=== PATIENT | female | born 1950 | race Caucasian/White ===

== ENCOUNTER 2022-03-06 07:47 | Inpatient (IN) ==
--- NOTE | 2022-03-06 08:00 | Emergency Department Note ---
HPI General Chief complaint: Weakness Stated complaint: Fall, weakness Time Seen by Provider: 03/06/22 07:58 Source: patient and family Mode of arrival: wheelchair Limitations: no limitations History of Present Illness HPI Narrative: Narrative: Patient is a 71-year-old female with a complex medical history who presents to the emergency department due to weakness, body aches, and twitching that led to a fall. Patient states that she felt weak this morning, and then her left leg gave out causing her to fall to the ground. She states that she hit her head. Patient does take blood thinners. She denies headache, nausea, vomiting, changes in vision/hearing/speech, and new numbness/tingling/weakness. She does endorse right arm pain and leg pain. She states that she has chronic swelling in her lower extremities, and that this is actually improved. She states that her left leg is always larger than her right leg, and that there is no increase in swelling in the left leg at this time. She denies any other concerns at this time. Related Data Home Medications Medication Instructions Recorded Confirmed aspirin 81 mg tablet,delayed 81 mg PO QDAY 10/08/21 03/06/22 release (Adult Low Dose Aspirin) Previous Rx's Medication Instructions Recorded pressure cushion for wheelchair #1 ea 09/28/19 allopurinol 300 mg tablet See Rx Instructions .Route 01/27/21 .COMPLEX #90 tabs trospium 20 mg tablet See Rx Instructions .Route 03/13/21 .COMPLEX #180 tabs dicyclomine 10 mg capsule See Rx Instructions .Route 07/10/21 .COMPLEX #90 caps gabapentin 300 mg capsule See Rx Instructions .Route 07/10/21 .COMPLEX #90 caps potassium chloride 10 mEq See Rx Instructions .Route 08/26/21 tablet,extended release .COMPLEX #90 tabs losartan 50 mg tablet 50 mg PO BID #180 tabs 09/07/21 spironolactone 25 mg tablet See Rx Instructions .Route 09/07/21 .COMPLEX #90 tabs carvedilol 6.25 mg tablet See Rx Instructions .Route 12/07/21 .COMPLEX #180 tabs levothyroxine 125 mcg tablet 125 mcg PO QDAY thyroid #90 tabs 12/07/21 (Levoxyl) Breast Prosthesis left side #1 ea 12/11/21 Mastectomy Bras #6 ea 12/11/21 apixaban 5 mg tablet (Eliquis) See Rx Instructions .Route 12/29/21 .COMPLEX #60 tabs torsemide 10 mg tablet See Rx Instructions .Route 01/04/22 .COMPLEX #90 tabs metformin 500 mg tablet See Rx Instructions .Route 02/18/22 .COMPLEX #180 tabs pravastatin 40 mg tablet See Rx Instructions .Route 02/24/22 .COMPLEX #90 tabs hydrocodone 10 mg-acetaminophen 1 tab PO Q8H chronic lumbar 03/02/22 325 mg tablet radiculopathy #90 tabs chlorthalidone 50 mg tablet 50 mg PO QDAY #90 tabs 03/03/22 Allergies Allergy/AdvReac Type Severity Reaction Status Date / Time adhesive tape Allergy Unknown Rash Verified 03/06/22 07:48 ciprofloxacin [From Cipro] Allergy Unknown Dermatological Verified 03/06/22 07:48 problems, rash, hives DIMAS Inhibitors AdvReac Intermediate Cough Verified 03/06/22 07:48 Review of Systems ROS ROS Narrative: Narrative: Constitutional: Reports weakness; Denies fever Eyes: Denies eye pain or vision change ENT ED: Denies throat pain, hearing loss or rhinorrhea Cardiovascular: Reports edema; Denies chest pain, dyspnea on exertion or orthopnea Respiratory: Denies shortness of breath or cough Gastrointestinal: Denies abdominal pain, nausea, vomiting, diarrhea or constipation Musculoskeletal: Reports other (Body aches, brief weakness, right arm and leg pain); Denies back pain Integumentary: Denies rash or lesions Neurological: Denies headache, weakness, numbness, confusion, abnormal gait or dizziness Psychiatric: Denies anxiety, suicidal thoughts or homicidal thoughts Endocrine: Denies fatigue or polyuria Hematological/Lymphatic: Denies easy bleeding or easy bruising PFS Narrative Patient History Narrative: Narrative: Medical/Surgical/Family History All Active Problems Acute bronchitis (Acute) Hoarseness (Acute) Prediabetes (Acute) Lumbar radiculopathy (Acute) Arthralgia (Chronic) Encounter for medication monitoring (Acute) Right hip pain (Acute) Anemia (Acute) Thrombophlebitis leg (Chronic ~03/2000) Numbness (Chronic) Venous insufficiency of both lower extremities (Chronic) Edema (Chronic) Knee pain, left (Chronic) Hypertonicity, bladder (Chronic) Anxiety (Chronic) Stress (Chronic) Osteoarthritis (Chronic) Homocystinemia (Chronic) Abnormal finding on mammography, microcalcification (Chronic) Anemia in chronic kidney disease (Chronic) 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) Toe pain (Chronic) Lesion of face (Chronic) Mood swings (Chronic) Libido, decreased (Chronic) Night sweats (Chronic) Elevated sedimentation rate (Chronic) Abnormal levels of other serum enzymes (Chronic) Visual changes (Chronic) Muscle spasm (Chronic) Hip pain, left (Chronic) Skin lesion (Chronic) Seborrheic keratoses (Chronic) Skin tag (Chronic) Finger pain (Chronic) Other seborrheic keratosis (Chronic) Osteoarthritis of knees, bilateral (Chronic) Osteoarthritis of hands, bilateral (Chronic) Invasive ductal carcinoma of left breast (Chronic) Urinary frequency (Chronic) Urinary incontinence (Chronic) Fatigue (Chronic) Overactive bladder (Chronic) Chronic back pain (Chronic) Encounter for therapeutic drug level monitoring (Chronic) Anxiety with depression (Chronic) Osteoarthritis, multiple sites (Chronic) GERD with esophagitis (Chronic) Numbness and tingling sensation of skin (Chronic) Heart murmur (Chronic) Pain in right wrist (Chronic) Wrist pain, left (Chronic) Peripheral neuropathy (Chronic) Abnormal EKG (Chronic) Personal history of malignant neoplasm of breast (Chronic) Obesity (Chronic) Polyneuropathy (Chronic) Metabolic syndrome X (Chronic) Pain, joint, hip, right (Chronic) History of bilateral knee replacement (Chronic ~2002) Chronic venous insufficiency (Chronic) Chronic Kidney Disease (Chronic) Elevated liver enzymes (Chronic) Insulin resistance syndrome (Chronic) Hypercalcemia (Chronic) Hypertension (Chronic) Toe amputation status (Chronic ~06/2012) History of removal of nevus (Chronic ~10/2006) History of lumpectomy of right breast (Chronic) History of lumpectomy of left breast (Chronic) Vitamin D deficiency (Chronic 06/19/12) Urge incontinence (Chronic) Thrombophlebitis (Chronic) Squamous cell carcinoma (Chronic) Knee osteoarthritis (Chronic) Severe obesity (Chronic) Nocturia (Chronic) Metabolic syndrome (Chronic) Hypothyroidism (Chronic) Pure hypertriglyceridemia (Chronic) Hypertensive renal disease (Chronic) Hyperlipidemia (Chronic) Gout (Chronic) Screening cholesterol level (Chronic) Breast cancer (Chronic) Abnormal LFTs (Chronic) Fluid retention (Chronic) Abnormal serum enzyme level (Chronic) Chronic kidney disease, stage III (moderate) (Chronic) Medical History Abnormal EKG Abnormal finding on mammography, microcalcification Abnormal levels of other serum enzymes Abnormal LFTs Abnormal serum enzyme level Anemia in chronic kidney disease Anxiety Anxiety with depression Arthralgia Breast cancer Status post lumpectomy on oeft breast. 2 out of 26 axillary lymph nodes were positive for carcinoma on the left. Chronic back pain Chronic Kidney Disease Chronic kidney disease, stage II (mild) (06/19/12) Chronic kidney disease, stage III (moderate) Chronic venous insufficiency Edema Elevated liver enzymes 06/10/2015[facility] Elevated sedimentation rate Encounter for therapeutic drug level monitoring Fatigue Finger pain Fluid retention GERD with esophagitis Gout 02/04-great right toe Heart murmur Hip pain, left Homocystinemia Hypercalcemia 06/10/2015-[facility] Hyperlipidemia Hypertension Hypertensive renal disease Hypertonicity, bladder Hypothyroidism Insulin resistance syndrome 06/10/2015-[facility] Invasive ductal carcinoma of left breast Knee osteoarthritis Knee pain, left Lesion of face Libido, decreased Malignant neoplasm of skin of arm Metabolic syndrome Metabolic syndrome X Mood swings Muscle spasm Night sweats Nocturia 1-2 times nightly Numbness Numbness and tingling sensation of skin Obesity Osteoarthritis Osteoarthritis of hands, bilateral Osteoarthritis of knees, bilateral Osteoarthritis, multiple sites Other seborrheic keratosis Overactive bladder Pain in right wrist Pain, joint, hip, right Peripheral neuropathy Personal history of malignant neoplasm of breast Polyneuropathy Pure hypertriglyceridemia Mild and borderline low HDL cholesterol. Screening cholesterol level 10/12/2010-Borderline low HDL cholesterol Seborrheic keratoses Severe obesity with borderline diabetes. Skin lesion Skin tag Squamous cell carcinoma skin, site unspecified Stress Thrombophlebitis Right lower leg-1999 Thrombophlebitis leg (~03/2000) right lower leg 03/2000 Toe pain Urge incontinence Urinary frequency Urinary incontinence Venous insufficiency of both lower extremities Visual changes Vitamin D deficiency (06/19/12) Wrist pain, left Surgical History History of bilateral knee replacement (~2002) History of colonoscopy (05/18/16) adenomatious polyp, diverticulosis History of lumpectomy of left breast 01/2003 History of lumpectomy of right breast 06/2003 History of Mohs surgery for squamous cell carcinoma of skin (~10/05/19) Dr. Lisa: Basal cell carcinoma removed from right eyebrow History of removal of nevus (~10/2006) 10/2006 S/P Mohs surgery for basal cell carcinoma (09/04/19) right alar groove Toe amputation status (~06/2012) Left middle removed/osteomylitis 06/2012 Family History Father Congestive heart failure Diabetes mellitus March 2000, with kidney failure on dialysis Renal failure Glaucoma Mother History of heart valve replacement Migraine Grandmother Cerebrovascular accident (CVA) Not sure if maternal or paternal Social History Smoking Status: Never smoker Alcohol Intake Frequency: does not drink Exam Narrative Narrative: Narrative: General Limitations: no limitations General appearance: Present alert and in no apparent distress; Absent anxious or appears intoxicated Head Head: Present atraumatic and normocephalic Eye Eye: Present PERRL and EOMI; Absent scleral icterus ENT ENT: Present mucous membranes moist; Absent nasal congestion Neck Neck: Present full ROM; Absent tenderness Chest Chest: Present normal inspection and symmetric chest wall rise; Absent tenderness Respiratory Respiratory: Present normal lung sounds bilaterally; Absent respiratory distress or accessory muscle use Cardiovascular Cardiovascular: Present regular rate, normal rhythm, normal heart sounds and other (Bilateral lower extremity edema worse on the left) Adbominal Abdominal: Present soft and normal bowel sounds; Absent distention or tenderness Extremities Extremities: Present normal inspection, full ROM and tenderness (Right shoulder, upper arm, forearm, and knee) Back Back: Present normal inspection and full ROM; Absent tenderness Neurological Neurological: Present alert, oriented X3, CN II-XII intact, normal gait and reflexes normal; Absent motor sensory deficit Psychiatric Psychiatric: Present normal affect and normal mood Skin Skin: Present warm (WNL), dry and normal color Course Vital Signs Vital signs: Vital Signs Temperature 99.1 F H 03/06/22 07:48 Pulse Rate 87 03/06/22 07:48 Respiratory Rate 18 03/06/22 07:48 Blood Pressure 138/107 03/06/22 07:48 Pulse Oximetry (%) 93 03/06/22 07:48 Oxygen Delivery Method 03/06/22 07:48 Temperature 97.6 F 03/07/22 07:28 Pulse Rate 85 03/07/22 07:28 Respiratory Rate 18 03/07/22 07:28 Blood Pressure 138/79 03/07/22 07:28 Pulse Oximetry (%) 93 03/07/22 08:15 Oxygen Delivery Method 03/07/22 08:15 Oxygen Flow Rate (L/min) 2 03/06/22 08:12 MDM MDM Narrative Medical decision making narrative: Narrative: Patient is a 71-year-old female who presents to the emergency department due to her left leg giving out and fall. Differential diagnoses include electrolyte abnormality, infection including UTI, and COVID infection. ACS, dysrhythmia, heart valve problem, aortic problem, and anemia are unlikely given only brief period of left leg weakness. Patient's images are reassuring and do not show obvious acute osseous injury. Patient is found to have an KOFI with a creatinine of 2.1 and previous of 1.1. Given patient's presentation and KOFI I have spoken to Dr. Rodas who was agreed to see and evaluate this patient for admission. Lab Data Result diagrams: 03/07/22 05:25 03/07/22 05:25 Labs: Lab Results 03/06/22 03/06/22 03/06/22 Range/Units 08:15 08:15 08:15 WBC 11.8 H (4.5-11.0) K/mcL RBC 2.84 L (3.59-5.38) M/mcL Hgb 9.1 L (11.2-15.7) g/dL Hct 28.3 L (34.1-44.9) % POC Hct (36-48) MCV 99.6 (80.0-100.0) fL MCH 32.0 (26.0-34.0) pg MCHC 32.2 (31.0-36.0) g/dL RDW 15.3 H (11.5-14.5) % Plt Count 341 (140-440) K/mcL MPV 11.8 H (7.4-10.4) fL Immature Gran % (Auto) 0.3 (0.0-0.5) % Neut % (Auto) 84.6 H (38.0-78.0) % Lymph % (Auto) 6.6 L (15.5-49.0) % Dickinson % (Auto) 3.3 (1.0-12.0) % Eos % (Auto) 5.0 (0.0-7.0) % Baso % (Auto) 0.2 (0.0-2.0) % Lymph # (Auto) 0.78 L (1.50-4.80) K/mcL Dickinson # (Auto) 0.39 (0.10-0.90) K/mcL Eos # (Auto) 0.59 (0.00-0.70) K/mcL Baso # (Auto) 0.02 (0.00-0.30) K/mcL Immature Gran # 0.04 (0.00-0.05) K/mcl Absolute Neutrophils 9.99 H (1.80-8.00) K/mcL POC Sodium (133-145) POC Potassium (3.3-5.1) Potassium POC Chloride (96-108) POC Total CO2 (22-30) POC BUN (6-20) POC Creatinine (0.6-1.2) POC Glucose (70-105) POC WB Ioniz Calcium (1.16-1.32) Magnesium 2.1 (1.6-2.5) mg/dL NT-Pro-B Natriuret Pep 1150.0 H (<125.0) pg/mL 03/06/22 03/06/22 03/06/22 Range/Units 08:16 08:38 09:12 WBC (4.5-11.0) K/mcL RBC (3.59-5.38) M/mcL Hgb (11.2-15.7) g/dL Hct (34.1-44.9) % POC Hct 27.0 L (36-48) MCV (80.0-100.0) fL MCH (26.0-34.0) pg MCHC (31.0-36.0) g/dL RDW (11.5-14.5) % Plt Count (140-440) K/mcL MPV (7.4-10.4) fL Immature Gran % (Auto) (0.0-0.5) % Neut % (Auto) (38.0-78.0) % Lymph % (Auto) (15.5-49.0) % Dickinson % (Auto) (1.0-12.0) % Eos % (Auto) (0.0-7.0) % Baso % (Auto) (0.0-2.0) % Lymph # (Auto) (1.50-4.80) K/mcL Dickinson # (Auto) (0.10-0.90) K/mcL Eos # (Auto) (0.00-0.70) K/mcL Baso # (Auto) (0.00-0.30) K/mcL Immature Gran # (0.00-0.05) K/mcl Absolute Neutrophils (1.80-8.00) K/mcL POC Sodium 135 (133-145) POC Potassium 5.4 H (3.3-5.1) Potassium TNP 4.9 POC Chloride 101 (96-108) POC Total CO2 28.0 (22-30) POC BUN 50 H (6-20) POC Creatinine 2.1 H (0.6-1.2) POC Glucose 128 H (70-105) POC WB Ioniz Calcium 1.22 (1.16-1.32) Magnesium (1.6-2.5) mg/dL NT-Pro-B Natriuret Pep (<125.0) pg/mL ED POC Tests ED POC Tests: DAISY - SARS Antigen Negative Discharge Plan Patient/Caregiver Discharge Instructions Pt seen by WIRE MACHINE CUTTER/PA only: No Patient Disposition: Xfer As Inpt ([facility]) Discharge Date/Time: 03/06/22 14:09
[2022-03-06 08:19] LABS: POC Calcium, Ionized 1.22 (1.16-1.32); POC Creatinine 2.1 (0.6-1.2); POC Potassium 5.4 (3.3-5.1)
[2022-03-06] MEDS ORDERED: 0.9 % SODIUM CHLORIDE 500 ML IV ONE (08:34)
[2022-03-06 08:41] LABS: Basophils # (Auto) 0.02 K/mcL (0.00-0.30); Basophils % (Auto) 0.2 % (0.0-2.0); Eosinophils # (Auto) 0.59 K/mcL (0.00-0.70); Hematocrit 28.3 % (34.1-44.9); Hemoglobin 9.1 g/dL (11.2-15.7); Lymphocytes # (Auto) 0.78 K/mcL (1.50-4.80); Lymphocytes % (Auto) 6.6 % (15.5-49.0); Mean Cell Volume 99.6 fL (80.0-100.0); Mean Corpuscular HGB Conc 32.2 g/dL (31.0-36.0); Mean Platelet Volume 11.8 fL (7.4-10.4); Monocytes # (Auto) 0.39 K/mcL (0.10-0.90); Monocytes % (Auto) 3.3 % (1.0-12.0); Neutrophils % (Auto) 84.6 % (38.0-78.0); Platelet Count 341 K/mcL (140-440); RBC 2.84 M/mcL (3.59-5.38); Red Cell Distribution Width 15.3 % (11.5-14.5); WBC 11.8 K/mcL (4.5-11.0)
[2022-03-06] MEDS ORDERED: cefTRIAXone 1 GM VIAL IV ONE (12:12)
--- NOTE | 2022-03-06 13:14 | Cat Scan Report ---
CLINICAL INFORMATION: Trauma-fall COMPARISON: None. TECHNIQUE: 2.5 mm helical slices were obtained in the skull base to vertex. Following reconstruction, axial reformatted images were reviewed at bone and parenchymal windows. The exam was performed using radiation dose optimization techniques including, but not limited to, automated exposure control, adjustment of the mA and/or kV according to patient size and use of iterative reconstruction technique. FINDINGS: The ventricles, sulci, fissures, and cisterns are symmetrically enlarged compatible with mild age-related atrophy. No extra-axial fluid collections are identified. Mild patchy chronic ischemic changes, in the deep cerebral white matter, are expected for age. There is no hemorrhage, mass effect, or edema. Bone windows show no osseous abnormality. IMPRESSION: Mild atrophy and chronic ischemic changes in the deep cerebral white matter-expected for age. No acute findings Interpreted and Authenticated by: Yony Hayes 03/06/22
--- NOTE | 2022-03-06 13:23 | Ultrasound Report ---
CLINICAL INFORMATION: Left leg swelling COMPARISON: None. FINDINGS: The entire deep venous system including the common femoral, superficial femoral, popliteal and paired trifurcation calf veins are easily compressible and show normal venous blood flow on color and spectral Doppler. No evidence of thrombus IMPRESSION: Negative exam - no evidence of deep vein thrombosis. Interpreted and Authenticated by: Yony Hayes 03/06/22
--- NOTE | 2022-03-06 14:16 | Internal Med History&Physical ---
HPI History of Present Illness Patient information: Note initiated : 03/06/22 at 2:08 pm Service Date, if different from initiated Date: [] Patient: Virgie Helms 71 y/o F admitted on for Fall, weakness. Chief Complaint: [Weakness] Chief complaint: Weakness, pedal edema History of present illness: Ms. Helms is a 71 year old morbidly obese female with a complex past medical history significant for chronic diastolic congestive heart failure, diabetes mellitus type 2, VTE on Eliquis, hypothyroidism, and breast cancer status post left mastectomy who presents to the hospital with 1 week history of worsening pedal edema, weakness and a recent fall. The patient states that her legs gave out when she was walking with her walker. She denied any prodromal symptoms of lightheadedness, chest pain, or shortness of breath. The was present at the bedside to corroborate the story. She states that she noticed in the past week, her pedal edema has been worsening as has her left lower extremity wound. She noticed blistering of the skin and now they have developed into evisceration of the skin. This morning, she states that her leg simply gave out and she was unable to get up. EMS were called and they were able to get her in the wheelchair. Her then brought her to the hospital for further management and evaluation. On arrival she was hemodynamically stable and afebrile. Trauma imaging was performed including chest x-ray of the knee, forearm, shoulder, humerus and head CT. All of which were within normal limits. The hospitalist service was asked admit the patient for further management and evaluation Review of Systems All systems: reviewed and no additional remarkable complaints except as stated Constitutional Constitutional: Present as per HPI EENT Eyes: Present as per HPI; Absent blurry vision Cardiovascular Cardiovascular: Present as per HPI; Absent chest pain, dyspnea, dyspnea on exertion, leg edema or palpatations Respiratory Respiratory: Present as per HPI; Absent cough, dyspnea, dyspnea on exertion, wheezing or stridor Gastrointestinal Gastrointestinal: Present as per HPI; Absent abdominal pain, diarrhea, dysphagia, hematemesis, melena, nausea or vomiting Musculoskeletal Musculoskeletal: Present as per HPI; Absent joint swelling, limited range of motion, muscle cramps, muscle weakness or myalgias Integumentary Integumentary: Present as per HPI; Absent erythema, new lesions, rash or wounds Neurological Neurological: Present as per HPI; Absent abnormal gait, behavioral changes, focal weakness, headache(s), loss of vision, numbness, sensory deficit or syncope Endocrine Endocrine: Absent change in body appearance, fatigue or heat intolerance Hematologic/Lymphatic Hematologic/Lymphatic: Present as per HPI PFSH PFSH All Active Problems Acute bronchitis (Acute) Hoarseness (Acute) Prediabetes (Acute) Lumbar radiculopathy (Acute) Arthralgia (Chronic) Encounter for medication monitoring (Acute) Right hip pain (Acute) Anemia (Acute) Thrombophlebitis leg (Chronic ~03/2000) Numbness (Chronic) Venous insufficiency of both lower extremities (Chronic) Edema (Chronic) Knee pain, left (Chronic) Hypertonicity, bladder (Chronic) Anxiety (Chronic) Stress (Chronic) Osteoarthritis (Chronic) Homocystinemia (Chronic) Abnormal finding on mammography, microcalcification (Chronic) Anemia in chronic kidney disease (Chronic) 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) Toe pain (Chronic) Lesion of face (Chronic) Mood swings (Chronic) Libido, decreased (Chronic) Night sweats (Chronic) Elevated sedimentation rate (Chronic) Abnormal levels of other serum enzymes (Chronic) Visual changes (Chronic) Muscle spasm (Chronic) Hip pain, left (Chronic) Skin lesion (Chronic) Seborrheic keratoses (Chronic) Skin tag (Chronic) Finger pain (Chronic) Other seborrheic keratosis (Chronic) Osteoarthritis of knees, bilateral (Chronic) Osteoarthritis of hands, bilateral (Chronic) Invasive ductal carcinoma of left breast (Chronic) Urinary frequency (Chronic) Urinary incontinence (Chronic) Fatigue (Chronic) Overactive bladder (Chronic) Chronic back pain (Chronic) Encounter for therapeutic drug level monitoring (Chronic) Anxiety with depression (Chronic) Osteoarthritis, multiple sites (Chronic) GERD with esophagitis (Chronic) Numbness and tingling sensation of skin (Chronic) Heart murmur (Chronic) Pain in right wrist (Chronic) Wrist pain, left (Chronic) Peripheral neuropathy (Chronic) Abnormal EKG (Chronic) Personal history of malignant neoplasm of breast (Chronic) Obesity (Chronic) Polyneuropathy (Chronic) Metabolic syndrome X (Chronic) Pain, joint, hip, right (Chronic) History of bilateral knee replacement (Chronic ~2002) Chronic venous insufficiency (Chronic) Chronic Kidney Disease (Chronic) Elevated liver enzymes (Chronic) Insulin resistance syndrome (Chronic) Hypercalcemia (Chronic) Hypertension (Chronic) Toe amputation status (Chronic ~06/2012) History of removal of nevus (Chronic ~10/2006) History of lumpectomy of right breast (Chronic) History of lumpectomy of left breast (Chronic) Vitamin D deficiency (Chronic 06/19/12) Urge incontinence (Chronic) Thrombophlebitis (Chronic) Squamous cell carcinoma (Chronic) Knee osteoarthritis (Chronic) Severe obesity (Chronic) Nocturia (Chronic) Metabolic syndrome (Chronic) Hypothyroidism (Chronic) Pure hypertriglyceridemia (Chronic) Hypertensive renal disease (Chronic) Hyperlipidemia (Chronic) Gout (Chronic) Screening cholesterol level (Chronic) Breast cancer (Chronic) Abnormal LFTs (Chronic) Fluid retention (Chronic) Abnormal serum enzyme level (Chronic) Chronic kidney disease, stage III (moderate) (Chronic) Medical History Abnormal EKG Abnormal finding on mammography, microcalcification Abnormal levels of other serum enzymes Abnormal LFTs Abnormal serum enzyme level Anemia in chronic kidney disease Anxiety Anxiety with depression Arthralgia Breast cancer Status post lumpectomy on oeft breast. 2 out of 26 axillary lymph nodes were positive for carcinoma on the left. Chronic back pain Chronic Kidney Disease Chronic kidney disease, stage II (mild) (06/19/12) Chronic kidney disease, stage III (moderate) Chronic venous insufficiency Edema Elevated liver enzymes 06/10/2015-[facility] Elevated sedimentation rate Encounter for therapeutic drug level monitoring Fatigue Finger pain Fluid retention GERD with esophagitis Gout 02/04-great right toe Heart murmur Hip pain, left Homocystinemia Hypercalcemia 06/10/2015-[facility] Hyperlipidemia Hypertension Hypertensive renal disease Hypertonicity, bladder Hypothyroidism Insulin resistance syndrome 06/10/2015-[facility] Invasive ductal carcinoma of left breast Knee osteoarthritis Knee pain, left Lesion of face Libido, decreased Malignant neoplasm of skin of arm Metabolic syndrome Metabolic syndrome X Mood swings Muscle spasm Night sweats Nocturia 1-2 times nightly Numbness Numbness and tingling sensation of skin Obesity Osteoarthritis Osteoarthritis of hands, bilateral Osteoarthritis of knees, bilateral Osteoarthritis, multiple sites Other seborrheic keratosis Overactive bladder Pain in right wrist Pain, joint, hip, right Peripheral neuropathy Personal history of malignant neoplasm of breast Polyneuropathy Pure hypertriglyceridemia Mild and borderline low HDL cholesterol. Screening cholesterol level 10/12/2010-Borderline low HDL cholesterol Seborrheic keratoses Severe obesity with borderline diabetes. Skin lesion Skin tag Squamous cell carcinoma skin, site unspecified Stress Thrombophlebitis Right lower leg-1999 Thrombophlebitis leg (~03/2000) right lower leg 03/2000 Toe pain Urge incontinence Urinary frequency Urinary incontinence Venous insufficiency of both lower extremities Visual changes Vitamin D deficiency (06/19/12) Wrist pain, left Surgical History History of bilateral knee replacement (~2002) History of colonoscopy (05/18/16) adenomatious polyp, diverticulosis History of lumpectomy of left breast 01/2003 History of lumpectomy of right breast 06/2003 History of Mohs surgery for squamous cell carcinoma of skin (~10/05/19) Dr. Lisa: Basal cell carcinoma removed from right eyebrow History of removal of nevus (~10/2006) 10/2006 S/P Mohs surgery for basal cell carcinoma (09/04/19) right alar groove Toe amputation status (~06/2012) Left middle removed/osteomylitis 06/2012 Family History Father Congestive heart failure Diabetes mellitus March 2000, with kidney failure on dialysis Renal failure Glaucoma Mother History of heart valve replacement Migraine Grandmother Cerebrovascular accident (CVA) Not sure if maternal or paternal Social History household members: spouse marital status: smoking status: Never smoker alcohol intake frequency: does not drink MEDS/ALLERGIES Home Medications and Allergies Home Medications Medication Instructions Recorded Confirmed Type pressure cushion for wheelchair #1 ea 09/28/19 03/03/22 Rx fluticasone propionate 50 50 mcg intranasal QDAY 11/05/19 03/03/22 History mcg/actuation nasal spray,suspension hydrocortisone 2.5 % topical cream 1 applic topical BID-QID PRN 11/05/19 03/03/22 History allopurinol 300 mg tablet See Rx Instructions .Route 01/27/21 03/03/22 Rx .COMPLEX #90 tabs trospium 20 mg tablet See Rx Instructions .Route 03/13/21 03/03/22 Rx .COMPLEX #180 tabs dicyclomine 10 mg capsule See Rx Instructions .Route 07/10/21 03/03/22 Rx .COMPLEX #90 caps gabapentin 300 mg capsule See Rx Instructions .Route 07/10/21 03/03/22 Rx .COMPLEX #90 caps potassium chloride 10 mEq See Rx Instructions .Route 08/26/21 03/03/22 Rx tablet,extended release .COMPLEX #90 tabs losartan 50 mg tablet 50 mg PO BID #180 tabs 09/07/21 03/03/22 Rx spironolactone 25 mg tablet See Rx Instructions .Route 09/07/21 03/03/22 Rx .COMPLEX #90 tabs aspirin 81 mg tablet,delayed 81 mg PO QDAY 10/08/21 03/03/22 History release (Adult Low Dose Aspirin) fexofenadine 60 mg tablet (Milly 60 mg PO QDAY 10/08/21 03/03/22 History Allergy) carvedilol 6.25 mg tablet See Rx Instructions .Route 12/07/21 03/03/22 Rx .COMPLEX #180 tabs levothyroxine 125 mcg tablet 125 mcg PO QDAY thyroid #90 tabs 12/07/21 03/03/22 Rx (Levoxyl) Breast Prosthesis left side #1 ea 12/11/21 03/03/22 Rx Mastectomy Bras #6 ea 12/11/21 03/03/22 Rx apixaban 5 mg tablet (Eliquis) See Rx Instructions .Route 12/29/21 03/03/22 Rx .COMPLEX #60 tabs torsemide 10 mg tablet See Rx Instructions .Route 01/04/22 03/03/22 Rx .COMPLEX #90 tabs metformin 500 mg tablet See Rx Instructions .Route 02/18/22 03/03/22 Rx .COMPLEX #180 tabs pravastatin 40 mg tablet See Rx Instructions .Route 02/24/22 03/03/22 Rx .COMPLEX #90 tabs hydrocodone 10 mg-acetaminophen 1 tab PO Q8H chronic lumbar 03/02/22 03/03/22 Rx 325 mg tablet radiculopathy #90 tabs chlorthalidone 50 mg tablet 50 mg PO QDAY #90 tabs 03/03/22 03/03/22 Rx Allergies Allergy/AdvReac Type Severity Reaction Status Date / Time adhesive tape Allergy Unknown Rash Verified 03/06/22 07:48 ciprofloxacin [From Cipro] Allergy Unknown Dermatological Verified 03/06/22 07:48 problems, rash, hives DIMAS Inhibitors AdvReac Intermediate Cough Verified 03/06/22 07:48 EXAM Constitutional Vitals: Temp Pulse Resp BP Pulse Ox O2 Del Method O2 Flow Rate 99.1 F H 89 14 93/74 93 2 03/06/22 07:48 03/06/22 13:32 03/06/22 13:32 03/06/22 13:32 03/06/22 13:32 03/06/22 08:12 03/06/22 08:12 General appearance: average body habitus Head Head exam: Present atraumatic, normal inspection and normocephalic Eye Eye exam: Present EOMI, normal appearance and PERRL; Absent conjunctival injection ENT ENT exam: Present normal exam; Absent mucous membranes dry Neck Neck exam: Present full ROM; Absent lymphadenopathy Respiratory Respiratory exam: Present normal respiratory exam and CTAB; Absent decreased breath sounds, respiratory distress or wheezes Cardiovascular Cardiovascular exam: Present normal rate and rhythm and RRR; Absent JVD GI/Abdominal GI/Abdominal exam: Present normal bowel sounds and soft; Absent diminished bowel sounds, distended, guarding, mass, rebound or tenderness Neurological Exam Neurological exam: Present alert, CN II-XII intact and oriented X3 Psychiatric Psychiatric exam: Present normal affect and normal mood Skin Skin exam: Present intact and warm; Absent erythema, pallor, petechiae or rash DATA Data Completed and Pending Labs: Labs from last 24 hours 03/06/22 03/06/22 03/06/22 09:12 08:38 08:16 WBC RBC Hgb Hct POC Hct 27.0 L MCV MCH MCHC RDW Plt Count MPV Immature Gran % (Auto) Neut % (Auto) Lymph % (Auto) [place] % (Auto) Eos % (Auto) Baso % (Auto) Lymph # (Auto) [place] # (Auto) Eos # (Auto) Baso # (Auto) Immature Gran # Absolute Neutrophils POC Sodium 135 POC Potassium 5.4 H Potassium 4.9 TNP POC Chloride 101 POC Total CO2 28.0 POC BUN 50 H POC Creatinine 2.1 H POC Glucose 128 H POC WB Ioniz Calcium 1.22 Magnesium NT-Pro-B Natriuret Pep 0803/06/22 03/06/22 08:15 08:15 08:15 WBC 11.8 H RBC 2.84 L Hgb 9.1 L Hct 28.3 L POC Hct MCV 99.6 MCH 32.0 MCHC 32.2 RDW 15.3 H Plt Count 341 MPV 11.8 H Immature Gran % (Auto) 0.3 Neut % (Auto) 84.6 H Lymph % (Auto) 6.6 L [place] % (Auto) 3.3 Eos % (Auto) 5.0 Baso % (Auto) 0.2 Lymph # (Auto) 0.78 L [place] # (Auto) 0.39 Eos # (Auto) 0.59 Baso # (Auto) 0.02 Immature Gran # 0.04 Absolute Neutrophils 9.99 H POC Sodium POC Potassium Potassium POC Chloride POC Total CO2 POC BUN POC Creatinine POC Glucose POC WB Ioniz Calcium Magnesium 2.1 NT-Pro-B Natriuret Pep 1150.0 H A/P Narrative A/P Narrative: #HFpEF -The patient has clear evidence of worsening CHF -DDx: medication/dietary non-compliance, valvular heart disease, vs ischemia -Investigations: TTE -Tx: she is on chlorthalidone, torsemide and aldactone at home. Recently lowered as outaptient team was concerned about her renal function. Will start Lasix 80mg IV/bid -Monitor daily BMP, weights and I/Os #LLE wound -2/2 pedal edema -Will consult wound care #Generalized weakness/fall -2/2 morbid obesity, neuropathy, and increasing pedal edema. Patient also has chronic anemia #DM2 -Patient does not check her BS at home, states that she is pre-diabetic, although she is on metformin -ISS #CAD -ASA/statin -Continue home coreg, losartan. Hold home aldactone as the patient has HFpEF #VTE -Will resume home eliquis (hx of PE) #FEN -IV saline lock, monitor and replete lytes, 2g Na restricted diet #DVT ppx -DOAC #Full code Time Spent With Patient Time: Total time spent is greater than 50% in coordination of care (as documented) at patient's floor/unit and/or counseling patient: Total time spent with greater than 50% in coordination of care (as documented) at patient's floor/unit and/or counseling patient:: Greater than 70 minutes
[2022-03-06] MEDS ORDERED: DEXTROSE 31 GM ORAL.SUSP PO PRN (14:20)
[2022-03-06] MEDS ORDERED: DEXTROSE 50% 50 ML VIAL IV PRN (14:20)
[2022-03-06] MEDS ORDERED: ACETAMINOPHEN 325 MG TABLET PO PRN (14:20)
[2022-03-06] MEDS ORDERED: ONDANSETRON 4 MG/2 ML VIAL IV PRN (14:20)
--- NOTE | 2022-03-06 14:22 | XRay Report ---
CLINICAL INFORMATION: Trauma COMPARISON: None. FINDINGS: The acromioclavicular and glenohumeral joints show moderate degeneration.. There is no fracture or other osseous abnormality. Soft tissues are unremarkable. IMPRESSION: Moderate degeneration. No fracture Interpreted and Authenticated by: Yony Hayes 03/06/22
--- NOTE | 2022-03-06 14:24 | XRay Report ---
CLINICAL INFORMATION: Trauma fall COMPARISON: None. FINDINGS: Total knee prostheses is anatomically aligned. No loosening or infection. No fracture or other osseous abnormality. Soft tissues normal. IMPRESSION: No fracture or posttraumatic change. Interpreted and Authenticated by: Yony Hayes 03/06/22
--- NOTE | 2022-03-06 14:25 | XRay Report ---
CLINICAL INFORMATION: Trauma-fall COMPARISON: None FINDINGS: No fracture identified. Moderate acromioclavicular and glenohumeral degeneration appreciated. Elbow joint is normal.. 1 cm calcification in the medial soft tissues overlying the proximal humerus likely chronic IMPRESSION: No fracture. Interpreted and Authenticated by: Yony Hayes 03/06/22
--- NOTE | 2022-03-06 14:28 | XRay Report ---
CLINICAL INFORMATION: Trauma-fall COMPARISON: None FINDINGS: No fracture or other osseous abnormality. Joint spaces are normal in width and alignment. Soft tissues are unremarkable. IMPRESSION: Normal exam. Interpreted and Authenticated by: Yony Hayes 03/06/22
--- NOTE | 2022-03-06 14:33 | XRay Report ---
CLINICAL INFORMATION: Dyspnea COMPARISON: 05/28/2019 TECHNIQUE: Portable FINDINGS: The heart is mildly large-increase. Mediastinum and pulmonary vasculature are normal. Moderate vague infiltrate has developed in the right mid and lower lung. Small right pleural effusion noted. IMPRESSION: Moderate vague right mid lower lung infiltrate-new from prior exam Interpreted and Authenticated by: Yony Hayes 03/06/22
[2022-03-06] MEDS: INSULIN LISPRO 1 UNIT/0.01 ML UNIT SQ SCH ×2 (15:46→21:55)
[2022-03-06] MEDS: 0.9 % SODIUM CHLORIDE 10 ML SYRINGE IV SCH ×2 (15:48→20:31)
[2022-03-06] MEDS: FUROSEMIDE 100 MG/10 ML VIAL IV SCH (15:48)
[2022-03-06] MEDS: CARVEDILOL 6.25 MG TABLET PO SCH (18:51)
[2022-03-06] MEDS: SENNOSIDES 1 TABLET PO SCH (20:30)
[2022-03-06] MEDS: ATORVASTATIN 10 MG TABLET PO SCH (20:30)
[2022-03-06] MEDS: APIXABAN 5 MG TABLET PO SCH (20:31)
[2022-03-06] MEDS: DOCUSATE SODIUM 100 MG CAPSULE PO SCH (20:31)
[2022-03-06] MEDS: HYDROcodone/APAP 10/325MG TABLET PO PRN (21:58)
[2022-03-06] MEDS: GABAPENTIN 300 MG CAPSULE PO SCH (21:58)
[2022-03-07] MEDS: 0.9 % SODIUM CHLORIDE 10 ML SYRINGE IV SCH ×3 (06:09→20:44)
[2022-03-07 06:31] LABS: Basophils # (Auto) 0.01 K/mcL (0.00-0.30); Basophils % (Auto) 0.1 % (0.0-2.0); Eosinophils # (Auto) 0.51 K/mcL (0.00-0.70); Eosinophils % (Auto) 7.1 % (0.0-7.0); Hematocrit 26.7 % (34.1-44.9); Hemoglobin 8.5 g/dL (11.2-15.7); Lymphocytes # (Auto) 0.97 K/mcL (1.50-4.80); Lymphocytes % (Auto) 13.5 % (15.5-49.0); Mean Cell Volume 101.1 fL (80.0-100.0); Mean Corpuscular HGB Conc 31.8 g/dL (31.0-36.0); Monocytes # (Auto) 0.35 K/mcL (0.10-0.90); Monocytes % (Auto) 4.9 % (1.0-12.0); Platelet Count 367 K/mcL (140-440); RBC 2.64 M/mcL (3.59-5.38); Red Cell Distribution Width 15.2 % (11.5-14.5); WBC 7.2 K/mcL (4.5-11.0)
[2022-03-07 06:56] LABS: Blood Urea Nitrogen 45 mg/dL (8-23); Carbon Dioxide 27 mmol/L (22-30); Chloride 99 mmol/L (96-108); Glomerular Filtration Rate 32; Glucose 106 mg/dL (70-105)
[2022-03-07] MEDS: HYDROcodone/APAP 10/325MG TABLET PO PRN ×3 (07:20→20:44)
[2022-03-07] MEDS: CARVEDILOL 6.25 MG TABLET PO SCH ×2 (07:20→16:35)
[2022-03-07] MEDS: LEVOTHYROXINE 125 MCG TABLET PO SCH (07:20)
[2022-03-07] MEDS: FUROSEMIDE 100 MG/10 ML VIAL IV SCH ×2 (07:21→15:58)
[2022-03-07] MEDS: INSULIN LISPRO 1 UNIT/0.01 ML UNIT SQ SCH ×4 (07:27→20:43)
[2022-03-07] MEDS: APIXABAN 5 MG TABLET PO SCH ×2 (09:12→20:43)
[2022-03-07] MEDS: DOCUSATE SODIUM 100 MG CAPSULE PO SCH ×2 (09:12→20:48)
--- NOTE | 2022-03-07 10:57 | Internal Med Progress Note ---
SUBJECTIVE Subjective Patient information: Note initiated : 03/07/22 at 10:55 am Service Date, if different from initiated Date: [] Patient: Virgie Helms 71 y/o F admitted on 03/06/22 for Fall, weakness. Chief Complaint: [Worsening pedal edema and left lower extremity wound] Principal diagnosis: Generalized weakness Interval history: The patient was resting comfortably in bed. She has noticed that the swelling in her legs are slowly coming down. She is in good spirits and is grateful for the care that she is receiving. Constitutional Vitals: Vital Signs Temp Pulse Resp BP Pulse Ox O2 Del Method O2 Flow Rate 97.6 F 85 18 138/79 93 2 03/07/22 07:28 03/07/22 07:28 03/07/22 08:15 03/07/22 07:28 03/07/22 08:15 03/07/22 08:15 03/06/22 08:12 Period Temp Pulse Resp BP Sys/[place] Pulse Ox O2 Del Method O2 Flow Rate Last 24 Hr 97.0 F-99.1 F 71-89 12-26 63-152/35-79 87-98 Room Air-Room Air, CPAP Intake and Output 03/06/22 03/07/22 03/07/22 21:59 05:59 13:59 Intake Total 180 540 240 Output Total 2275 175 776 Balance -2095 365 -536 Weight 139.962 kg 144.152 kg Intake & Output: Intake & Output 03/06/22 03/07/22 03/07/22 21:59 05:59 13:59 Intake Total 180 540 240 Output Total 2275 175 776 Balance -5 365 -536 Weight 139.962 kg 144.152 kg Intake: Oral 180 540 240 Output: Urine Catheter Amount 200 Void Amount 5 175 775 # of times incontinent of urine 1 Other: Meal Dinner 1 pk saltines & hot cj Breakfast Percent of Meal Consumed 50% 75% Feeding Ability Independent Urine Appearance Clear Clear Clear Urine Color Pale Pale Pale Urine Odor Normal Normal Head Head exam: Present atraumatic and normal inspection Eye Eye exam: Present normal appearance ENT ENT exam: Present mucous membranes moist, normal exam and normal external ear exam Neck Neck exam: Present normal inspection Respiratory Respiratory exam: Present normal respiratory exam Cardiovascular Cardiovascular exam: Present normal rate and rhythm GI/Abdominal GI/Abdominal exam: Present normal bowel sounds Back Exam Back exam: Present normal inspection Neurological Exam Neurological exam: Present alert and oriented X3 Skin Skin exam: Present intact and warm OBJ DATA Labs CBC & Chem 7: 03/07/22 05:25 03/07/22 05:25 Labs: Abnormal Lab Results 03/07/22 03/07/22 03/06/22 05:25 05:25 08:16 WBC RBC 2.64 L Hgb 8.5 L Hct 26.7 L POC Hct 27.0 L MCV 101.1 H RDW 15.2 H MPV 11.0 H Neut % (Auto) Lymph % (Auto) 13.5 L Eos % (Auto) 7.1 H Lymph # (Auto) 0.97 L Absolute Neutrophils POC Potassium 5.4 H POC BUN 50 H BUN 45 H Creatinine 1.6 H POC Creatinine 2.1 H Glucose 106 H POC Glucose 128 H NT-Pro-B Natriuret Pep 03/06/22 03/06/22 08:15 08:15 WBC 11.8 H RBC 2.84 L Hgb 9.1 L Hct 28.3 L POC Hct MCV RDW 15.3 H MPV 11.8 H Neut % (Auto) 84.6 H Lymph % (Auto) 6.6 L Eos % (Auto) Lymph # (Auto) 0.78 L Absolute Neutrophils 9.99 H POC Potassium POC BUN BUN Creatinine POC Creatinine Glucose POC Glucose NT-Pro-B Natriuret Pep 1150.0 H Meds: Medications Acetaminophen (Acetaminophen 325 Mg Tablet) 650 mg PO Q6HP PRN; Protocol PRN Reason: Per Pain Protocol/Fever > 101 Last Admin: 03/06/22 20:29 Dose: 650 mg Hydrocodone Bitart/Acetaminophen (Hydrocodone/Apap 10/325mg Tablet) 1 tab PO TIDP PRN; Protocol PRN Reason: Per Pain Protocol Last Admin: 03/07/22 07:20 Dose: 1 tab Apixaban (Apixaban 5 Mg Tablet) 5 mg PO BID [facility] Last Admin: 03/07/22 09:12 Dose: 5 mg Atorvastatin Calcium (Atorvastatin 10 Mg Tablet) 10 mg PO HS [facility] Last Admin: 03/06/22 20:30 Dose: 10 mg Carvedilol (Carvedilol 6.25 Mg Tablet) 6.25 mg PO BIDCC [facility] Last Admin: 03/07/22 07:20 Dose: 6.25 mg Dextrose (Dextrose 50% 50 Ml Vial) 0 ml IV UD PRN PRN Reason: Per Sliding Scale Diagnostic Test (Pha) (Accu-Chek 1 Each Strip) 1 each FS [facility] Last Admin: 03/07/22 07:27 Dose: 1 each Docusate Sodium (Docusate Sodium 100 Mg Capsule) 100 mg PO BID [facility] Last Admin: 03/07/22 09:12 Dose: 100 mg Furosemide (Furosemide 100 Mg/10 Ml Vial) 80 mg IV BIDD [facility] Last Admin: 03/07/22 07:21 Dose: 80 mg Gabapentin (Gabapentin 300 Mg Capsule) 300 mg PO HS [facility] Last Admin: 03/06/22 21:58 Dose: 300 mg Glucose (Dextrose 31 Gm Oral.Susp) 15 gm PO PRN PRN PRN Reason: Hypoglycemia Insulin Human Lispro (Insulin Lispro 1 Unit/0.01 Ml Unit) 0 unit SQ [facility]; Protocol Last Admin: 03/07/22 07:27 Dose: Not Given Levothyroxine Sodium (Levothyroxine 125 Mcg Tablet) 125 mcg PO ACB [facility] Last Admin: 03/07/22 07:20 Dose: 125 mcg Ondansetron HCl (Ondansetron 4 Mg/2 Ml Vial) 4 mg IV Q6HP PRN PRN Reason: Nausea And Vomiting Senna (Sennosides 1 Tablet) 2 tab PO [facility] Last Admin: 03/06/22 20:30 Dose: 2 tab Sodium Chloride (0.9 % Sodium Chloride 10 Ml Syringe) 10 ml IV Q8 [facility] Last Admin: 03/07/22 06:09 Dose: 10 ml A/P Narrative A/P Narrative: #HFpEF -The patient has clear evidence of worsening CHF -DDx: medication/dietary non-compliance, valvular heart disease, vs ischemia -Investigations: TTE-> pending -Tx: she is on chlorthalidone, torsemide and aldactone at home. Recently lowered as outaptient team was concerned about her renal function. Continue Lasix 80mg IV/bid -Monitor daily BMP, weights and I/Os #LLE wound -2/2 pedal edema -Will consult wound care #Generalized weakness/fall -2/2 morbid obesity, neuropathy, and increasing pedal edema. Patient also has chronic anemia #DM2 -Patient does not check her BS at home, states that she is pre-diabetic, although she is on metformin -ISS #CAD -ASA/statin -Continue home coreg, losartan. Hold home aldactone as the patient has HFpEF #VTE -Will resume home eliquis (hx of PE) #FEN -IV saline lock, monitor and replete lytes, 2g Na restricted diet #DVT ppx -DOAC #Full code Time Spent With Patient Time: Total time spent is greater than 50% in coordination of care (as documented) at patient's floor/unit and/or counseling patient: Total time spent with greater than 50% in coordination of care (as documented) at patient's floor/unit and/or counseling patient:: 25 - 35 minutes QUALITY VTE Deep Vein Thrombosis/Pulmonary Embolism Present on Admission: No
[2022-03-07] MEDS: DICYCLOMINE 20 MG TABLET PO PRN (15:49)
[2022-03-07] MEDS: GABAPENTIN 300 MG CAPSULE PO SCH (20:42)
[2022-03-07] MEDS: ATORVASTATIN 10 MG TABLET PO SCH (20:42)
[2022-03-07] MEDS: SENNOSIDES 1 TABLET PO SCH (20:48)
[2022-03-08] MEDS: 0.9 % SODIUM CHLORIDE 10 ML SYRINGE IV SCH ×3 (04:10→20:09)
[2022-03-08] MEDS: HYDROcodone/APAP 10/325MG TABLET PO PRN ×3 (04:11→20:08)
[2022-03-08] MEDS: LEVOTHYROXINE 125 MCG TABLET PO SCH (07:38)
--- NOTE | 2022-03-08 08:13 | EKG ---
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 Measurements Intervals [place] Rate: 77 P: 47 WA: 199 QRS: -27 QRSD: 97 T: 1 QT: 376 QTc: 426 Interpretive Statements Sinus arrhythmia Left ventricular hypertrophy Anterior Q waves, possibly due to LVH Electronically Signed On 03-08-2022 8:13:03 PDT by Yony Potts M.D. /[id number]/[id number]
[2022-03-08] MEDS: FUROSEMIDE 100 MG/10 ML VIAL IV SCH ×2 (08:38→16:02)
[2022-03-08] MEDS: DOCUSATE SODIUM 100 MG CAPSULE PO SCH ×2 (08:39→20:08)
[2022-03-08] MEDS: CARVEDILOL 6.25 MG TABLET PO SCH ×2 (08:39→18:09)
[2022-03-08] MEDS: APIXABAN 5 MG TABLET PO SCH ×2 (08:39→20:07)
[2022-03-08] MEDS: INSULIN LISPRO 1 UNIT/0.01 ML UNIT SQ SCH ×4 (08:42→20:09)
[2022-03-08 10:01] LABS: Blood Urea Nitrogen 49 mg/dL (8-23); Calcium 10.1 mg/dL (8.6-10.4); Carbon Dioxide 24 mmol/L (22-30); Chloride 94 mmol/L (96-108); Glomerular Filtration Rate 34; Glucose 179 mg/dL (70-105)
--- NOTE | 2022-03-08 11:57 | Internal Med Progress Note ---
SUBJECTIVE Subjective Patient information: Note initiated : 03/08/22 at 11:56 am Service Date, if different from initiated Date: [] Patient: Virgie Helms 71 y/o F admitted on 03/06/22 for Fall, weakness. Chief Complaint: [] Principal diagnosis: Generalized weakness Interval history: The patient was in good spirits this morning. She had no active complaints or concerns. She states that her lower extremity wounds are looking much improved. She states that she is still unsteady on her feet although her mobility has improved. Constitutional Vitals: Vital Signs Temp Pulse Resp BP Pulse Ox O2 Del Method O2 Flow Rate 97.9 F 85 20 128/57 97 2 03/08/22 08:00 03/08/22 08:00 03/08/22 08:00 03/08/22 08:00 03/08/22 08:00 03/08/22 08:00 03/06/22 08:12 Period Temp Pulse Resp BP Sys/[place] Pulse Ox O2 Del Method O2 Flow Rate Last 24 Hr 97.7 F-99.3 F 76-94 16-20 121-154/57-77 91-99 Room Air-Room Air, CPAP Intake and Output 03/07/22 03/08/22 03/08/22 21:59 05:59 13:59 Intake Total 240 50 120 Output Total 868 456 3287 Balance -710 -425 -985 Weight 144.469 kg Intake & Output: Intake & Output 03/07/22 03/08/22 03/08/22 21:59 05:59 13:59 Intake Total 240 50 120 Output Total 685 872 0675 Balance -710 -425 -985 Weight 144.469 kg Intake: Oral 240 50 120 Output: Void Amount [phone] Other: Meal Dinner Breakfast Percent of Meal Consumed 100% 50% Feeding Ability Independent Independent Urine Appearance Clear Clear Clear Urine Color Yellow Yellow Straw Urine Odor Normal Normal Stool Size Small Stool Color Brown Stool Consistency Soft Head Head exam: Present atraumatic and normal inspection Eye Eye exam: Present normal appearance ENT ENT exam: Present mucous membranes moist, normal exam and normal external ear exam Neck Neck exam: Present normal inspection Respiratory Respiratory exam: Present normal respiratory exam Cardiovascular Cardiovascular exam: Present normal rate and rhythm GI/Abdominal GI/Abdominal exam: Present normal bowel sounds Back Exam Back exam: Present normal inspection Neurological Exam Neurological exam: Present alert and oriented X3 Skin Skin exam: Present intact and warm OBJ DATA Labs CBC & Chem 7: 03/07/22 05:25 03/08/22 08:45 Labs: Abnormal Lab Results 03/08/22 03/07/22 03/07/22 08:45 05:25 05:25 WBC RBC 2.64 L Hgb 8.5 L Hct 26.7 L POC Hct MCV 101.1 H RDW 15.2 H MPV 11.0 H Neut % (Auto) Lymph % (Auto) 13.5 L Eos % (Auto) 7.1 H Lymph # (Auto) 0.97 L Absolute Neutrophils POC Potassium Chloride 94 L POC BUN BUN 49 H 45 H Creatinine 1.5 H 1.6 H POC Creatinine Glucose 179 H 106 H POC Glucose NT-Pro-B Natriuret Pep 03/06/22 03/06/22 03/06/22 08:16 08:15 08:15 WBC 11.8 H RBC 2.84 L Hgb 9.1 L Hct 28.3 L POC Hct 27.0 L MCV RDW 15.3 H MPV 11.8 H Neut % (Auto) 84.6 H Lymph % (Auto) 6.6 L Eos % (Auto) Lymph # (Auto) 0.78 L Absolute Neutrophils 9.99 H POC Potassium 5.4 H Chloride POC BUN 50 H BUN Creatinine POC Creatinine 2.1 H Glucose POC Glucose 128 H NT-Pro-B Natriuret Pep 1150.0 H Meds: Medications Acetaminophen (Acetaminophen 325 Mg Tablet) 650 mg PO Q6HP PRN; Protocol PRN Reason: Per Pain Protocol/Fever > 101 Last Admin: 03/06/22 20:29 Dose: 650 mg Hydrocodone Bitart/Acetaminophen (Hydrocodone/Apap 10/325mg Tablet) 1 tab PO TIDP PRN; Protocol PRN Reason: Per Pain Protocol Last Admin: 03/08/22 04:11 Dose: 1 tab Apixaban (Apixaban 5 Mg Tablet) 5 mg PO BID [facility] Last Admin: 03/08/22 08:39 Dose: 5 mg Atorvastatin Calcium (Atorvastatin 10 Mg Tablet) 10 mg PO HS [facility] Last Admin: 03/07/22 20:42 Dose: 10 mg Carvedilol (Carvedilol 6.25 Mg Tablet) 6.25 mg PO BIDCC [facility] Last Admin: 03/08/22 08:39 Dose: 6.25 mg Dextrose (Dextrose 50% 50 Ml Vial) 0 ml IV UD PRN PRN Reason: Per Sliding Scale Diagnostic Test (Pha) (Accu-Chek 1 Each Strip) 1 each FS [facility] Last Admin: 03/08/22 11:36 Dose: 1 each Dicyclomine HCl (Dicyclomine 20 Mg Tablet) 10 mg PO DAILYP PRN PRN Reason: UPSET STOMACH Last Admin: 03/07/22 15:49 Dose: 10 mg Docusate Sodium (Docusate Sodium 100 Mg Capsule) 100 mg PO BID [facility] Last Admin: 03/08/22 08:39 Dose: 100 mg Furosemide (Furosemide 100 Mg/10 Ml Vial) 80 mg IV BIDD [facility] Last Admin: 03/08/22 08:38 Dose: 80 mg Gabapentin (Gabapentin 300 Mg Capsule) 300 mg PO HS [facility] Last Admin: 03/07/22 20:42 Dose: 300 mg Glucose (Dextrose 31 Gm Oral.Susp) 15 gm PO PRN PRN PRN Reason: Hypoglycemia Insulin Human Lispro (Insulin Lispro 1 Unit/0.01 Ml Unit) 0 unit SQ [facility]; Protocol Last Admin: 03/08/22 11:38 Dose: Not Given Levothyroxine Sodium (Levothyroxine 125 Mcg Tablet) 125 mcg PO ACB [facility] Last Admin: 03/08/22 07:38 Dose: 125 mcg Ondansetron HCl (Ondansetron 4 Mg/2 Ml Vial) 4 mg IV Q6HP PRN PRN Reason: Nausea And Vomiting Senna (Sennosides 1 Tablet) 2 tab PO [facility] Last Admin: 03/07/22 20:48 Dose: 2 tab Sodium Chloride (0.9 % Sodium Chloride 10 Ml Syringe) 10 ml IV Q8 [facility] Last Admin: 03/08/22 04:10 Dose: 10 ml A/P Narrative A/P Narrative: #HFpEF -The patient has clear evidence of worsening CHF -DDx: medication/dietary non-compliance, valvular heart disease, vs ischemia -Investigations: TTE-> LV systolic function is normal and EF is 65 to 70%. No valvular heart disease noted. -Tx: she is on chlorthalidone, torsemide and aldactone at home. Recently lowered as outaptient team was concerned about her renal function. Continue Lasix 80mg IV/bid -Monitor daily BMP, weights and I/Os #Cardiorenal syndrome -The patient's kidney function continued to improve with aggressive diuresis confirming the diagnosis #LLE wound -2/2 pedal edema -Will consult wound care #Generalized weakness/fall -2/2 morbid obesity, neuropathy, and increasing pedal edema. Patient also has chronic anemia #DM2 -Patient does not check her BS at home, states that she is pre-diabetic, although she is on metformin -ISS #CAD -ASA/statin -Continue home coreg, losartan. Hold home aldactone as the patient has HFpEF #VTE -Will resume home eliquis (hx of PE) #FEN -IV saline lock, monitor and replete lytes, 2g Na restricted diet #DVT ppx -DOAC #Full code Time Spent With Patient Time: Total time spent is greater than 50% in coordination of care (as documented) at patient's floor/unit and/or counseling patient: Total time spent with greater than 50% in coordination of care (as documented) at patient's floor/unit and/or counseling patient:: 25 - 35 minutes QUALITY VTE Deep Vein Thrombosis/Pulmonary Embolism Present on Admission: No
[2022-03-08] MEDS: ATORVASTATIN 10 MG TABLET PO SCH (20:07)
[2022-03-08] MEDS: GABAPENTIN 300 MG CAPSULE PO SCH (20:07)
[2022-03-08] MEDS: SENNOSIDES 1 TABLET PO SCH (20:09)
[2022-03-08] MEDS: DICYCLOMINE 20 MG TABLET PO PRN (21:41)
[2022-03-09] MEDS: HYDROcodone/APAP 10/325MG TABLET PO PRN ×3 (05:22→20:39)
[2022-03-09] MEDS: 0.9 % SODIUM CHLORIDE 10 ML SYRINGE IV SCH ×3 (05:24→20:42)
[2022-03-09] MEDS: INSULIN LISPRO 1 UNIT/0.01 ML UNIT SQ SCH ×4 (07:14→20:59)
[2022-03-09] MEDS: LEVOTHYROXINE 125 MCG TABLET PO SCH (07:14)
[2022-03-09 07:18] LABS: Blood Urea Nitrogen 51 mg/dL (8-23); Calcium 10.1 mg/dL (8.6-10.4); Carbon Dioxide 30 mmol/L (22-30); Chloride 95 mmol/L (96-108); Glomerular Filtration Rate 34; Glucose 120 mg/dL (70-105)
[2022-03-09] MEDS: FUROSEMIDE 100 MG/10 ML VIAL IV SCH ×2 (08:47→16:42)
[2022-03-09] MEDS: APIXABAN 5 MG TABLET PO SCH ×2 (08:47→20:39)
[2022-03-09] MEDS: DOCUSATE SODIUM 100 MG CAPSULE PO SCH ×2 (08:47→20:39)
[2022-03-09] MEDS: CARVEDILOL 6.25 MG TABLET PO SCH ×2 (08:47→16:42)
--- NOTE | 2022-03-09 11:37 | Internal Med Progress Note ---
SUBJECTIVE Subjective Patient information: Note initiated : 03/09/22 at 11:31 am Service Date, if different from initiated Date: [] Patient: Virgie Helms 71 y/o F admitted on 03/06/22 for Fall, weakness. Chief Complaint: [] Principal diagnosis: Generalized weakness Interval history: Patient was resting comfortably in bed. She has no active complaints or concerns. She was doing well. We discussed disposition. Constitutional Vitals: Vital Signs Temp Pulse Resp BP Pulse Ox O2 Del Method O2 Flow Rate 98.7 F 81 20 114/58 94 2 03/09/22 08:00 03/09/22 08:00 03/09/22 08:00 03/09/22 08:00 03/09/22 08:00 03/09/22 08:00 03/06/22 08:12 Period Temp Pulse Resp BP Sys/[place] Pulse Ox O2 Del Method O2 Flow Rate Last 24 Hr 96.8 F-98.7 F 62-81 16-20 108-128/54-65 90-97 Room Air-Room Air, CPAP Intake and Output 03/08/22 03/09/22 03/09/22 21:59 05:59 13:59 Intake Total 660 300 240 Output Total 1750 325 Balance -1090 -25 240 Weight 139.888 kg Intake & Output: Intake & Output 03/08/22 03/09/22 03/09/22 21:59 05:59 13:59 Intake Total 660 300 240 Output Total 1750 325 Balance -1090 -25 240 Weight 139.888 kg Intake: Oral 660 300 240 Output: Void Amount 1450 325 Urine/Stool Mix 300 Other: Meal Dinner Breakfast Percent of Meal Consumed 100% 100% Feeding Ability Assist with Tray Set Up Independent Urine Appearance Clear Clear Urine Color Bright Yellow Bright Yellow Urine Odor Normal Stool Size Small Small Stool Color Brown Brown Stool Consistency Soft Normal for Patient # Voids 1 # Bowel Movements 1 Head Head exam: Present atraumatic and normal inspection Eye Eye exam: Present normal appearance ENT ENT exam: Present mucous membranes moist, normal exam and normal external ear exam Neck Neck exam: Present normal inspection Respiratory Respiratory exam: Present normal respiratory exam Cardiovascular Cardiovascular exam: Present normal rate and rhythm GI/Abdominal GI/Abdominal exam: Present normal bowel sounds Back Exam Back exam: Present normal inspection Neurological Exam Neurological exam: Present alert and oriented X3 Skin Skin exam: Present intact and warm OBJ DATA Labs CBC & Chem 7: 03/07/22 05:25 03/09/22 05:49 Labs: Abnormal Lab Results 03/09/22 03/08/22 03/07/22 05:49 08:45 05:25 RBC Hgb Hct MCV RDW MPV Lymph % (Auto) Eos % (Auto) Lymph # (Auto) Chloride 95 L 94 L BUN 51 H 49 H 45 H Creatinine 1.5 H 1.5 H 1.6 H Glucose 120 H 179 H 106 H NT-Pro-B Natriuret Pep 03/07/22 03/06/22 05:25 08:15 RBC 2.64 L Hgb 8.5 L Hct 26.7 L MCV 101.1 H RDW 15.2 H MPV 11.0 H Lymph % (Auto) 13.5 L Eos % (Auto) 7.1 H Lymph # (Auto) 0.97 L Chloride BUN Creatinine Glucose NT-Pro-B Natriuret Pep 1150.0 H Meds: Medications Acetaminophen (Acetaminophen 325 Mg Tablet) 650 mg PO Q6HP PRN; Protocol PRN Reason: Per Pain Protocol/Fever > 101 Last Admin: 03/06/22 20:29 Dose: 650 mg Hydrocodone Bitart/Acetaminophen (Hydrocodone/Apap 10/325mg Tablet) 1 tab PO TIDP PRN; Protocol PRN Reason: Per Pain Protocol Last Admin: 03/09/22 05:22 Dose: 1 tab Apixaban (Apixaban 5 Mg Tablet) 5 mg PO BID [facility] Last Admin: 03/09/22 08:47 Dose: 5 mg Atorvastatin Calcium (Atorvastatin 10 Mg Tablet) 10 mg PO HS [facility] Last Admin: 03/08/22 20:07 Dose: 10 mg Carvedilol (Carvedilol 6.25 Mg Tablet) 6.25 mg PO BIDCC [facility] Last Admin: 03/09/22 08:47 Dose: 6.25 mg Dextrose (Dextrose 50% 50 Ml Vial) 0 ml IV UD PRN PRN Reason: Per Sliding Scale Diagnostic Test (Pha) (Accu-Chek 1 Each Strip) 1 each FS ACHS [facility] Last Admin: 03/09/22 11:15 Dose: 1 each Dicyclomine HCl (Dicyclomine 20 Mg Tablet) 10 mg PO DAILYP PRN PRN Reason: UPSET STOMACH Last Admin: 03/08/22 21:41 Dose: 10 mg Docusate Sodium (Docusate Sodium 100 Mg Capsule) 100 mg PO BID [facility] Last Admin: 03/09/22 08:47 Dose: 100 mg Furosemide (Furosemide 100 Mg/10 Ml Vial) 80 mg IV BIDD [facility] Last Admin: 03/09/22 08:47 Dose: 80 mg Gabapentin (Gabapentin 300 Mg Capsule) 300 mg PO HS [facility] Last Admin: 03/08/22 20:07 Dose: 300 mg Glucose (Dextrose 31 Gm Oral.Susp) 15 gm PO PRN PRN PRN Reason: Hypoglycemia Insulin Human Lispro (Insulin Lispro 1 Unit/0.01 Ml Unit) 0 unit SQ ACHS [facility]; Protocol Last Admin: 03/09/22 07:14 Dose: Not Given Levothyroxine Sodium (Levothyroxine 125 Mcg Tablet) 125 mcg PO ACB [facility] Last Admin: 03/09/22 07:14 Dose: 125 mcg Ondansetron HCl (Ondansetron 4 Mg/2 Ml Vial) 4 mg IV Q6HP PRN PRN Reason: Nausea And Vomiting Senna (Sennosides 1 Tablet) 2 tab PO [facility] Last Admin: 03/08/22 20:09 Dose: Not Given Sodium Chloride (0.9 % Sodium Chloride 10 Ml Syringe) 10 ml IV Q8 [facility] Last Admin: 03/09/22 05:24 Dose: 10 ml A/P Narrative A/P Narrative: #HFpEF -The patient has clear evidence of worsening CHF -DDx: medication/dietary non-compliance, valvular heart disease, vs ischemia -Investigations: TTE-> LV systolic function is normal and EF is 65 to 70%. No valvular heart disease noted. -Tx: she is on chlorthalidone, torsemide and aldactone at home. Recently lowered as outaptient team was concerned about her renal function. Continue Lasix 80mg IV/bid -Monitor daily BMP, weights and I/Os #Cardiorenal syndrome -The patient's kidney function continued to improve with aggressive diuresis confirming the diagnosis -Cr remains stable at 1.5 #LLE wound -2/2 pedal edema -Continue wound care #Generalized weakness/fall -2/2 morbid obesity, neuropathy, and increasing pedal edema. Patient also has chronic anemia #DM2 -Patient does not check her BS at home, states that she is pre-diabetic, although she is on metformin -ISS #CAD -ASA/statin -Continue home coreg, losartan. Hold home aldactone as the patient has HFpEF #VTE -Will resume home eliquis (hx of PE) #FEN -IV saline lock, monitor and replete lytes, 2g Na restricted diet #DVT ppx -DOAC #Full code Time Spent With Patient Time: Total time spent is greater than 50% in coordination of care (as documented) at patient's floor/unit and/or counseling patient: Total time spent with greater than 50% in coordination of care (as documented) at patient's floor/unit and/or counseling patient:: 25 - 35 minutes QUALITY VTE Deep Vein Thrombosis/Pulmonary Embolism Present on Admission: No
--- NOTE | 2022-03-09 13:19 | Internal Med Progress Note ---
SUBJECTIVE Subjective Patient information: Note initiated : 03/09/22 at 1:12 pm Service Date, if different from initiated Date: [] Patient: Virgie Helms 71 y/o F admitted on 03/06/22 for Fall, weakness. Chief Complaint: [] Principal diagnosis: Generalized weakness Interval history: History of present illness: Ms. Helms is a 71 year old morbidly obese female with a complex past medical history significant for chronic diastolic congestive heart failure, diabetes mellitus type 2, VTE on Eliquis, hypothyroidism, and breast cancer status post left mastectomy who presents to the hospital with 1 week history of worsening pedal edema, weakness and a recent fall. The patient states that her legs gave out when she was walking with her walker. She denied any prodromal symptoms of lightheadedness, chest pain, or shortness of breath. The was present at the bedside to corroborate the story. She states that she noticed in the past week, her pedal edema has been worsening as has her left lower extremity wound. She noticed blistering of the skin and now they have developed into evisceration of the skin. This morning, she states that her leg simply gave out and she was unable to get up. EMS were called and they were able to get her in the wheelchair. Her then brought her to the hospital for further management and evaluation. On arrival she was hemodynamically stable and afebrile. Trauma imaging was performed including chest x-ray of the knee, forearm, shoulder, humerus and head CT. All of which were within normal limits. The hospitalist service was asked admit the patient for further management and evaluation 03/07 The patient was resting comfortably in bed. She has noticed that the swelling in her legs are slowly coming down. She is in good spirits and is grateful for the care that she is receiving. 03/08 The patient was in good spirits this morning. She had no active complaints or concerns. She states that her lower extremity wounds are looking much improved. She states that she is still unsteady on her feet although her mobility has improved. 03/09 Patient was resting comfortably in bed. She has no active complaints or concerns. She was doing well. We discussed disposition. 03/10 Constitutional Vitals: Vital Signs Temp Pulse Resp BP Pulse Ox O2 Del Method O2 Flow Rate 97.4 F 70 20 115/64 95 2 03/09/22 12:00 03/09/22 12:00 03/09/22 12:00 03/09/22 12:00 03/09/22 12:00 03/09/22 12:00 03/06/22 08:12 Period Temp Pulse Resp BP Sys/[place] Pulse Ox O2 Del Method O2 Flow Rate Last 24 Hr 96.8 F-98.7 F 62-81 16-20 108-120/54-65 90-97 Room Air-Room Air, CPAP Intake and Output 03/08/22 03/09/22 03/09/22 21:59 05:59 13:59 Intake Total 660 300 240 Output Total 1750 325 Balance -1090 -25 240 Weight 139.888 kg Intake & Output: Intake & Output 03/08/22 03/09/22 03/09/22 21:59 05:59 13:59 Intake Total 660 300 240 Output Total 1750 325 Balance -1090 -25 240 Weight 139.888 kg Intake: Oral 660 300 240 Output: Void Amount 1450 325 Urine/Stool Mix 300 Other: Meal Dinner Breakfast Percent of Meal Consumed 100% 100% Feeding Ability Assist with Tray Set Up Independent Urine Appearance Clear Clear Urine Color Bright Yellow Bright Yellow Urine Odor Normal Stool Size Small Small Stool Color Brown Brown Stool Consistency Soft Normal for Patient # Voids 1 # Bowel Movements 1 Exam: General: Alert, Awake, No acute Distress, obese Eyes/N/T: EOMI, Head/Neck: neck supple, normocephalic atraumatic CV: RRR, No murmurs, Pulm: Clear b/l, no wheezing/rhonchi/rales Abd: soft, nontender, +BS x4 Ext: no clubbing/cyanosis/edema Neuro: Alert, no focal deficits, moves all extremities, Skin: warm/dry OBJ DATA Labs CBC & Chem 7: 03/07/22 05:25 03/09/22 05:49 Labs: Abnormal Lab Results 03/09/22 03/08/22 03/07/22 05:49 08:45 05:25 RBC Hgb Hct MCV RDW MPV Lymph % (Auto) Eos % (Auto) Lymph # (Auto) Chloride 95 L 94 L BUN 51 H 49 H 45 H Creatinine 1.5 H 1.5 H 1.6 H Glucose 120 H 179 H 106 H 03/07/22 05:25 RBC 2.64 L Hgb 8.5 L Hct 26.7 L MCV 101.1 H RDW 15.2 H MPV 11.0 H Lymph % (Auto) 13.5 L Eos % (Auto) 7.1 H Lymph # (Auto) 0.97 L Chloride BUN Creatinine Glucose Meds: Medications Acetaminophen (Acetaminophen 325 Mg Tablet) 650 mg PO Q6HP PRN; Protocol PRN Reason: Per Pain Protocol/Fever > 101 Last Admin: 03/06/22 20:29 Dose: 650 mg Hydrocodone Bitart/Acetaminophen (Hydrocodone/Apap 10/325mg Tablet) 1 tab PO TIDP PRN; Protocol PRN Reason: Per Pain Protocol Last Admin: 03/09/22 12:02 Dose: 1 tab Apixaban (Apixaban 5 Mg Tablet) 5 mg PO BID [facility] Last Admin: 03/09/22 08:47 Dose: 5 mg Atorvastatin Calcium (Atorvastatin 10 Mg Tablet) 10 mg PO HS [facility] Last Admin: 03/08/22 20:07 Dose: 10 mg Carvedilol (Carvedilol 6.25 Mg Tablet) 6.25 mg PO BIDCC [facility]PL[facility] Last Admin: 03/09/22 08:47 Dose: 6.25 mg Dextrose (Dextrose 50% 50 Ml Vial) 0 ml IV UD PRN PRN Reason: Per Sliding Scale Diagnostic Test (Pha) (Accu-Chek 1 Each Strip) 1 each FS [facility] REPLACED BY [facility] Last Admin: 03/09/22 11:15 Dose: 1 each Dicyclomine HCl (Dicyclomine 20 Mg Tablet) 10 mg PO DAILYP PRN PRN Reason: UPSET STOMACH Last Admin: 03/08/22 21:41 Dose: 10 mg Docusate Sodium (Docusate Sodium 100 Mg Capsule) 100 mg PO BID [facility] Last Admin: 03/09/22 08:47 Dose: 100 mg Furosemide (Furosemide 100 Mg/10 Ml Vial) 80 mg IV BIDD [facility] Last Admin: 03/09/22 08:47 Dose: 80 mg Gabapentin (Gabapentin 300 Mg Capsule) 300 mg PO HS [facility] Last Admin: 03/08/22 20:07 Dose: 300 mg Glucose (Dextrose 31 Gm Oral.Susp) 15 gm PO PRN PRN PRN Reason: Hypoglycemia Insulin Human Lispro (Insulin Lispro 1 Unit/0.01 Ml Unit) 0 unit SQ [facility] REPLACED BY [facility]; Protocol Last Admin: 03/09/22 11:31 Dose: 2 units Levothyroxine Sodium (Levothyroxine 125 Mcg Tablet) 125 mcg PO ACB REPL[facility]ED [facility] Last Admin: 03/09/22 07:14 Dose: 125 mcg Ondansetron HCl (Ondansetron 4 Mg/2 Ml Vial) 4 mg IV Q6HP PRN PRN Reason: Nausea And Vomiting Senna (Sennosides 1 Tablet) 2 tab PO HS [facility]PL[facility] Last Admin: 03/08/22 20:09 Dose: Not Given Sodium Chloride (0.9 % Sodium Chloride 10 Ml Syringe) 10 ml IV Q8 REPLACED [facility] Last Admin: 03/09/22 05:24 Dose: 10 ml A/P Narrative A/P Narrative: A/P Narrative: #HFpEF: -The patient has clear evidence of worsening CHF -DDx: medication/dietary non-compliance, valvular heart disease, vs ischemia -TTE-> LV systolic function is normal, No valvular heart disease noted. #Cardiorenal syndrome: -The patient's kidney function continued to improve with aggressive diuresis confirming the diagnosis #LLE wound: 2/2 pedal edema, #Generalized weakness/fall: -2/2 morbid obesity, neuropathy, and increasing pedal edema. Patient also has chronic anemia #DM2: -Patient does not check her BS at home, states that she is pre-diabetic, although she is on metformin #CAD: ASA/statin, Continue home coreg, losartan. Hold home aldactone as the patient has HFpEF #VTE: Will resume home eliquis (hx of PE) #Hypothyroidism: #CKD III: #Anemia, chronic: P: -on chlorthalidone, torsemide and aldactone at home. Recently lowered as outaptient team was concerned about her renal function. -Continue Lasix 80mg IV/bid -Monitor daily BMP, weights and I/Os -Will consult wound care -SSI -cont asa/statin/BB - -ppx: DOAC Full code Time Spent With Patient Time: Total time spent is greater than 50% in coordination of care (as documented) at patient's floor/unit and/or counseling patient: QUALITY VTE Deep Vein Thrombosis/Pulmonary Embolism Present on Admission: No
[2022-03-09] MEDS: GABAPENTIN 300 MG CAPSULE PO SCH (20:39)
[2022-03-09] MEDS: ATORVASTATIN 10 MG TABLET PO SCH (20:39)
[2022-03-09] MEDS: DICYCLOMINE 20 MG TABLET PO PRN (20:59)
[2022-03-09] MEDS: SENNOSIDES 1 TABLET PO SCH (21:06)
[2022-03-10] MEDS: 0.9 % SODIUM CHLORIDE 10 ML SYRINGE IV SCH (05:53)
[2022-03-10] MEDS: HYDROcodone/APAP 10/325MG TABLET PO PRN ×2 (05:54→11:47)
[2022-03-10 06:34] LABS: Basophils # (Auto) 0.04 K/mcL (0.00-0.30); Basophils % (Auto) 0.4 % (0.0-2.0); Eosinophils # (Auto) 0.43 K/mcL (0.00-0.70); Eosinophils % (Auto) 4.3 % (0.0-7.0); Hematocrit 29.6 % (34.1-44.9); Hemoglobin 9.7 g/dL (11.2-15.7); Lymphocytes # (Auto) 1.87 K/mcL (1.50-4.80); Lymphocytes % (Auto) 18.7 % (15.5-49.0); Mean Corpuscular HGB Conc 32.8 g/dL (31.0-36.0); Mean Platelet Volume 11.2 fL (7.4-10.4); Monocytes # (Auto) 0.68 K/mcL (0.10-0.90); Monocytes % (Auto) 6.8 % (1.0-12.0); Neutrophils % (Auto) 68.9 % (38.0-78.0); Platelet Count 436 K/mcL (140-440); RBC 3.02 M/mcL (3.59-5.38); Red Cell Distribution Width 15.2 % (11.5-14.5)
[2022-03-10 06:47] LABS: ALT/SGPT 75 U/L (<40); AST/SGOT 56 U/L (<32); Albumin 3.4 gm/dL (3.2-5.2); Alkaline Phosphatase 395 U/L (39-117); Bilirubin,Direct < 0.2 mg/dL (0-0.3); Bilirubin,Total 0.3 mg/dL (0.1-1.0); Blood Urea Nitrogen 42 mg/dL (8-23); Calcium 9.8 mg/dL (8.6-10.4); Carbon Dioxide 33 mmol/L (22-30); Chloride 95 mmol/L (96-108); Globulin 3.4 gm/dL (2.2-3.7); Glomerular Filtration Rate 37; Glucose 114 mg/dL (70-105); Lactate Dehydrogenase 285 U/L (135-225); Phosphorous 4.8 mg/dL (2.5-4.5); Triglycerides 138 mg/dL (<150); Uric Acid 11.5 mg/dL (2.5-8.0)
[2022-03-10] MEDS ORDERED: MAGNESIUM SULFATE 2 GM/50 ML BAG IV PRN (07:29)
[2022-03-10] MEDS ORDERED: POTASSIUM CHLORIDE 20 MEQ TABLET PO PRN ×2 (07:29)
[2022-03-10] MEDS ORDERED: POTASSIUM CHLORIDE 40 MEQ in DEXTROSE 5% IN WATER 500 ML IV PRN (07:29)
[2022-03-10] MEDS: LEVOTHYROXINE 125 MCG TABLET PO SCH (07:31)
[2022-03-10] MEDS: INSULIN LISPRO 1 UNIT/0.01 ML UNIT SQ SCH ×2 (07:32→11:57)
--- NOTE | 2022-03-10 07:34 | Internal Med Progress Note ---
SUBJECTIVE Subjective Patient information: Note initiated : 03/10/22 at 7:29 am Service Date, if different from initiated Date: [] Patient: Virgie Helms 71 y/o F admitted on 03/06/22 for Fall, weakness. Chief Complaint: [] Principal diagnosis: Generalized weakness Interval history: History of present illness: Ms. Helms is a 71 year old morbidly obese female with a complex past medical history significant for chronic diastolic congestive heart failure, diabetes mellitus type 2, VTE on Eliquis, hypothyroidism, and breast cancer status post left mastectomy who presents to the hospital with 1 week history of worsening pedal edema, weakness and a recent fall. The patient states that her legs gave out when she was walking with her walker. She denied any prodromal symptoms of lightheadedness, chest pain, or shortness of breath. The was present at the bedside to corroborate the story. She states that she noticed in the past week, her pedal edema has been worsening as has her left lower extremity wound. She noticed blistering of the skin and now they have developed into evisceration of the skin. This morning, she states that her leg simply gave out and she was unable to get up. EMS were called and they were able to get her in the wheelchair. Her then brought her to the hospital for further management and evaluation. On arrival she was hemodynamically stable and afebrile. Trauma imaging was performed including chest x-ray of the knee, forearm, shoulder, humerus and head CT. All of which were within normal limits. The hospitalist service was asked admit the patient for further management and evaluation 03/07 The patient was resting comfortably in bed. She has noticed that the swelling in her legs are slowly coming down. She is in good spirits and is grateful for the care that she is receiving. 03/08 The patient was in good spirits this morning. She had no active complaints or concerns. She states that her lower extremity wounds are looking much improved. She states that she is still unsteady on her feet although her mobility has improved. 03/09 Patient was resting comfortably in bed. She has no active complaints or concerns. She was doing well. We discussed disposition. 03/10 Slept well. No overnight event or new complaints. Good urine output. Hypokalemic this morning. Bicarb started to elevate and uric acid elevated. Will cut back on the diuresis. Review of Systems: denies headache/fever/chills/nausea/vomiting/chest or abdominal pain/cough/dyspnea/diarrhea. Otherwise see above. Constitutional Vitals: Vital Signs Temp Pulse Resp BP Pulse Ox O2 Del Method O2 Flow Rate 96.8 F L 69 20 136/63 90 2 03/10/22 03:52 03/10/22 03:52 03/10/22 03:52 03/10/22 03:52 03/10/22 03:52 03/10/22 03:52 03/06/22 08:12 Period Temp Pulse Resp BP Sys/[place] Pulse Ox O2 Del Method O2 Flow Rate Last 24 Hr 96.8 F-98.9 F 65-81 20-24 114-143/50-71 90-95 Room Air-Room Air Intake and Output 03/09/22 03/10/22 03/10/22 21:59 05:59 13:59 Intake Total 740 100 Output Total 2250 Balance -1510 100 Weight 138.845 kg Intake & Output: Intake & Output 03/09/22 03/10/22 03/10/22 21:59 05:59 13:59 Intake Total 740 100 Output Total 2250 Balance -1510 100 Weight 138.845 kg Intake: Oral 740 100 Output: Void Amount 2250 Other: Meal Lunch Percent of Meal Consumed 75% Feeding Ability Assist with Tray Set Up Urine Appearance Clear Urine Color Yellow Urine Odor Normal Stool Size Moderate Stool Color Brown Stool Consistency Soft Formed # Bowel Movements 1 Exam: General: Alert, Awake, No acute Distress, obese Eyes/N/T: EOMI, Head/Neck: neck supple, normocephalic atraumatic CV: RRR, 2/6 SM Pulm: Clear b/l, no wheezing/rhonchi/rales Abd: soft, nontender, +BS x4 Ext: no clubbing/cyanosis, mild b/l LE edema and b/l LE wounds in dressings Neuro: Alert, no focal deficits, moves all extremities, Skin: warm/dry OBJ DATA Labs CBC & Chem 7: 03/10/22 05:37 03/10/22 05:37 Labs: Abnormal Lab Results 03/10/22 03/10/22 03/09/22 05:37 05:37 05:49 RBC 3.02 L Hgb 9.7 L Hct 29.6 L RDW 15.2 H MPV 11.2 H Immature Gran % (Auto) 0.9 H Immature Gran # 0.09 H Potassium 3.0 L Chloride 95 L 95 L Carbon Dioxide 33 H BUN 42 H 51 H Creatinine 1.4 H 1.5 H Glucose 114 H 120 H Uric Acid 11.5 H Phosphorus 4.8 H GGT 352 H AST 56 H ALT 75 H Alkaline Phosphatase 395 H Lactate Dehydrogenase 285 H 03/08/22 08:45 RBC Hgb Hct RDW MPV Immature Gran % (Auto) Immature Gran # Potassium Chloride 94 L Carbon Dioxide BUN 49 H Creatinine 1.5 H Glucose 179 H Uric Acid Phosphorus GGT AST ALT Alkaline Phosphatase Lactate Dehydrogenase Meds: Medications Acetaminophen (Acetaminophen 325 Mg Tablet) 650 mg PO Q6HP PRN; Protocol PRN Reason: Per Pain Protocol/Fever > 101 Last Admin: 03/06/22 20:29 Dose: 650 mg Hydrocodone Bitart/Acetaminophen (Hydrocodone/Apap 10/325mg Tablet) 1 tab PO TIDP PRN; Protocol PRN Reason: Per Pain Protocol Last Admin: 03/10/22 05:54 Dose: 1 tab Apixaban (Apixaban 5 Mg Tablet) 5 mg PO BID [facility] Last Admin: 03/09/22 20:39 Dose: 5 mg Atorvastatin Calcium (Atorvastatin 10 Mg Tablet) 10 mg PO HS [facility] Last Admin: 03/09/22 20:39 Dose: 10 mg Carvedilol (Carvedilol 6.25 Mg Tablet) 6.25 mg PO BIDCC [facility] Last Admin: 03/09/22 16:42 Dose: 6.25 mg Dextrose (Dextrose 50% 50 Ml Vial) 0 ml IV UD PRN PRN Reason: Per Sliding Scale Diagnostic Test (Pha) (Accu-Chek 1 Each Strip) 1 each FS ACHS [facility] Last Admin: 03/09/22 21:06 Dose: 1 each Dicyclomine HCl (Dicyclomine 20 Mg Tablet) 10 mg PO DAILYP PRN PRN Reason: UPSET STOMACH Last Admin: 03/09/22 20:59 Dose: 10 mg Docusate Sodium (Docusate Sodium 100 Mg Capsule) 100 mg PO BID [facility] Last Admin: 03/09/22 20:39 Dose: 100 mg Furosemide (Furosemide 100 Mg/10 Ml Vial) 80 mg IV BIDD [facility] Last Admin: 03/09/22 16:42 Dose: 80 mg Gabapentin (Gabapentin 300 Mg Capsule) 300 mg PO HS [facility] Last Admin: 03/09/22 20:39 Dose: 300 mg Glucose (Dextrose 31 Gm Oral.Susp) 15 gm PO PRN PRN PRN Reason: Hypoglycemia Insulin Human Lispro (Insulin Lispro 1 Unit/0.01 Ml Unit) 0 unit SQ ACHS [facility]; Protocol Last Admin: 03/09/22 20:59 Dose: 2 units Levothyroxine Sodium (Levothyroxine 125 Mcg Tablet) 125 mcg PO ACB [facility] Last Admin: 03/09/22 07:14 Dose: 125 mcg Ondansetron HCl (Ondansetron 4 Mg/2 Ml Vial) 4 mg IV Q6HP PRN PRN Reason: Nausea And Vomiting Senna (Sennosides 1 Tablet) 2 tab PO HS [facility] Last Admin: 03/09/22 21:06 Dose: Not Given Sodium Chloride (0.9 % Sodium Chloride 10 Ml Syringe) 10 ml IV Q8 [facility] Last Admin: 03/10/22 05:53 Dose: 10 ml A/P Narrative A/P Narrative: A/P Narrative: #HFpEF: -The patient has clear evidence of worsening CHF -echo LV systolic function is normal, No valvular heart disease noted -good UOP #Cardiorenal syndrome: -The patient's kidney function continued to improve with aggressive diuresis confirming the diagnosis #LLE wound: 2/2 pedal edema #Generalized weakness/fall: -2/2 morbid obesity, neuropathy, and increasing pedal edema. #DM2: -Patient does not check her BS at home, states that she is pre-diabetic, although she is on metformin #CAD: ASA/statin, Continue home coreg, losartan. Hold home aldactone as the patient has HFpEF #VTE: Will resume home eliquis (hx of PE) #Hypothyroidism: #CKD III: #Anemia, chronic: #hypokalemia: P: -on chlorthalidone, torsemide and aldactone at home. Recently lowered as outaptient team was concerned about her renal function. -change IV diuresis to PO -Monitor daily BMP, weights and I/Os - wound care -SSI -cont asa/statin/BB -ppx: DOAC Full code Time Spent With Patient Time: Total time spent is greater than 50% in coordination of care (as documented) at patient's floor/unit and/or counseling patient: Total time spent with greater than 50% in coordination of care (as documented) at patient's floor/unit and/or counseling patient:: 25 - 35 minutes QUALITY VTE Deep Vein Thrombosis/Pulmonary Embolism Present on Admission: No
[2022-03-10] MEDS ORDERED: acetaZOLAMIDE SOD 500 MG VIAL IV SCH (07:45)
[2022-03-10] MEDS: DOCUSATE SODIUM 100 MG CAPSULE PO SCH (08:54)
[2022-03-10] MEDS: APIXABAN 5 MG TABLET PO SCH (08:54)
[2022-03-10] MEDS: CARVEDILOL 6.25 MG TABLET PO SCH (08:54)
--- NOTE | 2022-03-10 10:11 | Discharge Summary ---
Discharge Provider Provider IMPORTANT FOLLOW-UP INFORMATION FOR PCP: Patient information: Note initiated : 03/10/22 at 10:08 am Service Date, if different from initiated Date: [] Patient: Virgie Helms 71 y/o F admitted on 03/06/22 for Fall, weakness. Chief Complaint: [] Date of admission: 03/06/22 14:09 Discharge date: 03/10/22 Primary care physician: Saud Jarvis MD Consults: 03/06/22 Consult to Physician [CONS] Stat Comment: Consulting Provider: Ernesto Rodas Reason For Exam: Physician to Consult COURSE Hospital Course Hospital course: History of present illness: Ms. Helms is a 71 year old morbidly obese female with a complex past medical history significant for chronic diastolic congestive heart failure, diabetes mellitus type 2, VTE on Eliquis, hypothyroidism, and breast cancer status post left mastectomy who presents to the hospital with 1 week history of worsening pedal edema, weakness and a recent fall. The patient states that her legs gave out when she was walking with her walker. She denied any prodromal symptoms of lightheadedness, chest pain, or shortness of breath. The was present at the bedside to corroborate the story. She states that she noticed in the past week, her pedal edema has been worsening as has her left lower extremity wound. She noticed blistering of the skin and now they have developed into evisceration of the skin. This morning, she states that her leg simply gave out and she was unable to get up. EMS were called and they were able to get her in the wheelchair. Her then brought her to the hospital for further management and evaluation. On arrival she was hemodynamically stable and afebrile. Trauma imaging was performed including chest x-ray of the knee, forearm, shoulder, humerus and head CT. All of which were within normal limits. The hospitalist service was asked admit the patient for further management and evaluation 03/07 The patient was resting comfortably in bed. She has noticed that the swelling in her legs are slowly coming down. She is in good spirits and is grateful for the care that she is receiving. 03/08 The patient was in good spirits this morning. She had no active complaints or concerns. She states that her lower extremity wounds are looking much improved. She states that she is still unsteady on her feet although her mobility has improved. 03/09 Patient was resting comfortably in bed. She has no active complaints or concerns. She was doing well. We discussed disposition. 03/10 Slept well. No overnight event or new complaints. Good urine output. Hypokalemic this morning. Bicarb started to elevate and uric acid elevated. Will cut back on the diuresis. high risk for readmission given significant comorbidities A/P Narrative: #HFpEF: -echo LV systolic function is normal, No valvular heart disease noted #Cardiorenal syndrome: #LLE wound: 2/2 pedal edema #Generalized weakness/fall: -2/2 morbid obesity, neuropathy, and increasing pedal edema. #DM2: -Patient does not check her BS at home, states that she is pre-diabetic, although she is on metformin #CAD: ASA/statin, Continue home coreg, losartan. Hold home aldactone as the patient has HFpEF #VTE: Will resume home eliquis (hx of PE) #Hypothyroidism: #CKD III: #Anemia, chronic: #hypokalemia: #YUSRA: on cpap #Morbid obesity: BMI 49 Discharge diagnosis: Diastolic heart failure cardiorenal syndrome leg wound Secondary discharge diagnosis: Diabetes CAD generalized weakness and falling venous thromboembolism hypothyroidism chronic kidney disease chronic anemia hypokalemia obstructive sleep apnea morbid obesity Time Spent with Patient Time attestation: Total time spent providing and/or coordinating discharge services: Time spent: Greater than 30 minutes EXAM Constitutional Vitals: Temp Pulse Resp BP Pulse Ox O2 Del Method O2 Flow Rate 98.1 F 72 20 107/55 90 2 03/10/22 08:00 03/10/22 08:00 03/10/22 08:00 03/10/22 08:00 03/10/22 03:52 03/10/22 08:00 03/06/22 08:12 Discharge Data Data Completed and Pending Labs on day of discharge: Labs from last 24 hours 03/10/22 03/10/22 05:37 05:37 WBC 10.0 RBC 3.02 L Hgb 9.7 L Hct 29.6 L MCV 98.0 MCH 32.1 MCHC 32.8 RDW 15.2 H Plt Count 436 MPV 11.2 H Immature Gran % (Auto) 0.9 H Neut % (Auto) 68.9 Lymph % (Auto) 18.7 Sebastian % (Auto) 6.8 Eos % (Auto) 4.3 Baso % (Auto) 0.4 Lymph # (Auto) 1.87 Sebastian # (Auto) 0.68 Eos # (Auto) 0.43 Baso # (Auto) 0.04 Immature Gran # 0.09 H Absolute Neutrophils 6.90 Sodium 139 Potassium 3.0 L Chloride 95 L Carbon Dioxide 33 H Anion Gap 11.0 BUN 42 H Creatinine 1.4 H GFR Calculation 37 Glucose 114 H Uric Acid 11.5 H Calcium 9.8 Phosphorus 4.8 H Magnesium 2.3 Total Bilirubin 0.3 Direct Bilirubin < 0.2 GGT 352 H AST 56 H ALT 75 H Alkaline Phosphatase 395 H Lactate Dehydrogenase 285 H Total Protein 6.8 Albumin 3.4 Globulin 3.4 Albumin/Globulin Ratio 1.0 Triglycerides 138 Discharge Plan Patient/Caregiver Discharge Instructions Activity: increase activity as tolerated Diet: Consistent Carbohydrate Prescriptions: Continued (DME) pressure cushion for wheelchair Qty: 1 4RF Rx Instructions: regular size /karina needs for 99months/karina change every three months /karina aspirin [Adult Low Dose Aspirin] 81 mg tablet,delayed release (DR/EC) 81 mg PO QDAY Rx Instructions: 1 tablet PO BID allopurinol 300 mg tablet See Rx Instructions .ROUTE .COMPLEX Qty: 90 4RF Dose Instruction: TAKE ONE TABLET BY MOUTH ONCE DAILY Rx Instructions: TAKE ONE TABLET BY MOUTH ONCE DAILY trospium 20 mg tablet See Rx Instructions .ROUTE .COMPLEX Qty: 180 4RF Dose Instruction: TAKE ONE TABLET BY MOUTH TWICE DAILY Rx Instructions: TAKE ONE TABLET BY MOUTH TWICE DAILY potassium chloride 10 mEq tablet extended release See Rx Instructions .ROUTE .COMPLEX Qty: 90 2RF Dose Instruction: TAKE ONE TABLET BY MOUTH EVERY DAY Rx Instructions: TAKE ONE TABLET BY MOUTH EVERY DAY losartan 50 mg tablet 50 mg PO BID Qty: 180 4RF Rx Instructions: 1 BID for HTN spironolactone 25 mg tablet See Rx Instructions .ROUTE .COMPLEX Qty: 90 2RF Dose Instruction: take one tablet by mouth daily Rx Instructions: take one tablet by mouth daily carvedilol 6.25 mg tablet See Rx Instructions .ROUTE .COMPLEX Qty: 180 4RF Dose Instruction: TAKE ONE TABLET BY MOUTH TWICE DAILY FOR HTN, MUST ADMINISTER WITH MEAL/FOOD Rx Instructions: TAKE ONE TABLET BY MOUTH TWICE DAILY FOR HTN, MUST ADMINISTER WITH MEAL/FOOD levothyroxine [Levoxyl] 125 mcg tablet 125 mcg PO QDAY Qty: 90 2RF Rx Instructions: 1 tablet PO daily (DME) Breast Prosthesis left side See Rx Instructions .Route .MEDSUPPLY Qty: 1 0RF Rx Instructions: As directed (DME) Mastectomy Bras See Rx Instructions .Route .MEDSUPPLY Qty: 6 0RF Rx Instructions: As directed Eliquis 5 mg tablet See Rx Instructions .ROUTE .COMPLEX Qty: 60 6RF Dose Instruction: TAKE ONE TABLET BY MOUTH TWICE DAILY Rx Instructions: TAKE ONE TABLET BY MOUTH TWICE DAILY torsemide 10 mg tablet See Rx Instructions .ROUTE .COMPLEX Qty: 90 2RF Dose Instruction: TAKE 1 TABLET BY MOUTH EVERY DAY Rx Instructions: TAKE 1 TABLET BY MOUTH EVERY DAY metformin 500 mg tablet See Rx Instructions .ROUTE .COMPLEX Qty: 180 2RF Dose Instruction: TAKE ONE TABLET BY MOUTH TWICE DAILY Rx Instructions: TAKE ONE TABLET BY MOUTH TWICE DAILY pravastatin 40 mg tablet See Rx Instructions .ROUTE .COMPLEX Qty: 90 2RF Dose Instruction: TAKE ONE TABLET BY MOUTH AT BEDTIME Rx Instructions: TAKE ONE TABLET BY MOUTH AT BEDTIME hydrocodone-acetaminophen 10-325 mg tablet 1 tab PO Q8H Qty: 90 0RF Rx Instructions: 1 tablet PO TID chlorthalidone 50 mg tablet 50 mg PO QDAY Qty: 90 3RF Rx Instructions: 1/2 tablet PO daily dicyclomine 10 mg capsule See Rx Instructions .ROUTE .COMPLEX Qty: 90 4RF Dose Instruction: take one capsule by mouth daily as needed for STOMACH Rx Instructions: take one capsule by mouth daily as needed for STOMACH gabapentin 300 mg capsule See Rx Instructions .ROUTE .COMPLEX Qty: 90 4RF Dose Instruction: TAKE 1 CAPSULE BY MOUTH AT BEDTIME Rx Instructions: TAKE 1 CAPSULE BY MOUTH AT BEDTIME Follow Up Plan Follow up with: Saud Jarvis MD [Primary Care Provider] - Patient Disposition: Xfer SNF Prognosis: Fair Rehab Potential: Fair I certify that the patient requires SNF services: Yes Overall status at discharge: patient is progressing back to baseline Discharge Orders: Discharge Order (Routine); Ordered 03/10/22 Ordered By: Florentin Hoover [facility] VTE Deep Vein Thrombosis/Pulmonary Embolism Present on Admission: No
== END 2022-03-10 13:18 | DRG 291 ==
LOC: ED 07:47 → MEDSUR 14:09
PROVIDERS: ADMIT Student in an Organized Health Care Education/Training Program; ATTEND Student in an Organized Health Care Education/Training Program

== ENCOUNTER 2022-07-29 12:56 | Inpatient (IN) ==
--- NOTE | 2022-07-29 13:53 | XRay Report ---
HISTORY: Dyspnea, cough, flu symptoms FINDINGS: Heart is mildly enlarged. There are vague alveolar infiltrates in both lung bases. This is a recurrent finding which was also seen on 03/06/22. At that time the greatest involvement was in the right lower lobe. The right lower lobe is less consolidated today than it had been on the prior exam. There is no pleural effusion. There are surgical clips in the left axilla. IMPRESSION: Mild bibasilar pneumonia Stable cardiomegaly Interpreted and Authenticated by: Demond Potts 07/29/22
[2022-07-29 13:58] LABS: POC Calcium, Ionized 1.16 (1.16-1.32); POC Creatinine 2.2 (0.6-1.2); POC Potassium 3.2 (3.3-5.1)
--- NOTE | 2022-07-29 14:06 | Emergency Department Note ---
SOB HPI General Chief Complaint: Shortness of Breath/Dyspnea Stated Complaint: SOB, cough Time Seen by Provider: 07/29/22 13:21 Source: patient and family Mode of arrival: wheelchair Limitations: no limitations History of Present Illness HPI Narrative: 72-year-old female with history of right-sided heart failure, history of PE, CKD stage III, anemia of chronic disease, status postmastectomy for breast cancer, GERD, hypertension, hyperlipidemia, hypothyroidism, chronic anticoagulation with apixaban presents from [facility] with hypoxia and URI with cough. Patient states that her symptoms started on the . She has become gradually weaker. Patient is requiring 2 L of O2 to keep her sats over 92. She is reported to be 86% on room air at [facility]. She denies GI upset, nausea or vomiting, abdominal pain. Cough has been persistent and productive. She denies fevers or chills. She does endorse myal gias and generally feeling weak. Patient notes that she has chronic decubitus wounds on her sacrum and chronic lower extremity wounds that are being managed by wound care at [facility]. She is supposed to have a wound VAC on her decubitus ulcers, but the states it was leaking and he took it off a few days ago and home health nursing was supposed to replace it tomorrow. Related Data Home Medications Medication Instructions Recorded Confirmed bisacodyl 10 mg rectal suppository 10 mg OH QDAY PRN 04/08/22 07/29/22 (Dulcolax (bisacodyl)) celecoxib 100 mg capsule (Celebrex) 100 mg PO TID PRN 04/08/22 07/29/22 dicyclomine 10 mg capsule See Rx Instructions .Route .COMPLEX 04/08/22 07/29/22 glucagon HCl 1 mg solution for 1 mg subcut Q20M PRN 04/08/22 07/29/22 injection (Glucagon (HCl) Emergency Kit) magnesium hydroxide 400 mg/5 mL 400 mg PO QDAY PRN 04/08/22 07/29/22 oral suspension (Milk of Magnesia) polyethylene glycol 3350 17 4 g PO QDAY 04/08/22 07/29/22 gram/dose oral powder (Miralax) sodium phosphates 19 gram-7 118 ml OH ONCE 09/08/22 12/29/22 gram/118 mL enema (Fleet Enema) Previous Rx's Medication Instructions Recorded pressure cushion for wheelchair #1 ea 09/28/19 trospium 20 mg tablet See Rx Instructions .Route 03/13/21 .COMPLEX #180 tabs gabapentin 300 mg capsule See Rx Instructions .Route 07/10/21 .COMPLEX #90 caps spironolactone 25 mg tablet See Rx Instructions .Route 09/07/21 .COMPLEX #90 tabs carvedilol 6.25 mg tablet See Rx Instructions .Route 12/07/21 .COMPLEX #180 tabs levothyroxine 125 mcg tablet 125 mcg PO QDAY thyroid #90 tabs 12/07/21 (Levoxyl) Breast Prosthesis left side #1 ea 12/11/21 Mastectomy Bras #6 ea 12/11/21 pravastatin 40 mg tablet See Rx Instructions .Route 02/24/22 .COMPLEX #90 tabs allopurinol 300 mg tablet See Rx Instructions .Route 05/10/22 .COMPLEX #90 tabs apixaban 5 mg tablet (Eliquis) See Rx Instructions .Route 05/25/22 .COMPLEX #60 tabs divalproex 125 mg tablet,delayed 125 mg PO .1 q am 2 q hx #90 tabs 05/25/22 release (Depakote) losartan 50 mg tablet 50 mg PO BID #180 tabs 05/25/22 torsemide 20 mg tablet 20 mg PO QDAY #90 tabs 05/25/22 hydrocodone 10 mg-acetaminophen See Rx Instructions .Route 07/19/22 325 mg tablet .COMPLEX chronic lumbar radiculopathy #120 tabs Allergies Allergy/AdvReac Type Severity Reaction Status Date / Time adhesive tape Allergy Unknown Rash Verified 07/29/22 13:01 ciprofloxacin [From Cipro] Allergy Unknown Dermatological Verified 07/29/22 13:01 problems, rash, hives DIMAS Inhibitors AdvReac Intermediate Cough Verified 07/29/22 13:01 Review of Systems ROS ROS Narrative: Narrative: All systems ED: reviewed and negative except as stated. [facility] Narrative Patient History Narrative: Narrative: Medical/Surgical/Family History All Active Problems (Updated 07/29/22 @ 16:38 by Yessenia Paniagua PA-C) Influenza (Acute) Acute renal insufficiency (Acute) Hallucinations, visual (Acute) Venous stasis ulcer of left lower extremity (Acute) Chronic kidney disease, stage III (moderate) (Chronic) Acute bronchitis (Acute) Hoarseness (Acute) Prediabetes (Acute) Lumbar radiculopathy (Acute) Arthralgia (Chronic) Encounter for medication monitoring (Acute) Right hip pain (Acute) Anemia (Acute) Thrombophlebitis leg (Chronic ~03/2000) Numbness (Chronic) Venous insufficiency of both lower extremities (Chronic) Edema (Chronic) Knee pain, left (Chronic) Hypertonicity, bladder (Chronic) Anxiety (Chronic) Stress (Chronic) Osteoarthritis (Chronic) Homocystinemia (Chronic) Abnormal finding on mammography, microcalcification (Chronic) Anemia in chronic kidney disease (Chronic) 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) Toe pain (Chronic) Lesion of face (Chronic) Mood swings (Chronic) Libido, decreased (Chronic) Night sweats (Chronic) Elevated sedimentation rate (Chronic) Abnormal levels of other serum enzymes (Chronic) Visual changes (Chronic) Muscle spasm (Chronic) Hip pain, left (Chronic) Skin lesion (Chronic) Seborrheic keratoses (Chronic) Skin tag (Chronic) Finger pain (Chronic) Other seborrheic keratosis (Chronic) Osteoarthritis of knees, bilateral (Chronic) Osteoarthritis of hands, bilateral (Chronic) Invasive ductal carcinoma of left breast (Chronic) Urinary frequency (Chronic) Urinary incontinence (Chronic) Fatigue (Chronic) Overactive bladder (Chronic) Chronic back pain (Chronic) Encounter for therapeutic drug level monitoring (Chronic) Anxiety with depression (Chronic) Osteoarthritis, multiple sites (Chronic) GERD with esophagitis (Chronic) Numbness and tingling sensation of skin (Chronic) Heart murmur (Chronic) Pain in right wrist (Chronic) Wrist pain, left (Chronic) Peripheral neuropathy (Chronic) Abnormal EKG (Chronic) Personal history of malignant neoplasm of breast (Chronic) Obesity (Chronic) Polyneuropathy (Chronic) Metabolic syndrome X (Chronic) Pain, joint, hip, right (Chronic) History of bilateral knee replacement (Chronic ~2002) Chronic venous insufficiency (Chronic) Chronic Kidney Disease (Chronic) Elevated liver enzymes (Chronic) Insulin resistance syndrome (Chronic) Hypercalcemia (Chronic) Hypertension (Chronic) Toe amputation status (Chronic ~06/2012) History of removal of nevus (Chronic ~10/2006) History of lumpectomy of right breast (Chronic) History of lumpectomy of left breast (Chronic) Vitamin D deficiency (Chronic 06/19/12) Urge incontinence (Chronic) Thrombophlebitis (Chronic) Squamous cell carcinoma (Chronic) Knee osteoarthritis (Chronic) Severe obesity (Chronic) Nocturia (Chronic) Metabolic syndrome (Chronic) Hypothyroidism (Chronic) Pure hypertriglyceridemia (Chronic) Hypertensive renal disease (Chronic) Hyperlipidemia (Chronic) Gout (Chronic) Screening cholesterol level (Chronic) Breast cancer (Chronic) Abnormal LFTs (Chronic) Fluid retention (Chronic) Abnormal serum enzyme level (Chronic) Medical History (Updated 07/29/22 @ 16:38 by Yessenia Paniagua PA-C) Abnormal EKG Abnormal finding on mammography, microcalcification Abnormal levels of other serum enzymes Abnormal LFTs Abnormal serum enzyme level Anemia in chronic kidney disease Anxiety Anxiety with depression Arthralgia Breast cancer Status post lumpectomy on oeft breast. 2 out of 26 axillary lymph nodes were positive for carcinoma on the left. Chronic back pain Chronic Kidney Disease Chronic kidney disease, stage II (mild) (06/19/12) Chronic kidney disease, stage III (moderate) Chronic venous insufficiency Edema Elevated liver enzymes 06/10/2015-[facility] Elevated sedimentation rate Encounter for therapeutic drug level monitoring Fatigue Finger pain Fluid retention GERD with esophagitis Gout 02/04-great right toe Heart murmur Hip pain, left Homocystinemia Hypercalcemia 06/10/2015-[facility] Hyperlipidemia Hypertension Hypertensive renal disease Hypertonicity, bladder Hypothyroidism Insulin resistance syndrome 06/10/2015-[facility] Invasive ductal carcinoma of left breast Knee osteoarthritis Knee pain, left Lesion of face Libido, decreased Malignant neoplasm of skin of arm Metabolic syndrome Metabolic syndrome X Mood swings Muscle spasm Night sweats Nocturia 1-2 times nightly Numbness Numbness and tingling sensation of skin Obesity Osteoarthritis Osteoarthritis of hands, bilateral Osteoarthritis of knees, bilateral Osteoarthritis, multiple sites Other seborrheic keratosis Overactive bladder Pain in right wrist Pain, joint, hip, right Peripheral neuropathy Personal history of malignant neoplasm of breast Polyneuropathy Pure hypertriglyceridemia Mild and borderline low HDL cholesterol. Screening cholesterol level 10/12/2010-Borderline low HDL cholesterol Seborrheic keratoses Severe obesity with borderline diabetes. Skin lesion Skin tag Squamous cell carcinoma skin, site unspecified Stress Thrombophlebitis Right lower leg-1999 Thrombophlebitis leg (~03/2000) right lower leg 03/2000 Toe pain Urge incontinence Urinary frequency Urinary incontinence Venous insufficiency of both lower extremities Visual changes Vitamin D deficiency (06/19/12) Wrist pain, left Surgical History History of bilateral knee replacement (~2002) History of colonoscopy (05/18/16) adenomatious polyp, diverticulosis History of lumpectomy of left breast 01/2003 History of lumpectomy of right breast 06/2003 History of Mohs surgery for squamous cell carcinoma of skin (~10/05/19) Dr. Lisa: Basal cell carcinoma removed from right eyebrow History of removal of nevus (~10/2006) 10/2006 S/P Mohs surgery for basal cell carcinoma (09/04/19) right alar groove Toe amputation status (~06/2012) Left middle removed/osteomylitis 06/2012 Family History Father Congestive heart failure Diabetes mellitus March 2000, with kidney failure on dialysis Renal failure Glaucoma Mother History of heart valve replacement Migraine Grandmother Cerebrovascular accident (CVA) Not sure if maternal or paternal Social History Smoking Status: Never smoker Alcohol Intake Frequency: does not drink Exam Narrative Narrative: General: AOx3, NAD, ill appearing. Pleasant and conversant. HEENT: PERRL, EOMI, normocephalic. Moist mucous membranes. Normal facies and normal dentition. Chest: Symmetric, no pain to palpation Respiratory: Bilateral coarse crackles in the bases. Audible cough. No respiratory distress. Unlabored breathing. Heart: Regular rate and rhythm, no murmurs/clicks/rubs. Abdomen: Obese, non-tender, Non distended, Back: She has 2 decubitus ulcers to the sacrum that are stage III. No associated cellulitis. Extremities: Lower extremities are wrapped in Coban dressing and not examined. Neuro: No focal deficits. Cranial nerves II-XII grossly normal. Skin: Warm dry, no rashes or lesions, no cyanosis. Psych: Normal mood and affect Heme/Lymph: No abnormal bruising General Limitations: no limitations Course Course Course Narrative: 72-year-old female presents with URI with cough and hypoxia Reevaluation(s) Reevaluation #1: Obtain basic labs, chest x-ray Obtain COVID and influenza swab Reevaluation #2: The patient is positive for influenza A. Chest x-ray shows bilateral alveolar infiltrates in the lung bases. Leukocytosis has improved from 2 days ago and is now 12.5 from 17.3 Lactic acid 0.9 Potassium 3.2, creatinine is up to 2.2 from 1.5 a month ago. Reevaluation #3: Give 500 mL IV fluids for acute dehydration Vital Signs Vital signs: Vital Signs Temperature 98.4 F 07/29/22 12:59 Pulse Rate 85 07/29/22 12:59 Respiratory Rate 22 07/29/22 12:59 Blood Pressure 130/65 07/29/22 12:59 Pulse Oximetry (%) 86 L 07/29/22 12:59 Oxygen Delivery Method 07/29/22 12:59 Temperature 98.4 F 07/29/22 12:59 Pulse Rate 88 07/29/22 15:20 Respiratory Rate 22 07/29/22 12:59 Blood Pressure 150/72 07/29/22 15:17 Pulse Oximetry (%) 91 07/29/22 15:20 Oxygen Delivery Method 07/29/22 13:12 Oxygen Flow Rate (L/min) 2 07/29/22 13:12 [facility] MDM Narrative Medical decision making narrative: Influenza A Hypoxic respiratory insufficiency Hypokalemia Acute on chronic renal insufficiency Patient is appropriate for admission for her hypoxia and acute renal injury. I have signed the patient out to Dr. Abreu who has accepted the patient for admission. He request to give 1 dose of Tamiflu, which has been ordered. The patient is also receiving 500 mL of IV normal saline for acute dehydration. Lab Data Result diagrams: 07/29/22 13:53 Labs: Lab Results 07/29/22 07/29/22 07/29/22 Range/Units 13:51 13:53 13:53 WBC 12.5 H (4.5-11.0) K/mcL RBC 2.91 L (3.59-5.38) M/mcL Hgb 8.7 L (11.2-15.7) g/dL Hct 27.4 L (34.1-44.9) % POC Hct 27.0 L (36-48) MCV 94.2 (80.0-100.0) fL MCH 29.9 (26.0-34.0) pg MCHC 31.8 (31.0-36.0) g/dL RDW 17.2 H (11.5-14.5) % Plt Count 341 (140-440) K/mcL MPV 11.1 (8.8-12.5) fL Immature Gran % (Auto) 0.6 H (0.0-0.5) % Neut % (Auto) 85.0 H (38.0-78.0) % Lymph % (Auto) 8.4 L (15.5-49.0) % [place] % (Auto) 5.9 (1.0-12.0) % Eos % (Auto) 0 (0.0-7.0) % Baso % (Auto) 0.1 (0.0-2.0) % Lymph # (Auto) 1.05 L (1.50-4.80) K/mcL [place] # (Auto) 0.74 (0.10-0.90) K/mcL Eos # (Auto) 0 (0.00-0.70) K/mcL Baso # (Auto) 0.01 (0.00-0.30) K/mcL Immature Gran # 0.07 H (0.00-0.05) K/mcl Absolute Neutrophils 10.61 H (1.80-8.00) K/mcL POC VBG pH (7.32-7.42) POC VBG pCO2 at Temp (41-51) POC VBG pO2 (25-40) POC VBG HCO3 (24-28) POC VBG Total CO2 (25-29) POC Venous O2 Sat (40-70) POC VBG Base Excess (-2-2) VBG Lactic Acid (0.5-2) POC Sodium 137 (133-145) POC Potassium 3.2 L (3.3-5.1) POC Chloride 97 (96-108) POC Total CO2 33.0 H (22-30) POC BUN 49 H (6-20) POC Creatinine 2.2 H (0.6-1.2) POC Glucose 129 H (70-105) POC WB Ioniz Calcium 1.16 (1.16-1.32) NT-Pro-B Natriuret Pep 3666.0 H (<125.0) pg/mL 07/29/22 Range/Units 13:55 WBC (4.5-11.0) K/mcL RBC (3.59-5.38) M/mcL Hgb (11.2-15.7) g/dL Hct (34.1-44.9) % POC Hct (36-48) MCV (80.0-100.0) fL MCH (26.0-34.0) pg MCHC (31.0-36.0) g/dL RDW (11.5-14.5) % Plt Count (140-440) K/mcL MPV (8.8-12.5) fL Immature Gran % (Auto) (0.0-0.5) % Neut % (Auto) (38.0-78.0) % Lymph % (Auto) (15.5-49.0) % [place] % (Auto) (1.0-12.0) % Eos % (Auto) (0.0-7.0) % Baso % (Auto) (0.0-2.0) % Lymph # (Auto) (1.50-4.80) K/mcL [place] # (Auto) (0.10-0.90) K/mcL Eos # (Auto) (0.00-0.70) K/mcL Baso # (Auto) (0.00-0.30) K/mcL Immature Gran # (0.00-0.05) K/mcl Absolute Neutrophils (1.80-8.00) K/mcL POC VBG pH 7.56 H (7.32-7.42) POC VBG pCO2 at Temp 37.2 L (41-51) POC VBG pO2 37 (25-40) POC VBG HCO3 33.1 H (24-28) POC VBG Total CO2 34.0 H (25-29) POC Venous O2 Sat 79.0 H (40-70) POC VBG Base Excess 11.0 H* (-2-2) VBG Lactic Acid 0.9 (0.5-2) POC Sodium (133-145) POC Potassium (3.3-5.1) POC Chloride (96-108) POC Total CO2 (22-30) POC BUN (6-20) POC Creatinine (0.6-1.2) POC Glucose (70-105) POC WB Ioniz Calcium (1.16-1.32) NT-Pro-B Natriuret Pep (<125.0) pg/mL ED POC Tests ED POC Tests: DAISY - Influenza A Positive DAISY - Influenza B Negative DAISY - SARS Antigen Negative Discharge Plan Patient/Caregiver Discharge Instructions Pt seen by [facility]/PA only: Yes Clinical Impression: Influenza, Acute renal insufficiency Patient Disposition: Xfer As Inpt ([facility]) Follow up with: Saud Jarvis MD [Primary Care Provider] - Prescriptions: No Action (DME) pressure cushion for wheelchair Qty: 1 4RF Rx Instructions: regular size /karina needs for 99months/karina change every three months /karina trospium 20 mg tablet See Rx Instructions .ROUTE .COMPLEX Qty: 180 4RF Dose Instruction: TAKE ONE TABLET BY MOUTH TWICE DAILY Rx Instructions: TAKE ONE TABLET BY MOUTH TWICE DAILY spironolactone 25 mg tablet See Rx Instructions .ROUTE .COMPLEX Qty: 90 2RF Dose Instruction: take one tablet by mouth daily Rx Instructions: take one tablet by mouth daily carvedilol 6.25 mg tablet See Rx Instructions .ROUTE .COMPLEX Qty: 180 4RF Dose Instruction: TAKE ONE TABLET BY MOUTH TWICE DAILY FOR HTN, MUST ADMINISTER WITH MEAL/FOOD Rx Instructions: TAKE ONE TABLET BY MOUTH TWICE DAILY FOR HTN, MUST ADMINISTER WITH MEAL/FOOD levothyroxine [Levoxyl] 125 mcg tablet 125 mcg PO QDAY Qty: 90 2RF Rx Instructions: 1 tablet PO daily (DME) Breast Prosthesis left side See Rx Instructions .Route .MEDSUPPLY Qty: 1 0RF Rx Instructions: As directed (DME) Mastectomy Bras See Rx Instructions .Route .MEDSUPPLY Qty: 6 0RF Rx Instructions: As directed pravastatin 40 mg tablet See Rx Instructions .ROUTE .COMPLEX Qty: 90 2RF Dose Instruction: TAKE ONE TABLET BY MOUTH AT BEDTIME Rx Instructions: TAKE ONE TABLET BY MOUTH AT BEDTIME allopurinol 300 mg tablet See Rx Instructions .ROUTE .COMPLEX Qty: 90 4RF Dose Instruction: TAKE ONE TABLET BY MOUTH ONCE DAILY Rx Instructions: TAKE ONE TABLET BY MOUTH ONCE DAILY hydrocodone-acetaminophen 10-325 mg tablet See Rx Instructions .ROUTE .COMPLEX Qty: 120 0RF Rx Instructions: 1-2 tabs PO QID PRN dicyclomine 10 mg capsule See Rx Instructions .ROUTE .COMPLEX Dose Instruction: take one capsule by mouth daily as needed for STOMACH Rx Instructions: take one capsule by mouth up to four times daily as needed for STOMACH celecoxib [Celebrex] 100 mg capsule 100 mg PO TID PRN bisacodyl [Dulcolax (bisacodyl)] 10 mg suppository 10 mg OH QDAY PRN Fleet Enema 19-7 gram/118 mL enema 118 ml OH ONCE Glucagon (HCl) Emergency Kit 1 mg recon soln 1 mg subcut Q20M PRN Rx Instructions: until target blood sugar attained magnesium hydroxide [Milk of Magnesia] 400 mg/5 mL suspension 400 mg PO QDAY PRN polyethylene glycol 3350 [Miralax] 17 gram/dose powder 4 g PO QDAY divalproex [Depakote] 125 mg tablet,delayed release (DR/EC) 125 mg PO .1 q am 2 q hx Qty: 90 6RF Eliquis 5 mg tablet See Rx Instructions .ROUTE .COMPLEX Qty: 60 6RF Dose Instruction: TAKE ONE TABLET BY MOUTH TWICE DAILY Rx Instructions: TAKE ONE TABLET BY MOUTH TWICE DAILY losartan 50 mg tablet 50 mg PO BID Qty: 180 4RF Rx Instructions: 1 BID for HTN torsemide 20 mg tablet 20 mg PO QDAY Qty: 90 4RF gabapentin 300 mg capsule See Rx Instructions .ROUTE .COMPLEX Qty: 90 4RF Dose Instruction: TAKE 1 CAPSULE BY MOUTH AT BEDTIME Rx Instructions: TAKE 1 CAPSULE BY MOUTH AT BEDTIME
[2022-07-29 14:27] LABS: Basophils # (Auto) 0.01 K/mcL (0.00-0.30); Basophils % (Auto) 0.1 % (0.0-2.0); Eosinophils # (Auto) 0 K/mcL (0.00-0.70); Eosinophils % (Auto) 0 % (0.0-7.0); Hematocrit 27.4 % (34.1-44.9); Hemoglobin 8.7 g/dL (11.2-15.7); Lymphocytes # (Auto) 1.05 K/mcL (1.50-4.80); Lymphocytes % (Auto) 8.4 % (15.5-49.0); Mean Cell Volume 94.2 fL (80.0-100.0); Mean Corpuscular HGB Conc 31.8 g/dL (31.0-36.0); Mean Platelet Volume 11.1 fL (8.8-12.5); Monocytes # (Auto) 0.74 K/mcL (0.10-0.90); Monocytes % (Auto) 5.9 % (1.0-12.0); Platelet Count 341 K/mcL (140-440); RBC 2.91 M/mcL (3.59-5.38); Red Cell Distribution Width 17.2 % (11.5-14.5); WBC 12.5 K/mcL (4.5-11.0)
[2022-07-29] MEDS ORDERED: 0.9 % SODIUM CHLORIDE 500 ML IV ONE (16:21)
[2022-07-29] MEDS ORDERED: OSELTAMIVIR PHOSPHATE 75 MG CAPSULE PO ONE (16:35)
[2022-07-29] MEDS ORDERED: POTASSIUM CHLORIDE 20 MEQ TABLET PO ONE (16:35)
--- NOTE | 2022-07-29 16:43 | Internal Med History&Physical ---
HPI History of Present Illness Patient information: Note initiated : 07/29/22 at 4:42 pm Service Date, if different from initiated Date: [] Patient: Virgie Helms 72 y/o F admitted on for SOB, cough. Chief Complaint: [] History of present illness: Ms. Helms is a 72 year old female with multiple comorbidities who presented to the emergency department for shortness of breath. Patient's symptoms started on July 24, 2022. She has been feeling more and more fatigued. In the emergency department, the patient was found to be hypoxic and was started on 2 L nasal cannula. She tested positive for influenza by rapid antigen test. Chest x-ray showed mild bibasilar pneumonia. Patient also has a mild leukocytosis. The patient says that she has had a nonproductive cough for the duration of her illness. Additionally, the patient had a increase in her serum creatinine level, decrease in her chronically low hemoglobin, mild hypokalemia, elevated NT proBNP. Review of systems Constitutional: Positive for fatigue. Eyes: no vision changes or pain Cardiovascular: no chest pain, no palpitations Respiratory: Positive for cough and dyspnea Gastrointestinal: no abdominal pain, no nausea, vomiting, or diarrhea Genitourinary: no dysuria or difficulty voiding Musculoskeletal: Positive for chronic bilateral lower extremity edema. Integumentary: Positive for skin lesions on lower extremities and buttocks. Neurological: no focal weakness or numbness Psychiatric: no anxiety or depression Physical exam Head: Atraumatic, normal inspection. Eyes: normal appearance, no scleral icterus. Neck: full ROM Respiratory: 2 L/min nasal cannula oxygen supplementation, does not appear to be in respiratory distress, bilateral crackles, no wheezing appreciated. Cardiovascular: normal rate and rhythm, S1, S2. GI/Abdominal: Obesely distended, soft, nontender, no guarding. Extremities: Bilateral lower extremity edema, both lower extremities wrapped in compression sock. Neurological: CN II-XII intact, intact motor, intact sensation. Psychiatric: normal mood. Skin: warm, normal color PFSH PFSH All Active Problems (Updated 07/29/22 @ 16:38 by Yessenia Paniagua PA-C) Influenza (Acute) Acute renal insufficiency (Acute) Hallucinations, visual (Acute) Venous stasis ulcer of left lower extremity (Acute) Chronic kidney disease, stage III (moderate) (Chronic) Acute bronchitis (Acute) Hoarseness (Acute) Prediabetes (Acute) Lumbar radiculopathy (Acute) Arthralgia (Chronic) Encounter for medication monitoring (Acute) Right hip pain (Acute) Anemia (Acute) Thrombophlebitis leg (Chronic ~03/2000) Numbness (Chronic) Venous insufficiency of both lower extremities (Chronic) Edema (Chronic) Knee pain, left (Chronic) Hypertonicity, bladder (Chronic) Anxiety (Chronic) Stress (Chronic) Osteoarthritis (Chronic) Homocystinemia (Chronic) Abnormal finding on mammography, microcalcification (Chronic) Anemia in chronic kidney disease (Chronic) 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) Toe pain (Chronic) Lesion of face (Chronic) Mood swings (Chronic) Libido, decreased (Chronic) Night sweats (Chronic) Elevated sedimentation rate (Chronic) Abnormal levels of other serum enzymes (Chronic) Visual changes (Chronic) Muscle spasm (Chronic) Hip pain, left (Chronic) Skin lesion (Chronic) Seborrheic keratoses (Chronic) Skin tag (Chronic) Finger pain (Chronic) Other seborrheic keratosis (Chronic) Osteoarthritis of knees, bilateral (Chronic) Osteoarthritis of hands, bilateral (Chronic) Invasive ductal carcinoma of left breast (Chronic) Urinary frequency (Chronic) Urinary incontinence (Chronic) Fatigue (Chronic) Overactive bladder (Chronic) Chronic back pain (Chronic) Encounter for therapeutic drug level monitoring (Chronic) Anxiety with depression (Chronic) Osteoarthritis, multiple sites (Chronic) GERD with esophagitis (Chronic) Numbness and tingling sensation of skin (Chronic) Heart murmur (Chronic) Pain in right wrist (Chronic) Wrist pain, left (Chronic) Peripheral neuropathy (Chronic) Abnormal EKG (Chronic) Personal history of malignant neoplasm of breast (Chronic) Obesity (Chronic) Polyneuropathy (Chronic) Metabolic syndrome X (Chronic) Pain, joint, hip, right (Chronic) History of bilateral knee replacement (Chronic ~2002) Chronic venous insufficiency (Chronic) Chronic Kidney Disease (Chronic) Elevated liver enzymes (Chronic) Insulin resistance syndrome (Chronic) Hypercalcemia (Chronic) Hypertension (Chronic) Toe amputation status (Chronic ~06/2012) History of removal of nevus (Chronic ~10/2006) History of lumpectomy of right breast (Chronic) History of lumpectomy of left breast (Chronic) Vitamin D deficiency (Chronic 06/19/12) Urge incontinence (Chronic) Thrombophlebitis (Chronic) Squamous cell carcinoma (Chronic) Knee osteoarthritis (Chronic) Severe obesity (Chronic) Nocturia (Chronic) Metabolic syndrome (Chronic) Hypothyroidism (Chronic) Pure hypertriglyceridemia (Chronic) Hypertensive renal disease (Chronic) Hyperlipidemia (Chronic) Gout (Chronic) Screening cholesterol level (Chronic) Breast cancer (Chronic) Abnormal LFTs (Chronic) Fluid retention (Chronic) Abnormal serum enzyme level (Chronic) Medical History (Updated 07/29/22 @ 16:38 by Yessenia Paniagua PA-C) Abnormal EKG Abnormal finding on mammography, microcalcification Abnormal levels of other serum enzymes Abnormal LFTs Abnormal serum enzyme level Anemia in chronic kidney disease Anxiety Anxiety with depression Arthralgia Breast cancer Status post lumpectomy on oeft breast. 2 out of 26 axillary lymph nodes were positive for carcinoma on the left. Chronic back pain Chronic Kidney Disease Chronic kidney disease, stage II (mild) (06/19/12) Chronic kidney disease, stage III (moderate) Chronic venous insufficiency Edema Elevated liver enzymes 06/10/2015-[facility] Elevated sedimentation rate Encounter for therapeutic drug level monitoring Fatigue Finger pain Fluid retention GERD with esophagitis Gout 02/04-great right toe Heart murmur Hip pain, left Homocystinemia Hypercalcemia 06/10/2015-[facility] Hyperlipidemia Hypertension Hypertensive renal disease Hypertonicity, bladder Hypothyroidism Insulin resistance syndrome 06/10/2015-[facility] Invasive ductal carcinoma of left breast Knee osteoarthritis Knee pain, left Lesion of face Libido, decreased Malignant neoplasm of skin of arm Metabolic syndrome Metabolic syndrome X Mood swings Muscle spasm Night sweats Nocturia 1-2 times nightly Numbness Numbness and tingling sensation of skin Obesity Osteoarthritis Osteoarthritis of hands, bilateral Osteoarthritis of knees, bilateral Osteoarthritis, multiple sites Other seborrheic keratosis Overactive bladder Pain in right wrist Pain, joint, hip, right Peripheral neuropathy Personal history of malignant neoplasm of breast Polyneuropathy Pure hypertriglyceridemia Mild and borderline low HDL cholesterol. Screening cholesterol level 10/12/2010-Borderline low HDL cholesterol Seborrheic keratoses Severe obesity with borderline diabetes. Skin lesion Skin tag Squamous cell carcinoma skin, site unspecified Stress Thrombophlebitis Right lower leg-1999 Thrombophlebitis leg (~03/2000) right lower leg 03/2000 Toe pain Urge incontinence Urinary frequency Urinary incontinence Venous insufficiency of both lower extremities Visual changes Vitamin D deficiency (06/19/12) Wrist pain, left Surgical History History of bilateral knee replacement (~2002) History of colonoscopy (05/18/16) adenomatious polyp, diverticulosis History of lumpectomy of left breast 01/2003 History of lumpectomy of right breast 06/2003 History of Mohs surgery for squamous cell carcinoma of skin (~10/05/19) Dr. Lisa: Basal cell carcinoma removed from right eyebrow History of removal of nevus (~10/2006) 10/2006 S/P Mohs surgery for basal cell carcinoma (09/04/19) right alar groove Toe amputation status (~06/2012) Left middle removed/osteomylitis 06/2012 Family History Father Congestive heart failure Diabetes mellitus March 2000, with kidney failure on dialysis Renal failure Glaucoma Mother History of heart valve replacement Migraine Grandmother Cerebrovascular accident (CVA) Not sure if maternal or paternal Social History household members: spouse marital status: smoking status: Never smoker alcohol intake frequency: does not drink MEDS/ALLERGIES Home Medications and Allergies Home Medications Medication Instructions Recorded Confirmed Type pressure cushion for wheelchair #1 ea 09/28/19 07/29/22 Rx trospium 20 mg tablet See Rx Instructions .Route 03/13/21 07/29/22 Rx .COMPLEX #180 tabs gabapentin 300 mg capsule See Rx Instructions .Route 07/10/21 07/29/22 Rx .COMPLEX #90 caps spironolactone 25 mg tablet See Rx Instructions .Route 09/07/21 07/29/22 Rx .COMPLEX #90 tabs carvedilol 6.25 mg tablet See Rx Instructions .Route 12/07/21 07/29/22 Rx .COMPLEX #180 tabs levothyroxine 125 mcg tablet 125 mcg PO QDAY thyroid #90 tabs 12/07/21 07/29/22 Rx (Levoxyl) Breast Prosthesis left side #1 ea 12/11/21 07/29/22 Rx Mastectomy Bras #6 ea 12/11/21 07/29/22 Rx pravastatin 40 mg tablet See Rx Instructions .Route 02/24/22 07/29/22 Rx .COMPLEX #90 tabs bisacodyl 10 mg rectal suppository 10 mg CA QDAY PRN 04/08/22 07/29/22 History (Dulcolax (bisacodyl)) celecoxib 100 mg capsule (Celebrex) 100 mg PO TID PRN 04/08/22 07/29/22 History dicyclomine 10 mg capsule See Rx Instructions .Route .COMPLEX 04/08/22 07/29/22 History glucagon HCl 1 mg solution for 1 mg subcut Q20M PRN 04/08/22 07/29/22 History injection (Glucagon (HCl) Emergency Kit) magnesium hydroxide 400 mg/5 mL 400 mg PO QDAY PRN 04/08/22 07/29/22 History oral suspension (Milk of Magnesia) polyethylene glycol 3350 17 4 g PO QDAY 04/08/22 07/29/22 History gram/dose oral powder (Miralax) sodium phosphates 19 gram-7 118 ml CA ONCE 04/08/22 07/29/22 History gram/118 mL enema (Fleet Enema) allopurinol 300 mg tablet See Rx Instructions .Route 05/10/22 07/29/22 Rx .COMPLEX #90 tabs apixaban 5 mg tablet (Eliquis) See Rx Instructions .Route 05/25/22 07/29/22 Rx .COMPLEX #60 tabs divalproex 125 mg tablet,delayed 125 mg PO .1 q am 2 q hx #90 tabs 05/25/22 07/29/22 Rx release (Depakote) losartan 50 mg tablet 50 mg PO BID #180 tabs 05/25/22 07/29/22 Rx torsemide 20 mg tablet 20 mg PO QDAY #90 tabs 05/25/22 07/29/22 Rx hydrocodone 10 mg-acetaminophen See Rx Instructions .Route 07/19/22 07/29/22 Rx 325 mg tablet .COMPLEX chronic lumbar radiculopathy #120 tabs Allergies Allergy/AdvReac Type Severity Reaction Status Date / Time adhesive tape Allergy Unknown Rash Verified 07/29/22 13:01 ciprofloxacin [From Cipro] Allergy Unknown Dermatological Verified 07/29/22 13:01 problems, rash, hives DIMAS Inhibitors AdvReac Intermediate Cough Verified 07/29/22 13:01 EXAM Constitutional Vitals: Temp Pulse Resp BP Pulse Ox O2 Del Method O2 Flow Rate 98.4 F 88 22 150/72 91 2 07/29/22 12:59 07/29/22 15:20 07/29/22 12:59 07/29/22 15:17 07/29/22 15:20 07/29/22 13:12 07/29/22 13:12 DATA Data Completed and Pending Labs: Labs from last 24 hours 07/29/22 07/29/22 07/29/22 13:55 13:53 13:53 WBC 12.5 H RBC 2.91 L Hgb 8.7 L Hct 27.4 L POC Hct MCV 94.2 MCH 29.9 MCHC 31.8 RDW 17.2 H Plt Count 341 MPV 11.1 Immature Gran % (Auto) 0.6 H Neut % (Auto) 85.0 H Lymph % (Auto) 8.4 L [place] % (Auto) 5.9 Eos % (Auto) 0 Baso % (Auto) 0.1 Lymph # (Auto) 1.05 L [place] # (Auto) 0.74 Eos # (Auto) 0 Baso # (Auto) 0.01 Immature Gran # 0.07 H Absolute Neutrophils 10.61 H POC VBG pH 7.56 H POC VBG pCO2 at Temp 37.2 L POC VBG pO2 37 POC VBG HCO3 33.1 H POC VBG Total CO2 34.0 H POC Venous O2 Sat 79.0 H POC VBG Base Excess 11.0 H* VBG Lactic Acid 0.9 POC Sodium POC Potassium POC Chloride POC Total CO2 POC BUN POC Creatinine POC Glucose POC WB Ioniz Calcium NT-Pro-B Natriuret Pep 3666.0 H 07/29/22 13:51 WBC RBC Hgb Hct POC Hct 27.0 L MCV MCH MCHC RDW Plt Count MPV Immature Gran % (Auto) Neut % (Auto) Lymph % (Auto) [place] % (Auto) Eos % (Auto) Baso % (Auto) Lymph # (Auto) [place] # (Auto) Eos # (Auto) Baso # (Auto) Immature Gran # Absolute Neutrophils POC VBG pH POC VBG pCO2 at Temp POC VBG pO2 POC VBG HCO3 POC VBG Total CO2 POC Venous O2 Sat POC VBG Base Excess VBG Lactic Acid POC Sodium 137 POC Potassium 3.2 L POC Chloride 97 POC Total CO2 33.0 H POC BUN 49 H POC Creatinine 2.2 H POC Glucose 129 H POC WB Ioniz Calcium 1.16 NT-Pro-B Natriuret Pep A/P Narrative A/P Narrative: Assessment: 72 year old female with multiple medical comorbidities admitted for acute hypoxic respiratory failure secondary to pneumonia secondary to influenza A. #Acute hypoxic respiratory failure #Influenza A #CKD stage 3 #Hypertension #Hyperlipidemia #Chronic anemia #Mild hypokalemia #History of PE on Eliquis #HFpEF w/ RV failuire #Hypothyroidism #Gout #GERD #History of breast cancer s/p left mastectomy #Venous stasis ulcers, present on admission #Decubitus ulcers, present on admission #History of visual hallucinations #Obesity BMI 47 Plan -Renally dosed Tamiflu, treat five days. -Oxygen supplementation. -Check procalcitonin. -Consider CT chest. -IV fluid given in ED. -Monitor renal function and volume status. -Potassium replacement. -Home medication reconciliation, continue important meds. -Wound cares for decubitus ulcers. -PT and OT. -Regular diet. -DVT prophylaxis: home Eliquis. -Disposition: TBD Time Spent With Patient Time: Total time spent is greater than 50% in coordination of care (as documented) at patient's floor/unit and/or counseling patient:
--- OUTSIDE RECORDS SUMMARY | 2022-07-29 18:24 | External Medical Summary ---
:1950 Author Care Team Providers Name Role Phone ADALBERTO BRANDON Primary Care Provider [phone] Allergies Code Code System Name Reaction Severity Status Onset Jerry Inhibitors Active Adhesive Tape Active Medications Name Status Start Date Stop Date allopurinol 300 mg tablet Active Not av ailable amoxicillin 500 mg capsule Completed 01/14 Aspir-81 Active Not available carvedilol 3.125 mg tablet Completed 01/14 carvedilol 6.25 mg tablet Active Not av ailable celecoxib 100 mg capsule Active Not mehnaz ilable chlorthalidone 25 mg tablet Active Not available dicyclomine 10 mg capsule Active Not av ailable diltiazem ER 360 mg capsule,24 hr,extended Completed 01/15/2020 release Eliquis 5 mg tablet Active Not availabl e gabapentin 300 mg capsule Active Not av ailable hydrocodone 10 mg-acetaminophen 325 mg tablet Active Not available TAKE ONE TABLET BY MOUTH EVERY SIX HOUR S FOR ACUTE RIGHT HIP PAIN. PICKUP 01/07/2020 hydrocortisone 2.5 % topical cream Completed 01/15/2020 iron Active Not available letrozole 2.5 mg tablet Completed 01/15/20 20 levothyroxine 125 mcg tablet Active Not available TAKE ONE TABLET BY MOUTH DAILY losartan 50 mg tablet Active Not availa ble TAKE ONE TABLET BY MOUTH TWICE DAILY FOR HYPERTENSION metformin 500 mg tablet Active Not avai lable mupirocin 2 % topical ointment Completed 0 01/15/2020 potassium chloride ER 10 mEq capsule,extended release Active Not available TAKE ONE CAPSULE BY MOUTH DAILY pravastatin 40 mg tablet Active Not mehnaz ilable spironolactone 50 mg tablet Completed 12/30 torsemide 10 mg tablet Active Not avail able trospium 20 mg tablet Active 01/15/2020 Not availa ble vitamin D3 125 mcg (5,000 unit)-folic acid 1 mg tablet Active Not available Take 1 tablet every day by oral route. Problems Name Status Onset Date Source Pulmonary Embolism Active 01/15/2020 Solitary Nodule of Lung Active 01/15/2020 Procedures Date Name Performed by 01/15/2020 CT, Angiogram, Chest, W/ Contrast [facility] [phone] [facility] [place] [id number] ([address]) 01/15/2020 US, Echocardiogram, Transthoracic, Compl ete [facility] [address] [facility] [place] [address] (Work [address]) Results Lab Results None recorded. Past Encounters None recorded. Social History Tobacco Smoking Status Never Smoker Vaccine List Vaccine Type influenza, seasonal, injectable 05/01/2019 Plan of Care Reminders Provider Appointments None recorded. Lab None recorded. Referral None recorded. Procedures None recorded. Surgeries None recorded. Imaging None recorded. Vitals Height Weight BMI Blood Pressure 5 ft 5 in 268 lbs 44.6 kg/m2 174/62 mm[Hg]
--- OUTSIDE RECORDS SUMMARY | 2022-07-29 18:25 | External Medical Summary ---
:1950 Author Care Team Providers Name Role Phone JUSTIN LANCASTER MD Primary Care Provider [phone] [facility] OTHER [phone] Allergies Code Code System Name Reaction Severity Status Onset Jerry Inhibitors Active Adhesive Tape Active Medications Name Status Start Date Stop Date Adult Aspirin Regimen 81 mg tablet,delayed release Completed 05/24/2022 Take 2 tablets every day by oral route. Milly Allergy 60 mg tablet Completed 09/2017 Take 1 tablet twice a day by oral route. allopurinol 300 mg tablet Active Not av ailable TAKE ONE TABLET BY MOUTH EVERY DAY amoxicillin 500 mg capsule Completed 03/29 take four capsules by mouth one hour prior to dental appointmen t amoxicillin 875 mg-potassium clavulanate 125 mg tablet Completed 04/07/2022 TAKE ONE TABLET BY MOUTH TWICE DAILY amoxicillin-potassium clavulanate 1,000 mg-62.5 Completed 05/10/2022 mg tablet,ext.rel 12hr aspirin 325 mg tablet Completed 05/03/2018 Take 1 tablet every day by oral route. B Complex Completed 03/29/2022 B1 100 mg-B6 50 mg-calc 50 mg-mag oxide 50 mg-chaste tree-angella ta blet Active Not available Take 1 tablet 3 times a day by oral route. bisacodyl 10 mg rectal suppository Active Not available Insert 1 suppository every day by rectal route. carvedilol 6.25 mg tablet Active Not av ailable take one tablet by mouth twice daily for htn, must ad cell maker with a meal/food Celebrex 100 mg capsule Active Not avai lable Take 1 capsule 3 times a day by oral route. cephalexin 500 mg capsule Completed 2021 take 1 capsule by mouth three times daily for 10 days chlorthalidone 25 mg tablet Completed 03/03 Take 1 tablet every day by oral route for 90 days. dicyclomine 10 mg capsule Active Not av ailable TAKE ONE CAPSULE BY MOUTH EVERY DAY NEEDED FOR STOMACH diltiazem ER 360 mg capsule,24 hr,extended Completed 03/29/2022 release Diltiazem HCl ER Beads Completed 9 divalproex 125 mg tablet,delayed release Active Not available take one tablet by mouth each morning and two tablets by mouth at bedtime doxycycline hyclate 100 mg capsule Completed 03/29/2022 TAKE ONE CAPSULE BY MOUTH TWICE DAILY FOR FIVE DAYS FOR IFAbx S INUSITIS doxycycline hyclate 100 mg tablet Completed 03/24/2022 06/28/2022 TAKE ONE TABLET BY MOUTH TWICE DAILY Eliquis 5 mg tablet Active Not availabl e TAKE ONE TABLET BY MOUTH TWICE DAILY Fish Oil Completed 03/29/2022 Fleet Enema 19 gram-7 gram/118 mL Active Not available Insert by rectal route. fluticasone propionate 50 mcg/actuation nasal Completed 03/29/2022 spray,suspension gabapentin 300 mg capsule Active Not av ailable TAKE ONE CAPSULE BY MOUTH AT BEDTIME gentamicin 0.1 % topical ointment Active Not available apply a small amount topically to affec gideon area Tuesday, Tuesday and Tuesday with wound care hydrocodone 10 mg-acetaminophen 325 mg tablet Active Not available TAKE 1 OR 2 TABLETS BY MOUTH FOUR TIMES DAILY NEEDED FOR chronic lumbar radiculopathy (PER INSURANCE MAX TABLETS PER DAY 6/24 HOURS) hydrocortisone 0.5 % topical cream Completed 03/29/2022 APPLY A THIN LAYER TO THE AFFECTED AREA(S) BY TOPICAL ROUTE 2 T IMES PER DAY hydrocortisone 2.5 % topical cream Completed 03/29/2022 irbesartan 300 mg tablet Completed 019 iron Completed 03/29/2022 letrozole 2.5 mg tablet Completed 03/29/20 22 levothyroxine 125 mcg tablet Active Not available TAKE ONE TABLET BY MOUTH EVERY DAY FOR THYROID losartan 50 mg tablet Active Not availa ble TAKE ONE TABLET BY MOUTH TWICE DAILY FOR hypertension magnesium 200 mg tablet Active Not avai lable Take 1 tablet twice a day by oral route. metformin 500 mg tablet Completed 05/24/20 22 take one tablet by mouth twice daily Milk of Magnesia Active Not available Miralax 17 gram oral powder packet Active Not available Take by oral route. Multi Vitamin Completed 03/30/2022 ondansetron 4 mg disintegrating tablet Active Not available dissolve 2 tablets under the tongue twice daily for seven days potassium chloride ER 10 mEq tablet,extended release Active Not available TAKE ONE TABLET BY MOUTH EVERY DAY pravastatin 40 mg tablet Active Not mehnaz ilable TAKE ONE TABLET BY MOUTH AT BEDTIME ProAir HFA 90 mcg/actuation aerosol inhaler Completed 03/30/2022 promethazine-DM 6.25 mg-15 mg/5 mL oral syrup Active Not available TAKE 5ml BY MOUTH EVERY SIX HOURS spironolactone 25 mg tablet Active Not available TAKE ONE TABLET BY MOUTH EVERY DAY spironolactone 50 mg tablet Completed 03/03 torsemide 10 mg tablet Completed TAKE 1 TABLET BY MOUTH ONCE DAILY torsemide 20 mg tablet Active Not avail able TAKE ONE TABLET BY MOUTH EVERY DAY trospium 20 mg tablet Active Not availa ble TAKE ONE TABLET BY MOUTH TWICE DAILY vancomycin (bulk) 900 mcg/mg (not less than) powder Active Not available Take 1 g 3 times a week by miscell. route as directed for [address] in wound bed Mon/Tue/Tue with dressing changes vancomycin 1,000 mg intravenous injection Completed 06/21/2022 sprinkle contents of one vial (1 gram) to affected area three times weekly as directed for 90 days Notes: Jordan Robbie prescribed augmentin and ondanestron. Jordan Robbie also stated that she should stop taking potassium since h er potassium was high. Verified medications verbally. 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 04/13/2022 Chronic Peripheral Venous Hypertension Pressure Injury of Buttock Active 04/19/2022 Cellulitis Active 05/03/2022 Acute Hyperkalemia Active 05/04/2022 At Risk of Electrolyte Imbalance Active 05/18/2022 Anemia Active 05/31/2022 Deep Tissue Pressure Injury Active 06/21/2022 Procedures Date Name Performed by 08/01/2009 Hip Surgery Information not avai lable Notes: Left hip replacement 08/01/2002 Knee Surgery Information not avai lable Notes: Bilateral knee replacement Mastectomy Information not avai lable Notes: LEFT SIDE Breast Surgery Information not avai lable Notes: X2 Foot Surgery Information not avai lable Notes: Left middle toe removed/Osteomy litis Colonoscopy Information not avai lable 03/30/2022 Electrocardiogram [facility] [address] [place] [address], [place] [phone] (Work Place) Results Lab Results Date Name Specimen Result Interpretation Description Value Range Status Address 06/07/2022 ESR (Erythrocyte No observation Pathologists' Sedimentation recorded. Regional Lab: Rate), Blood [address] [place] [address] 06/02/2022 ESR (Erythrocyte Whole High Erythrocyte 125 0-30 Final Pathologists' Sedimentation Blood Sed Rate mm/HR mm/HR R egional Lab: Rate), Blood [address] [place] [address] 06/02/2022 Creatine Kinase Plasm High Creatine 256 24-170 F inal Pathologists' MB/creatine a Phosphokinase U/L U/L Regional Lab: Kinase Total, [address] [place] [address], Ratio, Serum or L [place] Plasma Plasm High CK-mb by 5.0 <3.7 Final Patholo gists' a Immunoassay NG/mL NG/mL Regio nal Lab: [address] [place] [address] 06/02/2022 CMP, Serum or Plasm High Glucose,random 118 70-1 05 Final Pathologists' Plasma a mg/dL mg/dL Regional L ab: [address] [place] [address] Plasm High Blood Urea 29 8-23 Final Patho logists' a Nitrogen mg/dL mg/dL Regional Lab: [address] [place] [address] Plasm High Creatinine 1.5 0.6-1. Final Patho logists' a mg/dL 1 Regional L ab: mg/dL [address] [place] [address] Plasm Sodium 135 133-14 Final Pathologi sts' a mmol/L 5 Regional L ab: mmol/L [address] [place] [address] Plasm Potassium 4.2 3.3-5. Final Pathol ogists' a mmol/L 1 Regional L ab: mmol/L [address] [place] [address] Plasm Chloride 99 96-108 Final Patholo gists' a mmol/L mmol/L Regional L ab: [address] , [place] Plasm Carbon Dioxide 28 22-30 Final P athologists' a mmol/L mmol/L Regional L ab: [address] , [place] Plasm Anion Gap 8.0 8.0-16 Final Pathol ogists' a .0 Regional L ab: [address] , [place] Plasm High Calcium 10.7 8.6-10 Final Patholog ists' a mg/dL .4 Regional L ab: mg/dL [address] , [place] Plasm Total Protein 6.7 5.9-8. Final Pa thologists' a gm/dL 4 Regional L ab: gm/dL [address] , [place] Plasm Low Albumin 2.7 3.2-5. Final Patholog ists' a gm/dL 2 Regional L ab: gm/dL [address] , [place] Plasm High Globulin 4.0 2.2-3. Final Patholo gists' a gm/dL 7 Regional L ab: gm/dL [address] , [place] Plasm Low Alb/glob Ratio 0.7 1.0-2. Final P athologists' a 3 Regional L ab: [address] , [place] Plasm Bilirubin,tota 0.2 0.1-1. Final P athologists' a l mg/dL 0 Regional L ab: mg/dL [address] , [place] Plasm AST/SGOT 23 U/L <32 Final Patholo gists' a U/L Regional L ab: [address] , [place] Plasm ALT/SGPT 18 U/L <40 Final Patholo gists' a U/L Regional L ab: [address] , [place] Plasm High Alkaline 141 39-117 Final Patholo gists' a Phosphatase U/L U/L Regio nal Lab: [address] , [place] Plasm Glomerular 34 Final Patho logists' a Filtration Rate R egional Lab: [address] , [place] 06/02/2022 TIBC (Total Plasm Low Iron 28 37-145 Final P athologists' Iron-binding a ug/dL ug/dL Saima onal Lab: Capacity), Serum [address], [place] Plasm Unsaturated 226 112-34 Final Path ologists' a Iron Binding mcg/dL 6 Saima onal Lab: Cap mcg/dL [address] , [place] Plasm TIBC 254 228-42 Final Pathologis ts' a Calculation ug/dL 8 Regio nal Lab: ug/dL [address] , [place] Plasm Low % Transferrin 11 % 15-50 Final Pa thologists' a Saturation % Region al Lab: [address] [place] [address] 06/02/2022 Ferritin, Serum Plasm Ferritin 180.2 30.0-4 F inal Pathologists' or Plasma a NG/mL 00.0 Regiona l Lab: NG/mL [address] [place] [address] 06/02/2022 Vitamin B12, Serum High Vitamin B12 1253.0 232.0- F inal Pathologists' Serum pg/mL 1245.0 Regional L ab: pg/mL [address] [place] [address] 06/02/2022 CBC W/ Auto Diff Whole Wbc 10.2 4.5-11 Fin al Pathologists' Blood K/mcL .0 Regional L ab: K/mcL [address] [place] [address] Whole Low Rbc 3.08 3.59-5 Final Pathologis ts' Blood M/mcL .38 Regional L ab: M/mcL [address] [place] [address] Whole Low Hgb 9.4 11.2-1 Final Pathologis ts' Blood g/dL 5.7 Regional L ab: g/dL [address] [place] [address] Whole Low Hct 29.2 % 34.1-4 Final Pathologis ts' Blood 4.9 % Regional L ab: [address] [place] [address] Whole Mcv 94.8 80.0-1 Final Pathologis ts' Blood fL 00.0 Regional L ab: fL [address] [place] [address] Whole Mch 30.5 26.0-3 Final Pathologis ts' Blood pg 4.0 pg Regional L ab: [address] [place] [address] Whole Mchc 32.2 31.0-3 Final Pathologis ts' Blood g/dL 6.0 Regional L ab: g/dL [address] [facility] , [place] Whole High Rdw 17.3 % 11.5-1 Final Pathologis ts' Blood 4.5 % Regional L ab: [address] [place] [address] 462 140-44 Final Pathologi sts' Blood K/mcL 0 Regional L ab: K/mcL [address] [place] [address] Whole Mpv 10.9 8.8-12 Final Pathologis ts' Blood fL .5 fL Regional L ab: [address] [place] [address] Whole Neutrophil % 76.7 % 38.0-7 Final Pat hologists' Blood 8.0 % Regional L ab: 415 [facility] , [place] Whole Low Lymphocyte % 8.8 % 15.5-4 Final Pat hologists' Blood 9.0 % Regional L ab: 415 [facility] , [place] Whole Monocyte % 6.5 % 1.0-12 Final Patho logists' Blood .0 % Regional L ab: [address] [facility] , [place] Whole Eosinophil % 5.7 % 0.0-7. Final Pat hologists' Blood 0 % Regional L ab: 415 [facility] , [place] Whole Basophil % 0.7 % 0.0-2. Final Patho logists' Blood 0 % Regional L ab: 415 [facility] , [place] Whole High Immature 1.6 % 0.0-0. Final Patholo gists' Blood Granulocytes % 5 % Re gional Lab: 415 [facility] , [place] Whole Absolute 7.84 1.80-8 Final Patholo gists' Blood Neutrophil K/mcL .00 Region al Lab: Count K/mcL [address] [facility] , [place] Whole Low Lymphocyte # 0.90 1.50-4 Final Pat hologists' Blood K/mcL .80 Regional L ab: K/mcL [address] [facility] , [place] Whole Monocyte # 0.66 0.10-0 Final Patho logists' Blood K/mcL .90 Regional L ab: K/mcL [address] [facility] , [place] Whole Eosinophil # 0.58 0.00-0 Final Pat hologists' Blood K/mcL .70 Regional L ab: K/mcL [address] [facility] , [place] Whole Basophil # 0.07 0.00-0 Final Patho logists' Blood K/mcL .30 Regional L ab: K/mcL 415 [facility] , [place] Whole High Immature 0.16 0.00-0 Final Patholo gists' Blood Granulocytes # K/mcL .05 Re gional Lab: K/mcL [address] [place] [address] 06/02/2022 CRP, High Plasm High CRP, High 54.5 1.0-3. Final Pathologists' Sensitivity, a Sensitivity mg/L 0 mg/L Regional Lab: Serum or Plasma [address] [place] [address] 06/01/2022 Fecal Occult FEC ABNORM Immunochem test negati Fi nal Pathologists' Blood X 3, Stool AL Fecal Occult not ve Regional Lab: Blood perfor 415 [facility] , [facility] 05/31/2022 CMP, Serum or No observation Pathologists' Plasma recorded. Regiona l Lab: [address] , [place] 05/31/2022 CBC W/ Manual No observation Pathologists' Diff recorded. Regiona l Lab: [address] , [place] 05/17/2022 CBC W/ Auto Diff Whole High Wbc 12.6 4.5-11 Fin al Pathologists' Blood K/mcL .0 Regional L ab: K/mcL [address] , [place] Whole Low Rbc 2.41 3.59-5 Final Pathologis ts' Blood M/mcL .38 Regional L ab: M/mcL [address] , [place] Whole Low Hgb 7.5 11.2-1 Final Pathologis ts' Blood g/dL 5.7 Regional L ab: g/dL [address] , [place] Whole Low Hct 24.3 % 34.1-4 Final Pathologis ts' Blood 4.9 % Regional L ab: [address] [facility] , [place] Whole High Mcv 100.8 80.0-1 Final Pathologis ts' Blood fL 00.0 Regional L ab: fL [address] [facility] , [place] Whole Mch 31.1 26.0-3 Final Pathologis ts' Blood pg 4.0 pg Regional L ab: [address] [facility] , [place] Whole Low Mchc 30.9 31.0-3 Final Pathologis ts' Blood g/dL 6.0 Regional L ab: g/dL [address] , [place] Whole High Rdw 15.9 % 11.5-1 Final Pathologis ts' Blood 4.5 % Regional L ab: [address] [facility] , [place] Whole Plt CT 424 140-44 Final Pathologi sts' Blood K/mcL 0 Regional L ab: K/mcL [address] [facility] , [place] Whole Mpv 11.8 8.8-12 Final Pathologis ts' Blood fL .5 fL Regional L ab: [address] [facility] , [place] Whole Neutrophil % 77.6 % 38.0-7 Final Pat hologists' Blood 8.0 % Regional L ab: [address] [facility] [address] , [place] Whole Low Lymphocyte % 11.7 % 15.5-4 Final Pat hologists' Blood 9.0 % Regional L ab: [address] [facility] , [place] Whole Monocyte % 7.9 % 1.0-12 Final Patho logists' Blood .0 % Regional L ab: [address] [facility] [address] , [place] Whole Eosinophil % 2.1 % 0.0-7. Final Pat hologists' Blood 0 % Regional L ab: [address] [facility] , [place] Whole Basophil % 0.3 % 0.0-2. Final Patho logists' Blood 0 % Regional L ab: [address] , [place] Whole Immature 0.4 % 0.0-0. Final Patholo gists' Blood Granulocytes % 5 % Re gional Lab: 415 [facility] , [place] Whole High Absolute 9.79 1.80-8 Final Patholo gists' Blood Neutrophil K/mcL .00 Region al Lab: Count K/mcL [address] [facility] , [place] Whole Low Lymphocyte # 1.47 1.50-4 Final Pat hologists' Blood K/mcL .80 Regional L ab: K/mcL [address] [facility] , [place] Whole High Monocyte # 0.99 0.10-0 Final Patho logists' Blood K/mcL .90 Regional L ab: K/mcL [address] [facility] , [place] Whole Eosinophil # 0.27 0.00-0 Final Pat hologists' Blood K/mcL .70 Regional L ab: K/mcL [address] [facility] , [place] Whole Basophil # 0.04 0.00-0 Final Patho logists' Blood K/mcL .30 Regional L ab: K/mcL [address] [facility] , [place] Whole Immature 0.05 0.00-0 Final Patholo gists' Blood Granulocytes # K/mcL .05 Re gional Lab: K/mcL [address] [facility] , [place] 05/17/2022 CMP, Serum or Plasm High Glucose,random 123 70-1 05 Final Pathologists' Plasma a mg/dL mg/dL Regional L ab: [address] [facility] , [place] Plasm High Blood Urea 42 8-23 Final Patho logists' a Nitrogen mg/dL mg/dL Regional Lab: 415 [facility] , [place] Plasm High Creatinine 2.0 0.6-1. Final Patho logists' a mg/dL 1 Regional L ab: mg/dL [address] [facility] , [place] Plasm Low Sodium 132 133-14 Final Pathologi sts' a mmol/L 5 Regional L ab: mmol/L [address] [facility] , [place] Plasm Potassium 4.2 3.3-5. Final Pathol ogists' a mmol/L 1 Regional L ab: mmol/L [address] [facility] , [place] Plasm Low Chloride 93 96-108 Final Patholo gists' a mmol/L mmol/L Regional L ab: [address] , [place] Plasm Carbon Dioxide 27 22-30 Final P athologists' a mmol/L mmol/L Regional L ab: [address] , [place] Plasm Anion Gap 12.0 8.0-16 Final Pathol ogists' a .0 Regional L ab: [address] , [place] Plasm High Calcium 10.8 8.6-10 Final Patholog ists' a mg/dL .4 Regional L ab: mg/dL [address] , [place] Plasm Total Protein 6.2 5.9-8. Final Pa thologists' a gm/dL 4 Regional L ab: gm/dL [address] , [place] Plasm Albumin 3.2 3.2-5. Final Patholog ists' a gm/dL 2 Regional L ab: gm/dL [address] , [place] Plasm Globulin 3.0 2.2-3. Final Patholo gists' a gm/dL 7 Regional L ab: gm/dL [address] , [place] Plasm Alb/glob Ratio 1.1 1.0-2. Final P athologists' a 3 Regional L ab: [address] , [place] Plasm Bilirubin,tota 0.2 0.1-1. Final P athologists' a l mg/dL 0 Regional L ab: mg/dL [address] , [place] Plasm AST/SGOT 16 U/L <32 Final Patholo gists' a U/L Regional L ab: [address] , [place] Plasm ALT/SGPT 9 U/L <40 Final Patholo gists' a U/L Regional L ab: [address] , [place] Plasm High Alkaline 123 39-117 Final Patholo gists' a Phosphatase U/L U/L Regio nal Lab: [address] , [place] Plasm Glomerular 24 Final Patho logists' a Filtration Rate R egional Lab: [address] [facility] , [place] 05/17/2022 Culture, Tissue TIS Source buttoc Fin al Pathologists' k Regional L ab: [address] [facility] , [place] TIS Specimen other, Final Patholo gists' Description right Regio nal Lab: [address] [facility] , [place] TIS gram Stain Final Patho logists' Result Regional L ab: [address] [facility] , [place] TIS Quantity of Final Path ologists' Growth Regional L ab: [address] [facility] , [place] TIS Result Comment rifamp Final P athologists' in Regional L ab: should [address] , not BE [place] used alone for antimi crobia l therap y. TIS Result Final Pathologi sts' Regional L ab: [address] , [place] TIS Interm Ampicillin/sul 16/8 Final P athologists' ediate bactam Regional L ab: [address] , [place] TIS Resist Ampicillin >16 Final Patho logists' ant Regional L ab: [address] , [place] TIS Suscep Cefotaxime 8 Final Patho logists' tible Regional L ab: [address] , [place] TIS Resist Cefoxitin >16 Final Pathol ogists' ant Regional L ab: [address] , [place] TIS Resist Cefazolin >16 Final Pathol ogists' ant Regional L ab: [address] , [place] TIS Suscep Ciprofloxacin <=1 Final Pa thologists' tible Regional L ab: [address] , [place] TIS Suscep Cefepime <=2 Final Patholo gists' tible Regional L ab: [address] , [place] TIS Resist Cefuroxime >16 Final Patho logists' ant Regional L ab: [address] , [place] TIS Suscep Gentamicin <=2 Final Patho logists' tible Regional L ab: [address] , [place] TIS Suscep Levofloxacin <=2 Final Pat hologists' tible Regional L ab: [address] , [place] TIS Suscep Piperacillin/t <=8 Final P athologists' tible azobactam Regiona l Lab: [address] , [place] TIS Suscep Trimeth/sulfa <=2/38 Final Pa thologists' tible Regional L ab: [address] , [place] TIS Suscep Tetracycline <=4 Final Pat hologists' tible Regional L ab: [address] , [place] TIS Resist amoxicillin/K <=4/2 Final Pa thologists' ant Clavulanate Regio nal Lab: [address] , [place] TIS Suscep Clindamycin <=0.25 Final Path ologists' tible Regional L ab: [address] , [place] TIS Resist Cefazolin <=4 Final Pathol ogists' ant Regional L ab: [address] , [place] TIS Resist Erythromycin >4 Final Pat hologists' ant Regional L ab: [address] , [place] TIS Resist Gentamicin >8 Final Patho logists' ant Regional L ab: [address] , [place] TIS Resist Oxacillin >2 Final Pathol ogists' ant Regional L ab: [address] , [place] TIS Suscep Rifampin <=1 Final Patholo gists' tible Regional L ab: [address] , [place] TIS Suscep Trimeth/sulfa <=0.5/ Final Pa thologists' tible 9.5 Regional L ab: [address] , [place] TIS Resist Tetracycline >8 Final Pat hologists' ant Regional L ab: [address] , [place] TIS Suscep Vancomycin 2 Final Patho logists' tible Regional L ab: [address] , [place] 05/03/2022 Culture, Tissue TIS Source buttoc Fin al Pathologists' k;righ Regional L ab: t [address] , [place] TIS Specimen other Final Patholo gists' Description Regio nal Lab: [address] , [place] TIS gram Stain Final Patho logists' Result Regional L ab: [address] , [place] TIS Quantity of Final Path ologists' Growth Regional L ab: [address] , [place] TIS Result Comment Final P athologists' Regional L ab: [address] , [place] TIS Result Final Pathologi sts' Regional L ab: [address] , [place] TIS Suscep Ampicillin <=2 Final Patho logists' tible Regional L ab: [address] , [place] TIS Suscep Gentamicin <=500 Final Patho logists' tible High Level Region al Lab: [facility] [address], [place] TIS Suscep Penicillin 2 Final Patho logists' tible Regional L ab: [address] , [place] TIS Suscep Vancomycin 2 Final Patho logists' tible Regional L ab: [address] , [place] TIS Resist amoxicillin/K <=4/2 Final Pa thologists' ant Clavulanate Regio nal Lab: [address] , [place] TIS Resist Clindamycin >4 Final Path ologists' ant Regional L ab: [address] , [place] TIS Resist Cefazolin <=4 Final Pathol ogists' ant Regional L ab: [address] , [place] TIS Resist Erythromycin >4 Final Pat hologists' ant Regional L ab: [address] , [place] TIS Resist Gentamicin >8 Final Patho logists' ant Regional L ab: [address] , [place] TIS Resist Oxacillin >2 Final Pathol ogists' ant Regional L ab: [address] , [place] TIS Suscep Rifampin <=1 Final Patholo gists' tible Regional L ab: [address] , [place] TIS Suscep Trimeth/sulfa 1/ Final Pa thologists' tible Regional L ab: [address] , [place] TIS Resist Tetracycline >8 Final Pat hologists' ant Regional L ab: [address] , [place] TIS Suscep Vancomycin 2 Final Patho logists' tible Regional L ab: [address] , [place] TIS Interm Ampicillin/sul 16/8 Final P athologists' ediate bactam Regional L ab: [address] , [place] TIS Resist Ampicillin >16 Final Patho logists' ant Regional L ab: [address] , [place] TIS Suscep Cefotaxime 8 Final Patho logists' tible Regional L ab: [address] , [place] TIS Resist Cefoxitin >16 Final Pathol ogists' ant Regional L ab: [address] , [place] TIS Resist Cefazolin >16 Final Pathol ogists' ant Regional L ab: [address] , [place] TIS Suscep Ciprofloxacin <=1 Final Pa thologists' tible Regional L ab: [address] , [place] TIS Suscep Cefepime <=2 Final Patholo gists' tible Regional L ab: [address] , [place] TIS Resist Cefuroxime >16 Final Patho logists' ant Regional L ab: [address] , [place] TIS Suscep Gentamicin <=2 Final Patho logists' tible Regional L ab: [address] , [place] TIS Suscep Levofloxacin <=2 Final Pat hologists' tible Regional L ab: [address] , [place] TIS Suscep Piperacillin/t <=8 Final P athologists' tible azobactam Regiona l Lab: [address] , [place] TIS Suscep Trimeth/sulfa <=2/38 Final Pa thologists' tible Regional L ab: [address] , [place] TIS Suscep Tetracycline <=4 Final Pat hologists' tible Regional L ab: [address] , [place] TIS Resist amoxicillin/K <=4/2 Final Pa thologists' ant Clavulanate Regio nal Lab: [address] , [place] TIS Suscep Clindamycin <=0.25 Final Path ologists' tible Regional L ab: [address] , [place] TIS Resist Cefazolin <=4 Final Pathol ogists' ant Regional L ab: [address] , [place] TIS Resist Erythromycin >4 Final Pat hologists' ant Regional L ab: [address] , [facility] Resist Gentamicin >8 Final Patho logists' ant Regional L ab: [address] , [place] [facility] Resist Oxacillin >2 Final Pathol ogists' ant Regional L ab: [address] , [place] Suscep Rifampin <=1 Final Patholo gists' tible Regional L ab: [address] , [facility] Suscep Trimeth/sulfa <=0.5/ Final Pa thologists' tible 9.5 Regional L ab: [address] , [place] Resist Tetracycline >8 Final Pat hologists' ant Regional L ab: [address] , [facility] Suscep Vancomycin 2 Final Patho logists' tible Regional L ab: [address] [facility] , [place] 05/03/2022 Culture + Wound No observation Pathologists' Sensitivity, recorded. R egional Lab: Tissue [address] , [place] 04/30/2022 Pro BNP (Pro Plasm High Probnp 534.2 <125.0 Final Pathologists' B-type a pg/mL pg/mL Regional L ab: Natriuretic [address], Peptide), Serum [place] or Plasma 04/30/2022 BMP, Serum or Plasm High Glucose,random 113 70-1 05 Final Pathologists' Plasma a mg/dL mg/dL Regional L ab: [address] , [place] Plasm Blood Urea 22 8-23 Final Patho logists' a Nitrogen mg/dL mg/dL Regional Lab: [address] , [place] Plasm High Creatinine 1.6 0.6-1. Final Patho logists' a mg/dL 1 Regional L ab: mg/dL [address] , [place] Plasm Sodium 140 133-14 Final Pathologi sts' a mmol/L 5 Regional L ab: mmol/L [address] [facility] , [place] Plasm High Potassium 5.2 3.3-5. Final Pathol ogists' a mmol/L 1 Regional L ab: mmol/L [address] [facility] , [place] Plasm Chloride 98 96-108 Final Patholo gists' a mmol/L mmol/L Regional L ab: [address] , [place] Plasm Low Carbon Dioxide 21 22-30 Final P athologists' a mmol/L mmol/L Regional L ab: [address] , [place] Plasm High Anion Gap 21.0 8.0-16 Final Pathol ogists' a .0 Regional L ab: [address] , [place] Plasm Calcium 10.4 8.6-10 Final Patholog ists' a mg/dL .4 Regional L ab: mg/dL [address] , [place] Plasm Glomerular 31 Final Patho logists' a Filtration Rate R egional Lab: [address] , [place] 04/30/2022 Lipid Panel, Plasm Cholesterol 115 <200 F inal Pathologists' Blood a mg/dL mg/dL Regional L ab: [address] , [place] Plasm Triglycerides 138 <150 Final Pa thologists' a mg/dL mg/dL Regional L ab: [address] , [place] Plasm LDL,calculated 47 <100 Final P athologists' a mg/dL mg/dL Regional L ab: [address] , [place] Plasm HDL 41 >40 Final Pathologis ts' a Cholesterol mg/dL mg/dL Regio nal Lab: [address] , [place] Plasm non-HDL 74 <130 Final Patholog ists' a Cholesterol mg/dL mg/dL Regio nal Lab: [address] , [place] 04/30/2022 TSH, Serum or Plasm Thyroid 2.02 0.27-5 Aisha l Pathologists' Plasma a Stimulating uIU/mL .01 Regio nal Lab: Hormone If uIU/mL [address], [place] 04/19/2022 Pro BNP (Pro Plasm High Probnp 536.9 <125.0 Final Pathologists' B-type a pg/mL pg/mL Regional L ab: Natriuretic [address], Peptide), Serum [place] or Plasma 10/09/2018 Protein Inter Total Protein 6.9 5.9-8. Aisha l Pathologists' Electrophoresis preta Sep gm/dL 4 R egional Lab: Panel, Serum or tion gm/dL [address], Plasma of [place] serum or plasm a prote in patte rn test by rudy guzmán Inter Albumin Sep 3.70 3.1-4. Final Path ologists' preta gm/dL 7 Regional L ab: tion gm/dL [address] , of [place] serum or plasm a prote in patte rn test by elect ropho resis Inter [id number] 0.19 0.1-0. Final P athologists' preta ins gm/dL 5 Regional L ab: tion gm/dL [address] , of [place] serum or plasm a prote in patte rn test by elect ropho resis Inter [id number] 0.87 0.4-1. Final P athologists' preta ins gm/dL 2 Regional L ab: tion gm/dL [address] , of [place] serum or plasm a prote in patte rn test by elect ropho resis Inter Beta Globulins 1.18 0.6-1. Final P athologists' preta gm/dL 2 Regional L ab: tion gm/dL [address] , of [place] serum or plasm a prote in patte rn test by elect ropho resis Inter Gamma 0.96 0.5-1. Final Pathologis ts' preta Globulins gm/dL 7 Regiona l Lab: tion gm/dL [address] , of [place] serum or plasm a prote in patte rn test by elect ropho resis Inter Globulin Sep 3.2 2.4-3. Final Pat hologists' preta gm/dL 6 Regional L ab: tion gm/dL [address] , of [place] serum or plasm a prote in patte rn test by elect ropho resis Inter A/g Ratio Sep 1.2 0.9-1. Final Pa thologists' preta 7 Regional L ab: tion [address] , of [place] serum or plasm a prote in patte rn test by elect ropho resis Inter Interpretation Final P athologists' preta Regional L ab: tion [address] , of [place] serum or plasm a prote in patte rn test by elect ropho resis 10/09/2018 Hepatitis Panel Serum Hepatitis a non negat i Final Pathologists' (A+B+C), Acute, hepat Antibody IgM reacti ve Regional Lab: Serum itis ve [address] , [place] virus surfa ce antig en detec tion Serum Hepatitis C non negati Final Path ologists' hepat Antibody reacti ve Regional Lab: itis ve [address] , [place] virus surfa ce antig en detec tion Serum Hepatitis B non negati Final Path ologists' hepat Core Antibody reacti ve Reg ional Lab: itis IgM ve [address] , [place] virus surfa ce antig en detec tion Serum Hepatitis B negati negati Final Path ologists' hepat Surface Antigen ve ve R egional Lab: itis [address] , [place] virus surfa ce antig en detec tion Serum Results Patholog ists' hepat Regional L ab: itis [address] , [place] virus surfa ce antig en detec tion 10/09/2018 Immunofixation, Inter Interpretation Final Pathologists' Serum preta Regional L ab: tion [address] , of [place] serum or plasm a immun ofixa tion 10/09/2018 Vitamin B6 Serum High Vitamin B6 61.7 2.1-21 Aisha l Pathologists' (Pyridoxine), or NG/mL .7 Reg ional Lab: Plasma plasm NG/mL [address] , a [place] pyrid oxine measu remen t (mass /volu me) Serum Results Patholog ists' or Regional L ab: plasm [address] , a [place] pyrid oxine measu remen t (mass /volu me) 08/23/2018 Vitamin B12, No observation Mineral Serum recorded. Medical Clinic: [address] [facility] Past Encounters Encounter Date Diagnosis Provider 07/27/2022 Stasis Dermatitis and Venous Ulcer of Sa vida Avalos, [employer]: [address] Lower Extremity [place] [id number], Peripheral Venous Hypertension; Deep Ph. Tissue Pressure Injury; Lymphedema of Bilateral Lower Limbs; Lipedema; Pressure Injury of Buttock; Stasis Dermatitis and Venous Ulcer of Lower Extremity Due to Chronic Peripheral Venous Hypertension 07/19/2022 Stasis Dermatitis and Venous Ulcer of Sa vida Avalos, [employer]: [address] Lower [place]rem[place] [id number], Peripheral Venous Hypertension; Deep Ph. Tissue Pressure Injury; Lymphedema of Bilateral Lower Limbs; Lipedema; Pressure Injury of Buttock 07/12/2022 Stasis Dermatitis and Venous Ulcer of Sa vida Avalos, [employer]: [address] Lower [place]remity [place] [id number], Peripheral Venous Hypertension; Deep Ph. Tissue Pressure Injury; Lymphedema of Bilateral Lower Limbs; Lipedema; Pressure Injury of Buttock 07/05/2022 Stasis Dermatitis and Venous Ulcer of Sa vida Avalos, [employer]: [address] Extremity Due to Chronic [address], [place] [address], Peripheral Venous Hypertension; Deep Ph. Tissue Pressure Injury; Lymphedema of Bilateral Lower Limbs; Lipedema; Pressure Injury of Buttock 06/28/2022 Stasis Dermatitis and Venous Ulcer of Sa vida Avalos, [employer]: [address] Extremity Due to Chronic [address], [place] [address], Peripheral Venous Hypertension; Deep Ph. Tissue Pressure Injury; Lymphedema of Bilateral Lower Limbs; Lipedema; Pressure Injury of Buttock 06/21/2022 Stasis Dermatitis and Venous Ulcer of Sa vida Avalos, [employer]: [address] Extremity Due to Chronic [address], [place] [address], Peripheral Venous Hypertension; Deep Ph. Tissue Pressure Injury; Lymphedema of Bilateral Lower Limbs; Lipedema; Pressure Injury of Buttock 06/14/2022 Stasis Dermatitis and Venous Ulcer of Sa vida Avalos, [employer]: [address] Extremity Due to Chronic [address], [place] [id number], Peripheral Venous Hypertension; Ph. Lymphedema of Bilateral Lower Limbs; Lipedema; Pressure Injury of Buttock; Cellulitis 06/07/2022 Stasis Dermatitis and Venous Ulcer of Sa vida Avalos, [employer]: [address] Extremity Due to Chronic [address], [place] [phone], Peripheral Venous Hypertension; Ph. Lymphedema of Bilateral Lower Limbs; Lipedema; Pressure Injury of Buttock; Cellulitis; Anemia 05/31/2022 Stasis Dermatitis and Venous Ulcer of Sa vida Avalos, [employer]: [address] Extremity Due to Chronic [address], [place] [phone], Peripheral Venous Hypertension; Ph. Lymphedema of Bilateral Lower Limbs; Lipedema; Pressure Injury of Buttock; Cellulitis; Anemia 05/24/2022 Stasis Dermatitis and Venous Ulcer of Sa vida Avalos, [employer]: [address] Extremity Due to Chronic [address], [place] [address], Peripheral Venous Hypertension; Ph. Lymphedema of Bilateral Lower Limbs; Lipedema; Pressure Injury of Buttock; Cellulitis 05/20/2022 Pressure Injury of Buttock Eva leonard, [employer]: [address] [place] [phone], Ph. 05/17/2022 Stasis Dermatitis and Venous Ulcer of Sa vida Avalos, [employer]: [address] Lower [place]rem[place] [id number], Peripheral Venous Hypertension; Ph. Lymphedema of Bilateral Lower Limbs; Lipedema; Pressure Injury of Buttock; Cellulitis; At Risk of Electrolyte Imbalance 05/11/2022 Stasis Dermatitis and Venous Ulcer of Sa vida Avalos, [employer]: [address] Lower [place]rem[place] [id number], Peripheral Venous Hypertension; Ph. Lymphedema of Bilateral Lower Limbs; Lipedema; Pressure Injury of Buttock; Cellulitis 05/10/2022 Stasis Dermatitis and Venous Ulcer of Sa vida Avalos, [employer]: [address] Lower [place]rem[place] [id number], Peripheral Venous Hypertension; Ph. Lymphedema of Bilateral Lower Limbs; Lipedema; Pressure Injury of Buttock; Cellulitis 05/03/2022 Edema of Lower Extremity; Chronic Claudine Tapia, [employer]: [address] Kidney Disease; Mixed Hyperlipidemia; [facility] [place] [phone], History of Pulmonary Embolus; Ph. Obstructive Sleep Apnea Syndrome; Hyponatremia; Lymphedema of Lower Extremity 05/03/2022 Stasis Dermatitis and Venous Ulcer of Sa vida Avalos, [employer]: [address] Lower Extremity Due to Chronic Ron, [place] [address], Peripheral Venous Hypertension; Ph. Lymphedema of Bilateral Lower Limbs; Lipedema; Pressure Injury of Buttock; Cellulitis; Acute Hyperkalemia 04/26/2022 Stasis Dermatitis and Venous Ulcer of Sa vida Avalos, [employer]: [address] Lower Extremity Due to Chronic Ron, [place] [address], Peripheral Venous Hypertension; Ph. Lymphedema of Bilateral Lower Limbs; Lipedema; Pressure Injury of Buttock 04/19/2022 Stasis Dermatitis and Venous Ulcer of Sa vida Avalos, [employer]: [address] Lower [place]remity [place] [phone], Peripheral Venous Hypertension; Ph. Lymphedema of Bilateral Lower Limbs; Lipedema; Pressure Injury of Buttock 04/12/2022 Stasis Dermatitis and Venous Ulcer of Sa vida Avalos, [employer]: [address] Lower [place]remity [place] [address], Peripheral Venous Hypertension; Ph. [phone] Lymphedema of Bilateral Lower Limbs; Lipedema 04/07/2022 Edema of Lower Extremity; Chronic Claudine Rivaser, [employer]: [address] Kidney Disease; Mixed Hyperlipidemia; [place] [address], History of Pulmonary Embolus; Ph. Obstructive Sleep Apnea Syndrome; Hyponatremia; Lymphedema of Lower Extremity 03/30/2022 Edema of Lower Extremity; Lymphedema Car canelo Rivaser, [employer]: [address] of Lower Extremity; Hyponatremia; [place] [phone], Obstructive Sleep Apnea Syndrome; Ph. [phone] History of Pulmonary Embolus; Mixed Hyperlipidemia; Chronic Kidney Disease 03/29/2022 Stasis Dermatitis and Venous Ulcer of Sa vida Avalos, [employer]: [address] Lower [place]remity [place] [address], Peripheral Venous Hypertension; Ph. Lymphedema of Bilateral Lower Limbs; Lipedema Social History Tobacco Smoking Status Never Smoker Vaccine List None recorded. Plan of Care Patient Instructions Return to clinic in 1 week Wound VAC patient instructions Remember to keep the wound VAC plugged a nd whenever you are sitting or in bed for a long period of time so the battery stays charged. The battery should last from 8-10 hours. Your wound VAC supplies will be sent to you. Remember to take a sponge and a canister to each of your visits here at the wound care clinic for your wound VAC dressing changes. You may shower but do not get the pietro e wet. Leave your dressing in place. You may cover with Saran wrap and secure with tape to further protect the dressing. Do not scrub your dressing. If the machine stops functioning, and yo u are unable to reobtain seal after 2 hours remove foam and apply moistened gauze to the wound bed until the wound VAC dressing can be reapplied. Notify the wound clinic for instructions at [phone] . The clinic is open Tuesday through from 8 AM till 5 PM and Tuesday from 8 AM until noon. Wound VAC patient instructions Remember to keep the wound VAC plugged a nd whenever you are sitting or in bed for a long period of time so the battery stays charged. The battery should last from 8-10 hours. Your wound VAC supplies will be sent to you. Remember to take a sponge and a canister to each of your visits here at the wound care clinic for your wound VAC dressing changes. You may shower but do not get the pietro e wet. Leave your dressing in place. You may cover with Saran wrap and secure with tape to further protect the dressing. Do not scrub your dressing. If the machine stops functioning, and yo u are unable to reobtain seal after 2 hours remove foam and apply moistened gauze to the wound bed until the wound VAC dressing can be reapplied. Notify the wound clinic for instructions at [phone] . The clinic is open Tuesday through from 8 AM till 5 PM and Tuesday from 8 AM until noon. Return to clinic 1 week Get prompt medical attention if any the following occur: An increase in redness or swelling. Red streaks in the skin leading away fro m the wound. An increase in pain or swelling at or ar ound the wound. Fever over 100.0 F orally. New odor or drainage from the wound bed. Wound VAC patient instructions Remember to keep the wound VAC plugged a nd whenever you are sitting or in bed for a long period of time so the battery stays charged. The battery should last from 8-10 hours. Your wound VAC supplies will be sent to you. Remember to take a sponge and a canister to each of your visits here at the wound care clinic for your wound VAC dressing changes. You may shower but do not get the pietro e wet. Leave your dressing in place. You may cover with Saran wrap and secure with tape to further protect the dressing. Do not scrub your dressing. If the machine stops functioning, and yo u are unable to reobtain seal after 2 hours remove foam and apply moistened gauze to the wound bed until the wound VAC dressing can be reapplied. Notify the wound clinic for instructions at 7 . The clinic is open Tuesday through from 8 AM till 5 PM and Tuesday from 8 AM until noon. Return to clinic as scheduled. Wound VAC patient instructions Remember to keep the wound VAC plugged a nd whenever you are sitting or in bed for a long period of time so the battery stays charged. The battery should last from 8-10 hours. Your wound VAC supplies will be sent to you. Remember to take a sponge and a canister to each of your visits here at the wound care clinic for your wound VAC dressing changes. You may shower but do not get the pietro e wet. Leave your dressing in place. You may cover with Saran wrap and secure with tape to further protect the dressing. Do not scrub your dressing. If the machine stops functioning, and yo u are unable to reobtain seal after 2 hours remove foam and apply moistened gauze to the wound bed until the wound VAC dressing can be reapplied. Notify the wound clinic for instructions at [phone] . The clinic is open Tuesday through from 8 AM till 5 PM and Tuesday from 8 AM until noon. Wound VAC patient instructions Remember to keep the wound VAC plugged a nd whenever you are sitting or in bed for a long period of time so the battery stays charged. The battery should last from 8-10 hours. Your wound VAC supplies will be sent to you. Remember to take a sponge and a canister to each of your visits here at the wound care clinic for your wound VAC dressing changes. You may shower but do not get the pietro e wet. Leave your dressing in place. You may cover with Saran wrap and secure with tape to further protect the dressing. Do not scrub your dressing. If the machine stops functioning, and yo u are unable to reobtain seal after 2 hours remove foam and apply moistened gauze to the wound bed until the wound VAC dressing can be reapplied. Notify the wound clinic for instructions at [phone] . The clinic is open Tuesday through from 8 AM till 5 PM and Tuesday from 8 AM until noon. Return to clinic as scheduled RTC 1 week Wound VAC patient instructions Remember to keep the wound VAC plugged a nd whenever you are sitting or in bed for a long period of time so the battery stays charged. The battery should last from 8-10 hours. Your wound VAC supplies will be sent to you. Remember to take a sponge and a canister to each of your visits here at the wound care clinic for your wound VAC dressing changes. You may shower but do not get the pietro e wet. Leave your dressing in place. You may cover with Saran wrap and secure with tape to further protect the dressing. Do not scrub your dressing. If the machine stops functioning, and yo u are unable to re obtain seal after 2 hours remove foam and apply moistened gauze to the wound bed until the wound VAC dressing can be reapplied. Notify the woun d clinic for instructions at /[phone]. The clinic is open Tuesday through from 8 AM till 5 PM and Tuesday from 8 AM until noon. Offload hourly. This can be accomplished by standing once for an hour for 1 full minute. Other ways to promote offloading include shifting forward side to side and backwards during commercials. A Seating cushion is recommended these n eed to replaced every 6 months Keeping the sacral area free of excessiv e moisture is also important use of moisture barrier ointment or moisture barrier wipes is helpful. Return to clinic in 1 week Wound VAC patient instructions Remember to keep the wound VAC plugged a nd whenever you are sitting or in bed for a long period of time so the battery stays charged. The battery should last from 8-10 hours. Your wound VAC supplies will be sent to you. Remember to take a sponge and a canister to each of your visits here at the wound care clinic for your wound VAC dressing changes. You may shower but do not get the pietro e wet. Leave your dressing in place. You may cover with Saran wrap and secure with tape to further protect the dressing. Do not scrub your dressing. If the machine stops functioning, and yo u are unable to reobtain seal after 2 hours remove foam and apply moistened gauze to the wound bed until the wound VAC dressing can be reapplied. Notify the wound clinic for instructions at [phone] . The clinic is open Tuesday through from 8 AM till 5 PM and Tuesday from 8 AM until noon. To clinic in 1 week Continue with current interventions, [facility] will assist with dressing changes Wound VAC patient instructions Remember to keep the wound VAC plugged a nd whenever you are sitting or in bed for a long period of time so the battery stays charged. The battery should last from 8-10 hours. Your wound VAC supplies will be sent to you. Remember to take a sponge and a canister to each of your visits here at the wound care clinic for your wound VAC dressing changes. You may shower but do not get the pietro e wet. Leave your dressing in place. You may cover with Saran wrap and secure with tape to further protect the dressing. Do not scrub your dressing. If the machine stops functioning, and yo u are unable to reobtain seal after 2 hours remove foam and apply moistened gauze to the wound bed until the wound VAC dressing can be reapplied. Notify the wound clinic for instructions at [phone] . The clinic is open Tuesday through from 8 AM till 5 PM and Tuesday from 8 AM until noon. Wound VAC patient instructions Remember to keep the wound VAC plugged a nd whenever you are sitting or in bed for a long period of time so the battery stays charged. The battery should last from 8-10 hours. Your wound VAC supplies will be sent to you. Remember to take a sponge and a canister to each of your visits here at the wound care clinic for your wound VAC dressing changes. You may shower but do not get the pietro e wet. Leave your dressing in place. You may cover with Saran wrap and secure with tape to further protect the dressing. Do not scrub your dressing. If the machine stops functioning, and yo u are unable to reobtain seal after 2 hours remove foam and apply moistened gauze to the wound bed until the wound VAC dressing can be reapplied. Notify the wound clinic for instructions at [phone] . The clinic is open Tuesday through from 8 AM till 5 PM and Tuesday from 8 AM until noon. Return to clinic as scheduled Go to the emergency department if you fe el worse, experience a fever or other signs and symptoms Return to clinic as scheduled Go downstairs and have your labs drawn Go to the emergency department if you fe el worse, experience a fever or other signs and symptoms RTC 1 week Finish your antibiotics as instructed Stop the potassium as instructed Be vigilant with your offloading of your buttocks Home health will change your dressing in between clinic visits RTC 1 week Finish your antibiotics as instructed Stop the potassium as instructed Be vigilant with your offloading of your buttocks Home health will change your dressing in between clinic visits 1. Your dietary pattern is a modifiable risk factor for cardiovascular disease. You should aim for: a. A variety of fruits and vegetables, w hole grains, low-fat dairy products, skinless poultry and fish, nuts and legumes, and non-tropical vegetable oils. b. You should limit saturated fats, cano s fat, sodium, red meat, sweets and sugar-sweetened beverages. c. You should eat NO MORE than 2,000 mg of sodium (salt) per day. Monitor your food guide label. The diet that best fits this pattern is the DASH (Dietary Approaches to Stop Hypertension) eating plan as recommended by the [place] [employer]. 2. A regular pattern of physical activit y is also a modifiable risk factor for cardiovascular disease. Aim for 150 minutes of moderate physical activity, 75 minutes of vigorous aerobic activity, or an equal combination of both each week. 3. Weigh yourself daily at the same time with the same clothing. Your weight should not increase more than 2 pounds in one day. 4. Bring your blood pressure log and med ications with you to EVERY appointment please. RTC 1 week Your antibiotics as instructed Stop the potassium as instructed Be vigilant with your offloading of your buttocks Home health will change her dressing in between clinic visits Return to clinic 1 week Home health will perform dressing change s in between clinic visits A compression wrap has been placed on on e or both of your legs today. Keep the wraps on and dry. If compression wraps feel tight or painf ul, it is a signal to elevate your legs to help reduce swelling. If you experience numbness or tingling i n the feet or legs elevate your legs for 30 minutes above the heart. If the sensation does not go away, remov e the compression wraps and notify the wound care clinic. If the compression wrap slides down the leg and causes pain, use blunt and scissors and cut a slit at the top. If the wrap "slips or bunches up" causing pain, remove the wrap and contact the wound care clinic. The wound care clinic staff can be reach ed at [phone] through from8 AM to 4 PMatuesday from 8 AM to noon. Return to clinic 1 week Home Health will perform dressing change s in between clinic visits A compression wrap has been placed on on e or both of your legs today. Keep the wraps on and dry. If compression wraps feel tight or painf ul, it is a signal to elevate your legs to help reduce swelling. If you experience numbness or tingling i n the feet or legs elevate your legs for 30 minutes above the heart. If the sensation does not go away, remov e the compression wraps and notify the wound care clinic. If the compression wrap slides down the leg and causes pain, use blunt and scissors and cut a slit at the top. If the wrap "slips or bunches up" causing pain, remove the wrap and contact the wound care clinic. The wound care clinic staff can be reach ed at [phone] through from8 AM to PMatuesday from 8 AM to noon. Return to clinic 1 week SNF will perform dressing changes in [facility] clinic visits A compression wrap has been placed on on e or both of your legs today. Keep the wraps on and dry. If compression wraps feel tight or painf ul, it is a signal to elevate your legs to help reduce swelling. If you experience numbness or tingling i n the feet or legs elevate your legs for 30 minutes above the heart. If the sensation does not go away, remov e the compression wraps and notify the wound care clinic. If the compression wrap slides down the leg and causes pain, use blunt and scissors and cut a slit at the top. If the wrap "slips or bunches up" causing pain, remove the wrap and contact the wound care clinic. The wound care clinic staff can be reach ed at [phone] through from8 AM to 4 PMand Tuesday from 8 AM to noon. 1. Your dietary pattern is a modifiable risk factor for cardiovascular disease. You should aim for: a. A variety of fruits and vegetables, w hole grains, low-fat dairy products, skinless poultry and fish, nuts and legumes, and non-tropical vegetable oils. b. You should limit saturated fats, cano s fat, sodium, red meat, sweets and sugar-sweetened beverages. c. You should eat NO MORE than 2,000 mg of sodium (salt) per day. Monitor your food guide label. The diet that best fits this pattern is the DASH (Dietary Approaches to Stop Hypertension) eating plan as recommended by the [place] [employer]. 2. A regular pattern of physical activit y is also a modifiable risk factor for cardiovascular disease. Aim for 150 minutes of moderate physical activity, 75 minutes of vigorous aerobic activity, or an equal combination of both each week. 3. Weigh yourself daily at the same time with the same clothing. Your weight should not increase more than 2 pounds in one day. 4. Bring your blood pressure log and med ications with you to EVERY appointment please. 1. Your dietary pattern is a modifiable risk factor for cardiovascular disease. You should aim for: a. A variety of fruits and vegetables, w hole grains, low-fat dairy products, skinless poultry and fish, nuts and legumes, and non-tropical vegetable oils. b. You should limit saturated fats, cano s fat, sodium, red meat, sweets and sugar-sweetened beverages. c. You should eat NO MORE than 2,000 mg of sodium (salt) per day. Monitor your food guide label. The diet that best fits this pattern is the DASH (Dietary Approaches to Stop Hypertension) eating plan as recommended by the [place] [employer]. 2. A regular pattern of physical activit y is also a modifiable risk factor for cardiovascular disease. Aim for 150 minutes of moderate physical activity, 75 minutes of vigorous aerobic activity, or an equal combination of both each week. 3. Weigh yourself daily at the same time with the same clothing. Your weight should not increase more than 2 pounds in one day. 4. Bring your blood pressure log and med ications with you to EVERY appointment please. Return to clinic 2 weeks SNF will perform dressing changes in [facility] clinic visits A compression wrap has been placed on on e or both of your legs today. Keep the wraps on and dry. If compression wraps feel tight or painf ul, it is a signal to elevate your legs to help reduce swelling. If you experience numbness or tingling i n the feet or legs elevate your legs for 30 minutes above the heart. If the sensation does not go away, remov e the compression wraps and notify the wound care clinic. If the compression wrap slides down the leg and causes pain, use blunt and scissors and cut a slit at the top. If the wrap "slips or bunches up" causing pain, remove the wrap and contact the wound care clinic. The wound care clinic staff can be reach ed at [phone] through from8 AM to 4 PMand Tuesday from 8 AM to noon. Reminders Provider Appointments None recorded. Lab None recorded. Referral None recorded. Procedures None recorded. Surgeries None recorded. Imaging None recorded. Vitals 07/27/2022 11:00AM Established Patient 30 Height Blood Pressure 5 ft 5 in 142/88 mm[Hg] 07/19/2022 10:30AM Established Patient 30 Height Weight BMI Blood Pressure 5 ft 5 in 288 lbs 47.9 kg/m2 150/60 mm[Hg] 07/12/2022 11:30AM Established Patient 30 Height Weight BMI Blood Pressure 5 ft 5 in 288.6 lbs 48 kg/m2 172/73 mm[Hg] 07/05/2022 10:00AM Established Patient 30 Height Weight BMI Blood Pressure 5 ft 5 in 288.6 lbs 48 kg/m2 156/77 mm[Hg] 06/28/2022 11:00AM Established Patient 30 Height Weight BMI Blood Pressure 5 ft 5 in 305 lbs 50.8 kg/m2 164/91 mm[Hg] 06/21/2022 11:30AM Established Patient 30 Height Weight BMI Blood Pressure 5 ft 5 in 306 lbs 50.9 kg/m2 148/98 mm[Hg] 06/14/2022 10:00AM Established Patient 30 Height Weight BMI Blood Pressure 5 ft 5 in 304 lbs 50.6 kg/m2 144/48 mm[Hg] 06/07/2022 09:45AM Established Patient 30 Height Blood Pressure 5 ft 5 in 110/52 mm[Hg] 05/31/2022 02:30PM Established Patient 30 Height Weight BMI Blood Pressure 5 ft 5 in 304 lbs 50.6 kg/m2 148/101 mm[Hg] 05/24/2022 03:00PM Established Patient 30 Height Weight BMI Blood Pressure 5 ft 5 in 304 lbs 50.6 kg/m2 151/80 mm[Hg] 05/20/2022 09:30AM Wound Care-Nurse Visit 30 Height Weight BMI Blood Pressure 5 ft 5 in 304.2 lbs 50.6 kg/m2 156/78 mm[Hg] 05/17/2022 01:00PM Established Patient 30 Height Weight BMI Blood Pressure 5 ft 5 in 155/69 mm[Hg] 05/11/2022 10:15AM Established Patient 15 Height Blood Pressure 5 ft 5 in 141/59 mm[Hg] 05/10/2022 01:30PM Established Patient 30 Height Weight BMI Blood Pressure 5 ft 5 in 143/59 mm[Hg] 05/03/2022 11:00AM Established Patient 30 Height Blood Pressure 5 ft 5 in 136/49 mm[Hg] 05/03/2022 02:00PM [facility]- Established Short Height Weight BMI Blood Pressure 5 ft 5 in 295 lbs 49.1 kg/m2 142/79 mm[Hg] 04/26/2022 03:00PM Established Patient 30 Height 5 ft 5 in 04/19/2022 11:00AM Established Patient 30 Height Weight BMI Blood Pressure 5 ft 5 in 141/82 mm[Hg] 04/12/2022 02:00PM Established Patient 30 Height Blood Pressure 5 ft 5 in 157/88 mm[Hg] 04/07/2022 03:45PM [facility]- Established Short Height Weight BMI Blood Pressure 5 ft 5 in 130/68 mm[Hg] 03/30/2022 10:30AM [facility] Follow Up HF Height Weight BMI Blood Pressure 5 ft 5 in 140/68 mm[Hg] 03/29/2022 11:30AM Hospital Follow Up Height Weight BMI Blood Pressure 5 ft 5 in 308.5 lbs 51.3 kg/m2 172/89 mm[Hg] 10/09/2018 11:30AM Any 15 Height Weight BMI Blood Pressure 5 ft 5 in 289 lbs 48.1 kg/m2 128/78 mm[Hg] 08/02/2018 03:45PM Any 15 Height Weight BMI Blood Pressure 5 ft 5 in 284.8 lbs 47.4 kg/m2 118/84 mm[Hg] 05/03/2018 10:30AM New Patient 30 Height Weight BMI Blood Pressure 5 ft 5 in 280 lbs 46.6 kg/m2 119/92 mm[Hg]
--- OUTSIDE RECORDS SUMMARY | 2022-07-29 18:25 | External Medical Summary | Encounter Summary ---
:1950 Author Care Team Providers Name Role Phone Saud Jarvis MD Primary Care Provider [phone] [facility] OTHER [phone] Reason for Visit Stasis dermatitis and venous ulcer of lo wer extremity due to chronic peripheral venous hypertension Assessment and Plan Assessment Note Virgie presents to the wound center toda y there was some excessive bleeding postprocedure yesterday that reoccurred later in the evening patient went to the emergency department and this was cauter ized. She returns today because the bleeding has begun again and her left lower extre mity wrap has soaked through with clear drainage. 1. Stasis dermatitis and venous ulcer o f lower extremity due to chronic peripheral venous hypertension Acute, improving No debridement today, there is evidence that there was some bleeding of the debridement sites from yesterday which could account for the increased drainage her edema is also much improved today. No malodor no purulence no pain no warm erythema. We will continue with current plan of ca re Home health will dress in between clinic visits Return to clinic 1 week home health order* - Legs bilat: parisa nse wounds with wound cleanser collagen to wound bed aquacel AG over wounds abd to cover 2 step (did not tolerate profore) toes to knee change: Tuesday/Tuesday/Tuesday Right Buttock wounds Cleanse with wound Cleanser Gentamycin to wound bed Gauze T ransparent to cover wound Change Tuesday/Tue/ Tuesday 2. Lymphedema of bilateral lower limbs see above -Once patient is no longer utilizing [facility] will plan to send patient to lymphedema therapist 3. Lipedema see above 4. Pressure injury of buttock No debridement today I did utilize chem ical cautery to achieve homeostasis Dressing was changed reinforced off loading measures in great detail with patient and family today I believe this is negatively impacting her healing return to clinic 1 week 5. Cellulitis Right buttock pressure ulceration-no re maining erythema or warmth this is a full-thickness wound at high risk for infection tissue culture Enterococcus species (Iso late 1) Coagulase Negative Staph. (Isolate 2) Escherichia coli (Isolate 3) Coagulase Negative Staph. (Isolate 4) Organism: Enterococcus species (Isolate 1) Sensitivities Included Below Augmentin 100 mg BID 7 days-has finished this Will utilize gentamycin Cream in wound b ed Discussion Note Thank you for this referral and opportu misay to care for your patient. If there are any questions or concerns please feel fr ee to contact me at . Patient educational handouts: No information available. Plan of Care Patient Instructions RTC 1 week Finish your antibiotics as instructed Stop the potassium as instructed Be vigilant with your offloading of your buttocks Home health will change your dressing in between clinic visits Reminders Provider Appointments Established Patient 30 08/03/2022 Paul Avalos NP 8:30AM Claudine- Established Short 11/04/2022 Theodore Tapia NP 2:00PM Lab None recorded. Referral None recorded. Procedures None recorded. Surgeries None recorded. Imaging None recorded. Medications Name Start Date allopurinol 300 mg tablet TAKE ONE TABLET BY MOUTH EVERY DAY B1 100 mg-B6 50 mg-calc 50 mg-mag oxide 50 mg-chaste t ree-angella tablet Take 1 tablet 3 times a day by oral route. bisacodyl 10 mg rectal suppository Insert 1 suppository every day by rectal route. carvedilol 6.25 mg tablet take one tablet by mouth twice daily for htn, must ad housekeeping/laundry with a meal/food Celebrex 100 mg capsule Take 1 capsule 3 times a day by oral route. dicyclomine 10 mg capsule TAKE ONE CAPSULE BY MOUTH EVERY DAY NEEDED FOR STO MACH divalproex 125 mg tablet,delayed release take one tablet by mouth each morning and two tablets by mouth at bedtime Eliquis 5 mg tablet TAKE ONE TABLET BY MOUTH TWICE DAILY Fleet Enema 19 gram-7 gram/118 mL Insert by rectal route. gabapentin 300 mg capsule TAKE ONE CAPSULE BY MOUTH AT BEDTIME gentamicin 0.1 % topical ointment apply a small amount topically to affec gideon area Tuesday, Tuesday and Tuesday with wound care hydrocodone 10 mg-acetaminophen 325 mg tablet TAKE 1 OR 2 TABLETS BY MOUTH FOUR TIMES DAILY NEEDED FOR chronic lumbar radiculopathy (PER INSURANCE MAX TABLETS PER DAY 6/24 HOURS) levothyroxine 125 mcg tablet TAKE ONE TABLET BY MOUTH EVERY DAY FOR THYROID losartan 50 mg tablet TAKE ONE TABLET BY MOUTH TWICE DAILY FOR hypertension magnesium 200 mg tablet Take 1 tablet twice a day by oral route. Milk of Magnricky Miralax 17 gram oral powder packet Take by oral route. ondansetron 4 mg disintegrating tablet dissolve 2 tablets under the tongue twice daily for s even days potassium chloride ER 10 mEq tablet,extended release TAKE ONE TABLET BY MOUTH EVERY DAY pravastatin 40 mg tablet TAKE ONE TABLET BY MOUTH AT BEDTIME promethazine-DM 6.25 mg-15 mg/5 mL oral syrup TAKE 5ml BY MOUTH EVERY SIX HOURS spironolactone 25 mg tablet TAKE ONE TABLET BY MOUTH EVERY DAY torsemide 20 mg tablet TAKE ONE TABLET BY MOUTH EVERY DAY trospium 20 mg tablet TAKE ONE TABLET BY MOUTH TWICE DAILY vancomycin (bulk) 900 mcg/mg (not less than) powder Take 1 g 3 times a week by miscell. route as directed for [address] in wound bed Mon/Tue/Tue with dressing changes Notes: Jordan Robbie prescribed augmentin and ondanestron. Jordan Avalos also stated that she should stop taking potassium since h er potassium was high. Verified medications verbally. -AG 05/03 Medications Administered None recorded. Vitals Height Blood Pressure 5 ft 5 in 141/59 mm[Hg] Results Lab Results None recorded. Allergies Code Code System Name Reaction Severity Onset Jerry Inhibitors Adhesive Tape Problems Name Status Onset Date Source Malignant Tumor of Breast Active 03/17/2018 Hypothyroidism Active 03/17/2018 Hyperlipidemia Active 03/17/2018 Hypercalcemia Active 03/17/2018 Hypertensive Disorder Active 03/17/2018 Thrombophlebitis Active 03/17/2018 Kidney Disease Active 03/17/2018 Neuropathy Active 10/09/2018 Lipedema Active 03/29/2022 Lymphedema [...] removed/Osteomy litis Colonoscopy Information not avai lable Vaccine List None recorded. Social History Tobacco Smoking Status Never Smoker What was the date of your most recent 07/27/2022 tobacco screening? Live alone or with others? with others Notes: Giovanni ied What is your level of alcohol consumption? Occasional Notes: 1 drink per year Which illicit or recreational drugs have you Denied used? Family History Relation Problem Onset Age of Age Notes Father Type 2 diabetes mellitus (No Information) N/A (No Notes) Father Congestive heart failure (No Information) N/A Mother Scarlet fever (No Information) N/A (No Notes) Mother Cerebrovascular accident (No Information) N/A Functional Status Unknown. Past Encounters Encounter Date Diagnosis Provider 05/11/2022 Stasis Dermatitis and Venous Ulcer of vida Ariaser, AGILE QA TESTER: [address] Lower [place] [id number], Peripheral Venous Hypertension; Ph. Lymphedema of Bilateral Lower Limbs; Lipedema; Pressure Injury of Buttock; Cellulitis 05/10/2022 Stasis Dermatitis and Venous Ulcer of vida Ariaser, AGILE QA TESTER: [address] Lower [place]rem[place] [address], Peripheral Venous Hypertension; Ph. Lymphedema of Bilateral Lower Limbs; Lipedema; Pressure Injury of Buttock; Cellulitis 05/03/2022 Edema of Lower Extremity; Chronic Claudine Tapia, AGILE QA TESTER: [address] Kidney Disease; Mixed Hyperlipidemia; [place] [address], History of Pulmonary Embolus; Ph. Obstructive Sleep Apnea Syndrome; Hyponatremia; Lymphedema of Lower Extremity 05/03/2022 Stasis Dermatitis and Venous Ulcer of vida Avalos, AGILE QA TESTER: [address] Lower [place] [address], Peripheral Venous Hypertension; Ph. [phone] Lymphedema of Bilateral Lower Limbs; Lipedema; Pressure Injury of Buttock; Cellulitis; Acute Hyperkalemia 04/26/2022 Stasis Dermatitis and Venous Ulcer of Sa vida Avalos, AGILE QA TESTER: [address] Lower [place] [address], Peripheral Venous Hypertension; Ph. Lymphedema of Bilateral Lower Limbs; Lipedema; Pressure Injury of Buttock 04/19/2022 Stasis Dermatitis and Venous Ulcer of Sa vida Avalos, AGILE QA TESTER: [address] Lower [place] [address], Peripheral Venous Hypertension; Ph. Lymphedema of Bilateral Lower Limbs; Lipedema; Pressure Injury of Buttock 04/12/2022 Stasis Dermatitis and Venous Ulcer of Sa vida Avalos, AGILE QA TESTER: [address] Lower [place]ity [place] [address], Peripheral Venous Hypertension; Ph. [phone] Lymphedema of Bilateral Lower Limbs; Lipedema History of Present Illness Note: <div>04/26/22: Virgie returns to the wound center for continued treatment of her buttocks ulcerand bilateral leg edema. No medicaton or health history changes. </div><div>
</div><div>05/03/22 Virgie returns to the wound healing center for follow up treatment to herbuttocks and bilateral leg ulcers.</div><div>
</div><div>05/10/22: Virgie returns to the Wound Healing Center for continuation of treatment of buttock wound and bilater leg ulcers. Last day of antibiotics today.</div><div>
</div><div>05/11/22: Virgie returns to clinic today to have her left leg redressed and the wound on right buttock reassessed. Last night she was seen in the ER because she was unable to get the bleeding to stop from the buttock wound. The ER cauterized it. Her wrap on left leg is soaked through with clear drainage since yesterday also.</div><div>
</div><div>PCP: Dr Jarvis</div> Review of Systems Comprehensive General Adult ROS Reported By: Patient Constitutional: Constitutional: no fever, no night sweats, no significant weight gain, no significant weight loss, no exercise intolerance, no chills, no m alaise Eyes: Eyes: no dry eyes, no vision change, no irritation, no eye disease/injury ENMT: Ears: no difficulty hearing, no ear pain. Nose: no frequent nosebleeds, no nose problems , sinus problems. Mouth/Throat: no sore throat, no bleeding gum s, no snoring, no dry mouth, no mouth ulcers, no oral abnorm alities, no teeth problems, no ringing in the ears, no sinu sitis Cardiovascular: Cardiovascular: no chest jude n, no arm pain on exertion, no shortness of breath when wal jenna, no shortness of breath when lying down, no palpitations, no known heart murmur, ankle swelling Respiratory: Respiratory: no cough, no wh eezing, no shortness of breath, no coughing up blood, no sleep apnea Gastrointestinal: Gastrointestinal: no abdomin al pain, no vomiting, no constipation, normal appetit e, no diarrhea, not vomiting blood, no dyspepsia, no GERD , nausea Genitourinary: Genitourinary: no incontinen ce, no difficulty urinating, no hematuria, no increased freq uency Musculoskeletal: Musculoskeletal: no muscle a ches, no muscle weakness, no swelling in the extremities, no neck pain, no cramps, no osteoporosis, no fractures, arthralgias/joint pain, back pain, difficulty walking Integumentary: Skin: no abnormal mole, no j aundice, no rashes, no laceration, no non-healing areas, no crispin nges in hair/nails, no psoriasis, no change in skin color, no breast lump, dry skin, change in skin color Neurologic: Neurologic: no loss of consc iousness, no weakness, no numbness, no seizures, no di zziness, no migraines, no headaches, no tremor, no gai t dysfunction, no paralysis Psychiatric: Psych: no depression, no sle ep disturbances, feeling safe in a relationship, no alcohol abu se, no anxiety, no hallucinations, no suicidal thoughts, no moo d swings, no memory loss, no agitation, no dementia, no d elirium Endocrine: Endocrine: no fatigue Hematologic/Lymphatic: Hematologic/Lymphatic no swo llen glands, no bruising, no excessive bleeding, no anemi a, no phlebitis Allergic/Immunologic: Allergy/Immunologic: no runn y nose, no sinus pressure, no itching, no hives, no freque nt sneezing Physical Exam General Adult Exam- Female Reported By: Patient Constitutional: General Appearance: healthy- appearing, well-developed, obese. Level of Distress: NAD. Ambulation : ambulating normally Psychiatric: Insight: good judgement. Men gaurang Status: active and alert, normal mood, normal affect. Orienta tion: to time, to place, to person. Memory: recent memory normal , remote memory normal Head: Head: normocephalic, atrauma tic Eyes: Pupils: PERRLA. EOM: EOMI. L ens: clear. Sclerae: non-icteric. Vision: peripheral vision gr ossly intact, acuity grossly intact Neck: Neck: supple, trachea midlin e, no masses, FROM Lungs: Respiratory effort: no dyspn ea. Auscultation: breath sounds normal, good air movement Cardiovascular: Apical Impulse: not displace d. Heart Auscultation: RRR, no murmurs. Pulses including femoral / p edal: normal throughout; Biphasic doppled pulses on feet bilat Abdomen: Bowel Sounds: normal. Inspec tion and Palpation: soft, non-distended, no tenderness Musculoskeletal:: Motor Strength and Tone: nor mal motor strength, normal tone. Joints, Bones, and Muscles: normal movement of all extremities, no contractures. Extremities: n o cyanosis, edema; lymphedema/lipedema Neurologic: Gait and Station: wide-based . Cranial Nerves: grossly intact. Sensation: grossly intact Skin: Inspection and palpation: no rash, no nodules, good turgor, no jaundice, ulcer; 05/03/22 Mod erate serous drainage, right anterior smith: 1.0x1.0x0.05cmLeft low er leg: multiple scattered wounds ( see pictures ) Anterior smith: ar ea of 15.0 by 15.0cm Lateral calf in area of 10.0 by 4.0 cm Poste rior calf in area of 4.5 by 2.0cmRight buttocks:4.0 x 2.4 x 0.1cm, this has some cellulitic features with induration erythema and warm th along with gthyuwrqlu04/10/22:right anterior smith: scattered par tial thickness lossLeft lower leg: multiple scattered wounds ( see pictures ) Anterior smith: 10 x 9.2 x 0.05cm Lateral calf runnin g together with Posterior calf: 11 x14 x 0.05cm Right Buttock: 5.8 x 2.0 x 0.1cm predebridement, rather significant depth post debri geovanni.05/11/22:Measurements are the same as yesterdays visit. Na ils: abnormal
--- OUTSIDE RECORDS SUMMARY | 2022-07-29 18:25 | External Medical Summary | Encounter Summary ---
:1950 Author Care Team Providers Name Role Phone Saud Jarvis MD Primary Care Provider [phone] [facility] OTHER [phone] Reason for Visit Stasis dermatitis and venous ulcer of lo wer extremity due to chronic peripheral venous hypertension Assessment and Plan Assessment Note NURSE VISIT 1. Pressure injury of buttock Discussion Note Thank you for this referral and opportu misay to care for your patient. If there are any questions or concerns please feel fr ee to contact me at . Patient educational handouts: No information available. 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 Milk of Magnesia Miralax 17 gram oral powder packet Take [...] for [address] in wound bed Tue/Tue/Tue with dressing changes Notes: Jordan Avalos prescribed augmentin and ondanestron. Jordan Avalos also stated that she should stop taking potassium since h er potassium was high. Verified medications verbally. -AG 05/03 Medications Administered None recorded. Vitals Height Weight BMI Blood Pressure 5 ft 5 in 304.2 lbs 50.6 kg/m2 156/78 mm[Hg] Results Lab Results None recorded. Allergies [...] Unknown. Past Encounters Encounter Date Diagnosis Provider 05/20/2022 Pressure Injury of Buttock Eva leonard, MANAGING BROKER: [address] [facility] [place] [address], Ph. 05/17/2022 Stasis Dermatitis and Venous Ulcer of Sa vida Avalos, MANAGING BROKER: [address] Lower [place]rem[place] [address], Peripheral Venous Hypertension; Ph. Lymphedema of Bilateral Lower Limbs; Lipedema; Pressure Injury of Buttock; Cellulitis; At Risk of Electrolyte Imbalance 05/11/2022 Stasis Dermatitis and Venous Ulcer of vida Avalos, MANAGING BROKER: [address] Lower [place]rem[place] [address], Peripheral Venous Hypertension; Ph. Lymphedema of Bilateral Lower Limbs; Lipedema; Pressure Injury of Buttock; Cellulitis 05/10/2022 Stasis Dermatitis and Venous Ulcer of Sa vida Avalos, MANAGING BROKER: [address] Lower [place]rem[place] [address], Peripheral Venous Hypertension; Ph. Lymphedema of Bilateral Lower Limbs; Lipedema; Pressure Injury of Buttock; Cellulitis 05/03/2022 Edema of Lower Extremity; Chronic Claudine May Regina, MANAGING BROKER: [address] Kidney Disease; Mixed Hyperlipidemia; [place] [address], History of Pulmonary Embolus; Ph. Obstructive Sleep Apnea Syndrome; Hyponatremia; Lymphedema of Lower Extremity 05/03/2022 Stasis Dermatitis and Venous Ulcer of Sa vdia Avalos, MANAGING BROKER: [address] Lower [place]rem[place] [address], Peripheral Venous Hypertension; Ph. [phone] Lymphedema of Bilateral Lower Limbs; Lipedema; Pressure Injury of Buttock; Cellulitis; Acute Hyperkalemia 04/26/2022 Stasis Dermatitis and Venous Ulcer of Sa vida Avalos, MANAGING BROKER: [address] Lower [place]rem[place] [address], Peripheral Venous Hypertension; Ph. Lymphedema of Bilateral Lower Limbs; Lipedema; Pressure Injury of Buttock History of Present Illness Note: <div>05/17/22 Virgie returns to the wound healing center today for follow up treatment to her bilateral leg wounds and right buttocks wound. [facility] changes dressings in between clinic visits.Starting on Tuesday she started hallucinating, twitching, not feeling well. Has an appointment with pcp on . She took potassium on Tuesday and Tuesday and it seemed to help improve the symptoms. </div><div>
</div><div>05/20/22: NURSE VISIT</div><div>Virgie presents to the wound healing center today for change of snap vac dressing and canister that had filled up over the past 3 days.</div><div>
</div> Review of Systems Comprehensive General Adult ROS [...] hives, no freque nt sneezing Physical Exam Notes: <div>05/17/22: excessive kendell ining</div><div>Right anterior smith: closed</div><div>Left lower leg: scattered partial thickness loss, area of 10cm by 37cm circumferential ly of calf - see images</div><div>
</div>< div>05/20/22:</div><div> NURSE VISIT</div><div>Right Butt ock: 4.0 x 1.1 x 2.1cm; red granular tissue forming</div><div>Right butt ock superior wound: 1.0 x 0.9 x 0.1cm; slough in wound bed</div>
--- OUTSIDE RECORDS SUMMARY | 2022-07-29 18:25 | External Medical Summary | Encounter Summary ---
:1950 Author Care Team Providers Name Role Phone Saud Jarvis MD Primary Care Provider [phone] [facility] OTHER [phone] Reason for Visit Stasis dermatitis and venous ulcer of lo wer extremity due to chronic peripheral venous hypertension Assessment and Plan Assessment Note Virgie presents to the wound center toda y for continued follow-up of her stasis dermatitis with venous ulceration of the lower extremities and stage III pressure injury to her buttocks both chronic 1. Stasis dermatitis and venous ulcer o f lower extremity due to chronic peripheral venous hypertension Continued improvement today, continue w ith plan of care No debridement necessary today Home health will dress in between clinic visits least 15-30 minutes Return to clinic 1 week 2. Deep tissue pressure injury Bilateral heels, posterior calcaneous i mproving significantly after debridement not infected reinforced off loading and preventative measures Left buttocks regressed with more depth post debridement, reinforced offloading measures continue with current POC 3. Lymphedema of bilateral lower limbs see above -Once patient is no longer utilizing [facility] [employer] will plan to send patient to lymphedema therapist home health order* - 07/12/22 Legs/ heels bilat: cleanse wounds with wound cleanser medihoney and gauze ABD to cove r 2 step leg wrap TO KNEE Change: Tuesday/tuesday Left buttocks: Cleanse wit h wound Cleanser Skin prep to cass wound medihoney to wound mepilex to protect ov er pressure injury Wound Vac: Right buttocks Cleanse with wound cleanser skin prep an d antifungal powder in a crusting technique to periwound Drape periwound vanco powde r to wound bed Place black foam in wound LARGE black foam bolster for suction Ano ther layer of clear drape tracked to non bony prominence Do not let black foam touch t he skin track tubing on non-bony prominence Suction at 125 mm/hg Change tuesday//tuesday Canister changes Tuesday/Tuesday Right Buttock wounds--PLEASE MAKE SURE V AC IS IN PLACE AND WORKING, CALL CLINIC IF NOT Stand hourly to reduce pressure off of buttocks Return to clinic in 1 week 4. Lipedema see above 5. Pressure injury of buttock Some improvement/change in shape, thoug h the depth/tunneling persist There is no induration or malodor unfort unately patient continues to get a great amount of pressure here which is significantly impeding wound healing. continue with NPWT, home health to dress in between clinic visits Only encouraged/reinforced offloading me asures as this is impeding healing significantly Return to clinic 1 week Discussion Note Thank you for this referral and opportu misay to care for your patient. If there are any questions or concerns please feel fr ee to contact me at . Patient educational handouts: No information available. Plan of Care Patient Instructions Return to clinic 1 week Get prompt [...] Notify the wound clinic for instructions at [phone] . The clinic is open Tuesday through from 8 AM till 5 PM and Tuesday from 8 AM until noon. 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 Milk of MagnCityCiv Miralax 17 gram oral powder packet Take [...] for [address] in wound bed Mon/Wed/Fri with dressing changes Notes: Jordan Avalos prescribed augmentin and ondanestron. Jordan Avalos also stated that she should stop taking potassium since h er potassium was high. Verified medications verbally. -AG 05/03 Medications Administered None recorded. Vitals Height Weight BMI Blood Pressure 5 ft 5 in 288.6 lbs 48 kg/m2 172/73 mm[Hg] Results Lab Results None recorded. Allergies [...] Unknown. Past Encounters Encounter Date Diagnosis Provider 07/12/2022 Stasis Dermatitis and Venous Ulcer Aquilino Avalos, DIRECTOR DERMATOLOGY: [address] [place] [address], Peripheral Venous Hypertension; Deep Ph. Tissue Pressure Injury; Lymphedema of Bilateral Lower Limbs; Lipedema; Pressure Injury of Buttock 07/05/2022 Stasis Dermatitis and Venous Ulcer Aquilino Avalos, DIRECTOR DERMATOLOGY: [address] [place] [address], Peripheral Venous Hypertension; Deep Ph. Tissue Pressure Injury; Lymphedema of Bilateral Lower Limbs; Lipedema; Pressure Injury of Buttock 06/28/2022 Stasis Dermatitis and Venous Ulcer Aquilino Avalos, DIRECTOR DERMATOLOGY: [address] [place] [address], Peripheral Venous Hypertension; Deep Ph. Tissue Pressure Injury; Lymphedema of Bilateral Lower Limbs; Lipedema; Pressure Injury of Buttock 06/21/2022 Stasis Dermatitis and Venous Ulcer Aquilino Avalos, DIRECTOR DERMATOLOGY: [address] [place] [address], Peripheral Venous Hypertension; Deep Ph. Tissue Pressure Injury; Lymphedema of Bilateral Lower Limbs; Lipedema; Pressure Injury of Buttock 06/14/2022 Stasis Dermatitis and Venous Ulcer Aquilino Avalos, DIRECTOR DERMATOLOGY: [address] [place] [address], Peripheral Venous Hypertension; Ph. Lymphedema of Bilateral Lower Limbs; Lipedema; Pressure Injury of Buttock; Cellulitis History of Present Illness Note: <div>07/05/22:Virgie returns to the wound healing center for a continued treatment on her bilateral legs and buttock wounds. Patient states she has been offloading as ordered more.</div><div>
</div><div>07/12/22: Virgie presents to the wound healing center for follow up on her bilateral legs and buttock wounds. </div> Review of Systems Comprehensive General Adult [...] heart murmur, ankle swelling Respiratory: Respiratory: no wheezing, no shortness of breath, no coughing up blood, no sleep apnea, co ugh Gastrointestinal: Gastrointestinal: no abdomin al pain, no nausea, no vomiting, no constipation, normal appe tite, no diarrhea, not vomiting blood, no dyspepsia, no GERD Genitourinary: Genitourinary: no incontinen ce, no difficulty [...] anemi a, no phlebitis Allergic/Immunologic: Allergy/Immunologic: no itch ing, no hives, no frequent sneezing, runny nose, sinus pressure Physical Exam General Adult Exam- Female Reported By: Patient Sports Analyst: Sports Analyst: present Constitutional: General Appearance: healthy- appearing, well-developed, obese. [...] no nodules, good turgor, no jaundice, ulcer; (06/28/22: No drainage on any of the wounds Left anterior smith: Superior: 2.7 x 1.0 x 0.05cm, Inferior: 0.7 x 4.3 x 0.05cm Left lateral calf: Co servando in stable eschar, scattered wounds left posterior heel: 3.0x 4.0 x 0.05cm DTI Right lateral heel: 1.0 x3.0cm DTI Right b uttocks: 3.2 x 0.6 x 4.0cm, tunnelling at noon of 5.0cm Left buttoc ks deep pressure injury:2.0 x 0.7 x 0.5cm109/05/21:Left anterior smith: Superior: 2.7 x 1.0 x 0.05cm Inferior: 0.5 x 2.0 x 0.05cm Left lateral calf: scattered partial thickness lossleft posterior heel: 2.8 x 5.0cm covered in eschar, DTIRight lateral heel: 1.0x 2.0cm DTIRight buttocks: 2.5x1x4.2cmLeft buttocks ketan p pressure injury: 2x1cm covered in stable pdhing63/12/22:Left a nterior smith: Superior: 0.8 x 0.6 x 0.05cm Inferior: resolvedLef t lateral calf: 0.5 x 1.5 x 0.05cmleft posterior heel: 2.6 x 5.0cm covered with eschar capRight lateral heel: 0.6 x 1.4cm covered by eschar capRight buttocks: 3x1.5x0.6cm moderate amount of drainaget unneling at 12 o'clock: 7cmLeft buttocks deep pressure injur y: 2x1x0.05cm covered by necrotic tissue. Nails: abnormal
--- OUTSIDE RECORDS SUMMARY | 2022-07-29 18:25 | External Medical Summary | Encounter Summary ---
:1950 Author Care Team Providers Name Role Phone Saud Jarvis MD Primary Care Provider [phone] [facility] OTHER [phone] Reason for Visit Stasis dermatitis and venous ulcer of lo wer extremity due to chronic peripheral venous hypertension Assessment and Plan Assessment Note Virgie presents to the wound center to y for continued follow-up of her stasis dermatitis with venous ulceration of the lower extremities and stage III pressure injury to her buttocks 1. Stasis dermatitis and venous ulcer o f lower extremity due to chronic peripheral venous hypertension Notable improvement today, continue wit h plan of care No debridement necessary today Home health will dress in between clinic visits least 15-30 minutes Return to clinic 1 week home health order* - [facility]: Legs bilat: cleanse wounds with wound cleanser collagen to wound bed aquacel A G over wounds abd to cover 2 step: toes TO KNEE change: Tuesday/Tuesday/Tuesday Left buttocks: skin prep to cass wound mepilex to protect over blisters Right B uttock wounds--PLEASE MAKE SURE WOUND VAC IS IN PLACE AND WORKING, CALL CLINIC IF NOT FOR NEW ORDERS Cleanse with wound Cleanser Vanco powder to wound bed Wound Vac: ski n prep and antifungal powder in a crusting technique to periwound Drape periwound P lace black foam in wound Large black foam bolster for suction another layer of matthew ar drape tracked to non bony prominence Do not let black foam touch the skin Suctio n at 125 mm/hg change tuesday/tuesday/tuesday Canister changes Tuesday/Tuesday 2. Lymphedema of bilateral lower limbs see above -Once patient is no longer utilizing [facility] [employer] will plan to send patient to lymphedema therapist 3. Lipedema see above 4. Pressure injury of buttock Improvement in square centimeters affec gideon and condition of wound and periwound along with healthy granulation noted in wound bed continue with NPWT, home health to dress in between clinic visits Return to clinic 1 week 5. Cellulitis Right buttock pressure ulceration-no re maining signs and symptoms has finished IV daptomycin along with cefepime 06/08/2022 Discussion Note Thank you for this referral and yamila lópez to care for your patient. If there [...] Notify the wound clinic for instructions at [phone] . 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 Allergies [...] Unknown. Past Encounters Encounter Date Diagnosis Provider 06/14/2022 Stasis Dermatitis and Venous Ulcer Aquilino Avalso DOUGHNUT ICER MACHINE: [address] of Lower [place]rem[place] [address], Peripheral Venous Hypertension; Ph. [phone] Lymphedema of Bilateral Lower Limbs; Lipedema; Pressure Injury of Buttock; Cellulitis 06/07/2022 Stasis Dermatitis and Venous Ulcer Aquilino Avalos DOUGHNUT ICER MACHINE: [address] [place] [address], Peripheral Venous Hypertension; Ph. Lymphedema of Bilateral Lower Limbs; Lipedema; Pressure Injury of Buttock; Cellulitis; Anemia 05/31/2022 Stasis Dermatitis and Venous Ulcer Aquilino Avalos, DOUGHNUT ICER MACHINE: [address] Lower [place]remity [place] [address], Peripheral Venous Hypertension; Ph. Lymphedema of Bilateral Lower Limbs; Lipedema; Pressure Injury of Buttock; Cellulitis; Anemia 05/24/2022 Stasis Dermatitis and Venous Ulcer Aquilino Avalos, DOUGHNUT ICER MACHINE: [address] Lower [place]remity [place] [address], Peripheral Venous Hypertension; Ph. Lymphedema of Bilateral Lower Limbs; Lipedema; Pressure Injury of Buttock; Cellulitis 05/20/2022 Pressure Injury of Buttock Eva leonard, DOUGHNUT ICER MACHINE: [address] [place] [address], Ph. 05/17/2022 Stasis Dermatitis and Venous Ulcer Aquilino Avalos, DOUGHNUT ICER MACHINE: [address] [place] [address], Peripheral Venous Hypertension; Ph. [phone] Lymphedema of Bilateral Lower Limbs; Lipedema; Pressure Injury of Buttock; Cellulitis; At Risk of Electrolyte Imbalance History of Present Illness Note: <div>Metformin and baby aspirin stopped by PCP. New medication started for hallucinations- patient can't remember the name. [facility] </div><div>
</div><div>06/07/22:Virgie returns to the wound healing center for her treatment of bilateral legs and buttocks. Patient will finish her IV daptomycin and cefepime on 06/08/22.</div><div>awaiting lab results from this mornings blood draw.</div><div>
</div><div>06/14/2022:Virgie presents to the wound healing center for er follow up on her bilaterallegs and buttocks. Patient finished IV daptomycin and cefepime on 06/08/22. Patient started taking B6100 mg TID and 200 mg BID of magnesium daily per her chiropractor's recomendation. Patient states it has reduced her " bodily shakes."</div> Review of Systems Comprehensive General Adult ROS [...] no nodules, good turgor, no jaundice, ulcer; 06/07/22:Le ft anterior smith: 6.3x1.9x0.05cmleft lateral calf 4 circular woun ds each measuring 0.5x0.5x0.05cmRight buttock:4.0X0.8X3.3cm2 fluid blisters on left buttock in cleft06/14/22: left anterior smith: 3.3x 1.2x0.05cmleft lateral calf: scattered 1x1x0.05cm c ircular woundsright buttocks: 3x0.9x3.3cm; red granular ti ssue in wound bed. Nails: abnormal
--- OUTSIDE RECORDS SUMMARY | 2022-07-29 18:25 | External Medical Summary | Encounter Summary ---
:1950 Author Care Team Providers Name Role Phone Saud Jarvis MD Primary Care Provider [phone] [facility] OTHER [phone] Reason for Visit Stasis dermatitis and venous ulcer of lo wer extremity due to chronic peripheral venous hypertension Assessment and Plan Assessment Note Virgie presents to the wound center as a referral from [facility]. She was recently hospitalized related to kidney and heart issues. While hospitalized she was diagnosed with cellulitis. She has multiple wounds to her bilateral legs related to swelling. Hospital f/u clinic 03/29/2022 1. Stasis dermatitis and venous ulcer o f lower extremity due to chronic peripheral venous hypertension Acute, improving debrided of thick gelatinous slough dorinda ctively today, partial thickness stasis dermatitis persists but is improv ing as is her edema We will continue with current plan of ca re Home health will dress in between clinic visits Return to clinic 1 week home health order* - Legs bilat: parisa nse wounds with wound cleanser aquacel AG over wounds abd to cover 2 step (did not tolerate profore) toes to knee change: Tuesday/Tuesday/Tuesday Right Buttock wo unds Cleanse with wound Cleanser Gentamycin to wound Gauze Transparent to cover woun d Change Tuesday/Tue/ Tuesday 2. Lymphedema of bilateral lower limbs see above -Once patient is no longer utilizing [employer] will plan to send patient to lymphedema therapist 3. Lipedema see above 4. Pressure injury of buttock debrided today, stage 3 with marginal i mprovement though a recurrence of eschar and slough non infected Will utilize Iodosorb, gauze and transpa rent dressing for better debridement of this wound this is a change in plan of care today reinforced off loading measures in great detail with patient and family today I believe this is negatively impacting her healing return to clinic 1 week 5. Cellulitis Right buttock pressure ulceration tissue culture Enterococcus species (Iso late 1) Coagulase Negative Staph. (Isolate 2) Escherichia coli (Isolate 3) Coagulase Negative Staph. (Isolate 4) Organism: Enterococcus species (Isolate 1) Sensitivities Included Below Augmentin 100 mg BID 7 days-finishing to day Will utilize gentamycin Cream in wound b ed gentamicin 0.1 % topical ointment Discussion Note Thank you for this referral and opkathy lópez to care for your patient. 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 Allergies [...] Ulcer of Lower Extremity Due to Act sahaar 04/13/2022 Chronic Peripheral Venous Hypertension Pressure Injury [...] Social History Tobacco Smoking Status Never Smoker Live alone or with others? with others Notes: Giovanni ied What is your level of alcohol consumption? Occasional Notes: 1 drink per year Which illicit or recreational drugs have you Denied used? What was the date of your most recent 07/27/2022 tobacco screening? Family History Relation Problem Onset Age of Age Notes Father Type 2 diabetes mellitus (No Information) N/A (No Notes) Father Congestive heart failure (No Information) N/A Mother Scarlet fever (No Information) N/A (No Notes) Mother Cerebrovascular accident (No Information) N/A Functional Status Unknown. Past Encounters Encounter Date Diagnosis Provider 05/10/2022 Stasis Dermatitis and Venous Ulcer of Sa vida Ariaser, DIRECTOR OF FEDERAL SALES: [address] Lower [place]rem[place] [address], Peripheral Venous Hypertension; Ph. [phone] Lymphedema of Bilateral Lower Limbs; Lipedema; Pressure Injury of Buttock; Cellulitis 05/03/2022 Edema of Lower Extremity; Chronic Claudine Tapia, DIRECTOR OF FEDERAL SALES: [address] Kidney Disease; Mixed Hyperlipidemia; [place] [address], History of Pulmonary Embolus; Ph. Obstructive Sleep Apnea Syndrome; Hyponatremia; Lymphedema of Lower Extremity 05/03/2022 Stasis Dermatitis and Venous Ulcer of Sa vida Ariaser, DIRECTOR OF FEDERAL SALES: [address] Lower [place]rem[place] [address], Peripheral Venous Hypertension; Ph. Lymphedema of Bilateral Lower Limbs; Lipedema; Pressure Injury of Buttock; Cellulitis; Acute Hyperkalemia 04/26/2022 Stasis Dermatitis and Venous Ulcer of Sa vida Ariaser, DIRECTOR OF FEDERAL SALES: [address] Lower [place]rem[place] [address], Peripheral Venous Hypertension; Ph. Lymphedema of Bilateral Lower Limbs; Lipedema; Pressure Injury of Buttock 04/19/2022 Stasis Dermatitis and Venous Ulcer of Sa vida Avalos, DIRECTOR OF FEDERAL SALES: [address] Lower [place]remity [place] [address], Peripheral Venous Hypertension; Ph. Lymphedema of Bilateral Lower Limbs; Lipedema; Pressure Injury of Buttock 04/12/2022 Stasis Dermatitis and Venous Ulcer of Sa vida Avalos, DIRECTOR OF FEDERAL SALES: [address] Lower [place]rem[place] [address], Peripheral Venous Hypertension; Ph. Lymphedema of Bilateral Lower Limbs; Lipedema History [...] leg ulcers. Last day of antibiotics today.</div><div>
</div><div>PCP: Dr Jarvis</div> Review of Systems Comprehensive [...] induration erythema and warm th along with krrrwqqpeq79/10/22:right anterior smith: scattered par tial thickness lossLeft lower leg: multiple scattered wounds ( see pictures ) Anterior smith: 10 x 9.2 x 0.05cm Lateral calf runnin g together with Posterior calf: 11 x14 x 0.05cm Right Buttock: 5.8 x 2.0 x 0.1cm predebridement, rather significant depth post debri geovanni. Nails: abnormal
--- OUTSIDE RECORDS SUMMARY | 2022-07-29 18:25 | External Medical Summary | Encounter Summary ---
:1950 Author Care Team Providers Name Role Phone Saud Jarvis MD Primary Care Provider [phone] [facility] OTHER [phone] Reason for Visit Stasis dermatitis and venous [...] chronic peripheral venous hypertension Acute, improving No malodor no purulence no pain no warm erythema. We will continue with current plan of ca re Home health will dress in between clinic visits Return to clinic 1 week ESR (erythrocyte sedimentation rate), blood CMP, serum or plasma CBC w/ manual diff C-reactive protein, quantitative creatine kinase MB/creatine kinase to gaurang, ratio, serum or plasma home health order* - 05/24/22: Legs b ilat: cleanse wounds with wound cleanser collagen to wound bed aquacel AG over wo unds abd to cover 2 step (did not tolerate profore) toes TO KNEE change: /Tuesday/Tuesday Right Buttock wounds--PLEASE MAKE SURE THIS IS IN PLAC E AND WORKING, CALL CLINIC IF NOT FOR NEW ORDERS DONE AT CLINIC TODAY 05/24-Cleans e with wound Cleanser Vanco powder to wound bed Wound Vac Place black sponge in woun d Drape dressing over wounds Large black bolster for suction another layer of matthew ar drape Do not let black foam touch the skin Track out along non-bony prominence Suct ion at 125 mm/hg change tuesday/tuesday/tuesday Canister changes Tuesday/Tuesday 2. Lymphedema of bilateral lower limbs see above -Once patient is no longer utilizing [facility] will plan to send patient to lymphedema therapist 3. Lipedema see above 4. Pressure injury of buttock Regressed with induration tissue cultur e taken reviewed with patient and son, I have also reviewed CBC, CMP ESR and CRP. 5. Cellulitis Right buttock pressure ulceration Escherichia coli (Isolate 1) Coagulase Negative Staph. (Isolate 2) Organism: Escherichia coli PICC Daptomycin 850 mg daily and Cefepime 2 g ferny daily 2 weeks (renal dosed creatine 2.0) cbc cmp esr crp ck weekly Discussion Note Thank you for this referral and opportu misay to care for your patient. If there are any questions or concerns please feel fr ee to contact me at . Patient educational handouts: No information available. Plan of Care Patient Instructions Wound VAC patient instructions Remember to keep [...] Notify the wound clinic for instructions at [phone] . The clinic is open Tuesday through from 8 AM till 5 PM and Tuesday from 8 AM until noon. Reminders Provider Appointments Established Patient 30 08/03/2022 Paul Avalos NP 8:30AM Claudine- Established Short 11/04/2022 Theodore Tapia NP 2:00PM Lab ESR (Erythrocyte 05/24/2022 [facility] Rate), Blood Lab CMP, Serum or Plasma 05/24/2022 [facility] CBC W/ Manual Diff 05/24/2022 [facility] C-reactive Protein, 05/24/2022 [facility] Quantitative [facility] Creatine Kinase MB/creatine 05/24/2022 [facility] Kinase Total, Ratio, Serum or La b Plasma Referral None recorded. Procedures None recorded. Surgeries [...] mouth twice daily for htn, must ad medical scribe with a meal/food Celebrex 100 mg capsule [...] in 304 lbs 50.6 kg/m2 151/80 mm[Hg] Results Lab Results Date Name Specimen Result Interpretation Description Value Range Status Address 06/07/2022 ESR (Erythrocyte No observation [facility] recorded. [facility]: [address], [place] 05/31/2022 CMP, Serum or No observation [facility] recorded. [facility] [address] [facility] 05/31/2022 CBC W/ Manual Diff No observation [facility]. [facility] [address] [facility], [facility] Allergies Code Code System Name Reaction Severity [...] Unknown. Past Encounters Encounter Date Diagnosis Provider 05/24/2022 Stasis Dermatitis and Venous Ulcer of Sa vida Avalos, DIALYSIS CHIEF EQUIPMENT TECHNICIAN: [address] [place] [address], Peripheral Venous Hypertension; Ph. [phone] Lymphedema of Bilateral Lower Limbs; Lipedema; Pressure Injury of Buttock; Cellulitis 05/20/2022 Pressure Injury of Buttock Eva leonard, DIALYSIS CHIEF EQUIPMENT TECHNICIAN: [address] [place] [id number], Ph. 05/17/2022 Stasis Dermatitis and Venous Ulcer of Sa vida Avalos, DIALYSIS CHIEF EQUIPMENT TECHNICIAN: [address] Lower [place]rem[place] [address], Peripheral Venous Hypertension; Ph. Lymphedema of Bilateral Lower Limbs; Lipedema; Pressure Injury of Buttock; Cellulitis; At Risk of Electrolyte Imbalance 05/11/2022 Stasis Dermatitis and Venous Ulcer of Sa vida Avalos, DIALYSIS CHIEF EQUIPMENT TECHNICIAN: [address] [place] [address], Peripheral Venous Hypertension; Ph. [phone] Lymphedema of Bilateral Lower Limbs; Lipedema; Pressure Injury of Buttock; Cellulitis 05/10/2022 Stasis Dermatitis and Venous Ulcer of Sa vida Avalos, DIALYSIS CHIEF EQUIPMENT TECHNICIAN: [address] [place] [address], Peripheral Venous Hypertension; Ph. Lymphedema of Bilateral Lower Limbs; Lipedema; Pressure Injury of Buttock; Cellulitis 05/03/2022 Edema of Lower Extremity; Chronic Claudine Mariela Tapia, DIALYSIS CHIEF EQUIPMENT TECHNICIAN: [address] Kidney Disease; Mixed Hyperlipidemia; [facility] [place] [address], History of Pulmonary Embolus; Ph. Obstructive Sleep Apnea Syndrome; Hyponatremia; Lymphedema of Lower Extremity 05/03/2022 Stasis Dermatitis and Venous Ulcer of Sa vida Avalos, DIALYSIS CHIEF EQUIPMENT TECHNICIAN: [address] Lower [place] [address], Peripheral Venous Hypertension; Ph. Lymphedema of Bilateral Lower Limbs; Lipedema; Pressure Injury of Buttock; Cellulitis; Acute Hyperkalemia 04/26/2022 Stasis Dermatitis and Venous Ulcer of Sa vida Avalos, DIALYSIS CHIEF EQUIPMENT TECHNICIAN: [address] Lower [place] [address], Peripheral Venous Hypertension; Ph. Lymphedema of Bilateral Lower Limbs; Lipedema; Pressure Injury of Buttock History of Present Illness Note: <div>05/10/22: [facility] [...] Her wrap on left leg is soaked throughwith clear drainage since yesterday also.</div><div>
</div><div>05/17/22 Virgie returns to the wound healing center today for follow up treatment to her bilateral leg wounds and right buttocks wound. [facility] changes dressings in between clinic visits.</div><div>
</div><div>*Starting on Tuesday she started hallucinating, twitching, not feeling well. Has an appointment with pcp on . She took potassium on Tuesday and Tuesday and it seemed to help improve the symptoms. </div><div>
</div><div>
</div><div>05/24/22 Virgie returns to the wound healing center for the continuation of treatment to her bilateral leg wounds and right buttocks wound. [facility] changes dressings in between clinic visits. Patient states that she feels achy and cold today.</div><div>
</div><div>Metformin and baby aspirin stopped by PCP. New medication started for hallucinations- patient can't remember the name. [facility] </div><div>
</div> Review of Systems Comprehensive General Adult [...] no nodules, good turgor, no jaundice, ulcer; 05/17/22: e xcessive drainingRight anterior smith: closedLeft lower leg: scatte red partial thickness loss, area of 10cm by 37cm circumferential ly of calf - see imagesRight Buttock: 4.0 x 1.4 x2.0cm right butto ck superior wound: 1.0 x 0.8 x 0.05cm, continues to have a recurren ce of slough and there is now some surrounding induration tissu e culture taken05/24/22: Right anterior smith: Left lower leg: modera te drainage on dressingRight Buttock: 3.3 x 1.3 x 3.0cmRight butto ck superior wound: 1.0 x 1.0 x 2.3cmWound Vac sent with pat ient. Nails: abnormal
--- OUTSIDE RECORDS SUMMARY | 2022-07-29 18:25 | External Medical Summary | Encounter Summary ---
:1950 Author Care Team Providers Name Role Phone Saud Jarvis MD Primary Care Provider [phone] [facility] OTHER [phone] Reason for Visit Stasis dermatitis and venous [...] clinic 1 week home health order* - Shelter Legs bilat: cleanse wounds with wound cleanser collagen to wound bed aquacel A G over wounds abd to cover 2 step (did not tolerate profore) toes TO KNEE crispin nge: Tuesday/Tuesday/Tuesday Left buttocks: skin prep to cass wound mepilex to prote ct over blisters Right Buttock wounds--PLEASE MAKE SURE THIS IS IN PLACE AND WORKING, CALL CLINIC IF NOT FOR NEW ORDERS Cleanse with wound Cleanser Vanco powder to woun d bed Wound Vac: skin prep and antifungal powder in a crusting technique to periwo und Drape periwound Place black foam in wound Large black foam bolster for suction ano ther layer of clear drape tracked to non bony prominence Do not let black foam touch t he skin Suction at 125 mm/hg change tuesday/tuesday/tuesday Canister changes Tuesday/Tuesday 2. Lymphedema of bilateral lower limbs see above -Once patient is no longer utilizing [facility] will plan to send patient to lymphedema therapist 3. Lipedema see above 4. Pressure injury of buttock Stable with healthy granulation noted i n wound bed, induration resolved continue with NPWT 5. Cellulitis Right buttock pressure ulceration Escherichia coli (Isolate 1) Coagulase Negative Staph. (Isolate 2) Organism: Escherichia coli PICC Daptomycin 850 mg daily and Cefepime 2 g ferny daily 2 weeks stop date 06/08/22 (renal dosed creatine 2.0) cbc cmp esr crp ck weekly awaiting resul ts from this mornings labs will review when available intravenous infusion (PROC) - Stop Da te: 06/08/22 Antibiotic Infusion: Daptomycin 850mg Q24H Cefepime 2GM Q24H PICC Line D ressing/Cap Changes: WEEKLY DC PICC Line/IV at completion date. Flush each PICC lume n before and after use, and at a minimum of daily, with 5-10cc of normal saline. Loc k lines between uses with 2-5cc of Heparin 10 units/mL. [facility]fusion [facility] er will draw weekly labs and will do PICC dressing and cap changes weekly and PRN as long as line remains in. 6. Anemia s/p 2 units PRBC continue current interventions, monitor and send results to PCP [facility] negative x3 Discussion Note Thank you for this referral and yamila lópez to care for your patient. If there are any questions or concerns please feel free to contact me at . Patient educational handouts: No information available. Plan of Care Patient Instructions To clinic in 1 week Continue with current interventions, [employer] will assist with dressing changes Reminders Provider Appointments Established Patient 30 08/03/2022 Paul Avalos NP 8:30AM Claudine- Established Short 11/04/2022 Theodore Tapia NP 2:00PM Lab None recorded. Referral None recorded. Procedures Intravenous Infusion (PROC) 06/07/2022 [facility] Surgeries None recorded. Imaging None recorded. Medications [...] mouth twice daily for htn, must ad observer electrical prospecting with a meal/food Celebrex 100 mg capsule [...] Pressure 5 ft 5 in 110/52 mm[Hg] Results Lab Results None recorded. Allergies [...] Unknown. Past Encounters Encounter Date Diagnosis Provider 06/07/2022 Stasis Dermatitis and Venous Ulcer Aquilino Avalos OYSTER UNLOADER: [address] Lower Extremity [place] [address], Peripheral Venous Hypertension; Ph. Lymphedema of Bilateral Lower Limbs; Lipedema; Pressure Injury of Buttock; Cellulitis; Anemia 05/31/2022 Stasis Dermatitis and Venous Ulcer Aquilino Avalos, OYSTER UNLOADER: [address] Lower [place]remity [place] [address], Peripheral Venous Hypertension; Ph. Lymphedema of Bilateral Lower Limbs; Lipedema; Pressure Injury of Buttock; Cellulitis; Anemia 05/24/2022 Stasis Dermatitis and Venous Ulcer Aquilino Avalos, OYSTER UNLOADER: [address] Lower [place]remity [place] [address], Peripheral Venous Hypertension; Ph. Lymphedema of Bilateral Lower Limbs; Lipedema; Pressure Injury of Buttock; Cellulitis 05/20/2022 Pressure Injury of Buttock Eva leonard OYSTER UNLOADER: [address] [place] [address], Ph. 05/17/2022 Stasis Dermatitis and Venous Ulcer Aquilino Avalos OYSTER UNLOADER: [address] Lower [place]remity [place] [address], Peripheral Venous Hypertension; Ph. [phone] Lymphedema of Bilateral Lower Limbs; Lipedema; Pressure Injury of Buttock; Cellulitis; At Risk of Electrolyte Imbalance 05/11/2022 Stasis Dermatitis and Venous Ulcer Aquilino Avalos OYSTER UNLOADER: [address] [place] [address], Peripheral Venous Hypertension; Ph. Lymphedema of Bilateral Lower Limbs; Lipedema; Pressure Injury of Buttock; Cellulitis 05/10/2022 Stasis Dermatitis and Venous Ulcer Aquilino Avalos OYSTER UNLOADER: [address] [place] [address], Peripheral Venous Hypertension; Ph. Lymphedema of Bilateral Lower Limbs; Lipedema; Pressure Injury of Buttock; Cellulitis History of Present Illness Note: <div>06/02/22:Virgie presents to the wound center for a follow up on her continued treatment of bilateral legs and right buttock. </div><div>
</div><div>Metforminand baby aspirin stopped by PCP. New medication started for hallucinations- patient can't remember the name. [facility] </div><div>
</div><div>
</div><div>06/07/22:Virgie returns to the wound healing center for her treatment of bilateral lets and buttocks. Patient will finish her IV daptomycin and cefepime on 06/08/22.</ div><div>awaiting lab results from this mornings blood draw.</div> Review of Systems Comprehensive General Adult ROS [...] no nodules, good turgor, no jaundice, ulcer; 05/31/2022: Left lower leg: moderate drainage on dressing scattered partial t o full thickness tissue loss. 6.0 x 4 cm. post debridement 6 by 4 by 0.05 cm This was selectively debrided of thick gelatinous slough.Right Buttock: Right buttock superior wound: Hemocult blo od tests sent with patient2 units of blood and 1 unit of :Left anterior smith: 6.3x1.9x0.05cmleft lateral c retirement 4 circular wounds each measuring 0.5x0.5x0.05cmRight buttock: 4.0X0.8X3.3cm2 fluid blisters on left buttock in cleft. Nails: abn ormal
--- OUTSIDE RECORDS SUMMARY | 2022-07-29 18:25 | External Medical Summary | Encounter Summary ---
:1950 Author Care Team Providers Name Role Phone Saud Jarvis MD Primary Care Provider [phone] [facility] OTHER [phone] Reason for Visit Stasis dermatitis and venous ulcer of lo wer extremity due to chronic peripheral venous hypertension Assessment and Plan Assessment Note Virgie presents to the wound center toda y for continued follow-up of her stasis dermatitis with venous ulceration of the lower extremities and stage III pressure injury to her bilateral buttocks all chr onic 1. Stasis dermatitis and venous ulcer o f lower extremity due to chronic peripheral venous hypertension Continued improvement today, continue w ith plan of care No debridement necessary today Home health will dress in between clinic visits Return to clinic 1 week 2. Deep tissue pressure injury Bilateral heels, Right posterior calcan eous improving, right debrided full thickness so regressed in sq cm affected not infected reinforced off loading and preventative measures Left buttocks regressed with more depth again today, post debridement, reinforced offloading measures continue with current POC Patient is having great difficulty with offloading which is impedeing healing. 3. Lymphedema of bilateral lower limbs see above -Once patient is no longer utilizing [facility] will plan to send patient to lymphedema therapist home health order* - Legs/heels bilat : cleanse wounds with wound cleanser medihoney abd to cover 2 step (did not t olerate profore) toes TO KNEE Left buttocks: Cleanse with wound Cleanser Sk in prep to cass wound collagen medihoney mepilex to protect over pressure injury Wound Vac: Right buttocks Cleanse with wound cleanser skin prep and antifungal powder in a crusting technique to periwound Drape periwound vanco powder to wound bed Plac e black foam in wound LARGE black foam bolster for suction Another layer of matthew ar drape tracked to non bony prominence Do not let black foam touch the skin track tubing on non-bony prominence Suction at 125 mm/hg Change tuesday/tuesday/tuesday Can ister changes Tuesday/Tuesday Right Buttock wounds--PLEASE MAKE SURE VAC IS IN PLACE AND WORKING, CALL CLINIC IF NOT Stand hourly to reduce pressure off of buttocks Retur n to clinic tuesday dressing changes tuesday the and tuesday e with h [facility] 4. Lipedema see above 5. Pressure injury of buttock Some improvement/change in shape, tissu e is firm at base There is no induration or malodor unfort unately patient continues to get a great amount of pressure here which is significantly impeding wound healing. continue with NPWT, home health to dress in between clinic visits Again encouraged/reinforced offloading m easures as this is impeding healing significantly Return [...] Notify the wound clinic for instructions at [phone] . The clinic is open Tuesday through [...] mouth twice daily for htn, must ad glove presser with a meal/food Celebrex 100 mg capsule [...] apply a small amount topically to [facility] area Tuesday, Tuesday and Tuesday [...] in 288 lbs 47.9 kg/m2 150/60 mm[Hg] Results Lab Results None recorded. Allergies [...] Unknown. Past Encounters Encounter Date Diagnosis Provider 07/19/2022 Stasis Dermatitis and Venous Ulcer Aquilino Avalos, GERENTOLOGICAL PHYSIOTHERAPIST: [address] Lower [place]remity [place] [address], Peripheral Venous Hypertension; Deep Ph. Tissue Pressure Injury; Lymphedema of Bilateral Lower Limbs; Lipedema; Pressure Injury of Buttock 07/12/2022 Stasis Dermatitis and Venous Ulcer Aquilino Avalos, GERENTOLOGICAL PHYSIOTHERAPIST: [address] Lower [place]remity [place] [phone], Peripheral Venous Hypertension; Deep Ph. Tissue Pressure Injury; Lymphedema of Bilateral Lower Limbs; Lipedema; Pressure Injury of Buttock 07/05/2022 Stasis Dermatitis and Venous Ulcer Aquilino Avalos, GERENTOLOGICAL PHYSIOTHERAPIST: [address] Lower [place]remity [place] [address], Peripheral Venous Hypertension; Deep Ph. Tissue Pressure Injury; Lymphedema of Bilateral Lower Limbs; Lipedema; Pressure Injury of Buttock 06/28/2022 Stasis Dermatitis and Venous Ulcer Aquilino Avalos, GERENTOLOGICAL PHYSIOTHERAPIST: [address] Lower [place]remity [place] [address], Peripheral Venous Hypertension; Deep Ph. Tissue Pressure Injury; Lymphedema of Bilateral Lower Limbs; Lipedema; Pressure Injury of Buttock 06/21/2022 Stasis Dermatitis and Venous Ulcer Aquilino Avalos, GERENTOLOGICAL PHYSIOTHERAPIST: [address] Lower [place]remity [place] [address], Peripheral Venous Hypertension; Deep Ph. Tissue Pressure Injury; Lymphedema of Bilateral Lower Limbs; Lipedema; Pressure Injury of Buttock History of Present Illness Note: <div>07/12/22: Virgie presents to the wound healing center for follow up on her bilateral legsand buttock wounds. </div><div>
</div><div>07/19/22:Virgie returns to the wound healing center for continued treatment of her bilateral legs and buttock wounds. The wrapon left leg slipped down about 4 inches, otherwise no concerns. States she is offloading a little more</div> Review of Systems Comprehensive General Adult ROS [...] General Adult Exam- Female Reported By: Patient Sales Manager [employer]arranged Funerals: Sales Manager Prearranged Funerals: present Constitutional: General Appearance: healthy- appearing, well-developed, [...] no nodules, good turgor, no jaundice, ulcer; 07/12/22:Le ft anterior smith: Superior: 0.8 x 0.6 x 0.05cm Inferior: resolvedLef t lateral calf: 0.5 x 1.5 x 0.05cmleft posterior heel: 2.6 x 5.0cm covered with eschar capRight lateral heel: 0.6 x 1.4cm covered by eschar capRight buttocks: 3x1.5x0.6cm moderate amount of drainaget unneling at 12 o'clock: 7cmLeft buttocks deep pressure injur y: 2x1x0.05cm covered by necrotic kogjpi33/19/22:Bilateral leg s: partial thickness lossLeft lateral calf: 1.0 x 0.6 x 0.05cm Lef t posterior heel: 2.4 x 4.4x 0.2cm full thicknessRight lateral heel: 1.3 x 0.5cm, covered with eschar capRight buttock:3.0 x 1.6 x 2.2cm, slough in wound bedTunneling at 12 o'clock of 2.6cmLeft butt ock: 1.5 x 0.7 x 0.1cm, slough in wound bed. Nails: abnormal
--- OUTSIDE RECORDS SUMMARY | 2022-07-29 18:25 | External Medical Summary | Encounter Summary ---
:1950 Author Care Team Providers Name Role Phone Saud Jarvis MD Primary Care Provider [phone] [facility] OTHER [phone] Reason for Visit Stasis dermatitis and venous ulcer of lo wer extremity due to chronic peripheral venous hypertension; Wound Check Assessment and Plan Assessment Note Virgie presents to the wound center todelfino y for continued follow-up of her stasis dermatitis with venous ulceration of the lower extremities and stage III pressure injury to her buttocks 1. Stasis dermatitis and venous ulcer o f lower extremity due to chronic peripheral venous hypertension Notable improvement today, continue wit h plan of care New ulceration to posterior left heel, n on infected will be dressed and padded No debridement necessary today Home health will dress in between clinic visits least 15-30 minutes Return to clinic 1 week home health order* - Custodial: 06/21/22 Legs bilat: cleanse wounds with wound cleanser collagen to wound bed aqu acel AG over wounds abd to cover 2 step (did not tolerate profore) toes TO KNEE Change: Tuesday/Tuesday/Tuesday Left buttocks: Skin prep to cass wound mepile x to protect over pressure injury Right Buttock wounds--PLEASE MAKE SURE THIS IS IN PLACE AND WORKING, CALL CLINIC IF NOT FOR NEW ORDERS Cleanse with wound Cleanser V anco powder to wound bed Wound Vac: skin prep and antifungal powder in a crusting tech nique to periwound Drape periwound Place black foam in wound Large black foam leeann ster for suction Another layer of clear drape tracked to non bony prominence Do not le t black foam touch the skin Suction at 125 mm/hg Change tuesday/tuesday/tuesday Can ister changes Tuesday/Tuesday Stand hourly to reduce pressure off of buttocks 2. Deep tissue pressure injury Left heel new on assessment today reinforced off loading and preventative measures Left buttocks this will be padded and pr otected and I did reinforce offloading measures here also 3. Lymphedema of bilateral lower limbs see above -Once patient is no longer utilizing [employer] [employer] will plan to send patient to lymphedema therapist 4. Lipedema see above 5. Pressure injury of buttock Improvement in square centimeters affec gideon, Unfortunately an increase in violaceous discoloration surrounding this wound bed and a new deep tissue injury to the left buttocks. continue with NPWT, home health to dress in between clinic visits Return to clinic 1 week Discussion Note Thank you for this referral and yamila lópez to care for your patient. If there are any questions or concerns please feel fr ee to contact me at . Patient educational handouts: No information available. Plan of Care Patient Instructions RTC 1 week Wound VAC patient instructions [...] the woun d clinic for instructions at [phone] 9. The clinic is open Tuesday through [...] ointment or moisture barrier wipes is helpful. 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 in wound bed Tue/Tue/Fri with dressing changes Notes: Jordan Avalos prescribed augmentin and ondanestron. Jordan Avalos also stated that she should stop taking potassium since h er potassium was high. Verified medications verbally. -AG 05/03 Medications Administered None recorded. Vitals Height Weight BMI Blood Pressure 5 ft 5 in 306 lbs 50.9 kg/m2 148/98 mm[Hg] Results Lab Results None recorded. Allergies [...] Unknown. Past Encounters Encounter Date Diagnosis Provider 06/21/2022 Stasis Dermatitis and Venous Ulcer Aquilino Avalos, HEALTHCARE REPRESENTATIVE: [address] Lower [place] [address], Peripheral Venous Hypertension; Deep Ph. Tissue Pressure Injury; Lymphedema of Bilateral Lower Limbs; Lipedema; Pressure Injury of Buttock 06/14/2022 Stasis Dermatitis and Venous Ulcer Aquilino Avalos, HEALTHCARE REPRESENTATIVE: [address] Lower [place]rem[place] [address], Peripheral Venous Hypertension; Ph. [phone] Lymphedema of Bilateral Lower Limbs; Lipedema; Pressure Injury of Buttock; Cellulitis 06/07/2022 Stasis Dermatitis and Venous Ulcer Aquilino Avalos HEALTHCARE REPRESENTATIVE: [address] [place] [address], Peripheral Venous Hypertension; Ph. [phone] Lymphedema of Bilateral Lower Limbs; Lipedema; Pressure Injury of Buttock; Cellulitis; Anemia 05/31/2022 Stasis Dermatitis and Venous Ulcer Aquilino Avalos HEALTHCARE REPRESENTATIVE: [address] [place] [address], Peripheral Venous Hypertension; Ph. Lymphedema of Bilateral Lower Limbs; Lipedema; Pressure Injury of Buttock; Cellulitis; Anemia 05/24/2022 Stasis Dermatitis and Venous Ulcer Aquilino Avalos, HEALTHCARE REPRESENTATIVE: [address] [place] [address], Peripheral Venous Hypertension; Ph. Lymphedema of Bilateral Lower Limbs; Lipedema; Pressure Injury of Buttock; Cellulitis History of Present Illness Note: <div>06/14/2022:Virgie presents to the wound healing center for er follow up on her bilateral legs and buttocks. Patient finished IV daptomycin and cefepime on 06/08/22. Patient started taking B6 100 mg TID and 200 mg BID of magnesium daily per her chiropractor's recommendation. Patient states it has reduced her " bodily shakes."</div><div>
</div><div>06/21/22:Virgie returns to the wound healing center for continued treatment on her bilateral legs and buttocks wounds. Patient accompanied by significant other. Patient presents without wound vac on. Patient removed it this morning prior to appointment because the machine kept "beeping" at them.</div> Review of Systems Comprehensive General Adult ROS [...] no nodules, good turgor, no jaundice, ulcer; 06/14/22:le ft anterior smith: 3.3x 1.2x0.05cmleft lateral calf: scattered 1x1x 0.05cm circular woundsright buttocks: 3x0.9x3.3cm; red granular ti ssue in wound bed06/21/22:Left anterior smith: 2.9x1x0.05cmLeft later al calf: scattered 0.5x0.05x0.05cm circular woundsleft posterio r heel: 2.3x4cm DTIright lateral heel: 1x1.5cm DTIRight buttocks: 3 x1x3.3cm*NEW* left buttocks deep pressure injury: 2.4.4cm kaylan k violations discoloration. Nails: abnormal
--- OUTSIDE RECORDS SUMMARY | 2022-07-29 18:25 | External Medical Summary | Encounter Summary ---
:1950 Author Care Team Providers Name Role Phone Saud Jarvis MD Primary Care Provider [phone] [facility] OTHER [phone] Reason for Visit Stasis dermatitis and venous [...] to chronic peripheral venous hypertension Acute, improving Selective debridement today, there is ev idence that there was some bleeding of the [...] toes to knee change: Tuesday/Tuesday/Tuesday Right Buttock wounds--PLEASE MAKE SURE THIS IS IN PLACE AND WORKING, CALL CLINIC IF NOT FOR NEW ORDERS DONE AT CLINIC TODAY 05/17-Cleanse with wound Cleanser VAnco powder to wound bed snap vac (until activac approved) change tuesday/tuesday/tuesday CMP, serum or plasma CBC w/ auto diff 2. Lymphedema of bilateral lower limbs see above -Once patient is no longer utilizing [facility] [email or web address] will plan to send patient to lymphedema therapist 3. Lipedema see above 4. Pressure injury of buttock Regressed with induration tissue cultur e taken I have also requested CBC, CMP ESR and CRP. Patient also has complaints of twitching and cramping will look for electrolyte imbalances in addition to in fection culture, tissue - CULTURE AND SENSITI VITY (C&S) 5. Cellulitis Right buttock pressure ulceration Previous tissue culture Enterococcus spe cies (Isolate 1) Coagulase Negative Staph. (Isolate 2) Escherichia coli (Isolate 3) Coagulase Negative Staph. (Isolate 4) Organism: Enterococcus species (Isolate 1) Sensitivities Included Below Augmentin 100 mg BID 7 days-has finished this New tissue culture taken today and raf loredo made to her plan of care, patient is still experiencing a great amount of pressure here Ending results will prescribe p.o. antib iotics 6. At risk of electrolyte imbalance Starting on Tuesday she started hallucin ating, twitching, not feeling well. Has an appointment with pcp on . She took potassium on Tuesday and Tuesday and it seemed to help improve the symptoms. I have ordered CBC, CMP, ESR and CRP als o looking for infection given the new induration and cellulitic symptoms of her right buttocks ulceration Discussion Note Thank you for this referral and yamila lópez to care for your patient. If there are any questions or concerns please feel fr ee to contact me at . Patient educational handouts: No information available. Plan of Care Patient Instructions Return to clinic as scheduled Go downstairs and have your labs drawn Go to the emergency department if you fe el worse, experience a fever or other signs and symptoms Reminders Provider Appointments Established Patient 30 08/03/2022 Paul Avalos NP 8:30AM Claudine- Established Short 11/04/2022 Theodore Tapia NP 2:00PM Lab CMP, Serum or Plasma 05/17/2022 [facility] CBC W/ Auto Diff 05/17/2022 [facility] Culture, Tissue 05/17/2022 [facility] Referral None recorded. Procedures None recorded. 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 Celebrex 100 mg capsule [...] ointment apply a small amount top[facility] Tuesday, Tuesday and Tuesday with [...] Pressure 5 ft 5 in 155/69 mm[Hg] Results Lab Results Date Name Specimen Result Interpretation Description Value Range Status Address 05/17/2022 CBC W/ Whole High Wbc 12.6 K/mcL 4.5-11.0 Final Pathologists' Auto Blood K/mcL Regional L ab: Diff [address] , [place] Whole Low Rbc 2.41 M/mcL 3.59-5.38 Final Pat hologists' Blood M/mcL Regional L ab: [address] , [place] Whole Low Hgb 7.5 g/dL 11.2-15.7 Final Patho logists' Blood g/dL Regional L ab: [address] , [place] Whole Low Hct 24.3 % 34.1-44.9 Final Patholo gists' Blood % Regional L ab: [address] , [place] Whole High Mcv 100.8 fL 80.0-100. Final Patho logists' Blood 0 fL Regional L ab: [address] , [place] Whole Mch 31.1 pg 26.0-34.0 Final Pathol ogists' Blood pg Regional L ab: [address] , [place] Whole Low Mchc 30.9 g/dL 31.0-36.0 Final Path ologists' Blood g/dL Regional L ab: [address] , [place] Whole High Rdw 15.9 % 11.5-14.5 Final Patholo gists' Blood % Regional L ab: [address] , [place] Whole [address]t CT 424 K/mcL 140-440 Final Patho logists' Blood K/mcL Regional L ab: [address] , [place] Whole Mpv 11.8 fL 8.8-12.5 Final Patholo gists' Blood fL Regional L ab: [address] , [place] Whole Neutroph 77.6 % 38.0-78.0 Final Path ologists' Blood il % % Regional L ab: [address] , [place] Whole Low Lymphocy 11.7 % 15.5-49.0 Final Path ologists' Blood te % % Regional L ab: [address] , [place] Whole Monocyte 7.9 % 1.0-12.0 Final Patho logists' Blood % % Regional L ab: [address] , [place] Whole Eosinoph 2.1 % 0.0-7.0 % Final Path ologists' Blood il % Regional L ab: [address] , [place] Whole Basophil 0.3 % 0.0-2.0 % Final Path ologists' Blood % Regional L ab: [address] , [place] Whole Immature 0.4 % 0.0-0.5 % Final Path ologists' Blood Granulocy Regiona l Lab: marcus % [address] , [place] Whole High Absolute 9.79 K/mcL 1.80-8.00 Final Pathologists' Blood Neutrophi K/mcL Regiona l Lab: l Count [address], [place] Whole Low Lymphocy 1.47 K/mcL 1.50-4.80 Final Pathologists' Blood te # K/mcL Regional L ab: [address] , [place] Whole High Monocyte 0.99 K/mcL 0.10-0.90 Final Pathologists' Blood # K/mcL Regional L ab: [address] , [place] Whole Eosinoph 0.27 K/mcL 0.00-0.70 Final Pathologists' Blood il # K/mcL Regional L ab: [address] , [place] Whole Basophil 0.04 K/mcL 0.00-0.30 Final Pathologists' Blood # K/mcL Regional L ab: [address] , [place] Whole Immature 0.05 K/mcL 0.00-0.05 Final Pathologists' Blood Granulocy K/mcL Regiona l Lab: marcus # [address] , [place] 05/17/2022 CMP, Plasma High Glucose, 123 mg/dL 70-105 Final Pathologists' Serum random mg/dL Regional L ab: or [address] , Plasma [place] Plasma High Blood 42 mg/dL 8-23 Final Patholog ists' Urea mg/dL Regional L ab: Nitrogen [address], [place] Plasma High Creatini 2.0 mg/dL 0.6-1.1 Final Pat hologists' ne mg/dL Regional L ab: [address] , [place] Plasma Low Sodium 132 mmol/L 133-145 Final Path ologists' mmol/L Regional L ab: [address] , [place] Plasma Potassiu 4.2 mmol/L 3.3-5.1 Final Pa thologists' m mmol/L Regional L ab: [address] , [place] Plasma Low Chloride 93 mmol/L 96-108 Final Path ologists' mmol/L Regional L ab: [address] , [place] Plasma Carbon 27 mmol/L 22-30 Final Pathol ogists' Dioxide mmol/L Regional Lab: [address] , [place] Plasma Anion 12.0 8.0-16.0 Final Patholog ists' Gap Regional L ab: [address] , [place] Plasma High Calcium 10.8 mg/dL 8.6-10.4 Final Pa thologists' mg/dL Regional L ab: [address] , [place] Plasma Total 6.2 gm/dL 5.9-8.4 Final Pathol ogists' Protein gm/dL Regional Lab: [address] , [place] Plasma Albumin 3.2 gm/dL 3.2-5.2 Final Path ologists' gm/dL Regional L ab: [address] , [place] Plasma Globulin 3.0 gm/dL 2.2-3.7 Final Pat hologists' gm/dL Regional L ab: [address] , [place] Plasma Alb/glob 1.1 1.0-2.3 Final Pathol ogists' Ratio Regional L ab: [address] , [place] Plasma Bilirubi 0.2 mg/dL 0.1-1.0 Final Pat hologists' n,total mg/dL Regional Lab: [address] , [place] Plasma AST/SGOT 16 U/L <32 U/L Final Pathol ogists' Regional L ab: [address] , [place] Plasma ALT/SGPT 9 U/L <40 U/L Final Pathol ogists' Regional L ab: [address] , [place] Plasma High Alkaline 123 U/L 39-117 Final Pathol ogists' Phosphata U/L Regiona l Lab: se [address] , [place] Plasma Glomerul 24 Final Patholo gists' ar Regional L ab: Filtratio [address], n Rate [place] 05/17/2022 Culture TIS Source buttock Final Pat hologists' , Regional L ab: Tissue [address] , [place] TIS Specimen other,right Final Pa thologists' Descripti Regiona l Lab: on [address] , [place] TIS gram Final Pathologis ts' Stain Regional L ab: Result [address] , [place] TIS Quantity Final Patholo gists' of Growth Regiona l Lab: [address] , [place] TIS Result rifampin Final Patholo gists' Comment should not Regio nal Lab: BE used [address], alone for [place] n antimicrobi al therapy. TIS Result Final Pathologi sts' Regional L ab: [address] , [place] TIS Intermedia Ampicill 16/8 Final Pat hologists' te in/sulbac Regiona l Lab: myles [address] , [place] TIS Resistant Ampicill >16 Final Path ologists' in Regional L ab: [address] , [place] TIS Susceptibl Cefotaxi 8 Final Pat hologists' e me Regional L ab: [address] , [place] TIS Resistant Cefoxiti >16 Final Path ologists' n Regional L ab: [address] , [place] TIS Resistant Cefazoli >16 Final Path ologists' n Regional L ab: [address] , [place] TIS Susceptibl Ciproflo <=1 Final Pat hologists' e xacin Regional L ab: [address] , [place] TIS Susceptibl Cefepime <=2 Final Pat hologists' e Regional L ab: [address] , [place] TIS Resistant Cefuroxi >16 Final Path ologists' me Regional L ab: [address] , [place] TIS Susceptibl Gentamic <=2 Final Pat hologists' e in Regional L ab: [address] , [place] TIS Susceptibl Levoflox <=2 Final Pat hologists' e acin Regional L ab: [address] , [place] TIS Susceptibl Piperaci <=8 Final Pat hologists' e llin/tazo Regiona l Lab: bactam [address] , [place] TIS Susceptibl Trimeth/ <=2/38 Final Pat hologists' e sulfa Regional L ab: [address] , [place] TIS Susceptibl Tetracyc <=4 Final Pat hologists' e line Regional L ab: [address] , [place] TIS Resistant amoxicil <=4/2 Final Path ologists' [place]/K Regional L ab: Clavulana [address], te [place] TIS Susceptibl Clindamy <=0.25 Final Pat hologists' e annie Regional L ab: [address] , [place] TIS Resistant Cefazoli <=4 Final Path ologists' n Regional L ab: [address] , [place] TIS Resistant Erythrom >4 Final Path ologists' ycin Regional L ab: [address] , [place] TIS Resistant Gentamic >8 Final Path ologists' in Regional L ab: [address] , [place] TIS Resistant Oxacilli >2 Final Path ologists' n Regional L ab: [address] , [place] TIS Susceptibl Rifampin <=1 Final Pat hologists' e Regional L ab: [address] , [place] TIS Susceptibl Trimeth/ <=0.5/9.5 Final Pathologists' e sulfa Regional L ab: [address] [place] [address] TIS Resistant Tetracyc >8 Final Path ologists' line Regional L ab: [address] [place] [address] TIS Susceptibl Vancomyc 2 Final Pat hologists' e in Regional L ab: [address] [place] [address] Allergies Code Code System Name Reaction Severity [...] Unknown. Past Encounters Encounter Date Diagnosis Provider 05/17/2022 Stasis Dermatitis and Venous Ulcer of Sa vida Avalos, ASSET PROTECTION MANAGER: [address] to [address], [place] [address], Peripheral Venous Hypertension; Ph. Lymphedema of Bilateral Lower Limbs; Lipedema; Pressure Injury of Buttock; Cellulitis; At Risk of Electrolyte Imbalance 05/11/2022 Stasis Dermatitis and Venous Ulcer of Sa vida Avalos, ASSET PROTECTION MANAGER: [address], [place] [address], Peripheral Venous Hypertension; Ph. [phone] Lymphedema of Bilateral Lower Limbs; Lipedema; Pressure Injury of Buttock; Cellulitis 05/10/2022 Stasis Dermatitis and Venous Ulcer of Sa vida Avalos, ASSET PROTECTION MANAGER: [address], [place] [address], Peripheral Venous Hypertension; Ph. Lymphedema of Bilateral Lower Limbs; Lipedema; Pressure Injury of Buttock; Cellulitis 05/03/2022 Edema of Lower Extremity; Chronic Claudine Tapia, ASSET PROTECTION MANAGER: [address] Kidney Disease; Mixed Hyperlipidemia; [place] [address], History of Pulmonary Embolus; Ph. Obstructive Sleep Apnea Syndrome; Hyponatremia; Lymphedema of Lower Extremity 05/03/2022 Stasis Dermatitis and Venous Ulcer of Sa vida Avalos, ASSET PROTECTION MANAGER: [address] Extremity Due to Chronic [place], [place] [address], Peripheral Venous Hypertension; Ph. Lymphedema of Bilateral Lower Limbs; Lipedema; Pressure Injury of Buttock; Cellulitis; Acute Hyperkalemia 04/26/2022 Stasis Dermatitis and Venous Ulcer of Sa vida Avalos, ASSET PROTECTION MANAGER: [address], [place] [address], Peripheral Venous Hypertension; Ph. Lymphedema of Bilateral Lower Limbs; Lipedema; Pressure Injury of Buttock 04/19/2022 Stasis Dermatitis and Venous Ulcer of Sa vida Avalos, ASSET PROTECTION MANAGER: [address] Extremity Due to Chronic Ron, [place] [address], Peripheral Venous Hypertension; Ph. [phone] Lymphedema of Bilateral Lower Limbs; Lipedema; Pressure [...] Home Health changes dressings in between clinic visits.</di v><div>
</div><div>
</div><div>Starting on Fridayshe started hallucinating, twitching, not feeling well. Has an appointment with pcp on . Shetook potassium on Tuesday and Tuesday and it seemed to help improve the symptoms. </div> Review of Systems Comprehensive General Adult [...] no nodules, good turgor, no jaundice, ulcer; 05/10/22:Ri ght anterior smith: scattered partial thickness lossLeft lower leg : multiple scattered wounds ( see pictures ) Anterior smith: 10 x 9.2 x 0.05cmLateral calf running together with Posterior calf : 11 x14 x 0.05cm Right Buttock: 5.8 x 2.0 x 0.1cm predebridement, rather significant depth post debridement.05/11/22:Measure ments are the same as yesterdays visit.05/17/22: excessive dr Love anterior smith: closedLeft lower leg: scattered partial thickness loss, area of 10cm by 37cm circumferentially of calf - see imagesRight Buttock: 4.0 x 1.4 x2.0cm right buttock superio r wound: 1.0 x 0.8 x 0.05cm, continues to have a recurrence of slou gh and there is now some surrounding induration tissue culture ta karlo. Nails: abnormal
--- OUTSIDE RECORDS SUMMARY | 2022-07-29 18:25 | External Medical Summary | Encounter Summary ---
:1950 Author Care Team Providers Name Role Phone Saud Jarvis MD Primary Care Provider [phone] [facility] OTHER [phone] Reason for Visit Stasis dermatitis and venous ulcer of lo wer extremity due to chronic peripheral venous hypertension Assessment and Plan Assessment Note Virgie presents to the wound center toda y for continued follow-up of her stasis dermatitis with venous ulceration of the lower extremities and stage III pressure injury to her bilateral buttocks all chr onic 1. Deep tissue pressure injury Bilateral heels, Both wiht REGRESSION t o decreased mobility both were debrided full-thickness changes were made to plan of care again to further pad and protect these areas patient was strongly encoura ged to offload and float her heels as im mobility and pressure are causing great regression in these wounds placing her at risk for limb threatening infection not infected reinforced off loading and preventative measures Left buttocks regressed with more depth again today related to immobility and lack of positioning related to acute illness, thickness debridement performed, reinforced offloading measures Just to plan of care we will now utilize negative pressure wound therapy for the bilateral buttocks Patient is having great difficulty with offloading which is impeding healing. 2. Lymphedema of bilateral lower limbs see above -Once patient is no longer utilizing [facility] will plan to send patient to lymphedema therapist home health order* - please assess fo r Physical Therapy 07/27/2022: Legs/heels bilat: cleanse wounds with wound cleanse r medihoney abdx2 to cover the heels for padding 2 step (did not tolerate profore ) toes TO KNEE heel protector boots Wound Vac: Bilateral buttocks Cleanse wi th wound cleanser skin prep and antifungal powder in a crusting technique to periwo und Drape periwound vanco powder to wound bed Place black foam in wound LARGE black fo am bolster for suction Another layer of clear drape tracked to non bony prominence Do not let black foam touch the skin track tubing on non-bony prominence Suction at 125 mm/hg Change tuesday/tuesday/tuesday Canister changes Tuesday/Tuesday RIDAY during holiday scheduling resume -w-August 09 Right Buttock wounds--PLEASE MAKE SURE VAC IS IN PLACE AND WORKING, CALL CLINIC IF NOT Stand hourly to reduce pre ssure off of buttocks Home Health to assess for Physical therapy 3. Lipedema see above 4. Pressure injury of buttock Left buttocks regressed with more depth again today related to immobility and lack of positioning related to acute illness, thickness debridement performed, reinforced offloading measures Just to plan of care we will now utilize negative pressure wound therapy for the bilateral buttocks 5. Stasis dermatitis and venous ulcer o f [...] Notify the wound clinic for instructions at [phone] . 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 Allergies [...] Unknown. Past Encounters Encounter Date Diagnosis Provider 07/27/2022 Stasis Dermatitis and Venous Ulcer of Sa vida Avalos, ACCT EXEC: [address] Lower Extremity Due to Chronic Ron, [place] [id number], Peripheral Venous Hypertension; Deep Ph. Tissue Pressure Injury; Lymphedema of Bilateral Lower Limbs; Lipedema; Pressure Injury of Buttock; Stasis Dermatitis and Venous Ulcer of Lower Extremity Due to Chronic Peripheral Venous Hypertension 07/19/2022 Stasis Dermatitis and Venous Ulcer of Sa vida Avalos, ACCT EXEC: [address] Lower [place]rem[place] [id number], Peripheral Venous Hypertension; Deep Ph. Tissue Pressure Injury; Lymphedema of Bilateral Lower Limbs; Lipedema; Pressure Injury of Buttock 07/12/2022 Stasis Dermatitis and Venous Ulcer of Sa vida Avalos, ACCT EXEC: [address] Lower [place]rem[place] [id number], Peripheral Venous Hypertension; Deep Ph. Tissue Pressure Injury; Lymphedema of Bilateral Lower Limbs; Lipedema; Pressure Injury of Buttock 07/05/2022 Stasis Dermatitis and Venous Ulcer of Sa vida Avalos, ACCT EXEC: [address] Lower [place]rem[place] [id number], Peripheral Venous Hypertension; Deep Ph. Tissue Pressure Injury; Lymphedema of Bilateral Lower Limbs; Lipedema; Pressure Injury of Buttock 06/28/2022 Stasis Dermatitis and Venous Ulcer of Sa vida Avalos, ACCT EXEC: [address] Lower [place]rem[place] [id number], Peripheral Venous Hypertension; Deep Ph. Tissue Pressure [...] concerns. States she is offloading a little mor e</div><div>
</div><div>07/27/22 Virgie returns to the wound center for follow treatment on her buttocks wound and bilateral leg wounds. Patient presents to the clinic with a dry course cough. She states she has been ill since [place] so not mobilizing much. </div> Review of Systems Comprehensive General Adult [...] General Adult Exam- Female Reported By: Patient Dean For Student Affairs: Dean For Student Affairs: present Constitutional: General Appearance: healthy- appearing, well-developed, [...] no nodules, good turgor, no jaundice, ulcer; 07/19/22:Bi lateral legs: partial thickness lossLeft lateral calf: 1.0 x 0.6 x 0.05cm Left posterior heel: 2.4 x 4.4x 0.2cm full thicknessR ight lateral heel:1.3 x 0.5cm, covered with eschar capRight buttock :3.0 x 1.6 x 2.2cm, slough in wound bedTunneling at 12 o'clock o f 2.6cmLeft buttock: 1.5 x 0.7 x 0.1cm, slough in wound bed07/27/22b ilateral legs: scattered partial thickness loss left lateral heel: 2x2.5x0.2cmright lateral heel:1x2.5x0.2cmRight buttoc ks:2.0x1.3x 1.0cmTunneling at 12 O'Clock of 3.6Left buttocks: 2.0 x1.0 x 0.9cm. Nails: abnormal
--- OUTSIDE RECORDS SUMMARY | 2022-07-29 18:25 | External Medical Summary | Encounter Summary ---
:1950 Author Care Team Providers Name Role Phone Saud Jarvis MD Primary Care Provider [phone] [facility] OTHER [phone] Reason for Visit 2 WK FOLLOW-UP Assessment and Plan 1. Edema of lower extremity Significantly improved. Doing well on d ecreased diuretics and low-sodium diet. BLE wraps in place. Continue current torsemide 20 mg in am a nd additional 20 mg for acute weight gain more than 2 lbs in 24H. 2. Chronic kidney disease Has re-established with Dr. Meyers. Saw him middle April with no changes. 3. Mixed hyperlipidemia Continue pravastatin. LDL at goal < 100 for primary prevention 4. History of pulmonary embolus Continue Eliquis. Unprovoked? Unclear. Previously evaluated by [facility]. We will obtain records. 5. Obstructive sleep apnea syndrome Has resumed wearing. Assisting with flu id management. 6. Hyponatremia Improved with cessation of diuretics in the hospital. Likely secondary to the chlorthalidone-stopped. Anasarca has improved. Utilize torsemide 20 mg for the next wee k with an additional 20 mg for weight gain more than 2lbs in 24 HR. Need to intensely monitor. 7. Lymphedema of lower extremity See above. Discussion Note 1. Stop potassium 2. F/U 6 months and PRN (seeing nephrolo gy in 3 mos) Patient educational handouts: No information available. Plan of Care Patient Instructions 1. Your dietary pattern is a modifiable [...] Hypertension) eating plan as recommended by the [employer]. 2. A regular pattern of [...] ications with you to EVERY appointment please. 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 Milk of [place] Miralax 17 gram oral powder packet Take [...] in 295 lbs 49.1 kg/m2 142/79 mm[Hg] Results Lab Results None recorded. Allergies [...] Unknown. Past Encounters Encounter Date Diagnosis Provider 05/03/2022 Edema of Lower Extremity; Chronic Claudine Tapia, CORPORATE DIRECTOR TALENT ASSESSMENT: [address] Kidney Disease; Mixed Hyperlipidemia; [place] [id number], History of Pulmonary Embolus; Ph. Obstructive Sleep Apnea Syndrome; Hyponatremia; Lymphedema of Lower Extremity 05/03/2022 Stasis Dermatitis and Venous Ulcer of Sa mcpherson Robbie, CORPORATE DIRECTOR TALENT ASSESSMENT: [address] Lower [place] [id number], Peripheral Venous Hypertension; Ph. Lymphedema of Bilateral Lower Limbs; Lipedema; Pressure Injury of Buttock; Cellulitis; Acute Hyperkalemia 04/26/2022 Stasis Dermatitis and Venous Ulcer of Sa mcpherson Robbie, CORPORATE DIRECTOR TALENT ASSESSMENT: [address] Lower [place]remity [place] [id number], Peripheral Venous Hypertension; Ph. Lymphedema of Bilateral Lower Limbs; Lipedema; Pressure Injury of Buttock 04/19/2022 Stasis Dermatitis and Venous Ulcer of Sa mcpherson Robbie, CORPORATE DIRECTOR TALENT ASSESSMENT: [address] Lower [place]remity [place] [id number], Peripheral Venous Hypertension; Ph. Lymphedema of Bilateral Lower Limbs; Lipedema; Pressure Injury of Buttock 04/12/2022 Stasis Dermatitis and Venous Ulcer of Sa mcpherson Robbie, CORPORATE DIRECTOR TALENT ASSESSMENT: [address] Lower [place]ity [place] [address], Peripheral Venous Hypertension; Ph. [phone] Lymphedema of Bilateral Lower Limbs; Lipedema 04/07/2022 Edema of Lower Extremity; Chronic Claudine Tapia, CORPORATE DIRECTOR TALENT ASSESSMENT: [address] Kidney Disease; Mixed Hyperlipidemia; [place] [address], History of Pulmonary Embolus; Ph. Obstructive Sleep Apnea Syndrome; Hyponatremia; Lymphedema of Lower Extremity History of Present Illness Note: <div><div>Virgie returns today and reports that she is doing much better with little DOEand BLE edema. </div><div>
</div><div>Last visit: </div><di v>1. Continue the current regimen. </div><div>2. Need labs as discussed from [facility] BEFORE next visit. </div></div><div><div>3. F/u 2 weeks</div></div>&lt ;div>
</div><div><div>Cardiac history: history of PE on Eliquis, HTN, mixed hyperlipidemia. Reports Cardiac ischemic work-up with [facility] in [phone]. We will obtain records. Reports "normal stress test"</div><div>
</div></div><div>
</div><div><div>Social history: Denies tobacco and EtOH. </div><div>
</div></div><div>
</div><div><div>Family history: Father with CHF in old age</div><div>
&lt ;/div></div><div>
</div><div><div>Data Review: </div> <div>
</div></div><div><div>EKG 03/30/2022: NSR QRS 92 ms, FFp801 ms with sinus arrhythmia, LAD </div><div>
</div></div><div&gt ;
</div><div><div>03/23/22 COMPLETE ECHOCARDIOGRAPHY</div><div>
</div></div><div><div>CONCLUSIONS: </div><div><br&gt ;</div></div><div><div>1. Normal left ventricular size and systolic function. Ejection </div><div>
</div></div><div><div>fraction 70%. </div><div>
</div></div><div><div>2. Normal diastolicfunction. </div><div>
</div></div><div><div>3. Mild flow acceleration through the LV outflow track at 1.8 m/s. </div><div>
</div></div><div><div>4. Mild aortic sclerosis. No significant stenosis. Trace </div&gt ;<div>
</div></div><div><div>insufficiency. </div><di v>
</div></div><div><div>5. Mildly elevated RVSP at 39 mmHg. < /div><div>
</div></div><div><div>6. Normal estimated CVP at 3 mmHg. </div><div>
</div></div><div><div>7. Compared to previous study from January 24, 2020, right ventricular </div><div>
</div></div><div><div>size has normalized. Pulmonary artery pressures have improved. </ div><div>
</div></div><div><div>Estimated CVP has declined. </div><div>
</div></div><div>
</div><div><div>LABS: </div><div>
</div><div>04/30</div><div>PROBNP 534.2</div><div>TSH 2.02</div><div>LDL 47</div><div>
</div><div>9/7</div><div>NA 138</div><div>K 4.9</div><div>CR 1.7</div><div>PROBNP 332.8</div><div>
</div><di v>
</div></div><div><div>830</div><div>
</div></div><div><div>NA 136</div><div>
</div></div><div><div>K 5.3</div><div>
</div></div><div>& lt;div>CR 1.6</div><div>
</div></div><div>
</di v><div>
</div><div>
</div><div>
</div& gt;<div><div>03/26</div><div>
</div></div><div><div>NA 137</div><div>
</div></div><div><div>K 4.2< /div><div>
</div></div><div><div>CR 1.6</div><div& gt;
</div></div><div><div>PROBNP 858.5</div><div><br& gt;</div></div><div>
</div><div>
</div><div& gt;<div>8</div><div>
</div></div><div><div>NA 1 33</div><div>
</div></div><div><div>K 4.0</div>&lt ;div>
</div></div><div><div>CR 2.0</div><div><br&g t;</div></div><div>
</div><div><div>03/23</div>< div>
</div></div><div><div>NA 129</div><div>
</div></div><div><div>K 4.3</div><div>
</div></div><div><div>CR 2.5</div><div>
</div></div><div& gt;
</div><div><div>03/22</div><div>
</div></div><div><div>NA 128</div><div>
</div></div><div><div>K 4.4</div><div>
</div></div><div><div>CR 3 .0</div><div>
</div></div><div><div>PROBNP 634.3</div ><div>
</div></div><div><div>TROP T 0.01</div><div >
</div></div><div>
</div>Review of Systems: ROS as noted in the HPI Review of Systems Brief Cardiology ROS Reported By: Patient Cardio Basic: Cardiovascular Symptoms: no chest pressure, no lightheadedness, no chest pain, no dyspnea on ex ertion, no fatigue, no syncope, no orthopnea, no palpitations, no PND, no shortness of breath, no claudication, leg edema Physical Exam Notes: <div>General. No acute distr ess. Conversant. </div><div>HEENT. Normocephalic atraumatic. Mucous membranes moist. Sclera anicteric. Oropharynx clear. </div><div>Chest. Clear. Nor mal effort. Symmetric. </div><div>Cardiovascular. Normal JVP. Normal S1 and S2 . No gallops or rubs. </div><div>Abdomen. Normal bowel sounds. Soft nontender nondistended. No appreciated hepatosplenomegaly. </div><div>Extremities. No c yanosis. No clubbing. 3+ edema BLE. Anasarca to BUE. </div><div>Skin. Warm a nd dry. No rashes. </div><div>Neurological. Alert and oriented x3. Nonfocal. N o asymmetry is noted. </div><div>Psychiatric. Affect and tone are normal. </div>
--- OUTSIDE RECORDS SUMMARY | 2022-07-29 18:25 | External Medical Summary | Encounter Summary ---
:1950 Author Care Team Providers Name Role Phone Saud Jarvis MD Primary Care Provider [phone] [facility] OTHER [phone] Reason for Visit Stasis dermatitis and venous [...] to chronic peripheral venous hypertension Acute, improving slowly No malodor no purulence no pain no warm erythema. We will continue with current plan of ca re Home health will dress in between clinic visits Return to clinic 1 week home health order* - 05/31/22: Legs b ilat: cleanse wounds with wound [...] above -Once patient is no longer utilizing [facility] will plan to send patient to lymphedema therapist 3. Lipedema see above 4. Pressure injury of buttock Stable with less slough, induration gre atly improved continue with NPWT 5. Cellulitis Right buttock pressure ulceration Escherichia coli (Isolate 1) Coagulase Negative Staph. (Isolate 2) Organism: Escherichia coli PICC Daptomycin 850 mg daily and Cefepime 2 g ferny daily 2 weeks (renal dosed creatine 2.0) cbc cmp esr crp ck weekly 6. Anemia found on cbc today transfuse 2 PRBC transfuse 1L NS this was coordinated with OP Infusion ce ntaisha recheck hct/hgb in am Patient will guaiac test her stools x3 We will obtain a serum iron, TIBC ferrit in, B12 to further assess/identify source of anemia patient does have a history of anemia and states she has been more tired than usual with some dizziness blood transfusion, PRBC - 2 units pac ked red blood cells and 1 unit of saline. All three units over 2hrs each. TIBC (total iron-binding capacity), s [place] iron, serum TIBC (total iron-binding capacity), s [place] ferritin, serum or plasma vitamin B12, serum CBC w/ auto diff CMP, serum or plasma CRP, high sensitivity, serum or plasm a creatine kinase MB/creatine kinase to gaurang, ratio, serum or plasma ESR (erythrocyte sedimentation rate), blood instructions to patient* - Wound VAC patient instructions Remember to keep the wound VAC plugged and whenever you are s itting or in bed for a long period of time so the battery stays charged. The battery s hould last from 8-10 hours. Your wound VAC supplies will be sent to you. Remember t o take a sponge and a canister to each of your visits here at the wound care clini c for your wound VAC dressing changes. You may shower but do not get the machine we t. Leave your dressing in place. You may cover with Saran wrap and secure with ta pe to further protect the dressing. Do not scrub your dressing. If the machine stop s functioning, and you are unable to reobtain seal after 2 hours remove foam and apply moistened gauze to the wound bed until the wound VAC dressing can be reapplied. Not suhas the wound clinic for instructions at [phone]. The clinic is open Tuesday through from 8 AM till 5 PM and Tuesday from 8 AM until noon. You have be en sent with two occult stool sample kits. Please follow the instructions and retur n them to the clinic as soon as a sample is obtained. Discussion Note Thank you for this referral and opportu misay to care for your patient. If there are any questions or concerns please feel free to contact me at . ~60 minutes were spent today this includ es preparing to see the patient including review of available prior records, obtaining and reviewing separately obtained history, performing medically appropriate exam/evaluation, counseling and educati on with patient/family/caregivers, ordering medications, tests or procedures, referring and communicating with other healthcare professionals, documentation of cl inical information in the health record, and independently interpreting results that are not already separately reported. This also includes communication of results to the patient/family/caregiver, car e coordination that is not separately re ported. This also includes procedures and dressings applied as notated in the chart. Patient educational handouts: No information available. Plan [...] Notify the wound clinic for instructions at [phone] . The clinic is open Tuesday through from 8 AM till 5 PM and Tuesday from 8 AM until noon. Reminders Provider Appointments Established Patient 30 08/03/2022 Paul Avalos NP 8:30AM Claudine- Established Short 11/04/2022 Theodore Tapia NP 2:00PM Lab TIBC (Total Iron-binding 05/31/2022 [facility]), Serum Lab Iron, Serum 05/31/2022 [facility] TIBC (Total Iron-binding 05/31/2022 [facility]), Serum Lab Ferritin, Serum or Plasma 05/31/2022 [facility] Vitamin B12, Serum 05/31/2022 [facility] CBC W/ Auto Diff 05/31/2022 [facility] CMP, Serum or Plasma 05/31/2022 [facility] Lab CRP, High Sensitivity, Serum 05/31/2022 [facility] or Plasma Lab Creatine Kinase MB/creatine 05/31/2022 [facility] Kinase Total, Ratio, Serum or La b Plasma ESR (Erythrocyte 05/31/2022 [facility] Sedimentation Rate), Blood Lab Referral Blood Transfusion, PRBC 05/31/2022 Procedures None recorded. Surgeries None recorded. 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 Jordan Avalos also stated that she should stop taking potassium since h er potassium was high. Verified medications verbally. -AG 05/03 Medications Administered None recorded. Vitals Height Weight BMI Blood Pressure 5 ft 5 in 304 lbs 50.6 kg/m2 148/101 mm[Hg] Results Lab Results Date Name Specimen Result Interpretation Description Value Range Status Address 06/02/2022 ESR Whole High Erythrocyte 125 0-30 Final [facility]ologists[facility] (Erythrocyte Blood Sed Rate mm/HR mm/HR Re gional Lab: Sediment[place] [address], Rate), Blood [place] 06/02/2022 Creatine Plasma High Creatine 256 24-170 Final P athologists' Kinase Phosphokinase U/L U/L Reg ional Lab: MB/creatine [address], Kinase Total, [facility] Ratio, Serum or Plasma Plasma High CK-mb by 5.0 <3.7 Final Patholo gists' Immunoassay NG/mL NG/mL Regio nal Lab: [address] , [place] 06/02/2022 CMP, Serum or Plasma High Glucose,rando 118 70-10 5 Final Pathologists' Plasma m mg/dL mg/dL Regional L ab: [address] , [place] Plasma High Blood Urea 29 8-23 Final Patho logists' Nitrogen mg/dL mg/dL Regional Lab: [address] [facility] Plasma High Creatinine 1.5 0.6-1. Final Patho logists' mg/dL 1 Regional L ab: mg/dL [address] , [place] Plasma Sodium 135 133-14 Final Pathologi sts' mmol/L 5 Regional L ab: mmol/L [address] , [place] Plasma Potassium 4.2 3.3-5. Final Pathol ogists' mmol/L 1 Regional L ab: mmol/L [address] , [place] Plasma Chloride 99 96-108 Final Patholo gists' mmol/L mmol/L Regional L ab: [address] , [place] Plasma Carbon 28 22-30 Final Pathologi sts' Dioxide mmol/L mmol/L Regional Lab: [address] , [place] Plasma Anion Gap 8.0 8.0-16 Final Pathol ogists' .0 Regional L ab: [address] , [place] Plasma High Calcium 10.7 8.6-10 Final Patholog ists' mg/dL .4 Regional L ab: mg/dL [address] , [place] Plasma Total Protein 6.7 5.9-8. Final Pa thologists' gm/dL 4 Regional L ab: gm/dL [address] , [place] Plasma Low Albumin 2.7 3.2-5. Final Patholog ists' gm/dL 2 Regional L ab: gm/dL [address] , [place] Plasma High Globulin 4.0 2.2-3. Final Patholo gists' gm/dL 7 Regional L ab: gm/dL [address] , [place] Plasma Low Alb/glob 0.7 1.0-2. Final Patholo gists' Ratio 3 Regional L ab: [address] , [place] Plasma Bilirubin,tot 0.2 0.1-1. Final Pa thologists' al mg/dL 0 Regional L ab: mg/dL [address] , [place] Plasma AST/SGOT 23 U/L <32 Final Patholo gists' U/L Regional L ab: [address] , [place] Plasma ALT/SGPT 18 U/L <40 Final Patholo gists' U/L Regional L ab: [address] , [place] Plasma High Alkaline 141 39-117 Final Patholo gists' Phosphatase U/L U/L Regio nal Lab: [address] , [place] Plasma Glomerular 34 Final Patho logists' Filtration Region al Lab: Rate [address] , [place] 06/02/2022 TIBC (Total Plasma Low Iron 28 37-145 Final P athologists' Iron-binding ug/dL ug/dL Saima onal Lab: Capacity), [address], Serum [place] Plasma Unsaturated 226 112-34 Final Path ologists' Iron Binding mcg/dL 6 Saima onal Lab: Cap mcg/dL [address] , [place] Plasma TIBC 254 228-42 Final Pathologis ts' Calculation ug/dL 8 Regio nal Lab: ug/dL [address] [facility] , [place] Plasma Low % Transferrin 11 % 15-50 Final Pa thologists' Saturation % Region al Lab: [address] [facility] , [place] 06/02/2022 Ferritin, Plasma Ferritin 180.2 30.0-4 Final Pathologists' Serum or NG/mL 00.0 Regional Lab: Plasma NG/mL [address] [facility] , [place] 06/02/2022 Vitamin B12, Serum High Vitamin B12 1253.0 232.0- F inal Pathologists' Serum pg/mL 1245.0 Regional L ab: pg/mL [address] [facility] , [place] 06/02/2022 CBC W/ Auto Whole Wbc 10.2 4.5-11 Final P athologists' Diff Blood K/mcL .0 Regional L ab: K/mcL [address] [place] [address] Whole Low Rbc 3.08 3.59-5 Final Pathologis ts' Blood M/mcL .38 Regional L ab: M/mcL [address] [facility] , [place] Whole Low Hgb 9.4 11.2-1 Final Pathologis ts' Blood g/dL 5.7 Regional L ab: g/dL [address] [facility] , [place] Whole Low Hct 29.2 % 34.1-4 Final Pathologis ts' Blood 4.9 % Regional L ab: [address] [place] [address] Whole Mcv 94.8 80.0-1 Final Pathologis ts' Blood fL 00.0 Regional L ab: fL [address] [place] [address] Whole Mch 30.5 26.0-3 Final Pathologis ts' Blood pg 4.0 pg Regional L ab: [address] [facility] , [place] Whole Mchc 32.2 31.0-3 Final Pathologis ts' Blood g/dL 6.0 Regional L ab: g/dL [address] [facility] , [place] Whole High Rdw 17.3 % 11.5-1 Final Pathologis ts' Blood 4.5 % Regional L ab: [address] [facility] , [place] Whole High Plt [place] 462 140-44 Final Pathologi sts' Blood K/mcL 0 Regional L ab: K/mcL [address] [place] [address] Whole Mpv 10.9 8.8-12 Final Pathologis ts' Blood fL .5 fL Regional L ab: [address] , [place] Whole Neutrophil % 76.7 % 38.0-7 Final Pat hologists' Blood 8.0 % Regional L ab: [address] , [place] Whole Low Lymphocyte % 8.8 % 15.5-4 Final Pat hologists' Blood 9.0 % Regional L ab: [address] , [place] Whole Monocyte % 6.5 % 1.0-12 Final Patho logists' Blood .0 % Regional L ab: [address] , [place] Whole Eosinophil % 5.7 % 0.0-7. Final Pat hologists' Blood 0 % Regional L ab: [address] , [place] Whole Basophil % 0.7 % 0.0-2. Final Patho logists' Blood 0 % Regional L ab: [address] , [place] Whole High Immature 1.6 % 0.0-0. Final Patholo gists' Blood Granulocytes % 5 % Re gional Lab: [address] , [place] Whole Absolute 7.84 1.80-8 Final Patholo gists' Blood Neutrophil K/mcL .00 Region al Lab: Count K/mcL [address] , [place] Whole Low Lymphocyte # 0.90 1.50-4 Final Pat hologists' Blood K/mcL .80 Regional L ab: K/mcL [address] , [place] Whole Monocyte # 0.66 0.10-0 Final Patho logists' Blood K/mcL .90 Regional L ab: K/mcL [address] , [place] Whole Eosinophil # 0.58 0.00-0 Final Pat hologists' Blood K/mcL .70 Regional L ab: K/mcL [address] , [place] Whole Basophil # 0.07 0.00-0 Final Patho logists' Blood K/mcL .30 Regional L ab: K/mcL [address] , [place] Whole High Immature 0.16 0.00-0 Final Patholo gists' Blood Granulocytes # K/mcL .05 Re gional Lab: K/mcL [address] , [place] 06/02/2022 CRP, High Plasma High CRP, High 54.5 1.0-3. Final Pathologists' Sensitivity, Sensitivity mg/L 0 mg/L Regional Lab: Serum or [address], Plasma [place] Allergies Code Code System Name Reaction Severity [...] Unknown. Past Encounters Encounter Date Diagnosis Provider 05/31/2022 Stasis Dermatitis and Venous Ulcer of Sa vida Avalos, UMBRELLA TIPPER MACHINE: [address] Lower Extremity [place] [id number], Peripheral Venous Hypertension; Ph. Lymphedema of Bilateral Lower Limbs; Lipedema; Pressure Injury of Buttock; Cellulitis; Anemia 05/24/2022 Stasis Dermatitis and Venous Ulcer of Sa vida Avalos, UMBRELLA TIPPER MACHINE: [address] Lower Extremity Due to Chronic Ron, [place] [id number], Peripheral Venous Hypertension; Ph. Lymphedema of Bilateral Lower Limbs; Lipedema; Pressure Injury of Buttock; Cellulitis 05/20/2022 Pressure Injury of Buttock Eva leonard, [employer]MB[employer]LLA TIPPER MACHINE: [address] [place] [id number], Ph. 05/17/2022 Stasis Dermatitis and Venous Ulcer of Sa vida Avalos, UMBRELLA TIPPER MACHINE: [address] Lower Extremity Due to Chronic Ron, [place] [id number], Peripheral Venous Hypertension; Ph. Lymphedema of Bilateral Lower Limbs; Lipedema; Pressure Injury of Buttock; Cellulitis; At Risk of Electrolyte Imbalance 05/11/2022 Stasis Dermatitis and Venous Ulcer of Sa vida Avalos, UMBRELLA TIPPER MACHINE: [address] Lower Extremity [place] [id number], Peripheral Venous Hypertension; Ph. Lymphedema of Bilateral Lower Limbs; Lipedema; Pressure Injury of Buttock; Cellulitis 05/10/2022 Stasis Dermatitis and Venous Ulcer of Sa vida Avalos, UMBRELLA TIPPER MACHINE: [address] Lower [place]remity [place] [id number], Peripheral Venous Hypertension; Ph. Lymphedema of Bilateral Lower Limbs; Lipedema; Pressure Injury of Buttock; Cellulitis 05/03/2022 Edema of Lower Extremity; Chronic Claudine Tapia, UMBRELLA TIPPER MACHINE: [address] Kidney Disease; Mixed Hyperlipidemia; [facility] [place] [id number], History of Pulmonary Embolus; Ph. Obstructive Sleep Apnea Syndrome; Hyponatremia; Lymphedema of Lower Extremity 05/03/2022 Stasis Dermatitis and Venous Ulcer of Sa vida Avalos, UMBRELLA TIPPER MACHINE: [address] Lower [place]remity [place] [phone], Peripheral Venous Hypertension; Ph. Lymphedema of Bilateral Lower Limbs; Lipedema; Pressure Injury of Buttock; Cellulitis; Acute Hyperkalemia History of Present Illness Note: <div>05/24/22 Virgie returns to the wound healing center for the continuation of treatment to her bilateral leg wounds and right buttocks wound. [facility] changes dressings in between clinic visits. Patient states that she feels achy and cold today.</div><div>
</div><div>05/31/22:Virgie presents to the wound healing center for her continued treatment of her bilateral legs and right buttock wound. Patient's leg wraps were cut at the top and only went mid calf. There are red rings around the top of the dressing on her legs. Patient states that she had a fall two days ago. Patient came in without wound vac attached. states that it came off lastnight. Patient has a Hgb of 7. </div><div>
</div><div>Weekly CK wasnot drawn- it was on the order, will have drawn stat </div><div>
</div><div>Metformin and baby aspirin stopped by PCP. New medication started for hallucinations- patient can't remember the name. [facility] </div><div>
</div> Review of Systems Comprehensive [...] no nodules, good turgor, no jaundice, ulcer; 05/24/22: R ight anterior smith: Left lower leg: moderate drainage on dressin gRight Buttock: 3.3 x 1.3 x 3.0cmRight buttock superior wound: 1.0 x 1.0 x 2.3cmWound Vac sent with [id number]/31/2022:Left lower leg: moderate drainage on dressing scattered partial to full th ickness tissue loss. 6.0 x 4 cm. post debridement 6 by 4 by 0.05 c m This was selectively debrided of thick gelatinous slough.Righ t Buttock: Right buttock superior wound: Hemocult blood tests sent with patient2 units of blood and 1 unit of saline. Nails: abnor mal
--- OUTSIDE RECORDS SUMMARY | 2022-07-29 18:25 | External Medical Summary | Encounter Summary ---
:1950 Author Care Team Providers Name Role Phone Saud Jarvis MD Primary Care Provider [phone] [facility] OTHER [phone] Reason for Visit Stasis dermatitis and venous [...] tissue pressure injury Bilateral heels, posterior calcaneous not infected reinforced off loading and preventative measures Left buttocks this will be padded and pr otected and I did reinforce offloading measures here also 3. Lymphedema of bilateral lower limbs see above -Once patient is no longer utilizing on license of [facility] [employer] will plan to send patient to lymphedema therapist home health order* - 06/28/22 Legs bi lat: cleanse wounds with wound cleanser moistened with saline aquacel AG over wo unds abd to cover 2 step (did not tolerate profore) toes TO KNEE Change: /tuesday Left buttocks: Skin prep to cass wound mepilex to protect over pressure i njury Cleanse with wound Cleanser Vanco powder to wound bed Wound Vac: Right but tocks Cleanse with wound cleanser skin prep and antifungal powder in a crusting tech nique to periwound Drape periwound Place black foam in wound LARGE black foam leeann ster for suction Another layer of clear drape tracked to non bony prominence Do not le t black foam touch the skin track tubing on non-bony prominence Suction at 125 mm/hg Change tuesday/tuesday/tuesday Canister changes Tuesday/Tuesday Right Buttock woun ds--PLEASE MAKE SURE VAC IS IN PLACE AND WORKING, CALL CLINIC IF NOT FOR Stand ho urly to reduce pressure off of buttocks 4. Lipedema see above 5. Pressure injury of buttock Regression/change in shape Continues to have violaceous discolorati on from 1-3 o'clock consistent with deep tissue injury otherwise the wound has new healthy granular tissue no malodor continue with NPWT, home health to dress [...] Notify the wound clinic for instructions at [phone] . The clinic is open Tuesday through from 8 AM till 5 PM and Tuesday from 8 AM until noon. 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 Jordan Robbie also stated that she should stop taking potassium since h er potassium was high. Verified medications verbally. -AG 05/03 Medications Administered None recorded. Vitals Height Weight BMI Blood Pressure 5 ft 5 in 305 lbs 50.8 kg/m2 164/91 mm[Hg] Results Lab Results None recorded. Allergies [...] Unknown. Past Encounters Encounter Date Diagnosis Provider 06/28/2022 Stasis Dermatitis and Venous Ulcer Aquilino Avalos NP: [address] of Lower Extremity [place] [id number], Peripheral Venous Hypertension; Deep Ph. Tissue Pressure Injury; Lymphedema of Bilateral Lower Limbs; Lipedema; Pressure Injury of Buttock 06/21/2022 Stasis Dermatitis and Venous Ulcer Aquilinokellie padilla Robbie, PAPER CONE MAKER: [address] of Lower [place]remity [place] [id number], Peripheral Venous Hypertension; Deep Ph. Tissue Pressure Injury; Lymphedema of Bilateral Lower Limbs; Lipedema; Pressure Injury of Buttock 06/14/2022 Stasis Dermatitis and Venous Ulcer Aquilinokellie padilla Robbie, PAPER CONE MAKER: [address] of Lower [place]remity [place] [id number], Peripheral Venous Hypertension; Ph. Lymphedema of Bilateral Lower Limbs; Lipedema; Pressure Injury of Buttock; Cellulitis 06/07/2022 Stasis Dermatitis and Venous Ulcer Aquilino padilla Robbie, PAPER CONE MAKER: [address] of Lower [place]remity [place] [phone], Peripheral Venous Hypertension; Ph. [phone] Lymphedema of Bilateral Lower Limbs; Lipedema; Pressure Injury of Buttock; Cellulitis; Anemia 05/31/2022 Stasis Dermatitis and Venous Ulcer Aquilino padilla Robbie, PAPER [employer] MAKER: [address] of Lower Extremity [place] [id number], Peripheral Venous Hypertension; Ph. Lymphedema of Bilateral Lower Limbs; Lipedema; Pressure Injury of Buttock; Cellulitis; Anemia History of Present Illness Note: <div>06/21/22:Virgie returns to the wound healing center for continued treatment on her bilateral legs and buttocks wounds. Patient accompanied by significant other. Patient presents without wound vac on. Patient removed it this morning prior to appointment because the machine kept "beeping" at them.</div><div>
</div><div>06/28/22: Virgie presents to the wound healing center for her follow up on her bilateral legs and buttock wounds. Patient sta marcus that her wound Vac supplies did not arrive this week.</div> Review of Systems Comprehensive General Adult ROS [...] no nodules, good turgor, no jaundice, ulcer; 06/21/22:Le ft anterior smith: 2.9x1x0.05cmLeft lateral calf: scattered 0.5x 0.05x0.05cm circular woundsleft posterior heel: 2.3x4cm DTIr ight lateral heel: 1x1.5cm DTIRight buttocks: 3x1x3.3cm*NEW* lef t buttocks deep pressure injury: 2.4.4cm dark violations disc /28/22: No drainage on any of the woundsLeft anterior s hin: Superior: 2.7 x 1.0 x 0.05cm, Inferior: 0.7 x 4.3 x 0.05cm Left lateral calf: Covered in stable eschar, scattered woundsleft posterior heel: 3.0x 4.0 x 0.05cm DTIRight lateral heel: 1.0 x 3.0cm DTIRight buttocks: 3.2 x 0.6 x 4.0cm, tunnelling at noon of 5.0cmLeft buttocks deep pressure injury:2.0 x 0.7 x 0.5cm. Na ils: abnormal
--- OUTSIDE RECORDS SUMMARY | 2022-07-29 18:25 | External Medical Summary | Encounter Summary ---
:1950 Author Care Team Providers Name Role Phone Saud Jarvis MD Primary Care Provider [phone] [facility] OTHER [phone] Reason for Visit Stasis dermatitis and venous [...] injury Bilateral heels, posterior calcaneous i mproving not infected reinforced off loading and preventative measures Left buttocks this will be padded and pr otected and I did reinforce offloading measures here also 3. Lymphedema of bilateral lower limbs see above -Once patient is no longer utilizing [facility] will plan to send patient to lymphedema therapist home health order* - 07/05/22 Legs lesvia at: cleanse wounds with wound cleanser moistened with saline aquacel AG over wo unds Abd to cover 2 step (did not tolerate profore) toes TO KNEE Change: /tuesday Left buttocks: Cleanse with wound Cleanser Skin prep to cass wound medihon ey mepilex to protect over pressure injury Wound Vac: Right buttocks Cleanse with w ound cleanser skin prep and antifungal powder in a crusting technique to periwound Ni pe periwound vanco powder to wound bed Place black foam in wound LARGE black foam leeann ster for suction Another layer of clear drape tracked to non bony prominence Do not le t black foam touch the skin track tubing on non-bony prominence Suction at 125 mmHg Change tuesday/tuesday/tuesday Canister changes Tuesday/Tuesday Right Buttock woun ds--PLEASE MAKE SURE VAC IS IN PLACE AND WORKING, CALL CLINIC IF NOT FOR Stand ho urly to reduce pressure off of buttocks 4. Lipedema see above 5. Pressure injury of buttock Some improvement/change in shape Improving violaceous discoloration from 1-3 o'clock consistent with deep tissue injury otherwise the wound has new healthy granular tissue no malodor and periwound is without induration continue with NPWT, home health to dress [...] Care Patient Instructions Return to clinic as scheduled. Wound VAC [...] Notify the wound clinic for instructions at [phone] . 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 Jordan Robbie also stated that she should stop taking potassium since h er potassium was high. Verified medications verbally. -AG 05/03 Medications Administered None recorded. Vitals Height Weight BMI Blood Pressure 5 ft 5 in 288.6 lbs 48 kg/m2 156/77 mm[Hg] Results Lab Results None recorded. Allergies [...] Unknown. Past Encounters Encounter Date Diagnosis Provider 07/05/2022 Stasis Dermatitis and Venous Ulcer Aquilino Avalos NP: [address] Lower [place]rem[place] [id number], Peripheral Venous Hypertension; Deep Ph. Tissue Pressure Injury; Lymphedema of Bilateral Lower Limbs; Lipedema; Pressure Injury of Buttock 06/28/2022 Stasis Dermatitis and Venous Ulcer Aquilino Avalos, ELECTRICITY TRADER: [address] Lower [place]rem[place] [id number], Peripheral Venous Hypertension; Deep Ph. Tissue Pressure Injury; Lymphedema of Bilateral Lower Limbs; Lipedema; Pressure Injury of Buttock 06/21/2022 Stasis Dermatitis and Venous Ulcer Aquilino Avalos, ELECTRICITY TRADER: [address] [place] [id number], Peripheral Venous Hypertension; Deep Ph. Tissue Pressure Injury; Lymphedema of Bilateral Lower Limbs; Lipedema; Pressure Injury of Buttock 06/14/2022 Stasis Dermatitis and Venous Ulcer Aquilino Avalos, ELECTRICITY TRADER: [address] [place] [id number], Peripheral Venous Hypertension; Ph. Lymphedema of Bilateral Lower Limbs; Lipedema; Pressure Injury of Buttock; Cellulitis 06/07/2022 Stasis Dermatitis and Venous Ulcer Aquilino Avalos, ELECTRICITY TRADER: [address] [place] [id number], Peripheral Venous Hypertension; Ph. Lymphedema of Bilateral Lower Limbs; Lipedema; Pressure Injury of Buttock; Cellulitis; Anemia History of Present Illness Note: <div>06/28/22: Virgie presents to the wound healing center for her follow up on her bilateral legs and buttock wounds. Patient states that her wound Vac supplies did not arrive this week.</div><div>
</div><div>07/05/22:Virgie returns to the wound healing center for a continued treatment on her bilateral legs and buttock wounds. Patient states she has been offloading as ordered more.</div> Review of Systems Comprehensive General Adult ROS [...] no nodules, good turgor, no jaundice, ulcer; 06/28/22: N o drainage on any of the woundsLeft anterior smith: Superior: 2.7 x 1.0 x 0.05cm, Inferior: 0.7 x 4.3 x 0.05cmLeft lateral calf: Cov ered in stable eschar, scattered woundsleft posterior heel: 3 .0x 4.0 x 0.05cm DTIRight lateral heel: 1.0 x3.0cm DTIRight buttocks : 3.2 x 0.6 x 4.0cm, tunnelling at noon of 5.0cmLeft buttocks deep p ressure injury:2.0 x 0.7 x 0.5cm109/05/21:Left anterior smith: Superior: 2.7 x 1.0 x 0.05cm Inferior: 0.5 x 2.0 x 0.05cm Left lateral calf: scattered partial thickness lossleft posterior heel: 2.8 x 5.0cm covered in eschar, DTIRight lateral heel: 1.0x 2.0cm DTIRight buttocks: 2.5x1x4.2cmLeft buttocks ketan p pressure injury: 2x1cm covered in stable eschar. Nails: abnorm al
--- OUTSIDE RECORDS SUMMARY | 2022-07-29 18:26 | External Medical Summary | Encounter Summary ---
:1950 Author Care Team Providers Name Role Phone Saud Jarvis MD Primary Care Provider [phone] [facility] OTHER [phone] Reason for Visit Stasis dermatitis and venous ulcer of lo wer extremity due to chronic peripheral venous hypertension Assessment and Plan Assessment Note Virgie presents to the wound center as a referral from [facility]. She was recently hospitalized related to kidney and heart issues. While hospitalized she was diagnosed with cellulitis. She has multiple wounds to her bilateral legs related to swelling. Hospital f/u clinic 03/29/2022 1. Stasis dermatitis and venous ulcer o f lower extremity due to chronic peripheral venous hypertension Acute, improving debrided of slough selectively today, pa rtial thickness ~270 sq cm total Has finished Augmentin & doxycycline wit hout reoccurring s/s of wound infection/cellulitis stasis dermatitis persists but is improv ing [...] Buttock wo unds Cleanse with wound Cleanser Iodosorb to wound Gauze Transparent to cover wound C hange Tuesday/Tue/ Tuesday 2. Lymphedema of bilateral lower limbs see above -Once patient is no longer utilizing [employer] will plan to send patient to lymphedema [...] great detail with patient and family today return to clinic 1 week 5. Cellulitis Right buttock pressure ulceration tissue culture Augmentin 100 mg BID 7 days Creatinine 1.6 Zofran for nausea prn Augmentin XR 1,000 mg-62.5 mg tablet, extended release ondansetron 4 mg disintegrating table t culture + sensitivity, tissue - GM st ain 6. Acute hyperkalemia K+ 5.2 STOP potassium Discussion Note Thank you for this referral and opmagnoliau rene to care for your patient. If there are any questions or concerns please feel fr ee to contact me at . Patient educational handouts: No information available. Plan of Care Patient Instructions RTC 1 week Your antibiotics as instructed Stop the potassium as instructed Be vigilant with your offloading of your buttocks Home health will change her dressing in between clinic visits Reminders Provider Appointments Established Patient 30 08/03/2022 Paul Avalos NP 8:30AM Claudine- Established Short 11/04/2022 Theodore Tapia NP 2:00PM Lab Culture + Sensitivity, 05/03/[address]22 [facility] Tissue Only Referral None recorded. Procedures None recorded. 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 in wound bed Mon/Tue/Fri with dressing changes Notes: Jordan Avalos prescribed augmentin and ondanestron. Jordan Avalos also stated that she should stop taking potassium since h er potassium was high. Verified medications verbally. -AG 05/03 Medications Administered None recorded. Vitals Height Blood Pressure 5 ft 5 in 136/49 mm[Hg] Results Lab Results Date Name Specimen Result Interpretation Description Value Range Status Address 05/03/2022 Culture + Wound No observation Pathologists' Sensitivity, recorded. R egional Lab: [address] [facility] Allergies Code Code System Name [...] Edema of Lower Extremity; Chronic Claudine Tapia, FOOD MOBILE DRIVER: [address] Kidney Disease; Mixed Hyperlipidemia; [place] [id number], History of Pulmonary Embolus; Ph. Obstructive Sleep Apnea Syndrome; Hyponatremia; Lymphedema of Lower Extremity 05/03/2022 Stasis Dermatitis and Venous Ulcer of vida Avalos, FOOD MOBILE DRIVER: [address] Lower [place] [id number], Peripheral Venous Hypertension; Ph. Lymphedema of Bilateral Lower Limbs; Lipedema; Pressure Injury of Buttock; Cellulitis; Acute Hyperkalemia 04/26/2022 Stasis Dermatitis and Venous Ulcer of vida Avalos, FOOD MOBILE DRIVER: [address] Lower [place] [id number], Peripheral Venous Hypertension; Ph. Lymphedema of Bilateral Lower Limbs; Lipedema; Pressure Injury of Buttock 04/19/2022 Stasis Dermatitis and Venous Ulcer of Sa vida Avalos, FOOD MOBILE DRIVER: [address] Lower [place] [phone], Peripheral Venous Hypertension; Ph. [phone] Lymphedema of Bilateral Lower Limbs; Lipedema; Pressure Injury of Buttock 04/12/2022 Stasis Dermatitis and Venous Ulcer of Sa vida Avalos, FOOD MOBILE DRIVER: [address] Lower [place] [phone], Peripheral Venous Hypertension; Ph. [phone] Lymphedema of Bilateral Lower Limbs; Lipedema 04/07/2022 Edema of Lower Extremity; Chronic Claudine Rivaser, FOOD MOBILE DRIVER: [address] Kidney Disease; Mixed Hyperlipidemia; [place] [address], History of Pulmonary Embolus; Ph. Obstructive Sleep Apnea Syndrome; Hyponatremia; Lymphedema of Lower Extremity History of Present Illness Note: <div>04/26/22: Virgie returns to the wound center for continued treatment of her buttocks ulcerand bilateral leg edema. No medicaton or health history changes. </div><div>
</div><div>05/03/22 Virgie returns to the wound healing center for follow up treatment to herbuttocks and bilateral leg ulcers.</div><div>
</div><div>PCP: Dr Jarvis</div> Review of Systems Comprehensive [...] no nodules, good turgor, no jaundice, ulcer; 04/26/2022: Edema with improvement rather well managed with compression rig ht anterior smith: 1x1x0.05cmleft anterior smith redness, edema present; multiple wound scattered circumferentially around low er calf (view images)right buttocks 4x2.3x0.1cm; covered by hard eschar cap05/03/22 Moderate serous drainage, right anterior vanesa n: 1.0x1.0x0.05cmLeft lower leg: multiple scattered wounds ( see pictures ) Anterior smith: area of 15.0 by 15.0cm Lateral calf in area of 10.0 by 4.0 cm Posterior calf in area of 4.5 by 2.0cm Right buttocks:4.0 x 2.4 x 0.1cm, this has some cellulitic features with induration erythema and warmth along with tenderness. Nails : abnormal
[2022-07-29] MEDS ORDERED: ONDANSETRON 4 MG/2 ML VIAL IV PRN (18:34)
[2022-07-29] MEDS ORDERED: ACETAMINOPHEN 325 MG TABLET PO PRN (18:34)
[2022-07-29] MEDS ORDERED: POTASSIUM CHLORIDE 20 MEQ TABLET PO SCH (19:30)
[2022-07-29] MEDS: DOCUSATE SODIUM 100 MG CAPSULE PO SCH (21:33)
[2022-07-29] MEDS: 0.9 % SODIUM CHLORIDE 10 ML SYRINGE IV SCH (21:33)
[2022-07-29] MEDS: BENZONATATE 100 MG CAPSULE PO PRN (21:33)
[2022-07-29] MEDS: SENNOSIDES 1 TABLET PO SCH (21:33)
[2022-07-30] MEDS: guaiFENesin/CODEINE 10 ML UDC PO PRN ×2 (03:01→07:34)
[2022-07-30] MEDS: 0.9 % SODIUM CHLORIDE 10 ML SYRINGE IV SCH ×3 (04:11→21:18)
[2022-07-30] MEDS: BENZONATATE 100 MG CAPSULE PO PRN ×2 (04:11→21:17)
[2022-07-30 06:40] LABS: Basophils # (Auto) 0.01 K/mcL (0.00-0.30); Basophils % (Auto) 0.1 % (0.0-2.0); Eosinophils # (Auto) 0.01 K/mcL (0.00-0.70); Eosinophils % (Auto) 0.1 % (0.0-7.0); Hemoglobin 8.1 g/dL (11.2-15.7); Lymphocytes # (Auto) 0.96 K/mcL (1.50-4.80); Lymphocytes % (Auto) 8.1 % (15.5-49.0); Mean Cell Volume 95.2 fL (80.0-100.0); Mean Corpuscular HGB Conc 31.2 g/dL (31.0-36.0); Mean Platelet Volume 10.2 fL (8.8-12.5); Monocytes # (Auto) 0.56 K/mcL (0.10-0.90); Monocytes % (Auto) 4.7 % (1.0-12.0); Neutrophils % (Auto) 86.6 % (38.0-78.0); Platelet Count 336 K/mcL (140-440); RBC 2.73 M/mcL (3.59-5.38); Red Cell Distribution Width 17.1 % (11.5-14.5); WBC 11.8 K/mcL (4.5-11.0)
[2022-07-30 07:07] LABS: ALT/SGPT 24 U/L (<40); AST/SGOT 37 U/L (<32); Albumin 2.7 gm/dL (3.2-5.2); Albumin/Globulin Ratio 0.7 (1.0-2.3); Alkaline Phosphatase 158 U/L (39-117); Bilirubin,Direct < 0.2 mg/dL (0-0.3); Bilirubin,Total 0.3 mg/dL (0.1-1.0); Blood Urea Nitrogen 41 mg/dL (8-23); Calcium 9.6 mg/dL (8.6-10.4); Carbon Dioxide 31 mmol/L (22-30); Chloride 98 mmol/L (96-108); Globulin 3.8 gm/dL (2.2-3.7); Glomerular Filtration Rate 37; Glucose 111 mg/dL (70-105); Lactate Dehydrogenase 196 U/L (135-225); Phosphorous 2.4 mg/dL (2.5-4.5); Triglycerides 112 mg/dL (<150); Uric Acid 8.2 mg/dL (2.5-8.0)
[2022-07-30] MEDS: DOCUSATE SODIUM 100 MG CAPSULE PO SCH ×2 (08:29→21:17)
[2022-07-30] MEDS: OSELTAMIVIR PHOSPHATE 30 MG CAPSULE PO SCH ×2 (08:29→21:17)
[2022-07-30] MEDS: cefTRIAXone 1 GM VIAL IV SCH (09:10)
[2022-07-30] MEDS: AZITHROMYCIN 500 MG in DEXTROSE 5% IN WATER 250 ML IV SCH (09:10)
--- NOTE | 2022-07-30 13:35 | General Surgery Consult Note ---
[facility] Date of Consult Consult Date: 07/30/22 Requesting physician: Ned Abreu Primary Care Provider: Saud Jarvis MD Consult Narrative Chief complaint: Consultation requested for wound management. Reason for consult: Ongoing woundcare / management during current hospitalization. History of present illness: Patient admitted via ER for acute hypoxia and respiratory failure in context of recent influenza and bilateral basal pneumonia. Patient has chronic leg wounds (compression wraps in place) and open wounds of both posterior buttocks lateral to intergluteal cleft. She is a morbid obese female with multiple comorbidities. Likely spending prolonged periods lying or sleeping in chair or in recliner. Patient is established at wound care center at [facility] in [facility]. After d/c she will f/u at [facility] in [facility]. cc:: I saw this lady in room 114 on Med/Surg floor along with Melony Mazno RN, Inpatient wound care. CC: Ned Abreu MD Respiratory Respiratory: Present as per HPI PFSH PFSH All Active Problems Influenza (Acute) Acute renal insufficiency (Acute) Hallucinations, visual (Acute) Venous stasis ulcer of left lower extremity (Acute) Chronic kidney disease, stage III (moderate) (Chronic) Acute bronchitis (Acute) Hoarseness (Acute) Prediabetes (Acute) Lumbar radiculopathy (Acute) Arthralgia (Chronic) Encounter for medication monitoring (Acute) Right hip pain (Acute) Anemia (Acute) Thrombophlebitis leg (Chronic ~03/2000) Numbness (Chronic) Venous insufficiency of both lower extremities (Chronic) Edema (Chronic) Knee pain, left (Chronic) Hypertonicity, bladder (Chronic) Anxiety (Chronic) Stress (Chronic) Osteoarthritis (Chronic) Homocystinemia (Chronic) Abnormal finding on mammography, microcalcification (Chronic) Anemia in chronic kidney disease (Chronic) 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) Toe pain (Chronic) Lesion of face (Chronic) Mood swings (Chronic) Libido, decreased (Chronic) Night sweats (Chronic) Elevated sedimentation rate (Chronic) Abnormal levels of other serum enzymes (Chronic) Visual changes (Chronic) Muscle spasm (Chronic) Hip pain, left (Chronic) Skin lesion (Chronic) Seborrheic keratoses (Chronic) Skin tag (Chronic) Finger pain (Chronic) Other seborrheic keratosis (Chronic) Osteoarthritis of knees, bilateral (Chronic) Osteoarthritis of hands, bilateral (Chronic) Invasive ductal carcinoma of left breast (Chronic) Urinary frequency (Chronic) Urinary incontinence (Chronic) Fatigue (Chronic) Overactive bladder (Chronic) Chronic back pain (Chronic) Encounter for therapeutic drug level monitoring (Chronic) Anxiety with depression (Chronic) Osteoarthritis, multiple sites (Chronic) GERD with esophagitis (Chronic) Numbness and tingling sensation of skin (Chronic) Heart murmur (Chronic) Pain in right wrist (Chronic) Wrist pain, left (Chronic) Peripheral neuropathy (Chronic) Abnormal EKG (Chronic) Personal history of malignant neoplasm of breast (Chronic) Obesity (Chronic) Polyneuropathy (Chronic) Metabolic syndrome X (Chronic) Pain, joint, hip, right (Chronic) History of bilateral knee replacement (Chronic ~2002) Chronic venous insufficiency (Chronic) Chronic Kidney Disease (Chronic) Elevated liver enzymes (Chronic) Insulin resistance syndrome (Chronic) Hypercalcemia (Chronic) Hypertension (Chronic) Toe amputation status (Chronic ~06/2012) History of removal of nevus (Chronic ~10/2006) History of lumpectomy of right breast (Chronic) History of lumpectomy of left breast (Chronic) Vitamin D deficiency (Chronic 06/19/12) Urge incontinence (Chronic) Thrombophlebitis (Chronic) Squamous cell carcinoma (Chronic) Knee osteoarthritis (Chronic) Severe obesity (Chronic) Nocturia (Chronic) Metabolic syndrome (Chronic) Hypothyroidism (Chronic) Pure hypertriglyceridemia (Chronic) Hypertensive renal disease (Chronic) Hyperlipidemia (Chronic) Gout (Chronic) Screening cholesterol level (Chronic) Breast cancer (Chronic) Abnormal LFTs (Chronic) Fluid retention (Chronic) Abnormal serum enzyme level (Chronic) Medical History Abnormal EKG Abnormal finding on mammography, microcalcification Abnormal levels of other serum enzymes Abnormal LFTs Abnormal serum enzyme level Anemia in chronic kidney disease Anxiety Anxiety with depression Arthralgia Breast cancer Status post lumpectomy on oeft breast. 2 out of 26 axillary lymph nodes were positive for carcinoma on the left. Chronic back pain Chronic Kidney Disease Chronic kidney disease, stage II (mild) (06/19/12) Chronic kidney disease, stage III (moderate) Chronic venous insufficiency Edema Elevated liver enzymes 06/10/2015-[facility] Elevated sedimentation rate Encounter for therapeutic drug level monitoring Fatigue Finger pain Fluid retention GERD with esophagitis Gout 02/04-great right toe Heart murmur Hip pain, left Homocystinemia Hypercalcemia 06/10/2015-[facility] Hyperlipidemia Hypertension Hypertensive renal disease Hypertonicity, bladder Hypothyroidism Insulin resistance syndrome 06/10/2015-[facility] Invasive ductal carcinoma of left breast Knee osteoarthritis Knee pain, left Lesion of face Libido, decreased Malignant neoplasm of skin of arm Metabolic syndrome Metabolic syndrome X Mood swings Muscle spasm Night sweats Nocturia 1-2 times nightly Numbness Numbness and tingling sensation of skin Obesity Osteoarthritis Osteoarthritis of hands, bilateral Osteoarthritis of knees, bilateral Osteoarthritis, multiple sites Other seborrheic keratosis Overactive bladder Pain in right wrist Pain, joint, hip, right Peripheral neuropathy Personal history of malignant neoplasm of breast Polyneuropathy Pure hypertriglyceridemia Mild and borderline low HDL cholesterol. Screening cholesterol level 10/12/2010-Borderline low HDL cholesterol Seborrheic keratoses Severe obesity with borderline diabetes. Skin lesion Skin tag Squamous cell carcinoma skin, site unspecified Stress Thrombophlebitis Right lower leg-1999 Thrombophlebitis leg (~03/2000) right lower leg 03/2000 Toe pain Urge incontinence Urinary frequency Urinary incontinence Venous insufficiency of both lower extremities Visual changes Vitamin D deficiency (06/19/12) Wrist pain, left Surgical History History of bilateral knee replacement (~2002) History of colonoscopy (05/18/16) adenomatious polyp, diverticulosis History of lumpectomy of left breast 01/2003 History of lumpectomy of right breast 06/2003 History of Mohs surgery for squamous cell carcinoma of skin (~10/05/19) Dr. Lisa: Basal cell carcinoma removed from right eyebrow History of removal of nevus (~10/2006) 10/2006 S/P Mohs surgery for basal cell carcinoma (09/04/19) right alar groove Toe amputation status (~06/2012) Left middle removed/osteomylitis 06/2012 Family History Father Congestive heart failure Diabetes mellitus March 2000, with kidney failure on dialysis Renal failure Glaucoma Mother History of heart valve replacement Migraine Grandmother Cerebrovascular accident (CVA) Not sure if maternal or paternal Social History household members: spouse marital status: smoking status: Never smoker alcohol intake frequency: does not drink MEDS/ALLERGIES Home Medications and Allergies Home Medications Medication Instructions Recorded Confirmed Type pressure cushion for wheelchair #1 ea 09/28/19 07/29/22 Rx trospium 20 mg tablet See Rx Instructions .Route 03/13/21 07/29/22 Rx .COMPLEX #180 tabs spironolactone 25 mg tablet See Rx Instructions .Route 09/07/21 07/29/22 Rx .COMPLEX #90 tabs levothyroxine 125 mcg tablet 125 mcg PO QDAY thyroid #90 tabs 12/07/21 07/29/22 Rx (Levoxyl) Breast Prosthesis left side #1 ea 12/11/21 07/29/22 Rx Mastectomy Bras #6 ea 12/11/21 07/29/22 Rx pravastatin 40 mg tablet See Rx Instructions .Route 02/24/22 07/29/22 Rx .COMPLEX #90 tabs bisacodyl 10 mg rectal suppository 10 mg GA QDAY PRN 04/08/22 07/29/22 History (Dulcolax (bisacodyl)) celecoxib 100 mg capsule (Celebrex) 100 mg PO TID PRN 04/08/22 07/29/22 History dicyclomine 10 mg capsule 10 mg PO DAILY 04/08/22 07/30/22 History glucagon HCl 1 mg solution for 1 mg subcut Q20M PRN 04/08/22 07/29/22 History injection (Glucagon (HCl) Emergency Kit) magnesium hydroxide 400 mg/5 mL 400 mg PO QDAY PRN 04/08/22 07/29/22 History oral suspension (Milk of Magnesia) polyethylene glycol 3350 17 4 g PO QDAY 04/08/22 07/29/22 History gram/dose oral powder (Miralax) sodium phosphates 19 gram-7 118 ml GA ONCE 04/08/22 07/29/22 History gram/118 mL enema (Fleet Enema) losartan 50 mg tablet 50 mg PO BID #180 tabs 05/25/22 07/30/22 Rx torsemide 20 mg tablet 20 mg PO QDAY #90 tabs 05/25/22 07/29/22 Rx hydrocodone 10 mg-acetaminophen See Rx Instructions .Route 07/19/22 07/29/22 Rx 325 mg tablet .COMPLEX chronic lumbar radiculopathy #120 tabs allopurinol 300 mg tablet 300 mg PO DAILY 07/30/22 07/30/22 History apixaban 5 mg tablet (Eliquis) 5 mg PO BID 07/30/22 07/30/22 History carvedilol 6.25 mg tablet 6.25 mg PO BID 07/30/22 07/30/22 History divalproex 125 mg tablet,delayed See Rx Instructions .Route .COMPLEX 07/30/22 07/30/22 History release (Depakote) gabapentin 300 mg capsule 300 mg PO HS 07/30/22 07/30/22 History Allergies Allergy/AdvReac Type Severity Reaction Status Date / Time adhesive tape Allergy Unknown Rash Verified 07/29/22 13:01 ciprofloxacin [From Cipro] Allergy Unknown Dermatological Verified 07/29/22 13:01 problems, rash, hives DIMAS Inhibitors AdvReac Intermediate Cough Verified 07/29/22 13:01 Physical Examination Vital Signs Vital signs: Temp Pulse Resp BP Pulse Ox O2 Del Method O2 Flow Rate 97.1 F 87 20 136/76 92 3 07/30/22 11:54 07/30/22 11:54 07/30/22 11:54 07/30/22 11:54 07/30/22 11:54 07/30/22 12:56 07/30/22 12:56 General physical appearance General physical exam: moderate distress, obese and other (Sitting in chair. O2 NC. ) Eyes Eye exam: PERRL and normal ocular movement ENT ENT exam: normal pinna, normal nares and no congestion Head Head exam IM: Present atraumatic and normocephalic Neck Neck exam: trachea midline and no venous distension Cardiovascular Cardiovascular exam IM: Present normal rate and rhythm Respiratory Respiratory exam: absent breath sounds: bilateral (Decreased breath sounds both lower lung naylor. ) Abdomen Abdomen: Present soft and non tender Integumentary Integumentary: Present other (Compression wraps both legs. Have NOT taken down wraps. Open wounds both upper posterior buttocks lateral to intergluteal cleft. Stage 3 with thin adherent eschar and serous purulent draiange and odor. ) Neurologic Neurologic: Present normal coordination and other (Limited ambulation in room with walker. ) Musculoskeletal Musculoskeletal: Present other (Morbid obesity. Slow sluggish walking ) Psychiatric Psychiatric: Present oriented to time, oriented to person, oriented to place, speech is normal and memory intact Results Labs Result diagrams: 07/30/22 05:40 07/30/22 05:40 Labs: Abnormal lab results 07/29/22 07/29/22 07/29/22 Range/Units 13:51 13:53 13:53 WBC 12.5 H (4.5-11.0) K/mcL RBC 2.91 L (3.59-5.38) M/mcL Hgb 8.7 L (11.2-15.7) g/dL Hct 27.4 L (34.1-44.9) % POC Hct 27.0 L (36-48) RDW 17.2 H (11.5-14.5) % Immature Gran % (Auto) 0.6 H (0.0-0.5) % Neut % (Auto) 85.0 H (38.0-78.0) % Lymph % (Auto) 8.4 L (15.5-49.0) % Lymph # (Auto) 1.05 L (1.50-4.80) K/mcL Immature Gran # 0.07 H (0.00-0.05) K/mcl Absolute Neutrophils 10.61 H (1.80-8.00) K/mcL POC VBG pH (7.32-7.42) POC VBG pCO2 at Temp (41-51) POC VBG HCO3 (24-28) POC VBG Total CO2 (25-29) POC Venous O2 Sat (40-70) POC VBG Base Excess (-2-2) POC Potassium 3.2 L (3.3-5.1) Carbon Dioxide (22-30) mmol/L POC Total CO2 33.0 H (22-30) POC BUN 49 H (6-20) BUN (8-23) mg/dL Creatinine (0.6-1.1) mg/dL POC Creatinine 2.2 H (0.6-1.2) Glucose (70-105) mg/dL POC Glucose 129 H (70-105) Uric Acid (2.5-8.0) mg/dL Phosphorus (2.5-4.5) mg/dL GGT (5-36) U/L AST (<32) U/L Alkaline Phosphatase (39-117) U/L NT-Pro-B Natriuret Pep 3666.0 H (<125.0) pg/mL Albumin (3.2-5.2) gm/dL Globulin (2.2-3.7) gm/dL Albumin/Globulin Ratio (1.0-2.3) Procalcitonin (<0.10) ng/mL 07/29/22 07/29/22 07/30/22 Range/Units 13:53 13:55 05:40 WBC 11.8 H (4.5-11.0) K/mcL RBC 2.73 L (3.59-5.38) M/mcL Hgb 8.1 L (11.2-15.7) g/dL Hct 26.0 L (34.1-44.9) % POC Hct (36-48) RDW 17.1 H (11.5-14.5) % Immature Gran % (Auto) (0.0-0.5) % Neut % (Auto) 86.6 H (38.0-78.0) % Lymph % (Auto) 8.1 L (15.5-49.0) % Lymph # (Auto) 0.96 L (1.50-4.80) K/mcL Immature Gran # (0.00-0.05) K/mcl Absolute Neutrophils 10.24 H (1.80-8.00) K/mcL POC VBG pH 7.56 H (7.32-7.42) POC VBG pCO2 at Temp 37.2 L (41-51) POC VBG HCO3 33.1 H (24-28) POC VBG Total CO2 34.0 H (25-29) POC Venous O2 Sat 79.0 H (40-70) POC VBG Base Excess 11.0 H* (-2-2) POC Potassium (3.3-5.1) Carbon Dioxide (22-30) mmol/L POC Total CO2 (22-30) POC BUN (6-20) BUN (8-23) mg/dL Creatinine (0.6-1.1) mg/dL POC Creatinine (0.6-1.2) Glucose (70-105) mg/dL POC Glucose (70-105) Uric Acid (2.5-8.0) mg/dL Phosphorus (2.5-4.5) mg/dL GGT (5-36) U/L AST (<32) U/L Alkaline Phosphatase (39-117) U/L NT-Pro-B Natriuret Pep (<125.0) pg/mL Albumin (3.2-5.2) gm/dL Globulin (2.2-3.7) gm/dL Albumin/Globulin Ratio (1.0-2.3) Procalcitonin 1.24 H (<0.10) ng/mL 07/30/22 Range/Units 05:40 WBC (4.5-11.0) K/mcL RBC (3.59-5.38) M/mcL Hgb (11.2-15.7) g/dL Hct (34.1-44.9) % POC Hct (36-48) RDW (11.5-14.5) % Immature Gran % (Auto) (0.0-0.5) % Neut % (Auto) (38.0-78.0) % Lymph % (Auto) (15.5-49.0) % Lymph # (Auto) (1.50-4.80) K/mcL Immature Gran # (0.00-0.05) K/mcl Absolute Neutrophils (1.80-8.00) K/mcL POC VBG pH (7.32-7.42) POC VBG pCO2 at Temp (41-51) POC VBG HCO3 (24-28) POC VBG Total CO2 (25-29) POC Venous O2 Sat (40-70) POC VBG Base Excess (-2-2) POC Potassium (3.3-5.1) Carbon Dioxide 31 H (22-30) mmol/L POC Total CO2 (22-30) POC BUN (6-20) BUN 41 H (8-23) mg/dL Creatinine 1.4 H (0.6-1.1) mg/dL POC Creatinine (0.6-1.2) Glucose 111 H (70-105) mg/dL POC Glucose (70-105) Uric Acid 8.2 H (2.5-8.0) mg/dL Phosphorus 2.4 L (2.5-4.5) mg/dL GGT 61 H (5-36) U/L AST 37 H (<32) U/L Alkaline Phosphatase 158 H (39-117) U/L NT-Pro-B Natriuret Pep (<125.0) pg/mL Albumin 2.7 L (3.2-5.2) gm/dL Globulin 3.8 H (2.2-3.7) gm/dL Albumin/Globulin Ratio 0.7 L (1.0-2.3) Procalcitonin (<0.10) ng/mL Diabetes panel 07/30/22 Range/Units 05:40 Sodium 138 (133-145) mmol/L Potassium 3.4 (3.3-5.1) mmol/L Chloride 98 (96-108) mmol/L Carbon Dioxide 31 H (22-30) mmol/L BUN 41 H (8-23) mg/dL Creatinine 1.4 H (0.6-1.1) mg/dL Glucose 111 H (70-105) mg/dL Calcium 9.6 (8.6-10.4) mg/dL AST 37 H (<32) U/L ALT 24 (<40) U/L Alkaline Phosphatase 158 H (39-117) U/L Total Protein 6.5 (5.9-8.4) gm/dL Albumin 2.7 L (3.2-5.2) gm/dL Triglycerides 112 (<150) mg/dL Calcium panel 07/30/22 Range/Units 05:40 Calcium 9.6 (8.6-10.4) mg/dL Phosphorus 2.4 L (2.5-4.5) mg/dL Albumin 2.7 L (3.2-5.2) gm/dL Pituitary panel 07/30/22 Range/Units 05:40 Sodium 138 (133-145) mmol/L Potassium 3.4 (3.3-5.1) mmol/L Chloride 98 (96-108) mmol/L Carbon Dioxide 31 H (22-30) mmol/L BUN 41 H (8-23) mg/dL Creatinine 1.4 H (0.6-1.1) mg/dL Glucose 111 H (70-105) mg/dL Calcium 9.6 (8.6-10.4) mg/dL Adrenal panel 07/30/22 Range/Units 05:40 Sodium 138 (133-145) mmol/L Potassium 3.4 (3.3-5.1) mmol/L Chloride 98 (96-108) mmol/L Carbon Dioxide 31 H (22-30) mmol/L BUN 41 H (8-23) mg/dL Creatinine 1.4 H (0.6-1.1) mg/dL Glucose 111 H (70-105) mg/dL Calcium 9.6 (8.6-10.4) mg/dL Total Bilirubin 0.3 (0.1-1.0) mg/dL AST 37 H (<32) U/L ALT 24 (<40) U/L Alkaline Phosphatase 158 H (39-117) U/L Total Protein 6.5 (5.9-8.4) gm/dL Albumin 2.7 L (3.2-5.2) gm/dL All other labs normal. A/P Narrative A/P Narrative: Assessment: Likely a chair or recliner sleeper . Pressure ulcers both posterior buttocks (Stage 3) Likely wounds of both legs. WRAPS in place. Multiple chronic medical comorbidities SEE PMH above. Plan of Treatment: Plan: Local wound care as outlined by wound nurse. Antifungal power in briefs. Will change wraps around both legs tomorrow. Will follow patient during her current hospitalization. Further recommendation as condition evolves. Time Spent With Patient Time: Total time spent is greater than 50% in coordination of care (as documented) at patient's floor/unit and/or counseling patient:
--- NOTE | 2022-07-30 15:32 | Internal Med Progress Note ---
SUBJECTIVE Subjective Patient information: Note initiated : 07/30/22 at 3:28 pm Service Date, if different from initiated Date: [] Patient: Virgie Helms 72 y/o F admitted on 07/29/22 for SOB, cough. Chief Complaint: [] Interval history: Ms. Helms is a 72 year old female with multiple comorbidities who presented to the emergency department for shortness of breath. Patient's symptoms started on July 24, 2022. She has been feeling more and more fatigued. In the emergency department, the patient was found to be hypoxic and was started on 2 L nasal cannula. She tested positive for influenza by rapid antigen test. Chest x-ray showed mild bibasilar pneumonia. Patient also has a mild leukocytosis. The patient says that she has had a nonproductive cough for the duration of her illness. Additionally, the patient had a increase in her serum creatinine level, decrease in her chronically low hemoglobin, mild hypokalemia, elevated NT proBNP. 07/30 Continues to require supplemental oxygen, 3 L/min supplementation this morning. Afebrile overnight. Patient says that she feels better today, procalcitonin elevated so started antibiotics with ceftriaxone and azithromycin. MRSA nasal PCR negative. Dr. Slater consulted for wounds on buttocks. Physical exam Head: Atraumatic, normal inspection. Eyes: normal appearance, no scleral icterus. Neck: full ROM Respiratory: 3 L/min nasal cannula oxygen supplementation, does not appear to be in respiratory distress, bilateral crackles, no wheezing appreciated. Cardiovascular: normal rate and rhythm, S1, S2. GI/Abdominal: Obesely distended, soft, nontender, no guarding. Extremities: 2 wounds on buttocks, bilateral lower extremity edema Neurological: CN II-XII intact, intact motor, intact sensation. Psychiatric: normal mood. Skin: warm, normal color Constitutional Vitals: Vital Signs Temp Pulse Resp BP Pulse Ox O2 Del Method O2 Flow Rate 97.1 F 87 20 136/76 92 3 07/30/22 11:54 07/30/22 11:54 07/30/22 11:54 07/30/22 11:54 07/30/22 11:54 07/30/22 12:56 07/30/22 12:56 Period Temp Pulse Resp BP Sys/[place] Pulse Ox O2 Del Method O2 Flow Rate Last 24 Hr 97.1 F-98.7 F 78-89 18-24 122-153/52-78 92-97 Bubble Humidi fier-Nasal Cannula 2-4 Intake and Output 07/30/22 07/30/22 07/30/22 03:59 11:59 19:59 Intake Total 120 970 240 Output Total 500 550 Balance -380 420 240 Weight 136.078 kg Intake & Output: Intake & Output 07/30/22 07/30/22 07/30/22 03:59 11:59 19:59 Intake Total 120 970 240 Output Total 500 550 Balance -380 420 240 Weight 136.078 kg Intake: IV 250 Zithromax 500 mg In Dextrose 5% 250 in Water 250 ml @ 250 mls/hr IV Q24H [facility] Rx#:[id number] Oral 120 720 240 Output: Void Amount 500 550 Other: Meal Breakfast Lunch Percent of Meal Consumed 100% 75% Feeding Ability Independent Independent Urine Appearance Cloudy Clear Urine Color Bright Yellow Yellow Urine Odor Normal OBJ DATA Labs CBC & Chem 7: 07/30/22 05:40 07/30/22 05:40 Labs: Abnormal Lab Results 07/30/22 07/30/22 07/29/22 05:40 05:40 13:55 WBC 11.8 H RBC 2.73 L Hgb 8.1 L Hct 26.0 L POC Hct RDW 17.1 H Immature Gran % (Auto) Neut % (Auto) 86.6 H Lymph % (Auto) 8.1 L Lymph # (Auto) 0.96 L Immature Gran # Absolute Neutrophils 10.24 H POC VBG pH 7.56 H POC VBG pCO2 at Temp 37.2 L POC VBG HCO3 33.1 H POC VBG Total CO2 34.0 H POC Venous O2 Sat 79.0 H POC VBG Base Excess 11.0 H* POC Potassium Carbon Dioxide 31 H POC Total CO2 POC BUN BUN 41 H Creatinine 1.4 H POC Creatinine Glucose 111 H POC Glucose Uric Acid 8.2 H Phosphorus 2.4 L GGT 61 H AST 37 H Alkaline Phosphatase 158 H NT-Pro-B Natriuret Pep Albumin 2.7 L Globulin 3.8 H Albumin/Globulin Ratio 0.7 L Procalcitonin 07/29/22 07/29/22 07/29/22 13:53 13:53 13:53 WBC 12.5 H RBC 2.91 L Hgb 8.7 L Hct 27.4 L POC Hct RDW 17.2 H Immature Gran % (Auto) 0.6 H Neut % (Auto) 85.0 H Lymph % (Auto) 8.4 L Lymph # (Auto) 1.05 L Immature Gran # 0.07 H Absolute Neutrophils 10.61 H POC VBG pH POC VBG pCO2 at Temp POC VBG HCO3 POC VBG Total CO2 POC Venous O2 Sat POC VBG Base Excess POC Potassium Carbon Dioxide POC Total CO2 POC BUN BUN Creatinine POC Creatinine Glucose POC Glucose Uric Acid Phosphorus GGT AST Alkaline Phosphatase NT-Pro-B Natriuret Pep 3666.0 H Albumin Globulin Albumin/Globulin Ratio Procalcitonin 1.24 H 07/29/22 13:51 WBC RBC Hgb Hct POC Hct 27.0 L RDW Immature Gran % (Auto) Neut % (Auto) Lymph % (Auto) Lymph # (Auto) Immature Gran # Absolute Neutrophils POC VBG pH POC VBG pCO2 at Temp POC VBG HCO3 POC VBG Total CO2 POC Venous O2 Sat POC VBG Base Excess POC Potassium 3.2 L Carbon Dioxide POC Total CO2 33.0 H POC BUN 49 H BUN Creatinine POC Creatinine 2.2 H Glucose POC Glucose 129 H Uric Acid Phosphorus GGT AST Alkaline Phosphatase NT-Pro-B Natriuret Pep Albumin Globulin Albumin/Globulin Ratio Procalcitonin Meds: Medications Acetaminophen (Acetaminophen 325 Mg Tablet) 650 mg PO Q6HP PRN; Protocol PRN Reason: Per Pain Protocol/Fever > 101 Benzonatate (Benzonatate 100 Mg Capsule) 200 mg PO Q6HP PRN PRN Reason: Cough Last Admin: 07/30/22 04:11 Dose: 200 mg Ceftriaxone Sodium (Ceftriaxone 1 Gm Vial) 1 gm IV Q24H [facility]; Protocol Stop: 08/04/22 08:59 Last Admin: 07/30/22 09:10 Dose: 1 gm Docusate Sodium (Docusate Sodium 100 Mg Capsule) 100 mg PO BID [facility] Last Admin: 07/30/22 08:29 Dose: 100 mg Guaifenesin/Codeine Phosphate (Guaifenesin/Codeine 10 Ml Udc) 10 ml PO Q4HP PRN PRN Reason: Cough Last Admin: 07/30/22 07:34 Dose: 10 ml Azithromycin 500 mg/ Dextrose 250 mls @ 250 mls/hr IV Q24H [facility]; Protocol Stop: 08/01/22 09:59 Last Infusion: 07/30/22 10:10 Dose: Infused Ondansetron HCl (Ondansetron 4 Mg/2 Ml Vial) 4 mg IV Q6HP PRN PRN Reason: Nausea And Vomiting Oseltamivir Phosphate (Oseltamivir Phosphate 30 Mg Capsule) 30 mg PO BID [facility] Stop: 08/03/22 21:01 Last Admin: 07/30/22 08:29 Dose: 30 mg Potassium Chloride (Potassium Chloride 20 Meq Tablet) 40 meq PO 1930 [facility] Stop: 07/30/22 21:00 Last Admin: 07/29/22 21:33 Dose: 40 meq Senna (Sennosides 1 Tablet) 2 tab PO HS [facility] Last Admin: 07/29/22 21:33 Dose: 2 tab Sodium Chloride (0.9 % Sodium Chloride 10 Ml Syringe) 10 ml IV Q8 [facility] Last Admin: 07/30/22 13:11 Dose: 10 ml A/P Narrative A/P Narrative: Assessment: 72 year old female with multiple medical comorbidities admitted for acute hypoxic respiratory failure secondary to pneumonia secondary to influenza A. #Acute hypoxic respiratory failure #Influenza A #Possible community-acquired pneumonia #Chronic nonhealing wounds on buttocks #KOFI on CKD stage 3 #Hypertension #Hyperlipidemia #Chronic anemia #Mild hypokalemia #History of PE on Eliquis #HFpEF w/ RV failuire #Hypothyroidism #Gout #GERD #History of breast cancer s/p left mastectomy #Venous stasis ulcers, present on admission #History of visual hallucinations #Obesity BMI 47 Plan -Renally dosed Tamiflu, treat five days. -Ceftriaxone and azithromycin for possible CAP. -Oxygen supplementation. -Monitor renal function and volume status. -Continue home allopurinol, Eliquis, Coreg, Depakote, gabapentin, pravastatin, torsemide, trospium, dicyclomine. -Holding home losartan and spironolactone for KOFI. -Wound care service w/ Dr. Gonzalez consulted for buttock wounds. -PT and OT. -Regular diet. -DVT prophylaxis: home Eliquis. -Disposition: TBD Plan of Treatment: Plan: Local wound care as outlined by wound nurse. Antifungal power in briefs. Will change wraps around both legs tomorrow. Will follow patient during her current hospitalization. Further recommendation as condition evolves. Time Spent With Patient Time: Total time spent is greater than 50% in coordination of care (as documented) at patient's floor/unit and/or counseling patient:
[2022-07-30] MEDS: HYDROcodone/APAP 10/325MG TABLET PO PRN (18:31)
[2022-07-30] MEDS ORDERED: Trospium 20 mg tablet PO SCH (21:00)
[2022-07-30] MEDS: ATORVASTATIN 10 MG TABLET PO SCH (21:17)
[2022-07-30] MEDS: DIVALPROEX SODIUM 250 MG TABLET PO SCH (21:17)
[2022-07-30] MEDS: SENNOSIDES 1 TABLET PO SCH (21:17)
[2022-07-30] MEDS: APIXABAN 5 MG TABLET PO SCH (21:18)
[2022-07-30] MEDS: CARVEDILOL 6.25 MG TABLET PO SCH (21:18)
[2022-07-30] MEDS: GABAPENTIN 300 MG CAPSULE PO SCH (21:18)
[2022-07-31] MEDS: 0.9 % SODIUM CHLORIDE 10 ML SYRINGE IV SCH ×3 (04:45→20:15)
[2022-07-31 06:41] LABS: Basophils # (Auto) 0.01 K/mcL (0.00-0.30); Basophils % (Auto) 0.1 % (0.0-2.0); Eosinophils # (Auto) 0.04 K/mcL (0.00-0.70); Eosinophils % (Auto) 0.3 % (0.0-7.0); Hematocrit 26.3 % (34.1-44.9); Lymphocytes % (Auto) 13.6 % (15.5-49.0); Mean Corpuscular HGB Conc 30.4 g/dL (31.0-36.0); Mean Platelet Volume 10.8 fL (8.8-12.5); Monocytes # (Auto) 0.64 K/mcL (0.10-0.90); Monocytes % (Auto) 5.4 % (1.0-12.0); Neutrophils % (Auto) 79.9 % (38.0-78.0); Platelet Count 392 K/mcL (140-440); RBC 2.71 M/mcL (3.59-5.38); Red Cell Distribution Width 17.2 % (11.5-14.5); WBC 11.8 K/mcL (4.5-11.0)
[2022-07-31 07:08] LABS: ALT/SGPT 32 U/L (<40); AST/SGOT 45 U/L (<32); Albumin 2.8 gm/dL (3.2-5.2); Albumin/Globulin Ratio 0.7 (1.0-2.3); Alkaline Phosphatase 160 U/L (39-117); Bilirubin,Direct < 0.2 mg/dL (0-0.3); Bilirubin,Total 0.2 mg/dL (0.1-1.0); Blood Urea Nitrogen 34 mg/dL (8-23); Calcium 9.7 mg/dL (8.6-10.4); Carbon Dioxide 33 mmol/L (22-30); Chloride 98 mmol/L (96-108); Globulin 4.1 gm/dL (2.2-3.7); Glomerular Filtration Rate 40; Glucose 113 mg/dL (70-105); Lactate Dehydrogenase 210 U/L (135-225); Triglycerides 141 mg/dL (<150); Uric Acid 7.6 mg/dL (2.5-8.0)
[2022-07-31] MEDS: CARVEDILOL 6.25 MG TABLET PO SCH ×2 (09:09→20:14)
[2022-07-31] MEDS: DICYCLOMINE 20 MG TABLET PO SCH (09:09)
[2022-07-31] MEDS: APIXABAN 5 MG TABLET PO SCH ×2 (09:09→20:14)
[2022-07-31] MEDS: BENZONATATE 100 MG CAPSULE PO PRN (09:09)
[2022-07-31] MEDS: DIVALPROEX 125 MG CAP.SPRINK PO SCH (09:09)
[2022-07-31] MEDS: TORSEMIDE 20 MG TABLET PO SCH (09:09)
[2022-07-31] MEDS: DOCUSATE SODIUM 100 MG CAPSULE PO SCH ×2 (09:10→20:15)
[2022-07-31] MEDS: OSELTAMIVIR PHOSPHATE 30 MG CAPSULE PO SCH ×2 (09:10→20:14)
[2022-07-31] MEDS: ALLOPURINOL 300 MG TABLET PO SCH (09:10)
[2022-07-31] MEDS: AZITHROMYCIN 500 MG in DEXTROSE 5% IN WATER 250 ML IV SCH (09:45)
[2022-07-31] MEDS: cefTRIAXone 1 GM VIAL IV SCH (09:45)
[2022-07-31] MEDS: HYDROcodone/APAP 10/325MG TABLET PO PRN ×2 (09:45→19:24)
--- NOTE | 2022-07-31 14:01 | General Surgery Progress Note ---
SUBJECTIVE Subjective Patient information: Note initiated : 07/31/22 at 1:55 pm Service Date, if different from initiated Date: [] Patient: Virgie Helms 72 y/o F admitted on 07/29/22 for SOB, cough. Chief Complaint: [] Additional PMFSH (Level 3 Only): Patient seen with nursing staff. Progress and wound care reviewed with Dr. Abreu, Hospitalist Physician. Patient is breathing better. O2 is titrated down. Talking in full sentences. Constitutional Vitals: Vital Signs Temp Pulse Resp BP Pulse Ox O2 Del Method O2 Flow Rate 98.6 F 74 18 124/62 92 1 07/31/22 12:00 07/31/22 12:00 07/31/22 12:00 07/31/22 12:00 07/31/22 12:00 07/31/22 12:00 07/31/22 12:00 Period Temp Pulse Resp BP Sys/[place] Pulse Ox O2 Del Method O2 Flow Rate Last 24 Hr 97.5 F-98.6 F 74-99 18-20 106-143/56-62 92-97 Nasal Cannula- Nasal Cannula 1-3 Intake and Output 07/31/22 07/31/22 07/31/22 03:59 11:59 19:59 Intake Total 300 610 Balance 300 610 Weight 278 lb 12.8 oz Intake & Output: Intake & Output 07/31/22 07/31/22 07/31/22 03:59 11:59 19:59 Intake Total 300 610 Balance 300 610 Weight 278 lb 12.8 oz Intake: Nourishment/Supplement quantity 240 (ml) IV 250 Zithromax 500 mg In Dextrose 5% 250 in Water 250 ml @ 250 mls/hr IV Q24H [facility] Rx#:[id number] Oral 300 120 Other: Meal Breakfast Percent of Meal Consumed Refused Nourishment/Supplement name ensure Stool Size Moderate Stool Color Brown Stool Consistency Normal for Patient # Voids 1 1 1 Exam: AVSS. No interval changes [place]. Wounds examined. Stage 3 PU both posterior lateral heels and dermatitis superimposed on lymphedema. BOTH buttock wounds are Stage 3 with loose debris clearing with daily wound care. A/P Narrative A/P Narrative: Assessment: Daily wound care for gluteal wounds. Biweekly dressing changes for Heel and Leg wounds. Plan of Treatment: Plan: Local wound care as outlined by wound nurse. Antifungal power in briefs. Will change wraps around both legs tomorrow. Will follow patient during her current hospitalization. Further recommendation as condition evolves. Time Spent With Patient Time: Total time spent is greater than 50% in coordination of care (as documented) at patient's floor/unit and/or counseling patient:
--- NOTE | 2022-07-31 14:14 | Internal Med Progress Note ---
SUBJECTIVE Subjective Patient information: Note initiated : 07/31/22 at 2:12 pm Service Date, if different from initiated Date: [] Patient: Virgie Helms 72 y/o F admitted on 07/29/22 for SOB, cough. Chief Complaint: [] Interval history: Ms. Helms is a 72 year old female with multiple comorbidities who presented to the emergency department for shortness of breath. Patient's symptoms started on July 24, 2022. She has been feeling more and more fatigued. In the emergency department, the patient was found to be hypoxic and was started on 2 L nasal cannula. She tested positive for influenza by rapid antigen test. Chest x-ray showed mild bibasilar pneumonia. Patient also has a mild leukocytosis. The patient says that she has had a nonproductive cough for the duration of her illness. Additionally, the patient had a increase in her serum creatinine level, decrease in her chronically low hemoglobin, mild hypokalemia, elevated NT proBNP. 07/30 Continues to require supplemental oxygen, 3 L/min supplementation this morning. Afebrile overnight. Patient says that she feels better today, procalcitonin elevated so started antibiotics with ceftriaxone and azithromycin. MRSA nasal PCR negative. Dr. Hagen consulted for wounds on buttocks. 07/31 Respiratory status improved, oxygen supplementation weaned down to 1 L/min. Renal function improving. Dr. Gonzalez recommended debridement of the patient's buttock wounds and offloading. Continues on ceftriaxone and azithromycin and Tamiflu. Physical exam Head: Atraumatic, normal inspection. Eyes: normal appearance, no scleral icterus. Neck: full ROM Respiratory: 1 L/min nasal cannula oxygen supplementation, does not appear to be in respiratory distress. Cardiovascular: normal rate and rhythm, S1, S2. GI/Abdominal: Obesely distended, soft, nontender, no guarding. Extremities: 2 wounds on buttocks, bilateral lower extremity wrapped with Jerry bandages. Neurological: CN II-XII intact, intact motor, intact sensation. Psychiatric: normal mood. Skin: warm, normal color Constitutional Vitals: Vital Signs Temp Pulse Resp BP Pulse Ox O2 Del Method O2 Flow Rate 98.6 F 74 18 124/62 92 1 07/31/22 12:00 07/31/22 12:07/31/22 12:07/31/22 12:07/31/22 12:00 07/31/22 12:00 07/31/22 12:00 Period Temp Pulse Resp BP Sys/[place] Pulse Ox O2 Del Method O2 Flow Rate Last 24 Hr 97.5 F-98.6 F 74-99 18-20 106-143/56-62 92-97 Nasal Cannula- Nasal Cannula 1-3 Intake and Output 07/31/22 07/31/22 07/31/22 03:59 11:59 19:59 Intake Total 300 610 Balance 300 610 Weight 126.462 kg Intake & Output: Intake & Output 07/31/22 07/31/22 07/31/22 03:59 11:59 19:59 Intake Total 300 610 Balance 300 610 Weight 126.462 kg Intake: Nourishment/Supplement quantity 240 (ml) IV 250 Zithromax 500 mg In Dextrose 5% 250 in Water 250 ml @ 250 mls/hr IV Q24H [facility] Rx#:[id number] Oral 300 120 Other: Meal Breakfast Percent of Meal Consumed Refused Nourishment/Supplement name ensure Stool Size Moderate Stool Color Brown Stool Consistency Normal for Patient # Voids 1 1 1 OBJ DATA Labs CBC & Chem 7: 07/31/22 05:31 07/31/22 05:31 Labs: Abnormal Lab Results 07/31/22 07/31/22 07/30/22 05:31 05:31 05:40 WBC 11.8 H RBC 2.71 L Hgb 8.0 L Hct 26.3 L POC Hct MCHC 30.4 L RDW 17.2 H Immature Gran % (Auto) 0.7 H Neut % (Auto) 79.9 H Lymph % (Auto) 13.6 L Lymph # (Auto) Immature Gran # 0.08 H Absolute Neutrophils 9.39 H POC VBG pH POC VBG pCO2 at Temp POC VBG HCO3 POC VBG Total CO2 POC Venous O2 Sat POC VBG Base Excess POC Potassium Carbon Dioxide 33 H 31 H POC Total CO2 Anion Gap 7.0 L POC BUN BUN 34 H 41 H Creatinine 1.3 H 1.4 H POC Creatinine Glucose 113 H 111 H POC Glucose Uric Acid 8.2 H Phosphorus 2.0 L 2.4 L GGT 62 H 61 H AST 45 H 37 H Alkaline Phosphatase 160 H 158 H NT-Pro-B Natriuret Pep Albumin 2.8 L 2.7 L Globulin 4.1 H 3.8 H Albumin/Globulin Ratio 0.7 L 0.7 L Procalcitonin 07/30/22 07/29/22 07/29/22 05:40 13:55 13:53 WBC 11.8 H RBC 2.73 L Hgb 8.1 L Hct 26.0 L POC Hct MCHC RDW 17.1 H Immature Gran % (Auto) Neut % (Auto) 86.6 H Lymph % (Auto) 8.1 L Lymph # (Auto) 0.96 L Immature Gran # Absolute Neutrophils 10.24 H POC VBG pH 7.56 H POC VBG pCO2 at Temp 37.2 L POC VBG HCO3 33.1 H POC VBG Total CO2 34.0 H POC Venous O2 Sat 79.0 H POC VBG Base Excess 11.0 H* POC Potassium Carbon Dioxide POC Total CO2 Anion Gap POC BUN BUN Creatinine POC Creatinine Glucose POC Glucose Uric Acid Phosphorus GGT AST Alkaline Phosphatase NT-Pro-B Natriuret Pep Albumin Globulin Albumin/Globulin Ratio Procalcitonin 1.24 H 07/29/22 07/29/22 07/29/22 13:53 13:53 13:51 WBC 12.5 H RBC 2.91 L Hgb 8.7 L Hct 27.4 L POC Hct 27.0 L MCHC RDW 17.2 H Immature Gran % (Auto) 0.6 H Neut % (Auto) 85.0 H Lymph % (Auto) 8.4 L Lymph # (Auto) 1.05 L Immature Gran # 0.07 H Absolute Neutrophils 10.61 H POC VBG pH POC VBG pCO2 at Temp POC VBG HCO3 POC VBG Total CO2 POC Venous O2 Sat POC VBG Base Excess POC Potassium 3.2 L Carbon Dioxide POC Total CO2 33.0 H Anion Gap POC BUN 49 H BUN Creatinine POC Creatinine 2.2 H Glucose POC Glucose 129 H Uric Acid Phosphorus GGT AST Alkaline Phosphatase NT-Pro-B Natriuret Pep 3666.0 H Albumin Globulin Albumin/Globulin Ratio Procalcitonin Meds: Medications Acetaminophen (Acetaminophen 325 Mg Tablet) 650 mg PO Q6HP PRN; Protocol PRN Reason: Per Pain Protocol/Fever > 101 Hydrocodone Bitart/Acetaminophen (Hydrocodone/Apap 10/325mg Tablet) 1 - 2 tab PO QIDP PRN; Protocol PRN Reason: Pain Last Admin: 07/31/22 09:45 Dose: 1 tab Allopurinol (Allopurinol 300 Mg Tablet) 300 mg PO DAILY [facility] Last Admin: 07/31/22 09:10 Dose: 300 mg Apixaban (Apixaban 5 Mg Tablet) 5 mg PO BID [facility] Last Admin: 07/31/22 09:09 Dose: 5 mg Atorvastatin Calcium (Atorvastatin 10 Mg Tablet) 10 mg PO [facility] Last Admin: 07/30/22 21:17 Dose: 10 mg Benzonatate (Benzonatate 100 Mg Capsule) 200 mg PO Q6HP PRN PRN Reason: Cough Last Admin: 07/31/22 09:09 Dose: 200 mg Carvedilol (Carvedilol 6.25 Mg Tablet) 6.25 mg PO BID [facility] Last Admin: 07/31/22 09:09 Dose: 6.25 mg Ceftriaxone Sodium (Ceftriaxone 1 Gm Vial) 1 gm IV Q24H [facility]; Protocol Stop: 08/04/22 08:59 Last Admin: 07/31/22 09:45 Dose: 1 gm Dicyclomine HCl (Dicyclomine 20 Mg Tablet) 10 mg PO DAILY [facility] Last Admin: 07/31/22 09:09 Dose: 10 mg Divalproex Sodium (Divalproex Sodium 250 Mg Tablet) 250 mg PO [facility] Last Admin: 07/30/22 21:17 Dose: 250 mg Divalproex Sodium (Divalproex 125 Mg Cap.Sprink) [facility] [place] Last Admin: 07/31/22 09:09 Dose: 125 mg Docusate Sodium (Docusate Sodium 100 Mg Capsule) 100 mg PO BID [facility] Last Admin: 07/31/22 09:10 Dose: 100 mg Gabapentin (Gabapentin 300 Mg Capsule) 300 mg PO [facility] Last Admin: 07/30/22 21:18 Dose: 300 mg Guaifenesin/Codeine Phosphate (Guaifenesin/Codeine 10 Ml Udc) 10 ml PO Q4HP PRN PRN Reason: Cough Last Admin: 07/30/22 07:34 Dose: 10 ml Azithromycin 500 mg/ Dextrose 250 mls @ 250 mls/hr IV Q24H [facility]; Protocol Stop: 08/01/22 09:59 Last Infusion: 07/31/22 11:02 Dose: Infused Ondansetron HCl (Ondansetron 4 Mg/2 Ml Vial) 4 mg IV Q6HP PRN PRN Reason: Nausea And Vomiting Oseltamivir Phosphate (Oseltamivir Phosphate 30 Mg Capsule) 30 mg PO BID [facility] Stop: 08/03/22 21:01 Last Admin: 07/31/22 09:10 Dose: 30 mg Senna (Sennosides 1 Tablet) 2 tab PO HS [facility] Last Admin: 07/30/22 21:17 Dose: 2 tab Sodium Chloride (0.9 % Sodium Chloride 10 Ml Syringe) 10 ml IV Q8 [facility] Last Admin: 07/31/22 04:45 Dose: 10 ml Torsemide (Torsemide 20 Mg Tablet) 20 mg PO QDAY [facility] Last Admin: 07/31/22 09:09 Dose: 20 mg A/P Narrative A/P Narrative: Assessment: 72 year old female with multiple medical comorbidities admitted for acute hypoxic respiratory failure secondary to pneumonia secondary to influenza A and possibly community-acquired bacterial pneumonia. the patient has a chronic pressure wounds on her buttocks and venous stasis ulcers on her lower extremities. 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 -Ceftriaxone and azithromycin for possible CAP. -Oxygen supplementation, wean as able. -Monitor renal function and volume status. -Continue home allopurinol, Eliquis, Coreg, Depakote, gabapentin, pravastatin, torsemide, trospium, dicyclomine. -Holding home losartan and spironolactone for KOFI. -Wound care service w/ Dr. Gonzalez consulted for buttock wounds. -PT and OT. -Regular diet. -DVT prophylaxis: home Eliquis. -Disposition: TBD Plan of Treatment: Plan: Local wound care as outlined by wound nurse. Antifungal power in briefs. Will change wraps around both legs tomorrow. Will follow patient during her current hospitalization. Further recommendation as condition evolves. Time Spent With Patient Time: Total time spent is greater than 50% in coordination of care (as documented) at patient's floor/unit and/or counseling patient:
[2022-07-31] MEDS: DIVALPROEX SODIUM 250 MG TABLET PO SCH (20:14)
[2022-07-31] MEDS: GABAPENTIN 300 MG CAPSULE PO SCH (20:14)
[2022-07-31] MEDS: ATORVASTATIN 10 MG TABLET PO SCH (20:14)
[2022-07-31] MEDS: SENNOSIDES 1 TABLET PO SCH (20:15)
[2022-07-31] MEDS: guaiFENesin/CODEINE 10 ML UDC PO PRN (20:18)
[2022-08-01] MEDS: 0.9 % SODIUM CHLORIDE 10 ML SYRINGE IV SCH ×3 (05:32→20:20)
[2022-08-01 06:52] LABS: Basophils # (Auto) 0.01 K/mcL (0.00-0.30); Basophils % (Auto) 0.1 % (0.0-2.0); Eosinophils # (Auto) 0.15 K/mcL (0.00-0.70); Eosinophils % (Auto) 1.5 % (0.0-7.0); Hematocrit 27.3 % (34.1-44.9); Hemoglobin 8.4 g/dL (11.2-15.7); Lymphocytes # (Auto) 1.45 K/mcL (1.50-4.80); Lymphocytes % (Auto) 14.2 % (15.5-49.0); Mean Cell Volume 96.5 fL (80.0-100.0); Mean Corpuscular HGB Conc 30.8 g/dL (31.0-36.0); Mean Platelet Volume 10.2 fL (8.8-12.5); Monocytes # (Auto) 0.48 K/mcL (0.10-0.90); Monocytes % (Auto) 4.7 % (1.0-12.0); Neutrophils % (Auto) 77.6 % (38.0-78.0); Platelet Count 449 K/mcL (140-440); RBC 2.83 M/mcL (3.59-5.38); Red Cell Distribution Width 17.2 % (11.5-14.5); WBC 10.2 K/mcL (4.5-11.0)
[2022-08-01 07:20] LABS: ALT/SGPT 44 U/L (<40); AST/SGOT 52 U/L (<32); Albumin 2.9 gm/dL (3.2-5.2); Albumin/Globulin Ratio 0.7 (1.0-2.3); Alkaline Phosphatase 176 U/L (39-117); Bilirubin,Direct < 0.2 mg/dL (0-0.3); Bilirubin,Total 0.2 mg/dL (0.1-1.0); Blood Urea Nitrogen 36 mg/dL (8-23); Calcium 9.4 mg/dL (8.6-10.4); Carbon Dioxide 32 mmol/L (22-30); Chloride 95 mmol/L (96-108); Globulin 4.4 gm/dL (2.2-3.7); Glomerular Filtration Rate 40; Glucose 101 mg/dL (70-105); Lactate Dehydrogenase 222 U/L (135-225); Phosphorous 2.2 mg/dL (2.5-4.5); Triglycerides 110 mg/dL (<150); Uric Acid 7.7 mg/dL (2.5-8.0)
[2022-08-01] MEDS: DOCUSATE SODIUM 100 MG CAPSULE PO SCH (08:16)
[2022-08-01] MEDS: AZITHROMYCIN 500 MG in DEXTROSE 5% IN WATER 250 ML IV SCH (08:49)
[2022-08-01] MEDS: cefTRIAXone 1 GM VIAL IV SCH (08:51)
[2022-08-01] MEDS: APIXABAN 5 MG TABLET PO SCH ×2 (08:54→20:19)
[2022-08-01] MEDS: ALLOPURINOL 300 MG TABLET PO SCH (08:54)
[2022-08-01] MEDS: OSELTAMIVIR PHOSPHATE 30 MG CAPSULE PO SCH ×2 (08:54→20:17)
[2022-08-01] MEDS: CARVEDILOL 6.25 MG TABLET PO SCH ×2 (08:54→20:17)
[2022-08-01] MEDS: TORSEMIDE 20 MG TABLET PO SCH (08:54)
[2022-08-01] MEDS: DIVALPROEX 125 MG CAP.SPRINK PO SCH (08:54)
[2022-08-01] MEDS: DICYCLOMINE 20 MG TABLET PO SCH (08:54)
[2022-08-01] MEDS ORDERED: LOPERAMIDE 2 MG CAPSULE PO PRN (09:18)
--- NOTE | 2022-08-01 12:59 | Internal Med Progress Note ---
SUBJECTIVE Subjective Patient information: Note initiated : 08/01/22 at 12:56 pm Service Date, if different from initiated Date: [] Patient: Virgie Helms 72 y/o F admitted on 07/29/22 for SOB, cough. Chief Complaint: [] Interval history: Ms. Helms is a 72 year old female with multiple comorbidities who presented to the emergency department for shortness of breath. Patient's symptoms started on July 24, 2022. She has been feeling more and more fatigued. In the emergency department, the patient was found to be hypoxic and was started on 2 L nasal cannula. She tested positive for influenza by rapid antigen test. Chest x-ray showed mild bibasilar pneumonia. Patient also has a mild leukocytosis. The patient says that she has had a nonproductive cough for the duration of her illness. Additionally, the patient had a increase in her serum creatinine level, decrease in her chronically low hemoglobin, mild hypokalemia, elevated NT proBNP. 07/30 Continues to require supplemental oxygen, 3 L/min supplementation this morning. Afebrile overnight. Patient says that she feels better today, procalcitonin elevated so started antibiotics with ceftriaxone and azithromycin. MRSA nasal PCR negative. Dr. Hagen consulted for wounds on buttocks. 07/31 Respiratory status improved, oxygen supplementation weaned down to 1 L/min. Renal function improving. Dr. Gonzalez recommended debridement of the patient's buttock wounds and offloading. Continues on ceftriaxone and azithromycin and Tamiflu. 08/01 No significant events overnight, continues on 1 L/min nasal cannula oxygen supplementation.Renal function is probably at baseline now. Changed to oral cefuroxime, discontinue ceftriaxone. Today is the last dose of azithromycin. Patient does have some diarrhea, likely antibiotic associated diarrhea. Added Imodium as needed. Physical exam Head: Atraumatic, normal inspection. Eyes: normal appearance, no scleral icterus. Neck: full ROM Respiratory: 1 L/min nasal cannula oxygen supplementation, does not appear to be in respiratory distress. Cardiovascular: normal rate and rhythm, S1, S2. GI/Abdominal: Obesely distended, soft, nontender, no guarding. Extremities: 2 wounds on buttocks, bilateral lower extremity wrapped with Jerry bandages. Neurological: CN II-XII intact, intact motor, intact sensation. Psychiatric: normal mood. Skin: warm, normal color Constitutional Vitals: Vital Signs Temp Pulse Resp BP Pulse Ox O2 Del Method O2 Flow Rate 97.7 F 72 18 120/76 96 1 08/01/22 12:00 08/01/22 12:00 08/01/22 12:00 08/01/22 12:00 08/01/22 12:00 08/01/22 12:00 08/01/22 12:00 Period Temp Pulse Resp BP Sys/[place] Pulse Ox O2 Del Method O2 Flow Rate Last 24 Hr 97.7 F-98.4 F 72-93 18-20 108-133/52-76 94-96 Nasal Cannula- Nasal Cannula 1-1 Intake and Output 08/01/22 08/01/22 08/01/22 03:59 11:59 19:59 Intake Total 900 1290 200 Output Total 200 275 200 Balance 700 1015 0 Intake & Output: Intake & Output 08/01/22 08/01/22 08/01/22 03:59 11:59 19:59 Intake Total 900 1290 200 Output Total 200 275 200 Balance 700 1015 0 Intake: Nourishment/Supplement quantity 240 (ml) IV 250 Zithromax 500 mg In Dextrose 5% 250 in Water 250 ml @ 250 mls/hr IV Q24H [facility] Rx#:[id number] Oral 900 800 200 Output: Void Amount 200 275 200 Other: Meal Breakfast Percent of Meal Consumed 100% Feeding Ability Assist with Tray Set Up Nourishment/Supplement name Ensure Urine Appearance Clear Clear Clear Urine Color Yellow Yellow Yellow Urine Odor Normal Stool Size Moderate Stool Color Brown Stool Consistency Liquid # Voids 1 # Bowel Movements 1 OBJ DATA Labs CBC & Chem 7: 08/01/22 05:50 08/01/22 05:50 Labs: Abnormal Lab Results 08/01/22 08/01/22 07/31/22 05:50 05:50 05:31 WBC RBC 2.83 L Hgb 8.4 L Hct 27.3 L POC Hct MCHC 30.8 L RDW 17.2 H Plt Count 449 H Immature Gran % (Auto) 1.9 H Neut % (Auto) Lymph % (Auto) 14.2 L Lymph # (Auto) 1.45 L Immature Gran # 0.19 H Absolute Neutrophils POC VBG pH POC VBG pCO2 at Temp POC VBG HCO3 POC VBG Total CO2 POC Venous O2 Sat POC VBG Base Excess POC Potassium Chloride 95 L Carbon Dioxide 32 H 33 H POC Total CO2 Anion Gap 7.0 L 7.0 L POC BUN BUN 36 H 34 H Creatinine 1.3 H 1.3 H POC Creatinine Glucose 113 H POC Glucose Uric Acid Phosphorus 2.2 L 2.0 L GGT 69 H 62 H AST 52 H 45 H ALT 44 H Alkaline Phosphatase 176 H 160 H NT-Pro-B Natriuret Pep Albumin 2.9 L 2.8 L Globulin 4.4 H 4.1 H Albumin/Globulin Ratio 0.7 L 0.7 L Procalcitonin 07/31/22 07/30/22 07/30/22 05:31 05:40 05:40 WBC 11.8 H 11.8 H RBC 2.71 L 2.73 L Hgb 8.0 L 8.1 L Hct 26.3 L 26.0 L POC Hct MCHC 30.4 L RDW 17.2 H 17.1 H Plt Count Immature Gran % (Auto) 0.7 H Neut % (Auto) 79.9 H 86.6 H Lymph % (Auto) 13.6 L 8.1 L Lymph # (Auto) 0.96 L Immature Gran # 0.08 H Absolute Neutrophils 9.39 H 10.24 H POC VBG pH POC VBG pCO2 at Temp POC VBG HCO3 POC VBG Total CO2 POC Venous O2 Sat POC VBG Base Excess POC Potassium Chloride Carbon Dioxide 31 H POC Total CO2 Anion Gap POC BUN BUN 41 H Creatinine 1.4 H POC Creatinine Glucose 111 H POC Glucose Uric Acid 8.2 H Phosphorus 2.4 L GGT 61 H AST 37 H ALT Alkaline Phosphatase 158 H NT-Pro-B Natriuret Pep Albumin 2.7 L Globulin 3.8 H Albumin/Globulin Ratio 0.7 L Procalcitonin 07/29/22 07/29/22 07/29/22 13:55 13:53 13:53 WBC RBC Hgb Hct POC Hct MCHC RDW Plt Count Immature Gran % (Auto) Neut % (Auto) Lymph % (Auto) Lymph # (Auto) Immature Gran # Absolute Neutrophils POC VBG pH 7.56 H POC VBG pCO2 at Temp 37.2 L POC VBG HCO3 33.1 H POC VBG Total CO2 34.0 H POC Venous O2 Sat 79.0 H POC VBG Base Excess 11.0 H* POC Potassium Chloride Carbon Dioxide POC Total CO2 Anion Gap POC BUN BUN Creatinine POC Creatinine Glucose POC Glucose Uric Acid Phosphorus GGT AST ALT Alkaline Phosphatase NT-Pro-B Natriuret Pep 3666.0 H Albumin Globulin Albumin/Globulin Ratio Procalcitonin 1.24 H 07/29/22 07/29/22 13:53 13:51 WBC 12.5 H RBC 2.91 L Hgb 8.7 L Hct 27.4 L POC Hct 27.0 L MCHC RDW 17.2 H Plt Count Immature Gran % (Auto) 0.6 H Neut % (Auto) 85.0 H Lymph % (Auto) 8.4 L Lymph # (Auto) 1.05 L Immature Gran # 0.07 H Absolute Neutrophils 10.61 H POC VBG pH POC VBG pCO2 at Temp POC VBG HCO3 POC VBG Total CO2 POC Venous O2 Sat POC VBG Base Excess POC Potassium 3.2 L Chloride Carbon Dioxide POC Total CO2 33.0 H Anion Gap POC BUN 49 H BUN Creatinine POC Creatinine 2.2 H Glucose POC Glucose 129 H Uric Acid Phosphorus GGT AST ALT Alkaline Phosphatase NT-Pro-B Natriuret Pep Albumin Globulin Albumin/Globulin Ratio Procalcitonin Meds: Medications Acetaminophen (Acetaminophen 325 Mg Tablet) 650 mg PO Q6HP PRN; Protocol PRN Reason: Per Pain Protocol/Fever > 101 Hydrocodone Bitart/Acetaminophen (Hydrocodone/Apap 10/325mg Tablet) 1 - 2 tab PO QIDP PRN; Protocol PRN Reason: Pain Last Admin: 07/31/22 19:24 Dose: 1 tab Allopurinol (Allopurinol 300 Mg Tablet) 300 mg PO DAILY [facility] Last Admin: 08/01/22 08:54 Dose: 300 mg Apixaban (Apixaban 5 Mg Tablet) 5 mg PO BID [facility] Last Admin: 08/01/22 08:54 Dose: 5 mg Atorvastatin Calcium (Atorvastatin 10 Mg Tablet) 10 mg PO HS [facility] Last Admin: 07/31/22 20:14 Dose: 10 mg Benzonatate (Benzonatate 100 Mg Capsule) 200 mg PO Q6HP PRN PRN Reason: Cough Last Admin: 07/31/22 09:09 Dose: 200 mg Carvedilol (Carvedilol 6.25 Mg Tablet) 6.25 mg PO BID [facility] Last Admin: 08/01/22 08:54 Dose: 6.25 mg Cefuroxime Axetil (Cefuroxime 500 Mg Tablet) 500 mg PO Q12 [facility]; Protocol Stop: 08/05/22 20:59 Dicyclomine HCl (Dicyclomine 20 Mg Tablet) 10 mg PO DAILY [facility] Last Admin: 08/01/22 08:54 Dose: 10 mg Divalproex Sodium (Divalproex Sodium 250 Mg Tablet) 250 mg PO [facility] Last Admin: 07/31/22 20:14 Dose: 250 mg Divalproex Sodium (Divalproex 125 Mg Cap.Sprink) 125 mg PO QAM [facility] Last Admin: 08/01/22 08:54 Dose: 125 mg Gabapentin (Gabapentin 300 Mg Capsule) 300 mg PO [facility] Last Admin: 07/31/22 20:14 Dose: 300 mg Guaifenesin/Codeine Phosphate (Guaifenesin/Codeine 10 Ml Udc) 10 ml PO Q4HP PRN PRN Reason: Cough Last Admin: 07/31/22 20:18 Dose: 10 ml Loperamide HCl (Loperamide 2 Mg Capsule) 2 mg PO PRN PRN PRN Reason: Diarrhea Last Admin: 08/01/22 09:25 Dose: 2 mg Ondansetron HCl (Ondansetron 4 Mg/2 Ml Vial) 4 mg IV Q6HP PRN PRN Reason: Nausea And Vomiting Oseltamivir Phosphate (Oseltamivir Phosphate 30 Mg Capsule) 30 mg PO BID [facility] Stop: 08/03/22 21:01 Last Admin: 08/01/22 08:54 Dose: 30 mg Senna (Sennosides 1 Tablet) 2 tab PO [facility] Last Admin: 07/31/22 20:15 Dose: Not Given Sodium Chloride (0.9 % Sodium Chloride 10 Ml Syringe) 10 ml IV Q8 [facility] Last Admin: 08/01/22 05:32 Dose: 10 ml Torsemide (Torsemide 20 Mg Tablet) 20 mg PO QDAY [facility] Last Admin: 08/01/22 08:54 Dose: 20 mg A/P Narrative A/P Narrative: Assessment: 72 year old female with multiple medical comorbidities admitted for acute hypoxic respiratory failure secondary to pneumonia secondary to influenza A and possibly community-acquired bacterial pneumonia. the patient has a chronic pressure wounds on her buttocks and venous stasis ulcers on her lower extremiti es. 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 -Start cefuroxime, discontinue ceftriaxone, completed azithromycin. -Oxygen supplementation, wean as able. -Monitor renal function and volume status. -Continue home allopurinol, Eliquis, Coreg, Depakote, gabapentin, pravastatin, torsemide, trospium, dicyclomine. -Resume home spironolactone. -Holding home losartan for recent KOFI, normal blood pressures. -Wound care service w/ Dr. Gonzalez consulted for buttock wounds. -PT and OT. -Regular diet. -DVT prophylaxis: home Eliquis. -Disposition: Low intensity rehab versus home with home health. Plan of Treatment: Plan: Local wound care as outlined by wound nurse. Antifungal power in briefs. Will change wraps around both legs tomorrow. Will follow patient during her current hospitalization. Further recommendation as condition evolves. Time Spent With Patient Time: Total time spent is greater than 50% in coordination of care (as documented) at patient's floor/unit and/or counseling patient:
[2022-08-01] MEDS: SPIRONOLACTONE 25 MG TABLET PO SCH (14:08)
[2022-08-01] MEDS: HYDROcodone/APAP 10/325MG TABLET PO PRN (15:48)
[2022-08-01] MEDS: SENNOSIDES 1 TABLET PO SCH (20:17)
[2022-08-01] MEDS: ATORVASTATIN 10 MG TABLET PO SCH (20:17)
[2022-08-01] MEDS: GABAPENTIN 300 MG CAPSULE PO SCH (20:18)
[2022-08-01] MEDS: DIVALPROEX SODIUM 250 MG TABLET PO SCH (20:18)
[2022-08-02] MEDS: 0.9 % SODIUM CHLORIDE 10 ML SYRINGE IV SCH (04:47)
--- NOTE | 2022-08-02 07:47 | Discharge Summary ---
Discharge Provider Provider IMPORTANT FOLLOW-UP INFORMATION FOR PCP: Patient information: Note initiated : 08/02/22 at 7:44 am Service Date, if different from initiated Date: [] Patient: Virgie Helms 72 y/o F admitted on 07/29/22 for SOB, cough. Chief Complaint: [] Date of admission: 07/29/22 18:01 Discharge date: 08/02/22 Primary care physician: Saud Jarvis MD Consults: 07/29/22 Consult to Physician [CONS] Stat Comment: Consulting Provider: Ned Abreu Reason For Exam: Physician to Consult 07/30/22 11:03 Consult to Physician [CONS] Routine Comment: Consulting Provider: Km Cao Reason For Exam: Physician to Consult COURSE Hospital Course Hospital course: Ms. Helms is a 72 year old female with multiple comorbidities who presented to the emergency department for shortness of breath. Patient's symptoms started on July 24, 2022. She has been feeling more and more fatigued. In the emergency department, the patient was found to be hypoxic and was started on 2 L nasal cannula. She tested positive for influenza by rapid antigen test. Chest x-ray showed mild bibasilar pneumonia. Patient also has a mild leukocytosis. The patient says that she has had a nonproductive cough for the duration of her illness. Additionally, the patient had a increase in her serum creatinine level, decrease in her chronically low hemoglobin, mild hypokalemia, elevated NT proBNP. 07/30 Continues to require supplemental oxygen, 3 L/min supplementation this morning. Afebrile overnight. Patient says that she feels better today, procalcitonin elevated so started antibiotics with ceftriaxone and azithromycin. MRSA nasal PCR negative. Dr. Hagen consulted for wounds on buttocks. 07/31 Respiratory status improved, oxygen supplementation weaned down to 1 L/min. Renal function improving. Dr. Gonzalez recommended debridement of the patient's buttock wounds and offloading. Continues on ceftriaxone and azithromycin and Tamiflu. 08/01 No significant events overnight, continues on 1 L/min nasal cannula oxygen supplementation.Renal function is probably at baseline now. Changed to oral cefuroxime, discontinue ceftriaxone. Today is the last dose of azithromycin. Patient does have some diarrhea, likely antibiotic associated diarrhea. Added Imodium as needed. 08/02 Patient is on room air today, she says that she feels like she is ready to go home. Discharged to home with home health, continue cefuroxime to complete 5 days of treatment for community-acquired pneumonia. Continue Tamiflu to continue 5 days of treatment for influenza. The patient has a appointment at the wound care clinic on the day after discharge. Physical exam Head: Atraumatic, normal inspection. Eyes: normal appearance, no scleral icterus. Neck: full ROM Respiratory: Room air, does not appear to be in respiratory distress. Cardiovascular: normal rate and rhythm, S1, S2. GI/Abdominal: Obesely distended, soft, nontender, no guarding. Extremities: 2 wounds on buttocks, bilateral lower extremity wrapped with Ejrry bandages. Neurological: CN II-XII intact, intact motor, intact sensation. Psychiatric: normal mood. Skin: warm, normal color Discharge diagnosis: Acute hypoxic respiratory failure Secondary discharge diagnosis: Community-acquired pneumonia Influenza A Chronic decubitus pressure wounds Venous stasis dermatitis complicated by chronic ulcers Time Spent with Patient Time attestation: Total time spent providing and/or coordinating discharge services: Time spent: Greater than 30 minutes EXAM Constitutional Vitals: Temp Pulse Resp BP Pulse Ox O2 Del Method O2 Flow Rate 98.2 F 78 20 144/79 94 0.5 08/02/22 04:00 08/02/22 04:00 08/02/22 04:00 08/02/22 04:00 08/02/22 04:00 08/02/22 04:00 08/01/22 19:10 Discharge Data Data Completed and Pending Labs on day of discharge: Preliminary micro results at discharge 07/29/22 14:02 Blood Culture - Preliminary Blood 07/29/22 13:51 Blood Culture - Preliminary Blood Discharge Plan Patient/Caregiver Discharge Instructions Activity: as per physical therapy Diet: Regular Diet Prescriptions: New cefuroxime axetil 500 mg tablet 500 mg PO Q12 3 Days Qty: 6 0RF loperamide 2 mg Capsule 2 mg PO PRN PRN (Reason: Diarrhea) Qty: 30 0RF oseltamivir 30 mg capsule 30 mg PO BID Qty: 4 0RF Continued (DME) pressure cushion for wheelchair Qty: 1 4RF Rx Instructions: regular size /karina needs for 99months/karina change every three months /karina levothyroxine [Levoxyl] 125 mcg tablet 125 mcg PO QDAY Qty: 90 2RF Rx Instructions: 1 tablet PO daily (DME) Breast Prosthesis left side See Rx Instructions .Route .MEDSUPPLY Qty: 1 0RF Rx Instructions: As directed (DME) Mastectomy Bras See Rx Instructions .Route .MEDSUPPLY Qty: 6 0RF Rx Instructions: As directed hydrocodone-acetaminophen 10-325 mg tablet See Rx Instructions .ROUTE .COMPLEX Qty: 120 0RF Rx Instructions: 1-2 tabs PO QID PRN dicyclomine 10 mg capsule 10 mg PO DAILY Dose Instruction: take one capsule by mouth daily as needed for STOMACH Rx Instructions: take one capsule by mouth up to four times daily as needed for STOMACH bisacodyl [Dulcolax (bisacodyl)] 10 mg suppository 10 mg ID QDAY PRN (Reason: Constipation) Glucagon (HCl) Emergency Kit 1 mg recon soln 1 mg subcut Q20M PRN (Reason: Constipation) Rx Instructions: until target blood sugar attained magnesium hydroxide [Milk of Magnesia] 400 mg/5 mL suspension 400 mg PO QDAY PRN (Reason: Abdominal Discomfort) polyethylene glycol 3350 [Miralax] 17 gram/dose powder 4 g PO QDAY losartan 50 mg tablet 50 mg PO BID Qty: 180 4RF Rx Instructions: 1 BID for HTN torsemide 20 mg tablet 20 mg PO QDAY Qty: 90 4RF carvedilol 6.25 mg tablet 6.25 mg PO BID Rx Instructions: TAKE ONE TABLET BY MOUTH TWICE DAILY FOR HTN, MUST ADMINISTER WITH MEAL/FOOD divalproex [Depakote] 125 mg tablet,delayed release (DR/EC) See Rx Instructions .ROUTE .COMPLEX Rx Instructions: 125 mg tablet: 1 tablet by mouth each morning and 2 tablets by mouth at bedtime gabapentin 300 mg capsule 300 mg PO HS Rx Instructions: TAKE 1 CAPSULE BY MOUTH AT BEDTIME allopurinol 300 mg tablet 300 mg PO DAILY Rx Instructions: TAKE ONE TABLET BY MOUTH ONCE DAILY Eliquis 5 mg tablet 5 mg PO BID Rx Instructions: TAKE ONE TABLET BY MOUTH TWICE DAILY pravastatin 40 mg tablet 40 mg PO HS Rx Instructions: TAKE ONE TABLET BY MOUTH AT BEDTIME spironolactone 25 mg tablet 25 mg PO DAILY Rx Instructions: take one tablet by mouth daily trospium 20 mg tablet 20 mg PO BID Rx Instructions: TAKE ONE TABLET BY MOUTH TWICE DAILY Discontinued celecoxib [Celebrex] 100 mg capsule 100 mg PO TID PRN (Reason: Constipation) Follow Up Plan Follow up with: Saud Jarvis MD [Primary Care Provider] - Patient Disposition: Home Health Service Plan of Treatment: Plan: Local wound care as outlined by wound nurse. Antifungal power in briefs. Will change wraps around both legs tomorrow. Will follow patient during her current hospitalization. Further recommendation as condition evolves. Overall status at discharge: patient is progressing back to baseline Discharge Orders: Discharge Order (Routine); Ordered 08/02/22 Ordered By: Ned Abreu
[2022-08-02] MEDS: APIXABAN 5 MG TABLET PO SCH (09:04)
[2022-08-02] MEDS: SPIRONOLACTONE 25 MG TABLET PO SCH (09:04)
[2022-08-02] MEDS: DICYCLOMINE 20 MG TABLET PO SCH (09:04)
[2022-08-02] MEDS: OSELTAMIVIR PHOSPHATE 30 MG CAPSULE PO SCH (09:05)
[2022-08-02] MEDS: ALLOPURINOL 300 MG TABLET PO SCH (09:05)
[2022-08-02] MEDS: DIVALPROEX 125 MG CAP.SPRINK PO SCH (09:05)
[2022-08-02] MEDS: CARVEDILOL 6.25 MG TABLET PO SCH (09:05)
[2022-08-02] MEDS: TORSEMIDE 20 MG TABLET PO SCH (09:05)
[2022-08-02] MEDS ORDERED: CEFUROXIME 500 MG TABLET PO SCH (21:00)
== END 2022-08-02 11:11 | disposition home health service (06) | DRG 189 ==
LOC: ED 12:56 → MEDSUR 18:20
PROVIDERS: ADMIT Internal Medicine; ATTEND Internal Medicine